=== PATIENT | male | born 1935 | race Caucasian/White ===

== ENCOUNTER → 2016-11-11 | Outpatient (CLI) | payer OTHER ==
[~2016-11-11] MED LIST: ASPEC81 PO; ASPI81TA28 PO; ATOR-24 PO; CLOP1TAB15 PO; DOCU100C PO; DONE10TA12 PO; FLUO20CA35 PO; INSDGI SC; INSUINJ14 SC; LPR25 PO; LPT40 PO; METO50TA7 PO; TAMS0.4C59 PO
[2016-11-11 13:34] LABS: BLOOD UREA NITROGEN 22 mg/dl (7-18); BUN/CREATININE RATIO 10.5 (10-20); CALCIUM 8.6 mg/dl (8.5-10.1); CARBON DIOXIDE 25 mmol/L (21-32); CHLORIDE 107 mmol/L (98-107); GLUCOSE 255 mg/dl (70-99); POTASSIUM 3.8 mmol/L (3.5-5.1); SODIUM 141 mmol/L (136-145)
== END | disposition home or self-care (01) ==
LOC: C.LABPBG 09:07
PROVIDERS: ATTEND Internal Medicine
DX: N17.9 Acute kidney failure, unspecified (principal)

== ENCOUNTER → 2016-11-14 | Outpatient (CLI) | payer OTHER ==
[2016-11-14 17:40] LABS: BLOOD UREA NITROGEN 26 mg/dl (7-18); BUN/CREATININE RATIO 12.6 (10-20); CALCIUM 8.9 mg/dl (8.5-10.1); CARBON DIOXIDE 27 mmol/L (21-32); CHLORIDE 108 mmol/L (98-107); GLUCOSE 147 mg/dl (70-99); POTASSIUM 4.6 mmol/L (3.5-5.1); SODIUM 142 mmol/L (136-145)
== END | disposition home or self-care (01) ==
LOC: C.LABPBG 12:01
PROVIDERS: ATTEND Internal Medicine
DX: I21.3 ST elevation (STEMI) myocardial infarction of unspecified site (principal)

== ENCOUNTER → 2016-11-28 | Outpatient (CLI) | payer OTHER ==
[2016-11-28 13:11] LABS: BLOOD UREA NITROGEN 23 mg/dl (7-18); BUN/CREATININE RATIO 12.9 (10-20); CARBON DIOXIDE 27 mmol/L (21-32); CHLORIDE 110 mmol/L (98-107); GLUCOSE 236 mg/dl (70-99); POTASSIUM 4.5 mmol/L (3.5-5.1); SODIUM 143 mmol/L (136-145)
== END | disposition home or self-care (01) ==
LOC: C.LABPBG 09:25
PROVIDERS: ATTEND Internal Medicine
DX: N18.3 Chronic kidney disease, stage 3 (moderate) (principal)

== ENCOUNTER → 2017-03-01 | Day surgery (SDC) | payer OTHER ==
[2017-02-10 15:37] VITALS: Ht 170.2 cm; Wt 67.3 kg
[~2017-03-01] VITALS: Ht 170.2 cm; Wt 67.3 kg
[~2017-03-01] MED LIST changes: +500ML BSS 0.3ML EPI 1:1000PF IRRIG ONE; +ACETAMINOPHEN 325 MG TAB PO PRN; +AMVISC PLUS 0.8ML SYRINGE INT OCU ONE; -ASPEC81 PO; +ATROPINE SULFATE 0.1 MG/ML 5ML SYR IV PRN; +AcetaZOLAMIDE 250 MG TAB PO SCH; +BETAXOLOL HCL 0.25% OP SUSP PER DROP CHARGE OPL SCH; +BRIMONIDINE TART 0.2% OP SOLN PER DROP CHARGE ONE; +BSS FLUSH ONE; -DONE10TA12 PO; +ENDOCOAT 0.85ML SYRINGE INT OCU ONE; +EpHEDrine SULFATE INJ 50 MG/ML AMP IV PRN; +EpINEphrine INJ 1MG/ML AMP 1 MG/ML AMP ONE; +FENTANYL CITRATE INJ 50 MCG/1 ML 2 ML VIAL IV PRN; +FLUMAZENIL 0.1 MG/1 ML 10 ML VIAL IV PRN; -FLUO20CA35 PO; -INSDGI SC; -INSUINJ14 SC; +LABETALOL HCL IV 5 MG/ML 20ML IV PRN; +LACTATED RINGER'S 1000ML 500 ML IV SCH; +LIDOCAINE 4% OP SOLN DROP CHARGE ONE; +LIDOCAINE 4% OP SOLN DROP CHARGE OPL SCH; +LIDOCAINE HCL 1% MPF 2 ML VIAL ONE; -LPR25 PO; -LPT40 PO; +MEPERIDINE HCL 25 MG/ML CARP IV PRN; +MIDAZOLAM HCL 1 MG/ML 2ML VIAL ONE; +MIX: 4ML BSS 1ML EPI 1:1000 PF INSTIL ONE; +MOXIFLOXACIN OPH SOLN PER DROP CHARGE ONE; +NALOXONE HCL 0.4 MG/1 ML VIAL/CARP IV PRN; +OCUCOAT 1 ML SOLN IO ONE; +ONDANSETRON INJ 2 MG/ML 2 ML VIAL IV PRN; +PHENYLEPHRINE 100MCG/ML 5ML SYR IV PRN; +POVIDONE-IODINE OP SOLN 30 ML BTL ONE; +PROPARACAINE 0.5% OP SOLN PER DROP CHARGE OPL SCH; -TAMS0.4C59 PO; +TOBRAMYCIN/DEXAMETHASONE OPH OINT PER APPLN CHARGE ONE
--- NOTE | 2017-03-01 06:45 | History & Physical Bridge - [place] ---
H&P Re-Evaluation Bridge Note: I have examined the patient, reviewed the History & Physical and in the interval since the performance of the History & Physical I have noted the following changes of clinical significance: No changes noted
[2017-03-01] MEDS: PHENYLEPHRINE HCL 2.5% OP SOLN PER DROP CHARGE OPL SCH ×2 (06:57→07:04)
[2017-03-01] MEDS: TROPICAMIDE 1% OP SOLN PER DROP CHARGE OPL SCH ×2 (06:58→07:05)
[2017-03-01] MEDS: CYCLOPENTOLATE HCL 1% OP SOLN PER DROP CHARGE OPL SCH ×2 (06:59→07:07)
[2017-03-01] MEDS: MOXIFLOXACIN OPH SOLN PER DROP CHARGE OPL SCH ×2 (07:00→07:11)
--- NOTE | 2017-03-01 07:57 | Discharge Instructions-SurgCtr ---
Discharge Instructions Date of Service Mar 01, 2017. Visit Reason for Visit: Cataract Left Eye Discharge Discharge Diagnosis / Problem: lens implant left eye Discharge Goals Goal(s): Improve function Activity Recommendations Activity Limitations: resume your previous activity Lifting Limitations: no more than 10 pounds Exercise/Sports Limitations: gradually increase as tolerated May Resume Sexual Activity: when tolerated Shower/Bathe: tomorrow Driving or Machine Use: resume 1 day after discharge Anesthesia . Post Anesthesia Instructions: If you have had General Anesthesia or IV Sedation: * Do not drive today. * Resume driving when surgeon permits. * Do not make important decisions or sign legal documents today. * Call surgeon for: 1. Temperature elevations greater than 101 degrees F. 2. Uncontrollable pain. 3. Excessive bleeding. 4. Persistent nausea and vomiting. 5. Medication intolerance (nausea, vomiting or rash). * For nausea and vomiting use only clear liquids such as: tea, soda, bouillon until nausea subsides, then gradually increase diet as tolerated. * If you have any concerns or questions, call your surgeon's office. If physician is unavailable and it is an emergency, call 911 or go to the nearest emergency room. . Instructions / Follow-Up Instructions / Follow-Up ACTIVITY RECOMMENDATIONS: * Light activities. * Mild irritation and blurred vision are common for the first few days. * You may walk outside, read, watch television. * Redness around the white part of the eye is common. MEDICATIONS: Resume previous medications unless instructed otherwise by your surgeon. * Take white Diamox (Acetazolamide) tablet at 1 pm today. Start all eye drops at 1 pm today: * Eye drops (today and tomorrow): Prednisone - one drop in operative eye every 3 hours while awake Ofloxacin - one drop in operative eye every 3 hours while awake Ilevro - one drop in operative eye once a day SPECIAL CARE INSTRUCTIONS: * Tape plastic shield over eye to sleep at night. Call your doctor at with any concerns or problems. FOLLOW UP VISIT: Follow-up with Dr Hollins at [place] office as scheduled. Diet Recommendations Home Diet: no limitations Procedures Procedures Performed: cataract extraction with lens implant Pending Studies Studies pending at discharge: no Medical Emergencies . Who to Call and When: Medical Emergencies: If at any time you feel your situation is an emergency, please call 911 immediately. . Non-Emergent Contact Non-Emergency issues call your: Retail Management Trainee Call Non-Emergent contact if: your pain is not controlled [phone] . . "Provider Documentation" section prepared by Edgardo Hollins. .
--- NOTE | 2017-03-01 07:59 | [facility] Operative Report ---
Operative Report Date of Service Mar 01, 2017. Operative Report 1. PREOPERATIVE DIAGNOSIS: Senile nuclear cataract, left eye. 2. POSTOPERATIVE DIAGNOSIS: Senile nuclear cataract, left eye. 3. PROCEDURE: Phacoemulsification of left cataract with posterior chamber lens implant, type [employer], model MX60, power +22.0 diopters. ANESTHESIA: Local standby. SURGEON: Dr. Hollins. COMPLICATIONS: None. OPERATING TIME: 10 minutes. 4. OPERATION AND FINDINGS: DESCRIPTION OF PROCEDURE: The left pupil was dilated. The anesthetic was administered using a topical technique. The left eye was prepped and draped. A speculum was placed. A clear corneal incision was formed. The chamber was filled with Amvisc Plus and Endocoat. Epinephrine solution was used. A paracentesis was placed. A capsulorrhexis was performed. The nucleus was hydrodissected. A dense lens was removed with phacoemulsification. Time was 7.30 seconds. The aspiration unit was used to remove the cortex. The capsule was filled with Amvisc Plus. The lens implant was folded and placed into the capsule. The incision was hydrated. The Amvisc was aspirated. The wound was secure. The chamber was deep. The pupil was round. Brimonidine, TobraDex ointment and Vigamox solution were placed. The speculum was removed. The patient was returned to the Recovery Room in stable condition. I attest to the content of the Intraoperative Record and any orders documented therein. Any exceptions are noted below. The scribe's documentation has been prepared in my presence, under my direction and personally reviewed by me in its entirety. I confirm that the note above accurately reflects all work, treatment, procedures, and medical decision making performed by me. I personally scribed for Edgardo Hollins M.D. ([email or web address]) on 03/01/17 at 07:59. Electronically submitted by Misty Faust ([facility]).
[2017-03-01 08:00] VITALS: TEMP 36.5
--- NOTE | 2017-03-01 08:13 | Anesthesia Progress Nt - [facility] ---
Anesthesia Post Op Note Date & Time Mar 01, 2017 at 08:13 Vital Signs Pain Intensity: 0 Vital Signs Past 12 Hours Date Time Temp Pulse Resp B/P (MAP) Pulse Ox O2 Delivery O2 Flow Rate FiO2 03/01/17 06:28 36.9 61 124/79 (94) 96 Room Air Notes Mental Status: alert / awake / arousable, participated in evaluation Pt Amnestic to Procedure: Yes Nausea / Vomiting: adequately controlled Pain: adequately controlled Airway Patency, RR, SpO2: stable & adequate BP & HR: stable & adequate Hydration State: stable & adequate Anesthetic Complications: no major complications apparent
[2017-03-01 08:29] VITALS: BP 134/84; PULSE 61; O2SAT 96
== END | disposition home or self-care (01) ==
LOC: X.SURG 06:19
PROVIDERS: ATTEND Specialist
DX: H25.12 Age-related nuclear cataract, left eye (principal); I25.2 Old myocardial infarction; E11.9 Type 2 diabetes mellitus without complications; I10 Essential (primary) hypertension; E78.5 Hyperlipidemia, unspecified; Z86.73 Personal history of transient ischemic attack (TIA), and cerebral infarction without residual deficits; Z79.82 Long term (current) use of aspirin

== ENCOUNTER → 2017-04-03 | Outpatient (CLI) | payer OTHER ==
[~2017-04-03] MED LIST changes: -500ML BSS 0.3ML EPI 1:1000PF IRRIG ONE; -ACETAMINOPHEN 325 MG TAB PO PRN; -AMVISC PLUS 0.8ML SYRINGE INT OCU ONE; -ATROPINE SULFATE 0.1 MG/ML 5ML SYR IV PRN; -AcetaZOLAMIDE 250 MG TAB PO SCH; -BETAXOLOL HCL 0.25% OP SUSP PER DROP CHARGE OPL SCH; -BRIMONIDINE TART 0.2% OP SOLN PER DROP CHARGE ONE; -BSS FLUSH ONE; -ENDOCOAT 0.85ML SYRINGE INT OCU ONE; -EpHEDrine SULFATE INJ 50 MG/ML AMP IV PRN; -EpINEphrine INJ 1MG/ML AMP 1 MG/ML AMP ONE; -FENTANYL CITRATE INJ 50 MCG/1 ML 2 ML VIAL IV PRN; -FLUMAZENIL 0.1 MG/1 ML 10 ML VIAL IV PRN; -LABETALOL HCL IV 5 MG/ML 20ML IV PRN; -LACTATED RINGER'S 1000ML 500 ML IV SCH; -LIDOCAINE 4% OP SOLN DROP CHARGE ONE; -LIDOCAINE 4% OP SOLN DROP CHARGE OPL SCH; -LIDOCAINE HCL 1% MPF 2 ML VIAL ONE; -MEPERIDINE HCL 25 MG/ML CARP IV PRN; -MIDAZOLAM HCL 1 MG/ML 2ML VIAL ONE; -MIX: 4ML BSS 1ML EPI 1:1000 PF INSTIL ONE; -MOXIFLOXACIN OPH SOLN PER DROP CHARGE ONE; -NALOXONE HCL 0.4 MG/1 ML VIAL/CARP IV PRN; -OCUCOAT 1 ML SOLN IO ONE; -ONDANSETRON INJ 2 MG/ML 2 ML VIAL IV PRN; -PHENYLEPHRINE 100MCG/ML 5ML SYR IV PRN; -POVIDONE-IODINE OP SOLN 30 ML BTL ONE; -PROPARACAINE 0.5% OP SOLN PER DROP CHARGE OPL SCH; -TOBRAMYCIN/DEXAMETHASONE OPH OINT PER APPLN CHARGE ONE
[2017-04-03 13:46] LABS: ESTIMATED AVERAGE GLUCOSE 197 mg/dl; HA1C FLAG Normal (Normal)
[2017-04-03 14:41] LABS: ALT/SGPT 24 U/L (12-78); BLOOD UREA NITROGEN 24 mg/dl (7-18); BUN/CREATININE RATIO 12.9 (10-20); CALCIUM 9.3 mg/dl (8.5-10.1); CARBON DIOXIDE 27 mmol/L (21-32); CHLORIDE 103 mmol/L (98-107); CREATININE 1.89 mg/dl (0.60-1.40); GLUCOSE 200 mg/dl (70-99); POTASSIUM 4.2 mmol/L (3.5-5.1); SODIUM 139 mmol/L (136-145)
[2017-04-03 14:42] LABS: ALB/GLOB RATIO 0.9 (0.9-2); ALKALINE PHOSPHATASE 188 U/L (45-117); AST/SGOT 22 U/L (15-37)
== END | disposition home or self-care (01) ==
LOC: C.LABPBG 09:52
PROVIDERS: ATTEND Internal Medicine
DX: G30.9 Alzheimer's disease, unspecified (principal); N18.3 Chronic kidney disease, stage 3 (moderate); I25.10 Atherosclerotic heart disease of native coronary artery without angina pectoris; E11.22 Type 2 diabetes mellitus with diabetic chronic kidney disease; I35.0 Nonrheumatic aortic (valve) stenosis

== ENCOUNTER 2019-11-03 15:05 | Inpatient (IN) ==
--- NOTE | 2019-11-03 15:55 | Emergency Department Note ---
History of Present Illness General Chief complaint: Hyperglycemia Stated complaint: HIGH BLOOD SUGAR Time Seen by Provider: 11/03/19 15:26 Source: patient Mode of arrival: ambulatory Limitations: altered mental status History of Present Illness Provider complaint: Polydipsia, polyuria Onset (ago): week(s) Severity: moderate Maximum Pain Intensity: 0 Associated symptoms: + denies other symptoms Treatments prior to arrival: none This is an 83-year-old male from home brought in by his daughter today due to recent increased thirst and urination. Daughter says patient does have a history of dementia and approximately 7 years ago stopped taking his medications. He does live with his elderly who she states has had a decline in her cognition as well. She has been unable to persuade him to take his medications either. She states the children became more involved recently after the fell. She states they have contacted the agency on aging as well as a few local facilities to try and begin to arrange a transition into assisted living. She states the patient had otherwise not shown any obvious signs or symptoms nor complained of anything. She states he is supposed to be taking other medications for his blood pressure and his heart, however has been noncompliant with those also. She states he has been a diabetic for many many years, initially starting on oral therapy and then transitioning to insulin injections. She states really people who have been in and out of their home are her and her 2 siblings. She states no one has otherwise recently been sick. No known exposure to any coronavirus positive individual. They state they do not know of any recent fall by the patient. Pt seen during a time of high acuity and national emergency pandemic while wearing PPE. Home Medications Home Medications Medication Instructions Recorded Confirmed Type aspirin 81 mg tablet,delayed 81 mg PO DAILY 01/15/19 11/03/19 History release atorvastatin 40 mg tablet 40 mg PO DAILY 01/15/19 11/03/19 History clopidogrel 75 mg tablet 75 mg PO DAILY 01/15/19 11/03/19 History docusate sodium 100 mg capsule 100 mg PO DAILY 01/15/19 11/03/19 History metoprolol succinate 50 mg 50 mg PO DAILY 01/15/19 11/03/19 History tablet,extended release 24 hr Allergies Allergy/AdvReac Type Severity Reaction Status Date / Time codeine Allergy Mild UNKNOWN Verified 11/03/19 16:05 REACTION gemfibrozil Allergy Verified 11/03/19 16:05 niacin Allergy Verified 11/03/19 16:05 simvastatin Allergy Verified 11/03/19 16:05 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) Family History Father Acute myocardial infarction Mother Acute myocardial infarction Family history of suicide Unknown Diabetes Heart disease Hypertension Social History Preferred Language: Polish Communication Ability: Effective Visual Impairment: Limited Hearing Ability: Hard of Hearing Applications Programmer Required: No Beliefs That Will Affect Care: None marital status: Current Living Situation: Spouse current occupational status: retired Other Information That Helps Us Care for You: No Feels Safe at Home: Yes Safety Concerns: Feels Safe At This Time Smoking Status: Never smoker Second Hand Exposure: Yes (as a child) ; Hx Alcohol Use: No Hx Substance Use: No Childhood Exposure to Second-Hand Smoke: Yes Diet Comment: well balanced. caffeine: Yes (Coffee x 2 per day.) during the past year weight has: decreased > 10 lbs Dental Care, Regularly: No Physical Activity Frequency: Does not Exercise Seatbelt Use: always Sunscreen Use: No Review of Systems See HPI for pertinent positives & negatives. and A total of 10 systems reviewed and were otherwise negative Physical Exam Vital Signs Vital Signs - 24 hr 11/03/19 15:08 11/03/19 17:00 11/03/19 18:45 Temperature 36.9 C Temperature Source Oral Pulse Rate 74 74 76 Pulse Rate from SpO2 Sensor 76 Pulse Rhythm Regular Pulse Strength Normal Respiratory Rate 20 15 18 Respiratory Effort / Characteristics Non-Labored Respiratory Depth Normal Respiratory Pattern Regular Blood Pressure 145/76 H 113/70 111/78 Blood Pressure Mean 99 84 92 Blood Pressure Position Sitting Pulse Oximetry 98 97 97 Oxygen Delivery Method Room Air Sepsis Recent Fever Within 48 Hours No Sepsis Action Taken by Nursing No Action Required GENERAL: alert, well appearing, well nourished, no distress, non-toxic EYE EXAM: normal conjunctiva, PERRL and EOM's grossly intact OROPHARYNX: no exudate, no erythema, lips, buccal mucosa, and tongue normal and mucous membranes are moist NECK: supple, no nuchal rigidity, no adenopathy, non-tender LUNGS: Clear to auscultation. Normal chest wall mechanics, no w/r/r HEART: no murmurs, S1 normal and S2 normal ABDOMEN: abdomen soft, non-tender, normo-active bowel sounds, no masses, no rebound or guarding. BACK: Back is symmetrical on inspection and there is no deformity, no midline tenderness, no CVA tenderness. SKIN: no rashes and no bruising, no petechia UPPER EXTREMITIES: upper extremities are grossly normal. FROM, nml pulses b/l. LOWER EXTREMITIES: No pitting edema. FROM, nml pulses b/l. NEURO EXAM: pt can answer a few simple questions, otherwise confused, cranial nerves II-XII grossly intact, normal speech, no facial droop, no gross weakness of arms, no gross weakness of legs. Gross sensation intact. Course Course 1744: Pt and daughter updated on results. Discussed disposition. Will ask watch caser to help discuss options with them. 1824: vice president planning met with pt and family. I discussed concerns about him returning home at this time and daughter in agreement with plan. 1934: Discussed with hospitalist. Administered Medications Atorvastatin Calcium (Lipitor) 40 mg PO DAILY [facility] Stop: 12/04/19 08:59 Last Admin: 11/05/19 08:49 Dose: 40 mg Documented by: [id number] Admin: 11/04/19 08:32 Dose: 40 mg Documented by: [id number] Clopidogrel Bisulfate (Plavix) 75 mg PO DAILY [facility] Stop: 12/04/19 08:59 Last Admin: 11/05/19 08:49 Dose: 75 mg Documented by: [id number] Admin: 11/04/19 08:32 Dose: 75 mg Documented by: [id number] Docusate Sodium (Colace) 100 mg PO DAILY [facility] Stop: 12/04/19 08:59 Last Admin: 11/05/19 08:49 Dose: 100 mg Documented by: [id number] Admin: 11/04/19 08:32 Dose: 100 mg Documented by: [id number] Heparin Sodium (Porcine) (Heparin Sodium (Porcine)) 5,000 units SQ Q12 [facility] Stop: 12/03/19 21:15 Last Admin: 11/05/19 20:46 Dose: 5,000 units Documented by: [id number] Cosigned by: [id number] Admin: 11/05/19 08:41 Dose: 5,000 units Documented by: [id number] Cosigned by: [id number] Admin: 11/04/19 20:29 Dose: 5,000 units Documented by: [id number] Cosigned by: [id number] Admin: 11/04/19 08:30 Dose: 5,000 units Documented by: [id number] Cosigned by: [id number] Admin: 11/03/19 22:23 Dose: 5,000 units Documented by: [id number] Cosigned by: [id number] Insulin Aspart (Novolog Flexpen) 0 units SC ACHS [facility]; Protocol Stop: 12/04/19 07:29 Last Admin: 11/05/19 20:46 Dose: 2 units Documented by: [id number] Cosigned by: [id number] Admin: 11/05/19 17:34 Dose: Not Given Documented by: [id number] Admin: 11/05/19 12:33 Dose: 7 units Documented by: [id number] Cosigned by: [id number] Admin: 11/05/19 08:40 Dose: 4 units Documented by: [id number] Cosigned by: [id number] Admin: 11/04/19 20:28 Dose: 1 units Documented by: [id number] Cosigned by: [id number] Admin: 11/04/19 17:31 Dose: 6 units Documented by: [id number] Cosigned by: [id number] Admin: 11/04/19 12:19 Dose: 4 units Documented by: [id number] Cosigned by: [id number] Admin: 11/04/19 08:29 Dose: 2 units Documented by: [id number] Cosigned by: [id number] Insulin Glargine (Lantus Solostar Pen) 7 units SC BID [facility]; Protocol Stop: 12/05/19 08:59 Last Admin: 11/05/19 20:45 Dose: 7 units Documented by: [id number] Cosigned by: [id number] Admin: 11/05/19 08:41 Dose: 7 units Documented by: [id number] Cosigned by: [id number] Melatonin (Melatonin) 3 mg PO HS PRN PRN Reason: Sleep Stop: 12/05/19 17:08 Last Admin: 11/05/19 20:45 Dose: 3 mg Documented by: [id number] Metoprolol Succinate (Toprol Xl) 25 mg PO QAM [facility] Stop: 12/05/19 08:59 Last Admin: 11/05/19 08:50 Dose: 25 mg Documented by: [id number] Quetiapine Fumarate (Seroquel) 25 mg PO HS [facility] Stop: 12/05/19 20:59 Last Admin: 11/05/19 20:49 Dose: 25 mg Documented by: [id number] Discontinued Medications Sodium Chloride (Nss 1000ml) 1,000 mls @ 125 mls/hr IV .Q8H [facility] Stop: 12/03/19 15:59 Last Infusion: 11/04/19 14:41 Dose: 0 mls/hr Documented by: [id number] Admin: 11/04/19 10:03 Dose: 125 mls/hr Documented by: [id number] Infusion: 11/04/19 09:20 Dose: 125 mls/hr Documented by: [id number] Admin: 11/04/19 01:20 Dose: 125 mls/hr Documented by: [id number] Infusion: 11/03/19 19:24 Dose: 0 mls/hr Documented by: [id number] Admin: 11/03/19 16:03 Dose: 125 mls/hr Documented by: [id number] Insulin Aspart (Novolog Flexpen) 2 units SC ACHS [facility] Stop: 11/04/19 07:31 Last Admin: 11/04/19 08:29 Dose: 2 units Documented by: [id number] Cosigned by: [id number] Insulin Glargine (Lantus Solostar Pen) 5 units SQ NOW STA Stop: 11/04/19 05:58 Last Admin: 11/04/19 06:10 Dose: 5 units Documented by: [id number] Cosigned by: [id number] Insulin Glargine (Lantus Solostar Pen) 5 units SC QAM [facility] Stop: 12/05/19 08:59 Last Admin: 11/04/19 08:31 Dose: 5 units Documented by: [id number] Cosigned by: [id number] Insulin Glargine (Lantus Solostar Pen) 5 units SC BID [facility]; Protocol Stop: 12/04/19 20:59 Last Admin: 11/04/19 20:28 Dose: 5 units Documented by: [id number] Cosigned by: [id number] Insulin Human Regular (Novolin R U-100 Per Unit) 10 units SC NOW STA Stop: 11/03/19 16:51 Last Admin: 11/03/19 17:06 Dose: 10 units Documented by: [id number] Cosigned by: [id number] Medical Decision Making Differential Diagnosis Differential Diagnosis includes but is not limited to dehydration, stroke, anemia, hypoglycemia, hyponatremia, hypernatremia, urinary tract infection, pneumonia, bronchitis, sepsis, gastroenteritis, additional abdominal pathology, metabolic abnormalities and infections. Medical Records Attestation: I reviewed the patient's medical records. Home Medications Current Medication List: was personally reviewed by me Laboratory Data Attestation: I reviewed the patient's lab results. Result diagrams: 11/04/19 05:54 11/05/19 07:14 Lab Results 11/03/19 11/03/19 11/03/19 Range/Units 15:19 15:37 15:37 WBC 10.67 (4.8-10.8) K/uL RBC 4.78 (4.7-6.1) M/uL Hgb 15.0 (14.0-18.0) g/dL Hct 42.9 (42-52) % MCV 89.7 (80-100) fL MCH 31.4 (25-34) pg MCHC 35.0 (32-36) g/dL RDW Std Deviation (36.4-46.3) fL RDW Coeff of Gordo (11.5-14.5) % Plt Count 192 (130-400) K/uL MPV (7.4-10.4) fL Immature Gran % (Auto) 0.2 % Neut % (Auto) 75.9 % Lymph % (Auto) 15.8 % [place] % (Auto) 6.9 % Eos % (Auto) 1.1 % Baso % (Auto) 0.1 % Immature Gran # (Auto) 0.02 (0.00-0.02) K/uL Neut # (Auto) 8.09 H (1.4-6.5) K/uL Lymph # (Auto) 1.69 (1.2-3.4) K/uL [place] # (Auto) 0.74 H (0.11-0.59) K/uL Eos # (Auto) 0.12 (0-0.5) K/uL Baso # (Auto) 0.01 (0-0.2) K/uL Sodium 126 L (136-145) mmol/L Potassium 4.7 (3.5-5.1) mmol/L Chloride 91 L (98-107) mmol/L Carbon Dioxide 26 (21-32) mmol/L Anion Gap 8.0 (3-11) BUN 45 H (7-18) mg/dl Creatinine 2.00 H (0.6-1.4) mg/dl Est Cr Clr Drug Dosing Not Reportable Est GFR ( Amer) 34.3 Est GFR (Non-Af Amer) 29.6 BUN/Creatinine Ratio 22.7 H (10-20) Glucose 637 H* (70-99) mg/dl POC Glucose > 600 H* (70-99) mg/dl Estimat Average Glucose mg/dl Hemoglobin A1c (4.5-5.6) % Calcium 9.1 (8.5-10.1) mg/dl Magnesium 1.9 (1.8-2.4) mg/dl Total Bilirubin 0.5 (0.2-1) mg/dl AST 16 (15-37) U/L ALT 18 (12-78) U/L Alkaline Phosphatase 190 H (45-117) U/L Troponin I < 0.015 (0-0.045) ng/ml Total Protein 8.3 H (6.4-8.2) gm/dl Albumin 3.2 L (3.4-5.0) gm/dl Globulin 5.1 H (2.5-4.0) gm/dl Albumin/Globulin Ratio 0.6 L (0.9-2) Lipase 153 (73-393) U/L Beta-Hydroxybutyric Acd 1.57 (0.2-2.81) mg/dl TSH 1.080 (0.300-4.500) uIu/ml Specimen Hemolysis 11/03/19 11/03/19 11/03/19 Range/Units 17:43 18:43 21:17 WBC (4.8-10.8) K/uL RBC (4.7-6.1) M/uL Hgb (14.0-18.0) g/dL Hct (42-52) % MCV (80-100) fL MCH (25-34) pg MCHC (32-36) g/dL RDW Std Deviation (36.4-46.3) fL RDW Coeff of Gordo (11.5-14.5) % Plt Count (130-400) K/uL MPV (7.4-10.4) fL Immature Gran % (Auto) % Neut % (Auto) % Lymph % (Auto) % [place] % (Auto) % Eos % (Auto) % Baso % (Auto) % Immature Gran # (Auto) (0.00-0.02) K/uL Neut # (Auto) (1.4-6.5) K/uL Lymph # (Auto) (1.2-3.4) K/uL [place] # (Auto) (0.11-0.59) K/uL Eos # (Auto) (0-0.5) K/uL Baso # (Auto) (0-0.2) K/uL Sodium (136-145) mmol/L Potassium (3.5-5.1) mmol/L Chloride (98-107) mmol/L Carbon Dioxide (21-32) mmol/L Anion Gap (3-11) BUN (7-18) mg/dl Creatinine (0.6-1.4) mg/dl Est Cr Clr Drug Dosing Est GFR ( Amer) Est GFR (Non-Af Amer) BUN/Creatinine Ratio (10-20) Glucose (70-99) mg/dl POC Glucose 539 H* 437 H* 243 H (70-99) mg/dl Estimat Average Glucose mg/dl Hemoglobin A1c (4.5-5.6) % Calcium (8.5-10.1) mg/dl Magnesium (1.8-2.4) mg/dl Total Bilirubin (0.2-1) mg/dl AST (15-37) U/L ALT (12-78) U/L Alkaline Phosphatase (45-117) U/L Troponin I (0-0.045) ng/ml Total Protein (6.4-8.2) gm/dl Albumin (3.4-5.0) gm/dl Globulin (2.5-4.0) gm/dl Albumin/Globulin Ratio (0.9-2) Lipase (73-393) U/L Beta-Hydroxybutyric Acd (0.2-2.81) mg/dl TSH (0.300-4.500) uIu/ml Specimen Hemolysis 11/04/19 11/04/19 11/04/19 Range/Units 00:32 03:18 05:21 WBC (4.8-10.8) K/uL RBC (4.7-6.1) M/uL Hgb (14.0-18.0) g/dL Hct (42-52) % MCV (80-100) fL MCH (25-34) pg MCHC (32-36) g/dL RDW Std Deviation (36.4-46.3) fL RDW Coeff of Gordo (11.5-14.5) % Plt Count (130-400) K/uL MPV (7.4-10.4) fL Immature Gran % (Auto) % Neut % (Auto) % Lymph % (Auto) % [place] % (Auto) % Eos % (Auto) % Baso % (Auto) % Immature Gran # (Auto) (0.00-0.02) K/uL Neut # (Auto) (1.4-6.5) K/uL Lymph # (Auto) (1.2-3.4) K/uL [place] # (Auto) (0.11-0.59) K/uL Eos # (Auto) (0-0.5) K/uL Baso # (Auto) (0-0.2) K/uL Sodium (136-145) mmol/L Potassium (3.5-5.1) mmol/L Chloride (98-107) mmol/L Carbon Dioxide (21-32) mmol/L Anion Gap (3-11) BUN (7-18) mg/dl Creatinine (0.6-1.4) mg/dl Est Cr Clr Drug Dosing Est GFR ( Amer) Est GFR (Non-Af Amer) BUN/Creatinine Ratio (10-20) Glucose (70-99) mg/dl POC Glucose 226 H 227 H 234 H (70-99) mg/dl Estimat Average Glucose mg/dl Hemoglobin A1c (4.5-5.6) % Calcium (8.5-10.1) mg/dl Magnesium (1.8-2.4) mg/dl Total Bilirubin (0.2-1) mg/dl AST (15-37) U/L ALT (12-78) U/L Alkaline Phosphatase (45-117) U/L Troponin I (0-0.045) ng/ml Total Protein (6.4-8.2) gm/dl Albumin (3.4-5.0) gm/dl Globulin (2.5-4.0) gm/dl Albumin/Globulin Ratio (0.9-2) Lipase (73-393) U/L Beta-Hydroxybutyric Acd (0.2-2.81) mg/dl TSH (0.300-4.500) uIu/ml Specimen Hemolysis 11/04/19 11/04/19 11/04/19 Range/Units 05:54 05:54 05:54 WBC 8.14 (4.8-10.8) K/uL RBC 4.39 L (4.7-6.1) M/uL Hgb 13.7 L (14.0-18.0) g/dL Hct 39.3 L (42-52) % MCV 89.5 (80-100) fL MCH 31.2 (25-34) pg MCHC 34.9 (32-36) g/dL RDW Std Deviation 40.0 (36.4-46.3) fL RDW Coeff of Gordo 12.4 (11.5-14.5) % Plt Count 156 (130-400) K/uL MPV 10.3 (7.4-10.4) fL Immature Gran % (Auto) 0.2 % Neut % (Auto) 71.0 % Lymph % (Auto) 18.7 % [place] % (Auto) 7.4 % Eos % (Auto) 2.3 % Baso % (Auto) 0.4 % Immature Gran # (Auto) 0.02 (0.00-0.02) K/uL Neut # (Auto) 5.78 (1.4-6.5) K/uL Lymph # (Auto) 1.52 (1.2-3.4) K/uL [place] # (Auto) 0.60 H (0.11-0.59) K/uL Eos # (Auto) 0.19 (0-0.5) K/uL Baso # (Auto) 0.03 (0-0.2) K/uL Sodium 136 D (136-145) mmol/L Potassium 3.9 D (3.5-5.1) mmol/L Chloride 103 (98-107) mmol/L Carbon Dioxide 26 (21-32) mmol/L Anion Gap 7.0 (3-11) BUN 38 H (7-18) mg/dl Creatinine 1.50 H D (0.6-1.4) mg/dl Est Cr Clr Drug Dosing 33.6 Est GFR ( Amer) 48.5 Est GFR (Non-Af Amer) 41.9 BUN/Creatinine Ratio 25.0 H (10-20) Glucose 259 H (70-99) mg/dl POC Glucose (70-99) mg/dl Estimat Average Glucose 275 mg/dl Hemoglobin A1c 11.2 H (4.5-5.6) % Calcium 8.4 L (8.5-10.1) mg/dl Magnesium (1.8-2.4) mg/dl Total Bilirubin (0.2-1) mg/dl AST (15-37) U/L ALT (12-78) U/L Alkaline Phosphatase (45-117) U/L Troponin I (0-0.045) ng/ml Total Protein (6.4-8.2) gm/dl Albumin (3.4-5.0) gm/dl Globulin (2.5-4.0) gm/dl Albumin/Globulin Ratio (0.9-2) Lipase (73-393) U/L Beta-Hydroxybutyric Acd (0.2-2.81) mg/dl TSH (0.300-4.500) uIu/ml Specimen Hemolysis 11/04/19 11/04/19 Range/Units 07:48 07:50 WBC (4.8-10.8) K/uL RBC (4.7-6.1) M/uL Hgb (14.0-18.0) g/dL Hct (42-52) % MCV (80-100) fL MCH (25-34) pg MCHC (32-36) g/dL RDW Std Deviation (36.4-46.3) fL RDW Coeff of Gordo (11.5-14.5) % Plt Count (130-400) K/uL MPV (7.4-10.4) fL Immature Gran % (Auto) % Neut % (Auto) % Lymph % (Auto) % [place] % (Auto) % Eos % (Auto) % Baso % (Auto) % Immature Gran # (Auto) (0.00-0.02) K/uL Neut # (Auto) (1.4-6.5) K/uL Lymph # (Auto) (1.2-3.4) K/uL [place] # (Auto) (0.11-0.59) K/uL Eos # (Auto) (0-0.5) K/uL Baso # (Auto) (0-0.2) K/uL Sodium (136-145) mmol/L Potassium (3.5-5.1) mmol/L Chloride (98-107) mmol/L Carbon Dioxide (21-32) mmol/L Anion Gap (3-11) BUN (7-18) mg/dl Creatinine (0.6-1.4) mg/dl Est Cr Clr Drug Dosing Est GFR ( Amer) Est GFR (Non-Af Amer) BUN/Creatinine Ratio (10-20) Glucose (70-99) mg/dl POC Glucose 317 H* 276 H (70-99) mg/dl Estimat Average Glucose mg/dl Hemoglobin A1c (4.5-5.6) % Calcium (8.5-10.1) mg/dl Magnesium (1.8-2.4) mg/dl Total Bilirubin (0.2-1) mg/dl AST (15-37) U/L ALT (12-78) U/L Alkaline Phosphatase (45-117) U/L Troponin I (0-0.045) ng/ml Total Protein (6.4-8.2) gm/dl Albumin (3.4-5.0) gm/dl Globulin (2.5-4.0) gm/dl Albumin/Globulin Ratio (0.9-2) Lipase (73-393) U/L Beta-Hydroxybutyric Acd (0.2-2.81) mg/dl TSH (0.300-4.500) uIu/ml Specimen Hemolysis ECG Data Attestation: I personally reviewed and interpreted this ECG as follows: Indication: + altered mental status Rate (beats per minute): 82 Rhythm: + normal sinus ECG Intervals/blocks: + Normal QRS and + Normal QT ECG [place]: + Normal ECG Findings: + Q waves (III, aVF) Blood Pressure Blood Pressure Findings: Elevated blood pressure Blood Pressure Disposition: Referred to patients primary care provider MDM Narrative THis is an elderly male brought by his daughter to the ER after family noticed increased urination and drinking water. Pt has long hx of DM and per the daughter with his decline in cognition, he began refusing to take his medications several years ago. Pt with mardedly elevated glucose. It is unclear how long it may have been this high. No evidence of DKA. More likely HHNK evolving. Pt with no complaints here. VS stable. Pt with CKD, Cr today similar compared to prior in EMR. No evidence of acute infection. Pseudohyponatremia noted. UA pending given polyuria. Discussed with pt and daughter and asked watch caser to assist with information for additional care. Discussed admission at this time given risks and need for additional glucose control and they were in agreement. An order was placed for continuous cardiac monitoring. The monitor shows a rate of _96_ with normal sinus_ rhythm. Impression & Plan Hyperglycemia, Dementia Discharge Plan Visit Data *Final* Discharge Date/Time: 11/03/19 20:55 Chief Complaint: Hyperglycemia Stated Complaint: HIGH BLOOD SUGAR ED Provider: Leann Sanchez Discharge Problem: Hyperglycemia, Dementia Patient Disposition: Admitted As Inpatient Condition: Good Discharge Instructions Interventions: ED Discharge Assessment Last Done: 11/03/19 20:55
[2019-11-03] MEDS: SODIUM CHLORIDE 0.9% 1000ML 1,000 ML IV SCH (16:03)
[2019-11-03 16:21] LABS: Basophils # (auto) 0.01 K/uL (0-0.2); Basophils % (auto) 0.1 %; Eosinophils # (auto) 0.12 K/uL (0-0.5); Eosinophils % (auto) 1.1 %; Hematocrit (blood only) 42.9 % (42-52); Immature Granulocytes # (auto) 0.02 K/uL (0.00-0.02); Immature Granulocytes % (auto) 0.2 %; Lymphocytes # (auto) 1.69 K/uL (1.2-3.4); Lymphocytes % (auto) 15.8 %; Mean Corpuscular Hemoglobin 31.4 pg (25-34); Mean Corpuscular Volume 89.7 fL (80-100); Monocytes # (auto) 0.74 K/uL (0.11-0.59); Monocytes % (auto) 6.9 %; Neutrophils # (auto) 8.09 K/uL (1.4-6.5); Neutrophils % (auto) 75.9 %; Platelet Count 192 K/uL (130-400); Red Blood Count 4.78 M/uL (4.7-6.1); White Blood Count 10.67 K/uL (4.8-10.8)
[2019-11-03 16:22] LABS: Alanine Aminotransferase 18 U/L (12-78); Albumin Globulin Ratio 0.6 (0.9-2); Albumin Level 3.2 gm/dl (3.4-5.0); Alkaline Phosphatase 190 U/L (45-117); Aspartate Aminotransferase 16 U/L (15-37); BUN Creatinine Ratio 22.7 (10-20); Bilirubin,Total 0.5 mg/dl (0.2-1); Blood Urea Nitrogen 45 mg/dl (7-18); Calcium 9.1 mg/dl (8.5-10.1); Carbon Dioxide 26 mmol/L (21-32); Chloride 91 mmol/L (98-107); Est GFR (African American) 34.3; Est GFR (Non-African American) 29.6; Globulin 5.1 gm/dl (2.5-4.0); Glucose 637 mg/dl (70-99); Lipase 153 U/L (73-393); Magnesium 1.9 mg/dl (1.8-2.4); Potassium 4.7 mmol/L (3.5-5.1); Sodium 126 mmol/L (136-145); Total Protein 8.3 gm/dl (6.4-8.2); Troponin I < 0.015 ng/ml (0-0.045)
[2019-11-03 16:36] LABS: Beta-Hydroxybutyrate 1.57 mg/dl (0.2-2.81)
[2019-11-03] MEDS ORDERED: NovoLIN-R INSULIN PER UNIT CHARGE SC STA (16:50)
--- NOTE | 2019-11-03 20:06 | History & Physical Report ---
Date of Service November 03, 2019 Assessment & Plan (1) Severe hyperglycemia due to diabetes mellitus: Faisal is a 83yo M with a PMHx of OH, diverticulitis, BPH, HLD, T2DM, CKD, CAD, and Alzheimers dementia who as not taken any medications 'since 2012' who presents with hyperglycemia. Hyperglycemia, hyperglycemic hyperosmolar state Serum glucose greater than 600 on admission. No signs of infection, no fever, no leukocytosis, suspect dietary w/ type 2 diabetes mellitus without oral anti-glycemic regimen. Beta hydroxybutyrate negative. No increased anion gap. Serum bicarb normal. Received 10 units of insulin regular subcu on admission, glucose downtrending currently in 400s Glucose checks every 2 hours, trend until glucose bottoms out/increases and then will determine further insulin dosing at that time IVFM NSS continue 125 cc/h N.p.o. at this time Lipase 153 TSH negative Type 2 diabetes mellitus HHS treatment as above A1c pending Patient will likely need to start oral anti-glycemic agent with close follow-up to PCP. No foot ulcers or neuropathy noted on exam. Defer JASSON/ARB in the setting of suspected MELANIA Pseudohyponatremia Sodium 126, corrected for hyperglycemia normalizes to 130s Trend BMP daily CAD with history of PCI Patient has not had follow-up in many years since he was put on dual antiplatelet therapy Continue Plavix Continue atorvastatin 40 mg Metoprolol 50 mg XL held for tachycardia/hypotension with volume depletion, resume in morning if vital stable Patient with strong systolic murmur not previously known to him, TTE ordered for follow-up Troponin negative CKD,? MELANIA Baseline unknown Creatinine 2.0 on admission, last known creatinine 1.9 in 2017 Hold nephrotoxins Fluid repletion and IV fluids as above BMP daily Disposition/social planning Patient lives alone at home with his , both who have limitations due to age and patient's Alzheimer's dementia. Concern for patient's ability to self-care and manage his medications. His daughter is looking into potential assisted living or home services, would like to discuss further with social during admission. Consult placed. DVT prophylaxis: Heparin 5000 every 8 Diet: N.p.o. Disposition: Medical telemetry (2) History of OH (myocardial infarction): (3) Diverticulosis: (4) Debilitated patient: (5) Benign prostatic hyperplasia with urinary obstruction: (6) Diabetes mellitus: (7) CKD (chronic kidney disease), stage III: (8) CAD, multiple vessel: (9) Aortic valve stenosis, moderate: (10) Alzheimer's disease: History of Present Illness Chief Complaint: Polyuria, Fatigue Primary Care Provider: Dimitris Cortez MD Faisal is a 83yo M with a PMHx of OH, diverticulitis, BPH, HLD, T2DM, CKD, CAD, and Alzheimers dementia who as not taken any medications 'since 2012' who presents with hyperglycemia. Faisal is seen at the bedside with his daughter. Faisal is a limited historian, history is collected via collateral with his daughter Leann. She reports that for several weeks he has had progressively increasing thirst, polyuria, and fatigue. His daughter also expresses concerns as she remembers that he was di abetic but has been eating doughnuts and drinking mostly soda and juice when thirsty. Report that he has not taken medications regularly or as directed since 2013. His daughter expresses concern that Faisal lives at home with his , but is limited by Alzheimer's dementia. They are looking into certified social workers in health care, home services, or potential assisted living. They report that Zia has had increasing fatigue and sleepiness, but without syncope or presyncope. He denies fever, chills, sweats, abdominal pain, dysuria, nausea/vomiting/diarrhea. He denies vision change, endorses the need for glasses at baseline. he has not had any chest pain, chest pressure, palpitations, leg swelling, or shortness of breath. His PCP is Dr. Cortez, but he follows infrequently per his daughter. Medhx: updated/reviewed Medications: Reviewed, but pt reports has not taken as prescribed in many years SHx: PCI Allergies: Reviewed Social: Former tobacco use quit 'years ago.' Denies alcohol use. [facility]. Lives at home with his as noted above. DNR/DNI: Full code, discussed with patient and his daughter. They prefer to remain full code at this time, but she thinks he has a living will and will check and will revisit discussion tomorrow. Allergies Allergy/AdvReac Type Severity Reaction Status Date / Time codeine Allergy Mild UNKNOWN Verified 11/03/19 16:05 REACTION gemfibrozil Allergy Verified 11/03/19 16:05 niacin Allergy Verified 11/03/19 16:05 simvastatin Allergy Verified 11/03/19 16:05 Home Medications Home Medications Medication Instructions Recorded Confirmed Type aspirin 81 mg tablet,delayed 81 mg PO DAILY 01/15/19 11/03/19 History release atorvastatin 40 mg tablet 40 mg PO DAILY 01/15/19 11/03/19 History clopidogrel 75 mg tablet 75 mg PO DAILY 01/15/19 11/03/19 History docusate sodium 100 mg capsule 100 mg PO DAILY 01/15/19 11/03/19 History metoprolol succinate 50 mg 50 mg PO DAILY 01/15/19 11/03/19 History tablet,extended release 24 hr 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) Family History Father Acute myocardial infarction Mother Acute myocardial infarction Family history of suicide Unknown Diabetes Heart disease Hypertension Social History Preferred Language: Greenlandic Communication Ability: Effective Visual Impairment: Limited Hearing Ability: Hard of Hearing [employer]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 caffeine: Yes (Coffee x 2 per day.) during the past year weight has: decreased > 10 lbs Dental Care, Regularly: No Physical Activity Frequency: Does not Exercise Seatbelt Use: always Sunscreen Use: No Review of Systems Review of Systems: Constitutional: Denies fever, chills, malaise, weight change Eyes: Denies double vision, vision change, eye pain ENT: Denies ear pain, sore throat, sinus pain Cardiovascular: Denies chest pain, chest pressure, palpitations, extremity swelling Respiratory: Denies shortness of breath, cough, sputum production, difficulty breathing Gastrointestinal: Denies abdominal pain, nausea, vomiting, constipation, diarrhea Genitourinary: Endorses frequency, denies dysuria. Musculoskeletal: Denies acute weakness, muscle aches/pain, joint aches/pain Integumentary:Denies new rash, lesions, bruising Neurological: Denies headache, numbness, tingling, focal weakness Physical Exam Physical Exam: General: A&O to name and state only. NAD. Cooperative. HEENT: Atraumatic, normocephalic. Pupils equal and reactive to light and accommodation. Extraocular movements intact. No facial asymmetry. Hearing grossly intact. Poor oral dentition, dental caries present, upper teeth are eroded. No jaw pain, no gum purulence. Pulm: CTAB A&P. -wheezes, -rales, -rhonchi. Symmetrical chest rise. No increase work of breathing. No respiratory distress. Cardiac: RRR, systolic murmur present. Radial pulses intact and symmetrical. No distal leg edema Abdominal: Nontender, nondistended, soft. BS present. Extremities: Moving all extremities equally. PT pulses intact bilaterally. Layer Up strength, ankle plantarflexion/dorsiflexion intact. Results & Data Results & Data ([facility]) Vital Signs (Past 12 Hours) Vital Signs Temp Pulse Pulse Resp BP BP Pulse Ox 11/03/19 20:00 82 18 100/66 97 11/03/19 19:11 78 20 104/61 92 11/03/19 18:45 76 18 111/78 97 11/03/19 17:00 74 15 113/70 97 11/03/19 15:08 36.9 C 74 20 145/76 H 98 Supervising Physician Co-Signing Physician Notes Attending addendum: I have physically seen this patient, have supervised the medical residents activities, and agree with the H&P unless as otherwise noted. Assessment and Plan: Hyperglycemia/uncontrolled diabetes mellitus/medical noncompliance- Initial glucose 637, improved with 10 units of regular insulin subcu and IV fluids to 437. Patient was given additional IV fluids and NovoLog coverage, with further improvement to 243. Patient is reportedly not taken prescribed diabetes medications, including insulin, 4 months to years. Check hemoglobin A1c and fasting lipid panel CAD/history of PCI- The patient will be admitted to telemetry for serial cardiac enzymes, serial EKG's, cardiac rhythm monitoring and a 2-D echocardiogram with Dopplers. Again noted medical noncompliance. Clopidogrel. Rehydrate with IV fluids,, monitor for tachycardia, and will therefore hold metoprolol succinate this evening. Family has made efforts to step in to help the patient and his . Consult certified social workers in health care, palliative care, for appropriate disposition post discharge. Remainder orders and notations as noted. Resident Activity Tracking Resident Involvement: Resident Care Provided Care Provided: Adult [facility]
[2019-11-03] MEDS ORDERED: ACETAMINOPHEN 325 MG TAB PO PRN (21:16)
[2019-11-03] MEDS ORDERED: GLUCOSE 40% GEL 15 GM TUBE PO PRN (21:16)
[2019-11-03] MEDS ORDERED: GLUCOSE 10 TABS/TUBE PO PRN (21:16)
[2019-11-03] MEDS ORDERED: DEXTROSE 50% 50 ML SYRINGE IV PRN (21:16)
[2019-11-03] MEDS ORDERED: CARBOHYDRATES FOR HYPOGLYCEMIA PO PRN (21:16)
[2019-11-03] MEDS ORDERED: GLUCAGON FOR INJ 1 MG VIAL SQ PRN (21:16)
[2019-11-03] MEDS: HEPARIN SOD 5,000 UNIT/0.5 ML VIAL SQ SCH (22:23)
--- NOTE | 2019-11-04 00:37 | Billing Data ---
Date of Service November 04, 2019 Coding Level of Care Code 24363 Initial Inpt Care Lvl 3
[2019-11-04] MEDS: SODIUM CHLORIDE 0.9% 1000ML 1,000 ML IV SCH ×2 (01:20→10:03)
[2019-11-04] MEDS: INSULIN GLARGINE SOLOSTAR 100 UNITS/ML 3 ML PEN SQ STA ×2 (06:08→06:10)
[2019-11-04 06:22] LABS: Basophils # (auto) 0.03 K/uL (0-0.2); Basophils % (auto) 0.4 %; Eosinophils # (auto) 0.19 K/uL (0-0.5); Eosinophils % (auto) 2.3 %; Hematocrit (blood only) 39.3 % (42-52); Hemoglobin 13.7 g/dL (14.0-18.0); Immature Granulocytes # (auto) 0.02 K/uL (0.00-0.02); Immature Granulocytes % (auto) 0.2 %; Lymphocytes # (auto) 1.52 K/uL (1.2-3.4); Lymphocytes % (auto) 18.7 %; Mean Corpuscular Hemoglobin 31.2 pg (25-34); Mean Corpuscular Hgb Conc 34.9 g/dL (32-36); Mean Corpuscular Volume 89.5 fL (80-100); Mean Platelet Volume 10.3 fL (7.4-10.4); Monocytes % (auto) 7.4 %; Neutrophils # (auto) 5.78 K/uL (1.4-6.5); Platelet Count 156 K/uL (130-400); RDW Coefficient of Variation 12.4 % (11.5-14.5); Red Blood Count 4.39 M/uL (4.7-6.1); White Blood Count 8.14 K/uL (4.8-10.8)
[2019-11-04 06:49] LABS: Calcium 8.4 mg/dl (8.5-10.1); Creatinine Clr Calc Pharmacy 33.6 ml/min; Est GFR (African American) 48.5; Est GFR (Non-African American) 41.9; Potassium 3.9 mmol/L (3.5-5.1)
[2019-11-04 07:20] LABS: Estimated Average Glucose 275 mg/dl; Hemoglobin A1C 11.2 % (4.5-5.6)
[2019-11-04] MEDS ORDERED: INSULIN ASPART 100 UNITS/ML 3 ML PEN SC SCH (07:30)
[2019-11-04] MEDS: INSULIN ASPART 100 UNITS/ML 3 ML PEN SC SCH ×4 (08:29→20:28)
[2019-11-04] MEDS: HEPARIN SOD 5,000 UNIT/0.5 ML VIAL SQ SCH ×2 (08:30→20:29)
[2019-11-04] MEDS: CLOPIDOGREL BISULFATE 75 MG TAB PO SCH (08:32)
[2019-11-04] MEDS: DOCUSATE SODIUM 100 MG CAP PO SCH (08:32)
[2019-11-04] MEDS: ATORVASTATIN 40 MG TAB PO SCH (08:32)
[2019-11-04] MEDS ORDERED: INSULIN GLARGINE SOLOSTAR 100 UNITS/ML 3 ML PEN SC SCH ×3 (09:00→21:00)
--- NOTE | 2019-11-04 09:06 | Hospitalist Progress Note ---
Date of Service November 04, 2019 Assessment & Plan (1) Severe hyperglycemia due to diabetes mellitus: Pt initially with a glucose of >600, remidied with insulin, reportedly from medical non compliance, family has tried to have additional support at home unsuccessfully. Pt reportedly off medicines for years, I called family and eventual goal is to have home or at assisted living with some glucose control but the family does not think that the pt will do well with an intense control regime. will try to craft a regimen to help control and eventually impact his hgba1c of 11 (2) History of NC (myocardial infarction): Pt with a history of PCI, restarted on plavix, atorvastatin. Admitting team has held metoprolol and asprin (3) Aortic valve stenosis, moderate: (4) Benign prostatic hyperplasia with urinary obstruction: no lower urinary tract symptoms, typically not on any medicines (5) CKD (chronic kidney disease), stage III: stable avoid neprhotoxic medications (6) Alzheimer's disease: Admission and Anticipated Discharge Date Admission Date: November 03, 2019 spoke to daughter and will look for short term placement at [facility] or [facility] until home situation can be more defined Review of Systems Review of Systems: Mild distress and fatigue no headache, blurry or double vision no speech or swallowing issues no chest pain, pressure or palpitations no shortness of breath, cough or wheezes no abdominal pain, nausea or vomiting, diarrhea or constipation no dysuria, hematuria or frequency no focal joint pain or swelling no back pain, CVA tenderness or radicular pain no bruising, bleeding or rashes no focal signs of weakness or numbness or altered sensation no complaints or anxiety or depression, but has memory limitations Physical Exam Physical Exam: The patient appeared well nourished and normally developed. Vital signs as documented. Head exam is normocephalic atraumatic no scleral icterus Neck is without JVD, thyromegaly, or carotid bruits. Lungs are clear to auscultation, no focal loss of breath sounds Cardiac exam, Rhythm is regular.. VERNA is heard Abdominal exam reveals normal bowel sounds, soft non tender, Extremities are nonedematous and both pedal pulses are normal. Neurologic exam is alert and oriented x2, no focal loss of strength or sensation likely has some memory impairment Skin is without bruises or rashes Psychologically is without concerns for anxiety or depression Results & Data Results & Data ([facility]) Vital Signs (Past 12 Hours) Vital Signs Temp Pulse Pulse Pulse Resp BP Pulse Ox 11/04/19 08:21 97.9 F 70 20 126/77 93 11/04/19 07:34 90 11/04/19 03:55 98.1 F 75 18 110/64 95 11/03/19 21:16 98.4 F 85 16 130/63 95 PG Care Time/CCT Total # of Minutes Spent Total Time Spent with Patient: Total time spent is greater than 50% in coordination of care (as documented) at patient's floor/unit and/or counseling patient: Coding Level of Care Code 03849 Subseq Hosp Care Lvl 3 Diagnoses Severe hyperglycemia due to diabetes mellitus E11.65 History of NC (myocardial infarction) I25.2 Aortic valve stenosis, moderate I35.0 Benign prostatic hyperplasia with urinary obstruction N40.1; N13.8 CKD (chronic kidney disease), stage III N18.3 Alzheimer's disease G30.9; F02.80
[2019-11-04] MEDS ORDERED: PHARMACY GLYCEMIC MGMT CONSULT PRN (09:20)
--- NOTE | 2019-11-04 09:31 | XCELERA ---
[id number]
--- NOTE | 2019-11-04 15:12 | Pharmacy Report ---
Pharmacy Glycemic Short Note 2 - Date of Service November 04, 2019 - Glycemic Short BSG Results (Last 24 hours): 11/03/19 11/03/19 11/03/19 15:19 15:37 17:43 Glucose 637 H* POC Glucose > 600 H* 539 H* 11/03/19 11/03/19 11/04/19 18:43 21:17 00:32 Glucose POC Glucose 437 H* 243 H 226 H 11/04/19 11/04/19 11/04/19 03:18 05:21 05:54 Glucose 259 H POC Glucose 227 H 234 H 11/04/19 11/04/19 11/04/19 07:48 07:50 11:29 Glucose POC Glucose 317 H* 276 H 290 H OUTPATIENT ANTIDIABETIC REGIMEN: * none -- pt stopped taking some time ago * HbA1c: 11.2% (11/04/19) ASSESSMENT: * Mr Nelson is an 83yo diabetic, admitted with HHS (BSG >600). * Patient has been initiated on SQ basal/bolus insulin. * Will continue to adjust. PLAN FOR INPATIENT GLYCEMIC CONTROL: * Basal insulin * Lantus 5 units SQ BID * Bolus insulin * NovoLog per scale ACHS or Q6hrs while NPO * Goal Range: Low 140 mg/dL - High 180 mg/dL * Correction Factor: 40 mg/dL/unit * Nutritional / Prandial insulin per carb ratio of 1 unit per 15 grams CHO consumed PLAN FOR DISCHARGE: * Pending admission insulin requirements. * Goal is to discharge patient on a very simple insulin regimen (1-2x per day) so that his family may help him manage his insulin when they stop to see him at his home in the morning and/or evening.
--- NOTE | 2019-11-04 16:14 | Electrocardiogram Report ---
Test Reason : Blood Pressure : / mmHG Vent. 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
[2019-11-05 08:30] LABS: BUN Creatinine Ratio 23.5 (10-20); Calcium 8.6 mg/dl (8.5-10.1); Est GFR (African American) 50.5; Est GFR (Non-African American) 43.6
[2019-11-05] MEDS: INSULIN ASPART 100 UNITS/ML 3 ML PEN SC SCH ×4 (08:40→20:46)
[2019-11-05] MEDS: HEPARIN SOD 5,000 UNIT/0.5 ML VIAL SQ SCH ×2 (08:41→20:46)
[2019-11-05] MEDS: INSULIN GLARGINE SOLOSTAR 100 UNITS/ML 3 ML PEN SC SCH ×2 (08:41→20:45)
[2019-11-05] MEDS: ATORVASTATIN 40 MG TAB PO SCH (08:49)
[2019-11-05] MEDS: DOCUSATE SODIUM 100 MG CAP PO SCH (08:49)
[2019-11-05] MEDS: CLOPIDOGREL BISULFATE 75 MG TAB PO SCH (08:49)
[2019-11-05] MEDS: METOPROLOL SUCC 25MG EXT REL TAB PO SCH (08:50)
[2019-11-05] MEDS ORDERED: INSULIN GLARGINE SOLOSTAR 100 UNITS/ML 3 ML PEN SC SCH (09:00)
--- NOTE | 2019-11-05 12:56 | Pharmacy Report ---
Pharmacy Glycemic Short Note 2 - Date of Service November 05, 2019 - Glycemic Short BSG Results (Last 24 hours): 11/04/19 11/04/19 11/05/19 16:57 20:20 07:14 Glucose 154 H POC Glucose 292 H 211 H 11/05/19 11/05/19 07:50 11:43 Glucose POC Glucose 162 H 262 H OUTPATIENT ANTIDIABETIC REGIMEN: * none -- pt stopped taking some time ago * HbA1c: 11.2% (11/04/19) ASSESSMENT: * Fasting BSG was much improved this morning, but still slightly elevated. * Lantus dose increased this morning. * Pre-lunch BSG elevated today (262). * Novolog parameters tightened beginning this evening to provide additional prandial coverage. PLAN FOR INPATIENT GLYCEMIC CONTROL: * Basal insulin * Lantus 7 units SQ BID * Bolus insulin * NovoLog per scale ACHS or Q6hrs while NPO * Goal Range: Low 140 mg/dL - High 180 mg/dL * Correction Factor: 35 mg/dL/unit * Nutritional / Prandial insulin per carb ratio of 1 unit per 12 grams CHO consumed PLAN FOR DISCHARGE: * Pending admission insulin requirements. * Goal is to discharge patient on a very simple insulin regimen (1-2x per day) so that his family may help him manage his insulin when they stop to see him at his home in the morning and/or evening.
[2019-11-05] MEDS ORDERED: MELATONIN 3 MG TAB PO PRN (17:09)
--- NOTE | 2019-11-05 17:21 | Hospitalist Progress Note ---
Date of Service November 05, 2019 Assessment & Plan (1) Severe hyperglycemia due to diabetes mellitus: Pt initially with a glucose of >600, remidied with insulin, reportedly from medical non compliance, family has tried to have additional support at home unsuccessfully. Pt reportedly off medicines for years, I called family and eventual goal is to have home or at assisted living with some glucose control but the family does not think that the pt will do well with an intense control regime. will try to craft a regimen to help control and eventually impact his hgba1c of 11 (2) History of ND (myocardial infarction): Pt with a history of PCI, restarted on plavix, atorvastatin. Admitting team has held metoprolol and asprin (3) Aortic valve stenosis, moderate: pt remains asymtopmatic (4) Benign prostatic hyperplasia with urinary obstruction: no lower urinary tract symptoms, typically not on any medicines (5) CKD (chronic kidney disease), stage III: stable avoid neprhotoxic medications (6) Alzheimer's disease: (7) ing: will try some melatonin and seroquel this pm to help control some agitation Admission and Anticipated Discharge Date Admission Date: November 04, 2019 pts family is requesting sub acute rehab if he qualifies Subjective pt is agitated and confused, he has no focal complaints I spoke to family and they want to try to have some subacute rehab for improve functioning Review of Systems Review of Systems: Mild distress and fatigue no headache, blurry or double vision no speech or swallowing issues no chest pain, pressure or palpitations no shortness of breath, cough or wheezes no abdominal pain, nausea or vomiting, diarrhea or constipation no dysuria, hematuria or frequency no focal joint pain or swelling no back pain, CVA tenderness or radicular pain no bruising, bleeding or rashes no focal signs of weakness or numbness or altered sensation Patient is pleasantly confused appears anxious and agitated at times Physical Exam Physical Exam: The patient appeared well nourished and normally developed. Vital signs as documented. Head exam is normocephalic atraumatic no scleral icterus Neck is without JVD, thyromegaly, or carotid bruits. Lungs are clear to auscultation, no focal loss of breath sounds Cardiac exam, Rhythm is regular.. Systolic ejection murmurs heard Abdominal exam reveals normal bowel sounds, soft non tender, no masses Extremities are nonedematous and both pedal pulses are normal. Neurologic exam is alert and oriented, no focal loss of strength or sensation Skin is without bruises or rashes Psychologically is without concerns for anxiety or depression Results & Data Results & Data ([facility]) Vital Signs (Past 12 Hours) Vital Signs Temp Pulse Pulse Resp BP BP Pulse Ox 11/05/19 15:13 97.9 F 99 H 16 129/73 97 11/05/19 10:58 98.1 F 73 20 113/65 96 11/05/19 07:46 97.7 F 76 18 116/63 95 11/05/19 07:24 79 PG Care Time/CCT Total # of Minutes Spent Total Time Spent with Patient: Total time spent is greater than 50% in coordination of care (as documented) at patient's floor/unit and/or counseling patient: Coding Level of Care Code 59643 Subseq Hosp Care Lvl 2 Diagnoses Severe hyperglycemia due to diabetes mellitus E11.65 History of ND (myocardial infarction) I25.2 Aortic valve stenosis, moderate I35.0 Benign prostatic hyperplasia with urinary obstruction N40.1; N13.8 CKD (chronic kidney disease), stage III N18.3 Alzheimer's disease G30.9; F02.80 F05
[2019-11-05] MEDS ORDERED: QUETIAPINE FUMARATE 25 MG TABLET PO SCH (21:00)
[2019-11-06 07:08] LABS: Hematocrit (blood only) 39.3 % (42-52); Hemoglobin 13.6 g/dL (14.0-18.0); Mean Corpuscular Hemoglobin 30.9 pg (25-34); Mean Corpuscular Hgb Conc 34.6 g/dL (32-36); Mean Corpuscular Volume 89.3 fL (80-100); Mean Platelet Volume 10.2 fL (7.4-10.4); Platelet Count 162 K/uL (130-400); RDW Coefficient of Variation 12.7 % (11.5-14.5); RDW Standard Deviation 41.1 fL (36.4-46.3); White Blood Count 5.85 K/uL (4.8-10.8)
[2019-11-06 07:40] LABS: BUN Creatinine Ratio 20.3 (10-20); Creatinine Clr Calc Pharmacy 29.9 ml/min; Est GFR (African American) 43.2; Est GFR (Non-African American) 37.3; Potassium 4.1 mmol/L (3.5-5.1)
[2019-11-06] MEDS: HEPARIN SOD 5,000 UNIT/0.5 ML VIAL SQ SCH ×2 (09:46→21:04)
[2019-11-06] MEDS: INSULIN ASPART 100 UNITS/ML 3 ML PEN SC SCH ×4 (09:47→21:07)
[2019-11-06] MEDS: INSULIN GLARGINE SOLOSTAR 100 UNITS/ML 3 ML PEN SC SCH ×2 (09:47→17:13)
--- NOTE | 2019-11-06 12:04 | Pharmacy Report ---
Glycemic Control Progress Note - Date of Service November 06, 2019 - Scope Glycemic Pharmacist consulted for glycemic control to write orders per [facility] inpatient glycemic control protocol. - Objective Accuchecks BSG(last 24 hours):: 11/05/19 11/05/19 11/06/19 16:44 20:25 06:54 Glucose 149 H POC Glucose 130 H 221 H 11/06/19 11/06/19 07:57 11:47 Glucose POC Glucose 140 H 154 H HbA1c:: Hemoglobin A1c 11.2 % (4.5-5.6) H 11/04/19 05:54 - Recent Pertinent Medications The patient is currently receiving: * Basal insulin: Lantus 7 units every 12 hours * Correctional Insulin: Novolog Correction per scale ACHS Goal Range: Low 140 mg/dL - High 180 mg/dL Correction Factor: 35 mg/dL/unit * Prandial insulin: Per carb ratio of 1 unit per 12 grams CHO consumed - Outpatient Anti-Diabetic Meds N/A - Assessment & Plan ASSESSMENT: * See progress note from 11/05/2019 for more background info, in short: * Pt receiving SQ basal bolus insulin regimen for hyperglycemia secondary to baseline DM (outpatient regimen on hold). * Patient is currently receiving an average of 27 units of insulin per day * 14 units of basal insulin * 13 units of prandial/correctional insulin * BSGs ranging 130 - 262 mg/dl over the past 24hrs * Changes needed to insulin regimen: * AM Fasting BSG = 140 mg/dl. This is in goal range for patient based on inpatient targets and co-morbidities. Therefore Basal insulin will be continued. Plan to change to once daily dosing for ease of outpatient dosing. Give 7 units at dinner tonight then 10 or 14 units tomorrow morning based upon blood sugar. * Post-prandial BSGs are in range therefore no changes needed to CF/CR. Lowered goal range to prevent missing carbohydrate coverage from regular blood sugar. * Total daily dose = ? units. Uncertain right now as patient's blood sugars are trending down nicely, but has periods where he does not consume much. PLAN FOR INPATIENT GLYCEMIC CONTROL: * Continuing Lantus 7 units SQ BID with a switch to once daily dosing tomorrow. * Continuing correction factor of 35 mg/dl/unit * TIGHTENING carb ratio to 1 unit per 10 grams CHO consumed * TIGHTENING goal range to Low 120 mg/dL - High 160 mg/dL RECOMMENDATIONS FOR DISCHARGE: * Switching to once daily Lantus tomorrow. * Estimating that patient will require around 10-15 units of Lantus/ day. Will schedule both doses based upon blood sugar on 11/07/2019. Thank you.
[2019-11-06] MEDS: METOPROLOL SUCC 25MG EXT REL TAB PO SCH (13:28)
[2019-11-06] MEDS: CLOPIDOGREL BISULFATE 75 MG TAB PO SCH (13:28)
[2019-11-06] MEDS: DOCUSATE SODIUM 100 MG CAP PO SCH (13:28)
[2019-11-06] MEDS: ATORVASTATIN 40 MG TAB PO SCH (13:28)
--- NOTE | 2019-11-06 14:01 | Hospitalist Progress Note ---
Date of Service November 06, 2019 Assessment & Plan (1) Severe hyperglycemia due to diabetes mellitus: Pt initially with a glucose of >600, remidied with insulin, reportedly from medical non compliance, family has tried to have additional support at home unsuccessfully. Pt reportedly off medicines for years, I called family and eventual goal is to have home or at assisted living with some glucose control but the family does not think that the pt will do well with an intense control regime. will try to craft a regimen to help control and eventually impact his hgba1c of 11. Patient's glucoses have been in the 200s with twice daily Lantus once again a transition we will likely try to pick a less complex regimen so that if he does go home he will be able to be streamlined. (2) History of SC (myocardial infarction): Pt with a history of PCI, restarted on plavix, atorvastatin. Admitting team has held metoprolol and asprin given his tachycardia will resume his metoprolol today on 11/05 (3) Aortic valve stenosis, moderate: pt remains asymtopmatic (4) Benign prostatic hyperplasia with urinary obstruction: no lower urinary tract symptoms, typically not on any medicines (5) CKD (chronic kidney disease), stage III: stable avoid neprhotoxic medications (6) Alzheimer's disease: (7) Sundowning: will try some melatonin and reduce the dose of Seroquel this pm to help control some agitation but reduce morning sleepiness Admission and Anticipated Discharge Date Admission Date: November 04, 2019 Subjective Patient is slightly fatigued this morning he did receive some medication for sundowning last evening. He has no other complaints or problems at this time or looking for SNF placement need COVID testing prior to placement of the [facility] Review of Systems Review of Systems: Mild distress and fatigue no headache, blurry or double vision no speech or swallowing issues no chest pain, pressure or palpitations no shortness of breath, cough or wheezes no abdominal pain, nausea or vomiting, diarrhea or constipation no dysuria, hematuria or frequency no focal joint pain or swelling no back pain, CVA tenderness or radicular pain no bruising, bleeding or rashes no focal signs of weakness or numbness or altered sensation no complaints or anxiety or depression. Physical Exam Physical Exam: The patient appeared well nourished and normally developed. Vital signs as documented. Head exam is normocephalic atraumatic no scleral icterus Neck is without JVD, thyromegaly, or carotid bruits. Lungs are clear to auscultation, no focal loss of breath sounds Cardiac exam, Rhythm is regular.. No murmurs, rubs or gallops. Abdominal exam reveals normal bowel sounds, soft non tender, no masses Extremities are nonedematous and both pedal pulses are normal. Neurologic exam is alert and oriented x2, no focal loss of strength or sensation Skin is without bruises or rashes Psychologically is with memory loss and agitation at times PG Care Time/CCT Total # of Minutes Spent Total Time Spent with Patient: Total time spent is greater than 50% in coordination of care (as documented) at patient's floor/unit and/or counseling patient: Coding Level of Care Code 70688 Subseq Hosp Care Lvl 3 Diagnoses Severe hyperglycemia due to diabetes mellitus E11.65 History of SC (myocardial infarction) I25.2 Aortic valve stenosis, moderate I35.0 Benign prostatic hyperplasia with urinary obstruction N40.1; N13.8 CKD (chronic kidney disease), stage III N18.3 Alzheimer's disease G30.9; F02.80 F05
[2019-11-06] MEDS: QUETIAPINE FUMARATE 25 MG TABLET PO SCH (21:05)
[2019-11-07 06:47] LABS: BUN Creatinine Ratio 19.2 (10-20); Calcium 8.4 mg/dl (8.5-10.1); Creatinine Clr Calc Pharmacy 28.5 ml/min; Est GFR (African American) 40.8; Est GFR (Non-African American) 35.2; Potassium 4.4 mmol/L (3.5-5.1)
[2019-11-07] MEDS: DOCUSATE SODIUM 100 MG CAP PO SCH (08:17)
[2019-11-07] MEDS: CLOPIDOGREL BISULFATE 75 MG TAB PO SCH (08:17)
[2019-11-07] MEDS: ATORVASTATIN 40 MG TAB PO SCH (08:17)
[2019-11-07] MEDS: HEPARIN SOD 5,000 UNIT/0.5 ML VIAL SQ SCH ×2 (08:17→21:44)
[2019-11-07] MEDS: METOPROLOL SUCC 25MG EXT REL TAB PO SCH (08:18)
[2019-11-07] MEDS: INSULIN ASPART 100 UNITS/ML 3 ML PEN SC SCH ×4 (08:19→21:46)
[2019-11-07] MEDS: INSULIN GLARGINE SOLOSTAR 100 UNITS/ML 3 ML PEN SC SCH (08:20)
[2019-11-07] MEDS ORDERED: INSULIN GLARGINE SOLOSTAR 100 UNITS/ML 3 ML PEN SC SCH (09:00)
--- NOTE | 2019-11-07 10:37 | Pharmacy Report ---
Glycemic Control Progress Note - Date of Service November 07, 2019 - Scope Glycemic Pharmacist consulted for glycemic control to write orders per [facility] inpatient glycemic control protocol. - Objective Accuchecks BSG(last 24 hours):: 11/06/19 11/06/19 11/06/19 11:47 16:32 20:29 Glucose POC Glucose 154 H 178 H 80 11/07/19 11/07/19 05:40 07:55 Glucose 86 POC Glucose 93 HbA1c:: Hemoglobin A1c 11.2 % (4.5-5.6) H 11/04/19 05:54 - Recent Pertinent Medications The patient is currently receiving: * Basal insulin: Lantus 7 units every 12 hours with transition to once daily dosing today * Correctional Insulin: Novolog Correction per scale ACHS Goal Range: Low 120 mg/dL - High 160 mg/dL Correction Factor: 35 mg/dL/unit * Prandial insulin: Per carb ratio of 1 unit per 10 grams CHO consumed - Outpatient Anti-Diabetic Meds N/A - Assessment & Plan ASSESSMENT: * See progress note from 11/04/2019 for more background info, in short: * Pt receiving SQ basal bolus insulin regimen for hyperglycemia secondary to ba saeedine DM (outpatient regimen on hold). * Patient is currently receiving an average of 21 units of insulin per day * 14 units of basal insulin * 7 units of prandial/correctional insulin * BSGs ranging 80 - 178 mg/dl over the past 24hrs * Changes needed to insulin regimen: * AM Fasting BSG = 93 mg/dl. This is below goal range for patient based on inpatient targets and co-morbidities. Therefore Basal insulin will be reduced. Patient received 14 units yesterday (7 unit in the morning and 7 units with dinner). He received 10 units today based upon scale. Will lower values on the scale for tomorrow. * Post-prandial BSGs are in range therefore no changes needed to CF/CR. * Total daily dose = <20 units. PLAN FOR INPATIENT GLYCEMIC CONTROL: * Decreasing Lantus to 10 units SQ HS (8 units if BSG < 120 mg/dL) * Continuing correction factor of 35 mg/dl/unit * Continuing carb ratio of 1 unit per 10 grams CHO consumed * Continuing goal range of Low 110 mg/dL - High 140 mg/dL RECOMMENDATIONS FOR DISCHARGE: * Patient's Lantus requirements have decreased through his hospital stay. * At this point, tentatively suggest Lantus 10 units SQ daily. Thank you.
[2019-11-07 16:35] LABS: Appearance Urine Clear (Clear); Bilirubin Urine Negative (Negative); Blood Urine Negative (Negative); Color Urine Yellow; Glucose Urine UA Negative (Negative); Ketones Urine Negative (Negative); Leukocyte Esterase Urine Negative (Negative); Nitrite Urine Negative (Negative); Protein Urine Negative (Negative); Specific Gravity Urine 1.007 (1.000-1.030); Urobilinogen Urine Negative (Negative)
--- NOTE | 2019-11-07 16:38 | Hospitalist Progress Note ---
Date of Service November 07, 2019 Assessment & Plan (1) Severe hyperglycemia due to diabetes mellitus: Pt initially with a glucose of >600, remidied with insulin, reportedly from medical non compliance, family has tried to have additional support at home unsuccessfully. Pt reportedly off medicines for years, families eventual goal is to have home or at assisted living with some glucose control but the family does not think that the pt will do well with an intense control regime. will try to craft a regimen to help control and eventually impact his hgba1c of 11. Patient's glucoses have been in the 200s with twice daily Lantus once again a transition we will likely try to pick a less complex regimen so that if he does go home he will be able to be streamlined. Pt will maybe be transitioned to a supportive environment and maybe able to use basal bolus insulin (2) History of [place] (myocardial infarction): Pt with a history of PCI, restarted on plavix, atorvastatin. Admitting team has held metoprolol and asprin given his tachycardia will resume his metoprolol on 11/05 (3) Aortic valve stenosis, moderate: pt remains asymtopmatic (4) Benign prostatic hyperplasia with urinary obstruction: no lower urinary tract symptoms, typically not on any medicines (5) CKD (chronic kidney disease), stage III: stable avoid neprhotoxic medications (6) Alzheimer's disease: (7) owning: will try some melatonin and reduce the dose of Seroquel this pm to help control some agitation but reduce morning sleepiness Admission and Anticipated Discharge Date Admission Date: November 04, 2019 Subjective pt is not lethargic today, he is a bit anxious, still his disposition is unclear Review of Systems Review of Systems: Mild distress and fatigue no headache, blurry or double vision no speech or swallowing issues no chest pain, pressure or palpitations no shortness of breath, cough or wheezes no abdominal pain, nausea or vomiting, diarrhea or constipation no dysuria, hematuria or frequency no focal joint pain or swelling no back pain, CVA tenderness or radicular pain no bruising, bleeding or rashes no focal signs of weakness or numbness or altered sensation no complaints or anxiety or depression. Physical Exam Physical Exam: The patient appeared well nourished and normally developed. Vital signs as documented. Head exam is normocephalic atraumatic no scleral icterus Neck is without JVD, thyromegaly, or carotid bruits. Lungs are clear to auscultation, no focal loss of breath sounds Cardiac exam, Rhythm is regular.. No murmurs, rubs or gallops. Abdominal exam reveals normal bowel sounds, soft non tender, no masses Extremities are nonedematous and both pedal pulses are normal. Neurologic exam is alert and oriented x2, no focal loss of strength or sensation Skin is without bruises or rashes Psychologically is with memory loss and agitation at times Results & Data Results & Data ([facility]) Vital Signs (Past 12 Hours) Vital Signs Temp Pulse Resp BP Pulse Ox 11/07/19 08:38 98.4 F 81 18 126/75 95 PG Care Time/CCT Total # of Minutes Spent Total Time Spent with Patient: Total time spent is greater than 50% in coordination of care (as documented) at patient's floor/unit and/or counseling patient: Coding Level of Care Code 45279 Subseq Hosp Care Lvl 2 Diagnoses Severe hyperglycemia due to diabetes mellitus E11.65 History of DE (myocardial infarction) I25.2 Aortic valve stenosis, moderate I35.0 Benign prostatic hyperplasia with urinary obstruction N40.1; N13.8 CKD (chronic kidney disease), stage III N18.3 Alzheimer's disease G30.9; F02.80 F05
[2019-11-07] MEDS: QUETIAPINE FUMARATE 25 MG TABLET PO SCH (21:48)
[2019-11-08 06:17] LABS: Hemoglobin 14.7 g/dL (14.0-18.0); Mean Corpuscular Hemoglobin 29.1 pg (25-34); Mean Corpuscular Volume 91.1 fL (80-100); Mean Platelet Volume 10.2 fL (7.4-10.4); Platelet Count 215 K/uL (130-400); RDW Coefficient of Variation 12.7 % (11.5-14.5); Red Blood Count 5.05 M/uL (4.7-6.1); White Blood Count 6.76 K/uL (4.8-10.8)
[2019-11-08 06:55] LABS: BUN Creatinine Ratio 17.5 (10-20); Creatinine Clr Calc Pharmacy 24.1 ml/min; Est GFR (African American) 33.4; Est GFR (Non-African American) 28.9; Potassium 4.7 mmol/L (3.5-5.1)
[2019-11-08] MEDS ORDERED: SODIUM CHLORIDE 0.9% 1000ML 1,000 ML IV SCH (08:30)
[2019-11-08] MEDS: INSULIN ASPART 100 UNITS/ML 3 ML PEN SC SCH ×4 (08:32→21:19)
[2019-11-08] MEDS: METOPROLOL SUCC 25MG EXT REL TAB PO SCH (08:33)
[2019-11-08] MEDS: CLOPIDOGREL BISULFATE 75 MG TAB PO SCH (08:34)
[2019-11-08] MEDS: ATORVASTATIN 40 MG TAB PO SCH (08:34)
[2019-11-08] MEDS: HEPARIN SOD 5,000 UNIT/0.5 ML VIAL SQ SCH ×2 (08:35→21:20)
[2019-11-08] MEDS: INSULIN GLARGINE SOLOSTAR 100 UNITS/ML 3 ML PEN SC SCH (08:35)
--- NOTE | 2019-11-08 11:32 | Pharmacy Report ---
Glycemic Control Progress Note - Date of Service November 08, 2019 - Scope Glycemic Pharmacist consulted for glycemic control to write orders per [facility] inpatient glycemic control protocol. - Objective Accuchecks BSG(last 24 hours):: 11/07/19 11/07/19 11/07/19 12:06 16:50 21:11 Glucose POC Glucose 134 H 113 H 186 H 11/08/19 11/08/19 06:02 07:35 Glucose 147 H POC Glucose 137 H HbA1c:: Hemoglobin A1c 11.2 % (4.5-5.6) H 11/04/19 05:54 - Recent Pertinent Medications The patient is currently receiving: * Basal insulin: Lantus 10 units every 24 hours * Correctional Insulin: Novolog Correction per scale ACHS Goal Range: Low 120 mg/dL - High 160 mg/dL Correction Factor: 35 mg/dL/unit * Prandial insulin: Per carb ratio of 1 unit per 10 grams CHO consumed - Outpatient Anti-Diabetic Meds N/A - Assessment & Plan ASSESSMENT: * See progress note from 11/04/2019 for more background info, in short: * Pt receiving SQ basal bolus insulin regimen for hyperglycemia secondary to baseline DM (outpatient regimen on hold). * Patient is currently receiving an average of 19 units of insulin per day * 10 units of basal insulin * 9 units of prandial/correctional insulin * BSGs ranging 93 - 186 mg/dl over the past 24hrs * Changes needed to insulin regimen: * AM Fasting BSG = 137 mg/dl. This is in goal range for patient based on inpatient targets and co-morbidities. Therefore Basal insulin will be continued at 10 units per day. Have available an 8 units dose if fasting BSG less than 120 mg/dL but will remove this as 10 units per day appears appropriate. * Post-prandial BSGs are controlled. Only one BSG greater than 180 mg/dL. * Total daily dose = ~20 units. PLAN FOR INPATIENT GLYCEMIC CONTROL: * Continuing Lantus 10 units SQ daily * Continuing correction factor of 35 mg/dl/unit * Continuing carb ratio of 1 unit per 10 grams CHO consumed * Changing goal range to Low 110 mg/dL - High 140 mg/dL RECOMMENDATIONS FOR DISCHARGE: * As patient's kidney function precludes many oral anti-diabetic medications, recommend Lantus 10 units daily. This may require titration upwards as the patient's home diet may be different than current diet at the hospital. * Recommend having a second dose available (like 8 units) if patient's fasting BSG less than a certain amount. If this is not possible, Lantus 10 units should be sufficient and should be not a cause for hypoglycemia unless the patient's oral intake extensively reduced. Thank you.
[2019-11-08] MEDS: DOCUSATE SODIUM 100 MG CAP PO SCH (12:22)
--- NOTE | 2019-11-08 16:46 | Hospitalist Progress Note ---
Date of Service November 08, 2019 Assessment & Plan (1) Severe hyperglycemia due to diabetes mellitus: Pt initially with a glucose of >600, remidied with insulin, reportedly from medical non compliance, family has tried to have additional support at home unsuccessfully. Pt reportedly off medicines for years, families eventual goal is to have home or at assisted living with some glucose control but the family does not think that the pt will do well with an intense control regime and eventually impact his hgba1c of 11. Patient's glucoses have been in the 200s with twice daily Lantus Pt will maybe be transitioned to a supportive environment and maybe able to use basal bolus insulin (2) History of CT (myocardial infarction): Pt with a history of PCI, restarted on plavix, atorvastatin. Admitting team has held metoprolol and aspirin, resumed his metoprolol on 11/05 (3) Aortic valve stenosis, moderate: pt remains asymtopmatic (4) Benign prostatic hyperplasia with urinary obstruction: no lower urinary tract symptoms, typically not on any medicines (5) CKD (chronic kidney disease), stage III: stable avoid neprhotoxic medications (6) Alzheimer's disease: (7) owning: improved with melatonin and reduce the dose of [place]ero[place], less morning sleepiness Admission and Anticipated Discharge Date Admission Date: November 04, 2019 Subjective pt is awake and alert ,still refusing covid testing that is delaying him to be placed in [facility] Review of Systems Review of Systems: Mild distress and fatigue no headache, blurry or double vision no speech or swallowing issues no chest pain, pressure or palpitations no shortness of breath, cough or wheezes no abdominal pain, nausea or vomiting, diarrhea or constipation no dysuria, hematuria or frequency no focal joint pain or swelling no back pain, CVA tenderness or radicular pain no bruising, bleeding or rashes no focal signs of weakness or numbness or altered sensation no complaints or anxiety or depression. Physical Exam Physical Exam: The patient appeared well nourished and normally developed. Vital signs as documented. Head exam is normocephalic atraumatic no scleral icterus Neck is without JVD, thyromegaly, or carotid bruits. Lungs are clear to auscultation, no focal loss of breath sounds Cardiac exam, Rhythm is regular.. No murmurs, rubs or gallops. Abdominal exam reveals normal bowel sounds, soft non tender, no masses Extremities are nonedematous and both pedal pulses are normal. Neurologic exam is alert and oriented x2, no focal loss of strength or sensation Skin is without bruises or rashes Psychologically is with memory loss and agitation at times Results & Data Results & Data ([facility]) Vital Signs (Past 12 Hours) Vital Signs Temp Pulse Resp BP BP Pulse Ox 11/08/19 14:48 98.1 F 79 18 119/73 95 11/08/19 08:02 98.1 F 72 18 154/78 H 96 PG Care Time/CCT Total # of Minutes Spent Total Time Spent with Patient: Total time spent is greater than 50% in coordination of care (as documented) at patient's floor/unit and/or counseling patient: Coding Level of Care Code 12977 Subseq Hosp Care Lvl 2 Diagnoses Severe hyperglycemia due to diabetes mellitus E11.[address] (myocardial infarction) I25.2 Aortic valve stenosis, moderate I35.0 Benign prostatic hyperplasia with urinary obstruction N40.1; N13.8 CKD (chronic kidney disease), stage III N18.3 Alzheimer's disease G30.9; F02.80 F05
[2019-11-08] MEDS: QUETIAPINE FUMARATE 25 MG TABLET PO SCH (20:29)
[2019-11-09] MEDS: HEPARIN SOD 5,000 UNIT/0.5 ML VIAL SQ SCH (08:48)
[2019-11-09] MEDS: CLOPIDOGREL BISULFATE 75 MG TAB PO SCH (08:48)
[2019-11-09] MEDS: METOPROLOL SUCC 25MG EXT REL TAB PO SCH (08:48)
[2019-11-09] MEDS: ATORVASTATIN 40 MG TAB PO SCH (08:48)
[2019-11-09] MEDS: INSULIN ASPART 100 UNITS/ML 3 ML PEN SC SCH ×2 (08:49→12:58)
[2019-11-09] MEDS: DOCUSATE SODIUM 100 MG CAP PO SCH (08:52)
[2019-11-09] MEDS ORDERED: INSULIN GLARGINE SOLOSTAR 100 UNITS/ML 3 ML PEN SC SCH (09:00)
--- NOTE | 2019-11-09 10:13 | Pharmacy Report ---
Pharmacy Glycemic Short Note 2 - Date of Service November 09, 2019 - Glycemic Short BSG Results (Last 24 hours): 11/08/19 11/08/19 11/08/19 11:39 16:34 20:43 POC Glucose 175 H 92 108 H 11/09/19 07:35 POC Glucose 156 H OUTPATIENT ANTIDIABETIC REGIMEN: * none -- pt stopped taking some time ago * HbA1c: 11.2% (11/04/19) ASSESSMENT: * 11/06/2019: total daily insulin dose = 21 units * 14 units basal {Lantus} * 7 units of bolus {NovoLog} * BSGs 80-154 mg/dl * 11/07/2019: total daily insulin dose = 19 units * 10 units basal {Lantus} * 9 units of bolus {NovoLog} * BSGs 93-186 mg/dl * 11/08/2019: total daily insulin dose = 21 units * 10 units basal {Lantus} * 11 units of bolus {NovoLog} * BSGs 92-175 mg/dl * Pt continues with ~ 20 units of insulin per day with adequate control. No hypoglycemia and no severe hyperglycemia. Regimen is split 50:50% basal:prandial which is the preferred distribution for inpatient glycemic control - prevents hypo when PO intake changes. No changes needed at this time. PLAN FOR INPATIENT GLYCEMIC CONTROL: * Basal insulin * Lantus 10 units SQ AM * Bolus insulin * NovoLog per scale ACHS or Q6hrs while NPO * Goal Range: Low 110 mg/dL - High 140 mg/dL * Correction Factor: 35 mg/dL/unit * Nutritional / Prandial insulin per carb ratio of 1 unit per 10 grams CHO consumed PLAN FOR DISCHARGE: * Goal is to discharge patient on a very simple insulin regimen (1-2x per day) so that his family may help him manage his insulin when they stop to see him at his home in the morning and/or evening. Pt has been well controlled with ~ 20 units of insulin per day (half as basal and half as prandial) May Consider one of the following regimens for DC: * Lantus 10 units SQ daily monotherapy - post prandial BSGs will be elevated with this regimen but likely not enough to cause hyperglycemic crisis * Lantus 10 units SQ daily + NovoLog 5 units with the largest meal of the day * NPH/Regular 70/30 premixed insulin: 15 units SQ in AM with breakfast + 5 units SQ PM with dinner
--- NOTE | 2019-11-09 14:42 | Discharge Summary ---
Date of Service November 09, 2019 Admission HPI Per Admitting Provider Faisal is a 83yo M with a PMHx of VT, diverticulitis, BPH, HLD, T2DM, CKD, CAD, and Alzheimers dementia who as not taken any medications 'since 2013' who presents with hyperglycemia. Faisal is seen at the bedside with his daughter. Faisal is a limited historian, history is collected via collateral with his daughter Leann. She reports that for several weeks he has had progressively increasing thirst, polyuria, and f atigue. His daughter also expresses concerns as she remembers that he was diabetic but has been eating doughnuts and drinking mostly soda and juice when thirsty. Report that he has not taken medications regularly or as directed since 2013. His daughter expresses concern that Faisal lives at home with his , but is limited by Alzheimer's dementia. They are looking into bilingual social worker, home services, or potential assisted living. They report that Zia has had increasing fatigue and sleepiness, but without syncope or presyncope. He denies fever, chills, sweats, abdominal pain, dysuria, nausea/vomiting/diarrhea. He denies vision change, endorses the need for glasses at baseline. he has not had any chest pain, chest pressure, palpitations, leg swelling, or shortness of breath. His PCP is Dr. Cortez, but he follows infrequently per his daughter. Medhx: updated/reviewed Medications: Reviewed, but pt reports has not taken as prescribed in many years SHx: PCI Allergies: Reviewed Social: Former tobacco use quit 'years ago.' Denies alcohol use. Denies recreational drug use. Lives at home with his as noted above. DNR/DNI: Full code, discussed with patient and his daughter. They prefer to remain full code at this time, but she thinks he has a living will and will check and will revisit discussion tomorrow. Principal Diagnosis HHS dementia unsteady gait Discharge Exam The patient appeared well Vital signs as documented. Lungs are clear to auscultation and appear unlabored Cardiac exam, Rhythm is regular.. Systolic ejection murmur Abdominal exam reveals normal bowel sounds, soft non tender, no masses Extremities are nonedematous and both pedal pulses are normal. Neurologic exam is alert and oriented x2, no focal loss of strength or sensation Skin is without bruises or rashes Psychologically is without concerns for anxiety or depression Discharge Data Allergies Allergy/AdvReac Type Severity Reaction Status Date / Time codeine Allergy Mild UNKNOWN Verified 11/03/19 16:05 REACTION gemfibrozil Allergy Verified 11/03/19 16:05 niacin Allergy Verified 11/03/19 16:05 simvastatin Allergy Verified 11/03/19 16:05 Consultations 11/03/19 20:26 ED Decision to Admit Stat 11/03/19 20:32 Consult Case Management - Discharge Planning Routine Hospital Course (1) Severe hyperglycemia due to diabetes mellitus: Pt initially with a glucose of >600, remidied with insulin, reportedly from medical non compliance, family has tried to have additional support at home unsuccessfully. Pt reportedly off medicines for years, families eventual goal is to have home or at assisted living with some glucose control but the family does not think that the pt will do well with an intense control regime and eventually impact his hgba1c of 11. Patient's glucoses have been much better controlled with twice daily Lantus plus sliding scale insulin and carb coverage Pt will maybe be transitioned to a supportive environment and maybe able to use basal bolus insulin consider going home to attempt to use oral medicine augmented by perhaps long-acting insulin (2) History of VT (myocardial infarction): Pt with a history of PCI, restarted on plavix, atorvastatin. Admitting team has held metoprolol and aspirin, resumed his metoprolol on 11/05 (3) Aortic valve stenosis, moderate: pt remains asymtopmatic (4) Benign prostatic hyperplasia with urinary obstruction: no lower urinary tract symptoms, typically not on any medicines (5) CKD (chronic kidney disease), stage III: stable avoid neprhotoxic medications (6) Alzheimer's disease: (7) owning: improved with melatonin and reduce the dose of Seroque, less morning sleepiness less nighttime agitation Total Time Total Time Spent Total Time Spent (In Minutes): It required greater than 30 minutes to prepare this patient for discharge Discharge Plan Discharge Items Patient Disposition: Transfer Inpatient Rehab Fac Reason For Visit: [facility] Discharge Diagnosis: hyperosmolar hyperglycemic state medical non compliance dementia ambulation difficulties Condition on Discharge: Good Activity: Per Instructions section Activity Comment: Per PT/OT Non-emergency contact: Primary Care Provider Call non-emergency contact if: you have any medication questions and your symptoms worsen Follow-up/Referrals: Dimitris Cortez MD [Primary Care Provider] - Diet: Carb Consistent or DM2 Addtl Attending Provider Instructions: please consider further diabetic teaching for family prior to discharge and if discharged to home after rehab to create a low complexity diabetic management strategy to help with complaince at home Pending Studies at Discharge: No Stand-Alone Forms: My [facility] Skilled Items Patient informed of condition?: Yes DNR: No Discharge Level of Care: Acute rehab Communicable Disease: No Discharge Prognosis: Stable Lines: None Urinary Catheter: No Medications and DC Order Prescriptions: New metoprolol succinate 25 mg Tablet Extended Release 24 Hr 25 mg PO QAM Qty: 30 RF: 0 insulin aspart U-100 [Novolog Flexpen U-100 Insulin] 100 unit/mL (3 mL) Insulin Pen 1 units SC ACHS Qty: 0 RF: 0 Lantus Solostar U-100 Insulin 100 unit/mL (3 mL) Insulin Pen 10 unit SC DAILY Qty: 0 RF: 0 melatonin 3 mg Tablet 3 mg PO HS Qty: 0 RF: 0 quetiapine 25 mg Tablet 12.5 mg PO HS Qty: 0 RF: 0 Continued aspirin [Adult Low Dose Aspirin] 81 mg tablet,delayed release (DR/EC) 81 mg PO DAILY RF: 0 docusate sodium 100 mg capsule 100 mg PO DAILY RF: 0 clopidogrel [Plavix] 75 mg tablet 75 mg PO DAILY RF: 0 atorvastatin [Lipitor] 40 mg tablet 40 mg PO DAILY RF: 0 Discontinued metoprolol succinate [Toprol XL] 50 mg tablet extended release 24 hr 50 mg PO DAILY RF: 0 Discharge Orders: Discharge Order (Routine); Ordered 11/09/19 Ordered By: Randal Rogers/Other Patient Handouts: Diabetes and Heart Disease, Hyperglycemia, Hypoglycemia, Blood Sugar Check, Diabetes Healthy Meals, Diabetes Exercise Benefits, Diabetes Manage A1C Test Admission Data Admit Date/Time: 11/04/19 09:01 Attending Provider: Randal Dickens Admit Provider: Dimitris Alvarenga Primary Care Provider: Dimitris Cortez Other Providers: Jose Elias Salinas ; Cory,[facility] Coding Level of Care Code D/C Day Management >30 mins Diagnoses Severe hyperglycemia due to diabetes mellitus E11.65 History of VT (myocardial infarction) I25.2 Aortic valve stenosis, moderate I35.0 Benign prostatic hyperplasia with urinary obstruction N40.1; N13.8 CKD (chronic kidney disease), stage III N18.3 Alzheimer's disease G30.9; F02.80 F05
== END 2019-11-09 17:04 | DRG 638 ==
LOC: 2W 15:05 → ED 15:05 → SUATTDRO 20:32 → 2W 20:55

== ENCOUNTER 2019-11-24 08:04 | Inpatient (IN) ==
[2019-11-24] MEDS ORDERED: SODIUM CHLORIDE 0.9% 1000ML 500 ML IV ONE (08:21)
[2019-11-24] MEDS ORDERED: ACETAMINOPHEN 500 MG TAB PO STA (08:26)
--- NOTE | 2019-11-24 08:26 | Emergency Department Note ---
Impression & Plan Nephrolithiasis, Acute back pain ED Provider Note CHIEF COMPLAINT: Back pain HISTORY OF PRESENTING ILLNESS: This is an 83-year-old male who presents to the emergency department via EMS [facility] with complaints of low back pain that he reports started last night. There is no report of a fall and the patient denies any falls. Patient states the back just started hurting and it has been getting worse today. He denies any history of back problems or back surgeries. He reports the pain is constant and worse with movement, and rates the pain a 9/10. He states he did not have anything for the pain. Patient has dementia and urinary incontinence at baseline. He denies any problems with his bowels and reports a bowel movement yesterday. He denies any leg numbness or weakness, and no change in sensation. He states that he has been walking without difficulty and he walks with a walker. There has not been any nausea or vomiting, and he denies abdominal pain. No chest pain or shortness of breath. Patient denies urinary symptoms. REVIEW OF SYSTEMS: A complete 10 point review of systems was reviewed with the patient with pertinent positives and negatives as per history of present illness. All else were negative. ALLERGIES: Reviewed in chart MEDICATIONS: Reviewed in chart PMH: CAD, history of GA, aortic valve stenosis, CKD stage III, diabetes mellitus, BPH, history of prostate cancer, dementia/Alzheimer's disease SOCIAL HISTORY: Lives at home in a personal care facility, he is not a smoker PHYSICAL EXAM: VITALS: Vitals are noted on the nurse's note and reviewed by myself. Vital signs stable, afebrile. CONSTITUTIONAL: Pleasant and cooperative. Nontoxic-appearing and in no acute distress. Mildly dehydrated, but otherwise well appearing and well nourished. Arrives in a brief, incontinent of urine. HEENT: Normocephalic, atraumatic. PERRL, EOMI. TMs normal. Pharynx normal. Tacky mucous membranes. NECK: Supple, full active range of motion without discomfort. RESPIRATORY: Clear to auscultation bilaterally with no wheezing, crackles, rhonchi or stridor. Equal expansion bilaterally. CARDIOVASCULAR: Regular rate and rhythm with no murmurs, rubs or gallops. Normal peripheral perfusion. No edema. GASTROINTESTINAL: Mild tenderness to palpation in the right abdomen, no rebound tenderness or guarding. Abdomen is soft and nondistended. No palpable masses or HSM. Bowel sounds present in all quadrants. Right side CVA tenderness. MUSCULOSKELETAL: No muscle atrophy, erythema, or edema noted of the back. There is no midline tenderness over the lumbar spinous processes. There is no tenderness over the paraspinous muscles of the lumbar region. There is no midline tenderness over the thoracic spine and or tenderness of the thoracic paraspinous muscles. There are no obvious muscle spasms present. The patient is slow to move around with maximum tenderness with sitting up from lying down. Negative straight leg raise test. NEURO: Patient was alert and oriented to person place and time. Normal sensation to light and sharp touch. Deep tendon reflexes 2+ in the lower extremities. Dorsalis pedis pulse 2+ bilaterally. Strength 5/5 and equal in the bilateral lower extremities, plantarflexion and dorsiflexion intact and strong, equal bilaterally. INTEGUMENTARY: No rash or other significant dermatologic conditions noted. ED COURSE AND MEDICAL DECISION MAKING: CC: Patient presenting with complaint of back pain DIFFERENTIAL DIAGNOSIS: Includes, but not limited to lumbar sprain/strain, vertebral fracture, herniated disc, musculoskeletal sprain, muscle spasm, UTI, pyelonephritis, ureteral stone, among others. INTERPRETATION OF LABS: No leukocytosis, mild anemia (consistent with baseline), normal platelets, mild hyperkalemia hyperglycemia, elevated BUN and creatinine (appears consistent with baseline), normal liver enzymes and lipase. UA shows 2+ glucose and is otherwise negative for blood or infection. IMAGING: CT SCAN OF THE ABDOMEN AND PELVIS WITHOUT IV CONTRAST; CT SCAN OF THE LUMBAR SPINE WITHOUT IV CONTRAST CLINICAL HISTORY: Generalized abdominal pain. Low back pain. COMPARISON STUDY: KUB dated 12/13/2013. Nuclear bone scan dated 02/22/2011. Radiation treatment planning CT of the pelvis dated 05/09/2007. TECHNIQUE: CT scan of the abdomen and pelvis is performed from the lung bases to the proximal femora. Additionally, unenhanced CT of the lumbar spine is performed from the lower thoracic spine to the sacrum. Images for both examinations are reviewed in the axial, sagittal, and coronal planes. IV contrast was not administered for this examination. A dose lowering technique was utilized adhering to the principles of ALARA. CT DOSE: 371.91 mGy.cm FINDINGS: Lung bases: The heart is top normal in size noting trace pericardial fluid. The coronary arteries are densely calcified. There is significant attenuation of the cardiac blood pool as compared to the myocardium suggesting anemia. There is a small hiatal hernia. There calcification containing mediastinal and hilar lymph nodes. There are trace pleural effusions with bibasilar scarring/atelectasis a 2.6 cm focus of round atelectasis is noted at the right lung base. Liver: The unenhanced liver is normal in size, contour, and attenuation. There is no intrahepatic biliary ductal dilatation. Gallbladder: There are calcified gallstones and biliary sludge. There is no CT evidence of acute cholecystitis. Spleen: Normal in size and attenuation. Pancreas: The unenhanced pancreas is atrophic. 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 The pancreas is otherwise grossly unremarkable. Adrenal glands: Unremarkable. Kidneys: The unenhanced kidneys are atrophic and without hydronephrosis. Foci of cortical scarring are noted in the right kidney. There is an 8 mm calculus in the right renal pelvis seen on image #219. An additional 3 mm nonobstructing calculus is noted in the right lower pole. No left or a calculi are identified. No ureteral stone is seen. Parapelvic cysts are seen bilaterally, left greater than right. There is no evidence of contour deforming renal mass lesion. Abdominal vasculature: There is advanced atherosclerotic calcification and ectasia of the abdominal aorta. 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 Bowel: No bowel obstruction is identified. There are scattered colonic diver ticula without CT evidence of acute diverticulitis. Mild fecal retention is noted in the right colon. The appendix is well-visualized and normal. Peritoneum: There is no intraperitoneal free air or abdominal ascites. Lymphadenopathy: None. Pelvic viscera: The prostate gland is top normal in size and heterogeneous in attenuation. Brachytherapy seeds are noted. The bladder wall is thickened and trabeculated indicating chronic outlet obstruction. There are bilateral inguinal hernias. The right hernia contains a small segment of the bladder. A right-sided ureterocele is noted and unchanged from 2007. Skeletal structures: The skeletal structures are osteopenic. See below for dedicated assessment of the lumbar spine. No lytic or blastic lesions are seen. LUMBAR SPINE: Vertebral body height and alignment are maintained throughout the lumbar spine. There is no evidence of fracture or malalignment. There is straightening of the lumbar lordosis. Minimal levocurvature is centered at L3- L4. Small anterior and lateral marginal osteophytes are seen throughout. The transverse and spinous processes are intact. There is no evidence of spondylolysis. Schmorl's nodes are noted in L3 and L4. There is moderate disc space narrowing at L4-L5. Mild disc space narrowing is seen at the remaining lum bar levels. There is no large disc herniation or evidence of high-grade central canal stenosis by CT. Mild facet arthropathy is noted in the lower lumbar region. The paraspinous soft tissues are within normal limits. IMPRESSION: 1. There are no acute infectious or inflammatory findings in the abdomen or pelvis. 2. Right-sided nephrolithiasis with an 8 mm stone in the right renal pelvis. There is no hydronephrosis or ureteral stone seen. 3. Cholelithiasis and biliary sludge. 4. Trace pleural effusions with bibasilar scarring/atelectasis. 5. 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 6. No acute bony abnormality is seen involving the lumbar spine. 7. Osteopenia and mild lumbosacral spondylosis as above. 8. There are bilateral inguinal hernias. The right inguinal hernia contains a small segment of the bladder. 9. Additional findings as above. EKG: Shows normal sinus rhythm with a rate of 64 bpm, normal intervals, no ST or T wave abnormalities, no ectopy, no significant change when compared to previous EKG from 11/03/2019 by my interpretation. MEDICATION RECONCILIATION: I attest that I have personally reviewed the kristian ent's current medication list. INITIAL VITAL SIGNS REVIEW: I reviewed the patient's initial vital signs and interpret them as follows: T: Afebrile; BP: Hypertensive; HR: Within normal limits; RR: Within normal limits; Pulse Ox: Within normal limits on room air. Blood pressure screening: The patient was found to have an elevated blood pressure and was referred to the inpatient team for further management. MDM SUMMARY: Patient was evaluated at bedside, history and physical exam performed. Patient is alert, oriented to self, and in no acute distress, resting in stretcher. He complains of pain in the back that he rates a 9/10. No midline tenderness or paraspinous muscle tenderness of the entire back on my exam. He is neurovascularly intact with good strength and sensation in both legs. He has a history of urinary incontinence, this is not new. He states he has been moving his bowels normally without difficulty. No exam findings concerning for spinal cord involvement at this time. Cardiac monitoring: An order was placed for continuous cardiac monitoring. The monitor shows a rate of 72 bpm with normal sinus rhythm. Orders were placed at bedside for labs, UA, IV fluid bolus for hydration, p.o. Tylenol for pain, CT abdomen/pelvis without contrast and CT lumbar spine without contrast to evaluate for back pain. Patient discussed with Dr. Blakely, who agrees with my assessment, plan, and disposition. Labs and imaging reviewed as above, no acute abnormalities. Anemia and chronic kidney disease appear to be stable. There is no UTI. CT imaging notable for a right-sided 8 mm stone in the renal pelvis, which I suspect is the cause of his back/flank pain. There is no evidence of hydronephrosis at this time. No fracture or malalignment of the lumbar spine. As I suspect patient will not be able to pass this large stone, I did feel that he would benefit from admission and evaluation by urology. I spoke on the phone with Dr. Wellington, urology, who agrees with admission and will most likely take the patient for procedure later this week. He did request a preop COVID-19 screening, which was ordered. I spoke on the phone with Anu Cordero [facility] hospitalist team, who agrees to evaluate the patient for admission. Patient reassessed multiple times throughout ED stay, he has remained hemodynamically stable and afebrile and reports that his pain is improved after the Tylenol. He was updated on all results and plan for admission, he was agreeable to this plan. The patient was stable at time of admission. The chart was completed utilizing [facility] Speech voice recognition software. Grammatical errors, random word insertions, pronoun errors, and incomplete s entences are an occasional consequence of this system due to software limitations, ambient noise, and hardware issues. Any formal questions or concerns about the content, text, or information contained within the body of this dictation should be directly addressed to the nurse practitioner for clar ification. 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) Family History Father Acute myocardial infarction Mother Acute myocardial infarction Family history of suicide Unknown Diabetes Heart disease Hypertension Social History Preferred Language: [place] Communication Ability: Effective Visual Impairment: Limited Hearing Ability: Hard of Hearing House Worker Required: No Beliefs That Will Affect Care: None marital status: Current Living Situation: Personal Care Facility current occupational status: retired Other Information That Helps Us Care for You: No Feels Safe at Home: Yes Safety Concerns: Feels Safe At This Time Smoking Status: Never smoker Do You Dip or Chew Tobacco: No ; Second Hand Exposure: No ; Tobacco Cessation Education Requested by Patient: No Hx Alcohol Use: No Hx Substance Use: No Childhood Exposure to Second-Hand Smoke: Yes Diet Comment: well balanced. caffeine: Yes (Coffee x 2 per day.) during the past year weight has: decreased > 10 lbs Dental Care, Regularly: No Physical Activity Frequency: Does not Exercise Seatbelt Use: always Sunscreen Use: No Allergies Allergies Allergy/AdvReac Type Severity Reaction Status Date / Time codeine Allergy Mild UNKNOWN Verified 11/24/19 08:35 REACTION gemfibrozil Allergy Verified 11/24/19 08:35 niacin Allergy Verified 11/24/19 08:35 simvastatin Allergy Verified 11/24/19 08:35 Home Meds Home Medications Medication Instructions Recorded Confirmed aspirin 81 mg tablet,delayed 81 mg PO DAILY 01/15/19 11/24/19 release atorvastatin 40 mg tablet 40 mg PO DAILY 01/15/19 11/24/19 clopidogrel 75 mg tablet 75 mg PO DAILY 01/15/19 11/24/19 docusate sodium 100 mg capsule 100 mg PO BID 01/15/19 11/24/19 insulin glargine [Lantus Solostar 12 unit SC DAILY 11/24/19 11/24/19 U-100 Insulin] polyethylene glycol 3350 [Miralax] 17 g PO DAILY 11/24/19 11/24/19 quetiapine 25 mg PO HS 11/24/19 11/24/19 sennosides-docusate sodium 1 tab-cap PO QDL 11/24/19 11/24/19 [Stimulant Laxative Plus] Previous Rx's Medication Instructions Recorded melatonin 3 mg PO HS #0 tab 11/09/19 metoprolol succinate 25 mg PO QAM #30 tab 11/09/19 Results & Data (ED) Vital Signs Vital Signs - 24 hr 11/24/19 08:15 11/24/19 08:26 11/24/19 10:25 Temperature 37.4 C Temperature Source Oral Pulse Rate 70 Pulse Rate [Right Finger] 68 Respiratory Rate 20 20 Respiratory Effort / Characteristics Non-Labored Spontaneous Non-Labored Spontaneous Respiratory Depth Normal Normal Respiratory Pattern Regular Regular Blood Pressure 172/87 H Blood Pressure [Left Arm] 133/72 Blood Pressure Mean 115 Blood Pressure Mean [Left Arm] 92 Blood Pressure Position Lying Blood Pressure Position [Left Arm] Lying Pulse Oximetry 94 95 98 Oxygen Delivery Method Room Air Room Air Room Air Sepsis Recent Fever Within 48 Hours No Sepsis New/Unexplained Change in Mental Status No Sepsis Action Taken by Nursing No Action Required Laboratory Data Result diagrams: 11/24/19 08:45 11/24/19 08:45 Lab Results 11/24/19 11/24/19 11/24/19 Range/Units 08:45 08:45 08:45 WBC 7.99 (4.8-10.8) K/uL RBC 4.33 L (4.7-6.1) M/uL Hgb 13.4 L (14.0-18.0) g/dL Hct 39.1 L (42-52) % MCV 90.3 (80-100) fL MCH 30.9 (25-34) pg MCHC 34.3 (32-36) g/dL RDW Std Deviation 43.2 (36.4-46.3) fL RDW Coeff of [place] 13.0 (11.5-14.5) % Plt Count 165 (130-400) K/uL MPV 9.9 (7.4-10.4) fL Immature Gran % (Auto) 0.5 % Neut % (Auto) 82.0 % Lymph % (Auto) 10.6 % Island % (Auto) 6.3 % Eos % (Auto) 0.5 % Baso % (Auto) 0.1 % Immature Gran # (Auto) 0.04 H (0.00-0.02) K/uL Neut # (Auto) 6.55 H (1.4-6.5) K/uL Lymph # (Auto) 0.85 L (1.2-3.4) K/uL Island # (Auto) 0.50 (0.11-0.59) K/uL Eos # (Auto) 0.04 (0-0.5) K/uL Baso # (Auto) 0.01 (0-0.2) K/uL Sodium 136 (136-145) mmol/L Potassium 5.3 H (3.5-5.1) mmol/L Chloride 106 (98-107) mmol/L Carbon Dioxide 25 (21-32) mmol/L Anion Gap 5.0 (3-11) BUN 28 H (7-18) mg/dl Creatinine 1.72 H (0.6-1.4) mg/dl Est Cr Clr Drug Dosing 28.3 ml/min Est GFR ( Amer) 41.1 Est GFR (Non-Af Amer) 35.5 BUN/Creatinine Ratio 16.4 (10-20) Glucose 214 H (70-99) mg/dl Calcium 9.3 (8.5-10.1) mg/dl Total Bilirubin 0.5 (0.2-1) mg/dl AST 14 L (15-37) U/L ALT 19 (12-78) U/L Alkaline Phosphatase 141 H (45-117) U/L Total Protein 7.7 (6.4-8.2) gm/dl Albumin 3.2 L (3.4-5.0) gm/dl Globulin 4.5 H (2.5-4.0) gm/dl Albumin/Globulin Ratio 0.7 L (0.9-2) Lipase 293 (73-393) U/L Urine Color Yellow Urine Appearance Clear (Clear) Urine pH 5.0 (4.5-7.5) Ur Specific [place] 1.020 (1.000-1.030) Urine Protein Trace H (Negative) Urine Glucose (UA) 2+ H (Negative) Urine Ketones Negative (Negative) Urine Blood Negative (Negative) Urine Nitrite Negative (Negative) Urine Bilirubin Negative (Negative) Urine Urobilinogen Negative (Negative) Ur Leukocyte Esterase Negative (Negative) Urine WBC (Auto) 1-5 (0-5) /hpf Urine RBC (Auto) 0-4 (0-4) /hpf U Hyaline Cast (Auto) 0 (0-5) /lpf U Epithel Cells (Auto) 0-5 (0-5) /lpf Urine Bacteria (Auto) Negative (Negative) Administered Medications Insulin Aspart (Novolog Flexpen) 0 units SC ACHS CESAR Stop: 12/24/19 11:59 Last Admin: 11/24/19 13:59 Dose: 4 units Documented by: [id number] Cosigned by: [id number] Senna/Docusate Sodium (Senokot S) 1 tab PO QDL CESAR Stop: 12/24/19 11:49 Last Admin: 11/24/19 14:01 Dose: 1 tab Documented by: [id number] Discontinued Medications Acetaminophen (Tylenol) 1,000 mg PO NOW STA Stop: 11/24/19 08:27 Last Admin: 11/24/19 08:58 Dose: 1,000 mg Documented by: [id number] Sodium Chloride (Nss 1000ml) 500 mls @ 999 mls/hr IV .Q31M ONE Stop: 11/24/19 08:51 Last Infusion: 11/24/19 09:44 Dose: 0 mls/hr Documented by: [id number] Admin: 11/24/19 08:59 Dose: 999 mls/hr Documented by: [id number] Sodium Chloride (Nss 1000ml) 1,000 mls @ 125 mls/hr IV .Q8H CESAR Stop: 11/25/19 11:49 Last Admin: 11/24/19 13:06 Dose: 125 mls/hr Documented by: [id number] Discharge Plan Visit Data *Final* Discharge Date/Time: 11/24/19 11:30 Chief Complaint: Back Injury/Pain Stated Complaint: lower back pain / [facility] ED Provider: Jean Pierre Blakely ED Midlevel Provider: Elena Byrd Discharge Problem: Nephrolithiasis, Acute back pain Patient Disposition: Admitted As Inpatient Discharge Instructions Interventions: ED Discharge Assessment Last Done: 11/24/19 11:30 Discharge Problem: Acute back pain Qualifiers: Back pain location: thoracic back pain Back pain laterality: right Qualified Code(s): M54.6 - Pain in thoracic spine
[2019-11-24 09:05] LABS: Basophils # (auto) 0.01 K/uL (0-0.2); Basophils % (auto) 0.1 %; Eosinophils # (auto) 0.04 K/uL (0-0.5); Eosinophils % (auto) 0.5 %; Hematocrit (blood only) 39.1 % (42-52); Hemoglobin 13.4 g/dL (14.0-18.0); Immature Granulocytes # (auto) 0.04 K/uL (0.00-0.02); Immature Granulocytes % (auto) 0.5 %; Lymphocytes # (auto) 0.85 K/uL (1.2-3.4); Lymphocytes % (auto) 10.6 %; Mean Corpuscular Hemoglobin 30.9 pg (25-34); Mean Corpuscular Hgb Conc 34.3 g/dL (32-36); Mean Corpuscular Volume 90.3 fL (80-100); Mean Platelet Volume 9.9 fL (7.4-10.4); Monocytes % (auto) 6.3 %; Neutrophils # (auto) 6.55 K/uL (1.4-6.5); Platelet Count 165 K/uL (130-400); RDW Standard Deviation 43.2 fL (36.4-46.3); Red Blood Count 4.33 M/uL (4.7-6.1); White Blood Count 7.99 K/uL (4.8-10.8)
[2019-11-24 09:07] LABS: Appearance Urine Clear (Clear); Bacteria Urine Automated Negative (Negative); Bilirubin Urine Negative (Negative); Blood Urine Negative (Negative); Cast Urine Automated 0 /lpf (0-5); Color Urine Yellow; Epithelial Cell Urine Auto 0-5 /lpf (0-5); Glucose Urine UA 2+ (Negative); Ketones Urine Negative (Negative); Leukocyte Esterase Urine Negative (Negative); Nitrite Urine Negative (Negative); Protein Urine Trace (Negative); RBC Urine Automated 0-4 /hpf (0-4); Urobilinogen Urine Negative (Negative)
[2019-11-24 09:20] LABS: Albumin Level 3.2 gm/dl (3.4-5.0); BUN Creatinine Ratio 16.4 (10-20); Calcium 9.3 mg/dl (8.5-10.1); Creatinine Clr Calc Pharmacy 28.3 ml/min; Est GFR (African American) 41.1; Est GFR (Non-African American) 35.5; Potassium 5.3 mmol/L (3.5-5.1)
[2019-11-24 09:23] LABS: Albumin Globulin Ratio 0.7 (0.9-2); Bilirubin,Total 0.5 mg/dl (0.2-1); Globulin 4.5 gm/dl (2.5-4.0); Total Protein 7.7 gm/dl (6.4-8.2)
--- NOTE | 2019-11-24 10:18 | CT Scan Report ---
CT SCAN OF THE ABDOMEN AND PELVIS WITHOUT IV CONTRAST; CT SCAN OF THE LUMBAR SPINE WITHOUT IV CONTRAS T CLINICAL HISTORY: Generalized abdominal pain. Low back pain. COMPARISON STUDY: KUB dated 12/13/2013. Nuclear bone scan dated 02/22/2011. Radiation treatment planni ng CT of the pelvis dated 05/09/2007. TECHNIQUE: CT scan of the abdomen and pelvis is performed from the lung bases to the proximal femora. Additionally, unenhanced CT of the lumbar spine is performed from the lower thoracic spine to the sa drew. Images for both examinations are reviewed in the axial, sagittal, and coronal planes. IV contra st was not administered for this examination. A dose lowering technique was utilized adhering to the principles of ALARA. CT DOSE: 371.91 mGy.cm FINDINGS: Lung bases: The heart is top normal in size noting trace pericardial fluid. The coronary arteries are densely calcified. There is significant attenuation of the cardiac blood pool as compared to the elías cardium suggesting anemia. There is a small hiatal hernia. There calcification containing mediastinal and hilar lymph nodes. There are trace pleural effusions with bibasilar scarring/atelectasis a 2.6 c m focus of round atelectasis is noted at the right lung base. Liver: The unenhanced liver is normal in size, contour, and attenuation. There is no intrahepatic yasmeen iary ductal dilatation. Gallbladder: There are calcified gallstones and biliary sludge. There is no CT evidence of acute chol ecystitis. Spleen: Normal in size and attenuation. Pancreas: The unenhanced pancreas is atrophic. 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 The pancreas is otherwise grossly unremarkable. Adrenal glands: Unremarkable. Kidneys: The unenhanced kidneys are atrophic and without hydronephrosis. Foci of cortical scarring ar e noted in the right kidney. There is an 8 mm calculus in the right renal pelvis seen on image #219. An additional 3 mm nonobstructing calculus is noted in the right lower pole. No left or a calculi are identified. No ureteral stone is seen. Parapelvic cysts are seen bilaterally, left greater than righ t. There is no evidence of contour deforming renal mass lesion. Abdominal vasculature: There is advanced atherosclerotic calcification and ectasia of the abdominal a rafa. 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 Bowel: No bowel obstruction is identified. There are scattered colonic diverticula without CT evidenc e of acute diverticulitis. Mild fecal retention is noted in the right colon. The appendix is well-vi sualized and normal. Peritoneum: There is no intraperitoneal free air or abdominal ascites. Lymphadenopathy: None. Pelvic viscera: The prostate gland is top normal in size and heterogeneous in attenuation. Brachyther apy seeds are noted. The bladder wall is thickened and trabeculated indicating chronic outlet obstruc tion. There are bilateral inguinal hernias. The right hernia contains a small segment of the bladder. A right-sided ureterocele is noted and unchanged from 2007. Skeletal structures: The skeletal structures are osteopenic. See below for dedicated assessment of th e lumbar spine. No lytic or blastic lesions are seen. LUMBAR SPINE: Vertebral body height and alignment are maintained throughout the lumbar spine. There i s no evidence of fracture or malalignment. There is straightening of the lumbar lordosis. Minimal lev ocurvature is centered at L3-L4. Small anterior and lateral marginal osteophytes are seen throughout. The transverse and spinous processes are intact. There is no evidence of spondylolysis. Schmorl's no christelle are noted in L3 and L4. There is moderate disc space narrowing at L4-L5. Mild disc space narrowin g is seen at the remaining lumbar levels. There is no large disc herniation or evidence of high-grade central canal stenosis by CT. Mild facet arthropathy is noted in the lower lumbar region. The parasp inous soft tissues are within normal limits. IMPRESSION: 1. There are no acute infectious or inflammatory findings in the abdomen or pelvis. 2. Right-sided nephrolithiasis with an 8 mm stone in the right renal pelvis. There is no hydronephros is or ureteral stone seen. 3. Cholelithiasis and biliary sludge. 4. Trace pleural effusions with bibasilar scarring/atelectasis. 5. 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 6. No acute bony abnormality is seen involving the lumbar spine. 7. Osteopenia and mild lumbosacral spondylosis as above. 8. There are bilateral inguinal hernias. The right inguinal hernia contains a small segment of the bl adder. 9. Additional findings as above. ACT 112: Negative or not required by law. Electronically signed by: Mickey Jeronimo M.D. 11/24/2019 10:16 AM
--- NOTE | 2019-11-24 10:54 | History & Physical Report ---
Date of Service November 24, 2019 Assessment & Plan (1) Nephrolithiasis: - Admit to med surg - CT abd/pelvis reviewed: 1. There are no acute infectious or inflammatory findings in the abdomen or pelvis. 2. Right-sided nephrolithiasis with an 8 mm stone in the right renal pelvis. There is no hydronephrosis or ureteral stone seen. 3. Cholelithiasis and biliary sludge. 4. Trace pleural effusions with bibasilar scarring/atelectasis. 5. 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 6. No acute bony abnormality is seen involving the lumbar spine. 7. Osteopenia and mild lumbosacral spondylosis as above. 8. There are bilateral inguinal hernias. The right inguinal hernia contains a small segment of the bladder. -Consult urology -NSS at 125 mL/h -Pain control, bowel regimen, strain all urine -Antiemetics PRN -Make n.p.o. after midnight in the setting of possible cystoscopy to be performed by urology tomorrow morning. COVID testing has been done for preoperative clearance, pending. -Noted bilateral inguinal hernias as above, monitor (2) CAD, multiple vessel: - noted, stable (3) Aortic valve stenosis, moderate: - hx of such (4) History of CA (myocardial infarction): - Pt with a history of PCI, cont plavix, atorvastatin. Admitting team has held metoprolol and aspirin, resumed his metoprolol on 11/05 - No signs of ischemia - EKG reviewed (5) Hyperlipidemia: -Continue statin therapy (6) Diabetes mellitus: -Continue Lantus 12 units daily, cut in half once the patient is n.p.o., possible surgery scheduled for tomorrow so we will make n.p.o. this evening. -ISS with Accu-Cheks AC at bedtime -Last A1c 11.2 earlier this month (7) CKD (chronic kidney disease), stage III: -Stable, creatinine 1.72, BUN = 28, appears his baseline fluctuates between 1.5-2 (8) Alzheimer's disease: -History of such, continue Seroquel 25 mg at bedtime -History of , monitor (9) DVT prophylaxis: - teds, scds CODE: DNR-discussed with the patient's daughter over the phone Dispo: From home, likely to remain in the hospital x 1-2 days History of Present Illness Primary Care Provider: [facility] This is an 83 yo M with PMhx of CAD, history of CA aortic valve stenosis, DM type II, HLD, Alzheimer's disease, BPH, prostate cancer, diverticulosis who presents from [facility] with worsening back pain. Per nursing at [facility] last night he was a little cranky, and was complaining of back pain, this morning he was unable to sit up in bed without pain. No fever chills or sweats, patient currently appears comfortable and denies that he has any pain while at bedside. He has difficulty recalling specific events due to his dementia. I discussed the patient care with his daughter, Leann, over the phone, and all her questions and concerns were addressed. She tells me that pt was just in [facility] for the past week. He recently was here at [facility] for hyperglycemia, then went to [facility] for PT/OT, then transitioned [facility]. CT of the abdomen reveals 8 mm Right sided nephrolithiasis. No hydronephrosis Allergies Allergy/AdvReac Type Severity Reaction Status Date / Time codeine Allergy Mild UNKNOWN Verified 11/24/19 08:35 REACTION gemfibrozil Allergy Verified 11/24/19 08:35 niacin Allergy Verified 11/24/19 08:35 simvastatin Allergy Verified 11/24/19 08:35 Home Medications Home Medications Medication Instructions Recorded Confirmed Type aspirin 81 mg tablet,delayed 81 mg PO DAILY 01/15/19 11/24/19 History release atorvastatin 40 mg tablet 40 mg PO DAILY 01/15/19 11/24/19 History clopidogrel 75 mg tablet 75 mg PO DAILY 01/15/19 11/24/19 History docusate sodium 100 mg capsule 100 mg PO BID 01/15/19 11/24/19 History melatonin 3 mg PO HS #0 tab 11/09/19 11/24/19 Rx metoprolol succinate 25 mg PO QAM #30 tab 11/09/19 11/24/19 Rx Lantus Solostar U-100 Insulin 12 unit SC DAILY 11/24/19 11/24/19 History polyethylene glycol 3350 [Miralax] 17 g PO DAILY 11/24/19 11/24/19 History quetiapine 25 mg PO HS 11/24/19 11/24/19 History sennosides-docusate sodium 1 tab-cap PO QDL 11/24/19 11/24/19 History [Stimulant Laxative Plus] 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) Family History Father Acute myocardial infarction Mother Acute myocardial infarction Family history of suicide Unknown Diabetes Heart disease Hypertension Social History Preferred Language: Uzbek Communication Ability: Effective Visual Impairment: Limited Hearing Ability: Hard of Hearing Nuclear Medical Technologist Required: No Beliefs That Will Affect Care: None marital status: Current Living Situation: Personal Care Facility current occupational status: retired Feels Safe at Home: Yes Smoking Status: Never smoker Second Hand Exposure: No ; Hx Alcohol Use: No Hx Substance Use: No Childhood Exposure to Second-Hand Smoke: Yes Diet Comment: well balanced. caffeine: Yes (Coffee x 2 per day.) during the past year weight has: decreased > 10 lbs Dental Care, Regularly: No Physical Activity Frequency: Does not Exercise Seatbelt Use: always Sunscreen Use: No Review of Systems Review of Systems: Constitutional: No fever, sweats or chills Eyes: No diplopia, no worsening or blurred vision ENT: normal hearing, no trouble swallowing Respiratory: No cough, sputum, dyspnea at rest or on exertion Cardiovascular: No chest pain, tightness or palpitations Abdomen: No pain, nausea, vomiting, diarrhea or constipation Musculoskeletal: No joint pain, calf pain, swelling Neurologic: No weakness, numbness/tingling, or balance problems Psychiatric: No anxiety or depression Skin: No rash or itch Physical Exam Physical Exam: General: awake, alert, no apparent distress Head: Normocephalic, atraumatic ENT: PERRL, EOMI, no pharyngeal exudate, mucous membranes moist Chest: Clear to auscultation, on room air, no adventitious breath sounds Cardiac: Regular rate and rhythm, + loud VERNA heard best at RUSB, no JVD, normal peripheral pulses, good capillary refill Abdominal: NABS x 4 quadrants, soft, nondistended, nontender to palpation, no rebound, guarding or tenderness Extremities: Normal inspection, no peripheral edema or erythema, calfs nontender to palpation Psych: Normal mood and affect Neuro: AAO x 3, strength intact bilaterally and rated 5/5, no motor deficits, speech is clear, no peripheral sensory deficits Results & Data Results & Data ([facility]) Vital Signs (Past 12 Hours) Vital Signs Temp Pulse Pulse Resp BP BP Pulse Ox 11/24/19 10:25 68 20 133/72 98 11/24/19 08:26 95 11/24/19 08:15 37.4 C 70 20 172/[address] SCAN OF THE ABDOMEN AND PELVIS WITHOUT IV CONTRAST; CT SCAN OF THE LUMBAR SPINE WITHOUT IV CONTRAST CLINICAL HISTORY: Generalized abdominal pain. Low back pain. COMPARISON STUDY: KUB dated 12/13/2013. Nuclear bone scan dated 02/22/2011. Radiation treatment planning CT of the pelvis dated 05/09/2007. TECHNIQUE: CT scan of the abdomen and pelvis is performed from the lung bases to the proximal femora. Additionally, unenhanced CT of the lumbar spine is performed from the lower thoracic spine to the sacrum. Images for both examinations are reviewed in the axial, sagittal, and coronal planes. IV contrast was not administered for this examination. A dose lowering technique was utilized adhering to the principles of ALARA. CT DOSE: 371.91 mGy.cm FINDINGS: Lung bases: The heart is top normal in size noting trace pericardial fluid. The coronary arteries are densely calcified. There is significant attenuation of the cardiac blood pool as compared to the myocardium suggesting anemia. There is a small hiatal hernia. There calcification containing mediastinal and hilar lymph nodes. There are trace pleural effusions with bibasilar scarring/atelectasis a 2.6 cm focus of round atelectasis is noted at the right lung base. Liver: The unenhanced liver is normal in size, contour, and attenuation. There is no intrahepatic biliary ductal dilatation. Gallbladder: There are calcified gallstones and biliary sludge. There is no CT evidence of acute cholecystitis. Spleen: Normal in size and attenuation. Pancreas: The unenhanced pancreas is atrophic. A 12 mm cystic focus in the panc reatic head is typical in appearance for small sidebranch IPMN. The pancreas is otherwise grossly unremarkable. Adrenal glands: Unremarkable. Kidneys: The unenhanced kidneys are atrophic and without hydronephrosis. Foci of cortical scarring are noted in the right kidney. There is an 8 mm calculus in the right renal pelvis seen on image #219. An additional 3 mm nonobstructing calculus is noted in the right lower pole. No left or a calculi are identified. No ureteral stone is seen. Parapelvic cysts are seen bilaterally, left greater than right. There is no evidence of contour deforming renal mass lesion. Abdominal vasculature: There is advanced atherosclerotic calcification and ectasia of the abdominal aorta. 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 Bowel: No bowel obstruction is identified. There are scattered colonic diverticula without CT evidence of acute diverticulitis. Mild fecal retention is noted in the right colon. The appendix is well-visualized and normal. Peritoneum: There is no intraperitoneal free air or abdominal ascites. Lymphadenopathy: None. Pelvic viscera: The prostate gland is top normal in size and heterogeneous in attenuation. Brachytherapy seeds are noted. The bladder wall is thickened and trabeculated indicating chronic outlet obstruction. There are bilateral inguinal hernias. The right hernia contains a small segment of the bladder. A right-sided ureterocele is noted and unchanged from 2007. Skeletal structures: The skeletal structures are osteopenic. See below for dedicated assessment of the lumbar spine. No lytic or blastic lesions are seen. LUMBAR SPINE: Vertebral body height and alignment are maintained throughout the lumbar spine. There is no evidence of fracture or malalignment. There is straightening of the lumbar lordosis. Minimal levocurvature is centered at L3- L4. Small anterior and lateral marginal osteophytes are seen throughout. The transverse and spinous processes are intact. There is no evidence of spondylolysis. Schmorl's nodes are noted in L3 and L4. There is moderate disc space narrowing at L4-L5. Mild disc space narrowing is seen at the remaining lumbar levels. There is no large disc herniation or evidence of high-grade central canal stenosis by CT. Mild facet arthropathy is noted in the lower lumbar region. The paraspinous soft tissues are within normal limits. IMPRESSION: 1. There are no acute infectious or inflammatory findings in the abdomen or pelvis. 2. Right-sided nephrolithiasis with an 8 mm stone in the right renal pelvis. There is no hydronephrosis or ureteral stone seen. 3. Cholelithiasis and biliary sludge. 4. Trace pleural effusions with bibasilar scarring/atelectasis. 5. 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 6. No acute bony abnormality is seen involving the lumbar spine. 7. Osteopenia and mild lumbosacral spondylosis as above. 8. There are bilateral inguinal hernias. The right inguinal hernia contains a small segment of the bladder. 9. Additional findings as above. ACT 112: Negative or not required by law. Electronically signed by: Mickey Jeronimo M.D. 11/24/2019 10:16 AM Code Status & VTE Plan Code Status Full - discussed with daughter VTE Prophylaxis Plan VTE Prophylaxis will be ordered: Yes Supervising Physician Co-Signing Physician Notes Patient is seen and examined at bedside. During my face to face encounter, I obtained a history and physical examination. My history and physical examination did not differ from the above note created by APC Mrs. Cordero. I discussed plan with patient and APC, and answered all of the patients questions. Patient is admitted with nephrolithiasis, will consult Urology for stent placement. Patient will be NPO after midnight. Will continue IVF and monitor. PG Care Time/CCT Total # of Minutes Spent Total Time Spent with Patient: Total time spent is greater than 50% in coordination of care (as documented) at patient's floor/unit and/or counseling patient: Coding Level of Care Code 91054 Initial Inpt Care Lvl 3 Diagnoses Nephrolithiasis N20.0 CAD, multiple vessel I25.10 Aortic valve stenosis, moderate I35.0 History of CA (myocardial infarction) I25.2 Hyperlipidemia E78.5 Diabetes mellitus E11.9 CKD (chronic kidney disease), stage III N18.3 Alzheimer's disease G30.9; F02.80 DVT prophylaxis Z29.9
[2019-11-24] MEDS ORDERED: DEXTROSE 50% 50 ML SYRINGE IV PRN (11:50)
[2019-11-24] MEDS ORDERED: GLUCOSE 10 TABS/TUBE PO PRN (11:50)
[2019-11-24] MEDS ORDERED: CARBOHYDRATES FOR HYPOGLYCEMIA PO PRN (11:50)
[2019-11-24] MEDS ORDERED: SODIUM CHLORIDE 0.9% 1000ML 1,000 ML IV SCH (11:50)
[2019-11-24] MEDS ORDERED: ONDANSETRON INJ 2 MG/ML 2 ML VIAL IV PRN (11:50)
[2019-11-24] MEDS ORDERED: GLUCOSE 40% GEL 15 GM TUBE PO PRN (11:50)
[2019-11-24] MEDS ORDERED: ACETAMINOPHEN 325 MG TAB PO PRN (11:50)
[2019-11-24] MEDS ORDERED: GLUCAGON FOR INJ 1 MG VIAL SQ PRN (11:50)
[2019-11-24] MEDS: INSULIN ASPART 100 UNITS/ML 3 ML PEN SC SCH ×3 (13:59→20:41)
[2019-11-24] MEDS: DOCUSATE SODIUM/SENNA 50/8.6MG TAB PO SCH (14:01)
--- NOTE | 2019-11-24 14:12 | Urology Consultation ---
Date of Consultation November 24, 2019 Assessment & Plan (1) Nephrolithiasis: Patient admitted undergoing IV hydration and supportive care. Patient has multiple issues on the right with a right sided renal pelvis stone likely at least partially because of patient's pain and issues. Also has inguinal hernia on the right which appears to contain part of the right side of bladder. Patient also has a right-sided ureterocele. Patient's complicated medical and surgical history was all reviewed. All imaging was reviewed interpreted by myself. Discussed different options. Will need to check in with patient's family and develop plan for further management. Will likely be made n.p.o. at midnight with plans for possible stent versus other intervention tomorrow. I called patient's daughter and discussed findings and concerns with larger 8 mm right renal pelvis/UPJ stone. Discussed ureteroscopy for stone treatment. Will plan NPO at midnight with treatment tomorrow. (2) History of prostate cancer: (3) Ureterocele: (4) Bladder hernia in male: History of Present Illness Attending Physician: Burak Burns History of Present Illness New consultation for patient with stone, discomfort, obstruction, and ill feelings. Patient developed sudden onset of pain into flank going down and radiating into groin and back in waves comes and goes. Can be severe at times. Baseline memory and mentation issues with dementia. Somewhat poor historian. Majority of information from records. Discussed and reviewed patient's family history for any history of stone disease. Also, discussed patient's medical surgery history especially related to any history of urinary issues or stone disease. Patient's daughter was called for further information. Patient was admitted and is undergoing observation. Allergies Allergy/AdvReac Type Severity Reaction Status Date / Time codeine Allergy Mild UNKNOWN Verified 11/24/19 08:35 REACTION gemfibrozil Allergy Verified 11/24/19 08:35 niacin Allergy Verified 11/24/19 08:35 simvastatin Allergy Verified 11/24/19 08:35 Home Medications Home Medications Medication Instructions Recorded Confirmed Type aspirin 81 mg tablet,delayed 81 mg PO DAILY 01/15/19 11/24/19 History release atorvastatin 40 mg tablet 40 mg PO DAILY 01/15/19 11/24/19 History clopidogrel 75 mg tablet 75 mg PO DAILY 01/15/19 11/24/19 History docusate sodium 100 mg capsule 100 mg PO BID 01/15/19 11/24/19 History melatonin 3 mg PO HS #0 tab 11/09/19 11/24/19 Rx metoprolol succinate 25 mg PO QAM #30 tab 11/09/19 11/24/19 Rx insulin glargine [Lantus Solostar 12 unit SC DAILY 11/24/19 11/24/19 History U-100 Insulin] polyethylene glycol 3350 [Miralax] 17 g PO DAILY 11/24/19 11/24/19 History quetiapine 25 mg PO HS 11/24/19 11/24/19 History sennosides-docusate sodium 1 tab-cap PO QDL 11/24/19 11/24/19 History [Stimulant Laxative Plus] Patient History Medical History Alzheimer's disease (Chronic) Aortic valve stenosis, moderate (Acute) CAD, multiple vessel (Chronic) CKD (chronic kidney disease), stage III (Chronic) Diabetes mellitus (Chronic) Diabetes mellitus with kidney disease History of adenomatous polyp of colon 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 History of weight loss excessive Hyperlipidemia (Acute) 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) Family History Father Acute myocardial infarction Mother Acute myocardial infarction Family history of suicide Unknown Diabetes Heart disease Hypertension Social History Preferred Language: Belarusian Communication Ability: Effective Visual Impairment: Limited Hearing Ability: Hard of Hearing Inside Sales Administrator Required: No Beliefs That Will Affect Care: None marital status: Current Living Situation: Personal Care Facility current occupational status: retired Other Information That Helps Us Care for You: No Feels Safe at Home: Yes Safety Concerns: Feels Safe At This Time Smoking Status: Never smoker Do You Dip or Chew Tobacco: No ; Second Hand Exposure: No ; Tobacco Cessation Education Requested by Patient: No Hx Alcohol Use: No Hx Substance Use: No Childhood Exposure to Second-Hand Smoke: Yes Diet Comment: well balanced. caffeine: Yes (Coffee x 2 per day.) during the past year weight has: decreased > 10 lbs Dental Care, Regularly: No Physical Activity Frequency: Does not Exercise Seatbelt Use: always Sunscreen Use: No Review of Systems Review of Systems: All systems reviewed & are unremarkable except as noted in HPI & below Physical Exam Physical Exam: General: Alert in no acute distress. Advanced age. Chronic Medical issues. Baseline for memory and mentation issue with dementia. HEENT: Normocephalic. Inspection normal. Cranial Nerves 2-12 Grossly intact with some hearing issues. Normal inspection of face. Normal inspection of neck. Psychologic: Normal affect. Baseline issues with memory. Respiratory: Nonlabored. No use of accessory muscles. No tachypnea or dyspnea. Cardiovascular: No tachycardia Skin: [place] and Dry. No rashes or visible lesions. Extremities/Lymphatics: Minor Mobility issues. Slow Gait. Abdomen: Soft Non-distended. No rebound or guarding. Results & Data Vital Signs (Past 12 Hours) Vital Signs Temp Pulse Pulse Resp BP BP BP 11/24/19 11:50 36.6 C 65 16 145/81 H 11/24/19 11:30 66 18 131/73 11/24/19 10:25 68 20 133/72 11/24/19 08:26 11/24/19 08:15 37.4 C 70 20 172/87 H Pulse Ox 11/24/19 11:50 97 11/24/19 11:30 99 11/24/19 10:25 98 11/24/19 08:26 95 11/24/19 08:15 94 PG Care Time/CCT Total # of Minutes Spent Total Time Spent with Patient: Total time spent is greater than 50% in coordination of care (as documented) at patient's floor/unit and/or counseling patient: Coding Level of Care Code 01345 Initial Inpt Care Lvl 3 Diagnoses Nephrolithiasis N20.0 History of prostate cancer Z85.46 Ureterocele N28.89 Bladder hernia in male N32.89
--- NOTE | 2019-11-24 14:43 | Electrocardiogram Report ---
Test Reason : Blood Pressure : / mmHG Vent. Rate : 064 BPM Atrial Rate : 064 BPM P-R Int : 146 ms QRS Dur : 080 ms QT Int : 414 ms P-R-T Axes : 039 -01 062 degrees QTc Int : 427 ms Normal sinus rhythm Possible Inferior infarct (cited on or before 01-JUN-2012) Abnormal ECG When compared with ECG of 03-NOV-2019 15:25, No significant change was found Confirmed by Edgardo Wallace ([id number]) on 11/24/2019 2:43:04 PM Referred By: [facility] Confirmed By:Edgardo Wallace
[2019-11-24] MEDS: QUETIAPINE FUMARATE 25 MG TABLET PO SCH (20:45)
[2019-11-24] MEDS: DOCUSATE SODIUM 100 MG CAP PO SCH (20:45)
[2019-11-24] MEDS: MELATONIN 3 MG TAB PO SCH (20:45)
[2019-11-25] MEDS ORDERED: Nursing to Pharmacy Communication SCH ×2 (02:45→17:45)
[2019-11-25 06:03] LABS: Mean Corpuscular Hemoglobin 30.7 pg (25-34); Mean Corpuscular Hgb Conc 33.3 g/dL (32-36); Mean Corpuscular Volume 92.1 fL (80-100); Mean Platelet Volume 9.8 fL (7.4-10.4); Platelet Count 164 K/uL (130-400); RDW Coefficient of Variation 13.3 % (11.5-14.5); RDW Standard Deviation 44.5 fL (36.4-46.3); Red Blood Count 3.91 M/uL (4.7-6.1); White Blood Count 5.32 K/uL (4.8-10.8)
[2019-11-25] MEDS: INSULIN ASPART 100 UNITS/ML 3 ML PEN SC SCH ×3 (06:28→21:04)
[2019-11-25 06:43] LABS: Albumin Globulin Ratio 0.7 (0.9-2); Albumin Level 2.7 gm/dl (3.4-5.0); BUN Creatinine Ratio 19.6 (10-20); Bilirubin,Total 0.4 mg/dl (0.2-1); Calcium 8.5 mg/dl (8.5-10.1); Creatinine Clr Calc Pharmacy 29.2 ml/min; Est GFR (African American) 42.6; Est GFR (Non-African American) 36.8; Potassium 4.3 mmol/L (3.5-5.1); Total Protein 6.7 gm/dl (6.4-8.2)
[2019-11-25] MEDS: POLYETHYLENE (MIRALAX) 17 GM PACK PO SCH (09:09)
[2019-11-25] MEDS: ATORVASTATIN 40 MG TAB PO SCH (09:09)
[2019-11-25] MEDS: DOCUSATE SODIUM 100 MG CAP PO SCH ×2 (09:10→21:04)
[2019-11-25] MEDS: METOPROLOL SUCC 25MG EXT REL TAB PO SCH (09:10)
[2019-11-25] MEDS: INSULIN GLARGINE SOLOSTAR 100 UNITS/ML 3 ML PEN SC SCH (09:26)
[2019-11-25] MEDS: ASPIRIN 81 MG ECTAB PO SCH (09:26)
[2019-11-25] MEDS: CLOPIDOGREL BISULFATE 75 MG TAB PO SCH (09:26)
--- NOTE | 2019-11-25 09:57 | Urology Progress Note ---
Date of Service November 25, 2019 Assessment & Plan (1) Nephrolithiasis: Found to have a UPJ stone. Patient admitted undergoing IV hydration and supportive care. Patient has multiple issues on the right with a right sided renal pelvis stone likely at least partially because of patient's pain and issues. Also has inguinal hernia on the right which appears to contain part of the right side of bladder. Patient also has a right-sided ureterocele. Patient has significant dementia. Has had exacerbation with confusion. Concern for possible issues related to stone passage. Discussed other concerns and issues. Had previously done well with interventions. Discussion with daughter yesterday for different options and family was on board to proceed with plan for stone treatment. With family, risks and benefits discussed at length for procedure. These include bleeding, infection, injury to surrounding tissues or organs, and risks associated with anesthesia. Patient's family states understanding and agrees to proceed. Will sign consent and schedule. With increasing confusion/exacerbation of dementia memory issues major concern for possible delirium from stone. Consent signed by phone call with Daughter Leann. No further questions or issues. (2) History of prostate cancer: (3) Ureterocele: (4) Bladder hernia in male: Subjective Patient admitted with flank pain and found to have a right 8 mm pelvis stone with possible obstruction. Patient has significant memory/dementia issues. Was admitted for IV hydration, antibiotics, and supportive care. Patient has been tolerating well. Has noticed some frequency and urgency. Has not had severe pain in the back and flank. Does have occasional burning and irritation. No severe episodes or major changes. No new nausea or vomiting. Spoke with daughter yesterday and due to ongoing issues discussed different options for intervention. Family was interested in proceeding with procedure. Would plan to have stone treated today. Review of Systems Review of Systems: All systems reviewed & are unremarkable except as noted in HPI & below and Unobtainable due to cognitive status Physical Exam Physical Exam: General: Significant issues with exacerbation of cognitive stat e. Significant dementia at baseline. HEENT: Normocephalic Atraumatic. Inspection normal. Cranial Nerves 2-12 Grossly intact. Normal inspection of face. Normal inspection of neck. Psychologic: Pleasantly confused. Respiratory: Nonlabored. No use of accessory muscles. No tachypnea or dyspnea. Cardiovascular: No tachycardia Skin: [place] and Dry. No rashes or visible lesions. Extremities/Lymphatics: No edema Abdomen: Soft Non-distended. No rebound or guarding. Results & Data Vital Signs (Past 12 Hours) Vital Signs Temp Pulse Resp BP Pulse Ox Pulse Ox 11/25/19 09:07 72 136/74 11/25/19 07:15 36.8 C 78 18 125/67 95 11/25/19 00:20 96 11/24/19 22:44 37.1 C 91 H 16 120/68 96 PG Care Time/CCT Total # of Minutes Spent Total Time Spent with Patient: Total time spent is greater than 50% in coordination of care (as documented) at patient's floor/unit and/or counseling patient: Coding Level of Care Code 16404 Subseq Hosp Care Lvl 3 Diagnoses Nephrolithiasis N20.0 History of prostate cancer Z85.46 Ureterocele N28.89 Bladder hernia in male N32.89
[2019-11-25] MEDS: DOCUSATE SODIUM/SENNA 50/8.6MG TAB PO SCH (12:15)
--- NOTE | 2019-11-25 14:16 | Anesthesiology Consultation ---
Date of Service November 25, 2019 Assessment & Plan Chart Review Chart Review: Acceptable Risk for Surgery Consults Requested none History Surgery Operation Date: 11/25/19 13:40 Proposed Procedures p Cystoscopy, Ureteroscopy, Laser Lithotripsy, Right Stent Insertion - Shaheen Wellington DO Height/Weight Height: 5 ft 6 in Weight: 69.1 kg Allergies Allergy/AdvReac Type Severity Reaction Status Date / Time codeine Allergy Mild UNKNOWN Verified 11/24/19 08:35 REACTION gemfibrozil Allergy Verified 11/24/19 08:35 niacin Allergy Verified 11/24/19 08:35 simvastatin Allergy Verified 11/24/19 08:35 Medications Home Medications Medication Instructions Recorded Confirmed Last Taken aspirin 81 mg tablet,delayed 81 mg PO DAILY 01/15/19 11/24/19 Unknown release atorvastatin 40 mg tablet 40 mg PO DAILY 01/15/19 11/24/19 Unknown clopidogrel 75 mg tablet 75 mg PO DAILY 01/15/19 11/24/19 Unknown docusate sodium 100 mg capsule 100 mg PO BID 01/15/19 11/24/19 Unknown melatonin 3 mg PO HS #0 tab 11/09/19 11/24/19 Unknown metoprolol succinate 25 mg PO QAM #30 tab 11/09/19 11/24/19 Unknown insulin glargine [Lantus Solostar 12 unit SC DAILY 11/24/19 11/24/19 Unknown U-100 Insulin] polyethylene glycol 3350 [Miralax] 17 g PO DAILY 11/24/19 11/24/19 Unknown quetiapine 25 mg PO HS 11/24/19 11/24/19 Unknown sennosides-docusate sodium 1 tab-cap PO QDL 11/24/19 11/24/19 Unknown [Stimulant Laxative Plus] Active Medications Generic Name Dose Route Start Last Admin Trade Name Freq PRN Reason Stop Dose Admin Aspirin 81 mg 11/25/19 09:00 11/25/19 09:26 Ecotrin Ectab PO 12/25/19 08:59 81 mg DAILY CESAR Administration Atorvastatin Calcium 40 mg 11/25/19 09:00 11/25/19 09:09 Lipitor PO 12/25/19 08:59 40 mg DAILY CESAR Administration Clopidogrel Bisulfate 75 mg 11/25/19 09:00 11/25/19 09:26 Plavix PO 12/25/19 08:59 Not Given DAILY CESAR Docusate Sodium 100 mg 11/24/19 21:00 11/25/19 09:10 Colace PO 12/24/19 20:59 100 mg BID CESAR Administration Insulin Aspart 0 units 11/25/19 06:00 11/25/19 12:14 Novolog Flexpen SC 12/25/19 05:59 Not Given Q6 CESAR Insulin Glargine 12 units 11/25/19 09:00 11/25/19 09:26 Lantus Solostar Pen SC 12/25/19 08:59 Not Given DAILY CESAR Melatonin 3 mg 11/24/19 21:00 11/24/19 20:45 Melatonin PO 12/24/19 20:59 3 mg HS CESAR Administration Metoprolol Succinate 25 mg 11/25/19 09:00 11/25/19 09:10 Toprol Xl PO 12/25/19 08:59 25 mg QAM CESAR Administration Polyethylene Glycol 17 gm 11/25/19 09:00 11/25/19 09:09 Miralax Powder Packet PO 12/25/19 08:59 Not Given DAILY CESAR Quetiapine Fumarate 25 mg 11/24/19 21:00 11/24/19 20:45 Seroquel PO 12/24/19 20:59 25 mg HS CESAR Administration Senna/Docusate Sodium 1 tab 11/24/19 11:50 11/25/19 12:15 Senokot S PO 12/24/19 11:49 Not Given QDL CESAR NPO Date Last Intake of Fluids: 11/25/19 Time Last Intake of Fluids: 23:59 Last Intake of Fluids Comment: sip with meds Date Last Intake of Solids: 11/24/19 Time Last Intake of Solids: 23:59 Past Medical History Medical History Alzheimer's disease (Chronic) Aortic valve stenosis, moderate (Acute) CAD, multiple vessel (Chronic) CKD (chronic kidney disease), stage III (Chronic) Diabetes mellitus (Chronic) Diabetes mellitus with kidney disease History of adenomatous polyp of colon 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 History of weight loss excessive Hyperlipidemia (Acute) 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) Past Family History Family History Father Acute myocardial infarction Mother Acute myocardial infarction Family history of suicide Unknown Diabetes Heart disease Hypertension Social History Smoking Status: Never smoker Do You Dip or Chew Tobacco: No Hx Alcohol Use: No Hx Substance Use: No substance use type: does not use Physical Exam Vital Signs Last Vital Signs Temp 36.7 C 11/25/19 13:48 Pulse 74 11/25/19 13:48 Resp 18 11/25/19 07:15 BP 125/70 11/25/19 13:48 Pulse Ox 97 11/25/19 13:48 Testing Laboratory Results 11/25/19 05:36 11/25/19 05:36 Urine Color Yellow 11/24/19 08:45 Urine Appearance Clear (Clear) 11/24/19 08:45 Urine pH 5.0 (4.5-7.5) 11/24/19 08:45 Ur Specific [place] 1.020 (1.000-1.030) 11/24/19 08:45 Urine Protein Trace (Negative) H 11/24/19 08:45 Urine Glucose (UA) 2+ (Negative) H 11/24/19 08:45 Urine Ketones Negative (Negative) 11/24/19 08:45 Urine Nitrite Negative (Negative) 11/24/19 08:45 Ur Leukocyte Esterase Negative (Negative) 11/24/19 08:45 Urine WBC (Auto) 1-5 /hpf (0-5) 11/24/19 08:45 Urine RBC (Auto) 0-4 /hpf (0-4) 11/24/19 08:45 U Hyaline Cast (Auto) 0 /lpf (0-5) 11/24/19 08:45 U Epithel Cells (Auto) 0-5 /lpf (0-5) 11/24/19 08:45 Urine Bacteria (Auto) Negative (Negative) 11/24/19 08:45 11/25/19 11/25/19 12:09 06:20 POC Glucose 142 H 142 H
[2019-11-25] MEDS ORDERED: fentaNYL citrate 100 MCG/2 ML VIAL IV PRN (14:18)
[2019-11-25] MEDS ORDERED: ePHEDrine sulfate 50 MG/ML AMP IV PRN (14:18)
[2019-11-25] MEDS ORDERED: HYDROmorphone INJ 1 MG/ML SYRINGE IV PRN (14:18)
[2019-11-25] MEDS ORDERED: ATROPINE SULFATE 0.1 MG/ML 10ML SYR IV PRN (14:18)
[2019-11-25] MEDS ORDERED: PROPOFOL IV EMULSION 10 MG/ML 20 ML VIAL IV ONE (14:56)
[2019-11-25] MEDS ORDERED: LIDOCAINE HCL 2% 2 ML VIAL/AMP(20MG/ML) INFIL ONE (14:56)
[2019-11-25] MEDS ORDERED: ONDANSETRON INJ 2 MG/ML 2 ML VIAL ONE (14:56)
[2019-11-25] MEDS ORDERED: fentaNYL citrate 100 MCG/2 ML VIAL ONE (14:57)
[2019-11-25] MEDS ORDERED: CEFAZOLIN 250 MG/ML 1 GM VIAL ONE (15:17)
--- NOTE | 2019-11-25 15:41 | Operative Report ---
[facility] Post Operative Report Pre & Post Diagnosis Operation Date: 11/25/19 13:40 Pre-Op Diagnosis: Lower back pain Post-Op Diagnosis: Lower back pain I identified the patient and participated in the time-out.: Yes Procedure Operation Date: 11/25/19 13:40 Actual Procedures p Cystoscopy, Ureteroscopy, Laser Lithotripsy, Right Stent Insertion(Right) - Shaheen Wellington DO Surgeon Shaheen Wellington, II, DO Drying Oven Attendant None Estimated Blood Loss 1 Findings Consistent with Post-Op Diagnosis Stone destroyed to dust and small fragments and larger fragments removed. Specimens Stone Fragments Drains 6 Fr Multilength on tether. Anesthesia Type General Complications none Disposition Disposition: Recovery Room Indications Patient with bothersome stones. Risks and benefits discussed at length. Description of Procedure Patient was consented and brought back to the operating room. Patient was placed under anesthesia in the supine position and moved to the dorsal lithotomy position. Patient was prepped and draped in the regular sterile fashion. A time out was completed identifying the correct patient and procedure. A 30degree Cystoscope was placed into the bladder and the entire bladder was examined. The UO's were identified. The UO was cannulized with a catheter and a retrograde pyelogram was completed. A wire was then placed. A ureteral access sheath and second safety wire was placed. The flexible ureteroscope was taken into the ureter. The entire ureter and renal pelvis were examined. The stones were identified. A laser fiber was selected and the stones were pulverized to dust and small fragments. Larger fragments were grasped and removed and sent for analysis. The entire area was once again examined. No residual large fragments or areas of concern were noted. The scope was slowly removed with the wire left in place. Contrast was placed through the scope for a pyelogram to assist in stent placement. The entire ureter was examined as the scope was slowly removed. No obstructions or other areas of concern were noted. With the wire in place, a 6 Fr Double J stent was placed. It was confirmed with fluoroscopy. With the stent in place, the bladder was emptied. The scope was removed. The patient was cleaned, aroused from anesthesia, and transferred to the pacu in stable condition having tolerated the procedure well with no complications. I was present and participated in all aspects of the procedure. The patient will be monitored in the PACU until transferred. I attest to the content of the Intraoperative Record and any orders documented therein. Any exceptions are noted below.
[2019-11-25] MEDS ORDERED: CONRAY 60% 50 ML VIAL INSTIL SCH (15:45)
--- NOTE | 2019-11-25 15:51 | Fluoroscopy Report ---
FL retrograde includes kub CLINICAL HISTORY: CYSTO/LASER/RT LASER COMPARISON STUDY: None FLUOROSCOPY TIME: 45 seconds NUMBER OF FLUOROSCOPIC IMAGES: 2 FINDINGS: Image intensifier support for right laser lithotripsy and stent placement. IMPRESSION: Image intensifier support for right laser lithotripsy and stent placement. ACT 112: Negative or not required by law. The above report was generated using voice recognition software. It may contain grammatical, syntax or spelling errors. Electronically signed by: Rolly Sawyer M.D. 11/25/2019 3:49 PM
--- NOTE | 2019-11-25 16:28 | Anesthesiology Progress Note ---
Date of Service November 25, 2019 Anesthesia Post Procedure Vital Signs Vital Signs: Temp Pulse Pulse Resp BP BP Pulse Ox 11/25/19 16:20 71 12 137/89 100 11/25/19 16:10 75 14 145/73 H 100 11/25/19 16:00 90 12 142/75 H 100 11/25/19 15:54 36.4 C L 89 12 141/64 H 100 11/25/19 13:48 36.7 C 74 125/70 97 11/25/19 09:07 72 136/74 11/25/19 07:15 36.8 C 78 18 125/67 95 11/25/19 00:20 11/24/19 22:44 37.1 C 91 H 16 120/68 96 Pulse Ox 11/25/19 16:20 11/25/19 16:10 11/25/19 16:00 11/25/19 15:54 11/25/19 13:48 11/25/19 09:07 11/25/19 07:15 11/25/19 00:20 96 11/24/19 22:44 Pain Intensity Lower Medial Back: Pain Intensity: 0 Transfer of Care Handoff Completed per policy Notes Mental Status: alert / awake / arousable and participated in evaluation Patient Amnestic to Procedure: Yes Nausea / Vomiting: adequately controlled Pain: adequately controlled Airway Patency, RR, SpO2: stable & adequate BP & HR: stable & adequate Hydration State: stable & adequate Anesthetic Complications: no major complications apparent
[2019-11-25] MEDS ORDERED: IOTHALAMATE MEGLUMINE II 17.2% 250 ML VIAL INSTIL SCH (17:00)
--- NOTE | 2019-11-25 21:01 | Hospitalist Progress Note ---
Date of Service November 25, 2019 Assessment & Plan (1) Nephrolithiasis: 8mm right-sided kidney stone. s/p cysto, laser litho and extraction, right-sided stent placement. appreciate Dr Wellington' consult/assistance. bmp in am. pain control. anti-nausea meds. (2) Dementia: baseline dementia per records had mild confusion post-op - likely due to anesthesia, pain, etc (3) Diabetes mellitus: cont lantus cont novolog (4) CKD (chronic kidney disease), stage III: bmp am baseline CrCL high 20s/low 30s borderline stage 4 disease (5) CAD, multiple vessel: noted cont asa cont statin cont metoprolol no ischemic symptoms (6) Aortic valve stenosis, moderate: noted no signs/symptoms of CHF (7) DVT prophylaxis: if stable overnight and if ok with urology add chemical DVT proph cont IV fluids cont full liquids diet - as tolerated Admission and Anticipated Discharge Date Admission Date: November 24, 2019 Subjective I saw the patient post-op from cysto with laser litho and right stent placement. he had significant nausea during my visit; was burping; had dry heaves. he was mildly confused and couldn't answer my questions. after dry heaving he shut his eyes. had no appetite. Review of Systems Constitutional: + fatigue and + anorexia Respiratory: no dyspnea Cardiovascular: no chest pain Gastrointestinal: + abdominal pain and + nausea Physical Exam Constitutional: + acute distress, + ill appearing and + altered mental status ENMT: external ear and nose normal, oropharynx normal Respiratory: normal respiratory effort, lungs clear to auscultation Cardiovascular: Rate/Rhythm: regular rate and regular rhythm Heart Sounds: normal S1, normal S2 and + murmur (2/6 RUSB - systolic) Vessels: posterior tibial pulses present and dorsalis pedis pulses present; no JVD Extremities: no edema Gastrointestinal (Abdomen): Inspection/Auscultation: + abdomen distended; + abnormal bowel sounds (Decreased) Percussion/Palpation: + abdomen tender Psychiatric: Orientation: alert; + not oriented x 3 Results & Data Results & Data ([facility]) Vital Signs (Past 12 Hours) Vital Signs Temp Pulse Pulse Resp BP BP Pulse Ox 11/25/19 19:59 36.8 C 94 H 16 178/80 H 95 11/25/19 18:47 36.8 C 64 19 150/63 H 97 11/25/19 17:58 36.8 C 65 16 136/77 95 11/25/19 17:26 66 16 149/73 H 94 11/25/19 16:55 36.4 C L 71 16 167/74 H 95 11/25/19 16:50 66 16 144/66 H 95 11/25/19 16:40 65 14 139/62 95 11/25/19 16:30 36.4 C L 70 14 136/68 96 11/25/19 16:20 71 12 137/89 100 11/25/19 16:10 75 14 145/73 H 100 11/25/19 16:00 90 12 142/75 H 100 11/25/19 15:54 36.4 C L 89 12 141/64 H 100 11/25/19 13:48 36.7 C 74 125/70 97 11/25/19 09:07 72 136/74 Laboratory Results Laboratory Results - last 24 hr 11/25/19 11/25/19 11/25/19 05:36 05:36 06:20 WBC 5.32 RBC 3.91 L Hgb 12.0 L Hct 36.0 L MCV 92.1 MCH 30.7 MCHC 33.3 RDW Std Deviation 44.5 RDW Coeff of [place] 13.3 Plt Count 164 MPV 9.8 Sodium 140 Potassium 4.3 D Chloride 109 H Carbon Dioxide 25 Anion Gap 6.0 BUN 33 H Creatinine 1.67 H Est Cr Clr Drug Dosing 29.2 Est GFR ( Amer) 42.6 Est GFR (Non-Af Amer) 36.8 BUN/Creatinine Ratio 19.6 Glucose 137 H POC Glucose 142 H Calcium 8.5 Total Bilirubin 0.4 AST 12 L ALT 17 Alkaline Phosphatase 114 Total Protein 6.7 Albumin 2.7 L Globulin 4.0 Albumin/Globulin Ratio 0.7 L Stone Source Stone Weight Stone Composition Stone Composition 2 11/25/19 11/25/19 11/25/19 12:09 17:29 20:50 WBC RBC Hgb Hct MCV MCH MCHC RDW Std Deviation RDW Coeff of [place] Plt Count MPV Sodium Potassium Chloride Carbon Dioxide Anion Gap BUN Creatinine Est Cr Clr Drug Dosing Est GFR ( Amer) Est GFR (Non-Af Amer) BUN/Creatinine Ratio Glucose POC Glucose 142 H 141 H 215 H Calcium Total Bilirubin AST ALT Alkaline Phosphatase Total Protein Albumin Globulin Albumin/Globulin Ratio Stone Source Stone Weight Stone Composition Stone Composition 2 11/25/19 Unknown WBC RBC Hgb Hct MCV MCH MCHC RDW Std Deviation RDW Coeff of [place] Plt Count MPV Sodium Potassium Chloride Carbon Dioxide Anion Gap BUN Creatinine Est Cr Clr Drug Dosing Est GFR ( Amer) Est GFR (Non-Af Amer) BUN/Creatinine Ratio Glucose POC Glucose Calcium Total Bilirubin AST ALT Alkaline Phosphatase Total Protein Albumin Globulin Albumin/Globulin Ratio Stone Source Pending Stone Weight Pending Stone Composition Pending Stone Composition 2 Pending PG Care Time/CCT Total # of Minutes Spent Total Time Spent with Patient: Total time spent is greater than 50% in coordination of care (as documented) at patient's floor/unit and/or counseling patient: Coding Level of Care Code 99388 Subseq Hosp Care Lvl 2 Diagnoses Nephrolithiasis N20.0 Dementia F03.90 Dementia behavioral disturbance: without behavioral disturbance Dementia type: unspecified type Diabetes mellitus E11.22; N18.3; Z79.4 Chronic kidney disease stage: stage 3 (moderate) Diabetes mellitus complication detail: with chronic kidney disease Diabetes mellitus complication status: with kidney complications Diabetes mellitus longwall headgate operator insulin use: with snf use Diabetes mellitus type: type 2 CKD (chronic kidney disease), stage III N18.3 CAD, multiple vessel I25.10 Aortic valve stenosis, moderate I35.0 DVT prophylaxis Z29.9 (1) Diabetes mellitus Chronic kidney disease stage: stage 3 (moderate) Diabetes mellitus complication detail: with chronic kidney disease Diabetes mellitus complication status: with kidney complications Diabetes mellitus longwall headgate operator insulin use: with snf use Diabetes mellitus type: type 2 Qualified Code(s): E11.22 - Type 2 diabetes mellitus with diabetic chronic kidney disease; N18.3 - Chronic kidney disease, stage 3 (moderate); 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
[2019-11-25] MEDS: MELATONIN 3 MG TAB PO SCH (21:04)
[2019-11-25] MEDS: QUETIAPINE FUMARATE 25 MG TABLET PO SCH (21:04)
[2019-11-26 05:28] LABS: Hematocrit (blood only) 40.7 % (42-52); Hemoglobin 13.4 g/dL (14.0-18.0); Mean Corpuscular Hemoglobin 30.2 pg (25-34); Mean Corpuscular Hgb Conc 32.9 g/dL (32-36); Mean Corpuscular Volume 91.7 fL (80-100); Mean Platelet Volume 10.1 fL (7.4-10.4); Platelet Count 168 K/uL (130-400); RDW Coefficient of Variation 12.9 % (11.5-14.5); RDW Standard Deviation 43.1 fL (36.4-46.3); Red Blood Count 4.44 M/uL (4.7-6.1); White Blood Count 11.37 K/uL (4.8-10.8)
[2019-11-26 06:02] LABS: Albumin Globulin Ratio 0.6 (0.9-2); BUN Creatinine Ratio 18.5 (10-20); Bilirubin,Total 0.5 mg/dl (0.2-1); Creatinine Clr Calc Pharmacy 24.4 ml/min; Est GFR (African American) 34.3; Est GFR (Non-African American) 29.6; Globulin 4.7 gm/dl (2.5-4.0); Total Protein 7.7 gm/dl (6.4-8.2)
--- NOTE | 2019-11-26 08:02 | Anesthesiology Progress Note ---
Date of Service November 26, 2019 Anesthesia Post Procedure Vital Signs Vital Signs: Temp Pulse Pulse Resp BP BP Pulse Ox 11/26/19 07:07 36.5 C 71 15 124/71 96 11/26/19 03:03 36.8 C 64 16 147/73 H 97 11/26/19 00:20 11/25/19 23:28 36.7 C 90 16 173/77 H 96 11/25/19 19:59 36.8 C 94 H 16 178/80 H 95 11/25/19 18:47 36.8 C 64 19 150/63 H 97 11/25/19 17:58 36.8 C 65 16 136/77 95 11/25/19 17:26 66 16 149/73 H 94 11/25/19 16:55 36.4 C L 71 16 167/74 H 95 11/25/19 16:50 66 16 144/66 H 95 11/25/19 16:40 65 14 139/62 95 11/25/19 16:30 36.4 C L 70 14 136/68 96 11/25/19 16:20 71 12 137/89 100 11/25/19 16:10 75 14 145/73 H 100 11/25/19 16:00 90 12 142/75 H 100 11/25/19 15:54 36.4 C L 89 12 141/64 H 100 11/25/19 13:48 36.7 C 74 125/70 97 11/25/19 09:07 72 136/74 Pulse Ox 11/26/19 07:07 11/26/19 03:03 11/26/19 00:20 96 11/25/19 23:28 11/25/19 19:59 11/25/19 18:47 11/25/19 17:58 11/25/19 17:26 11/25/19 16:55 11/25/19 16:50 11/25/19 16:40 11/25/19 16:30 11/25/19 16:20 11/25/19 16:10 11/25/19 16:00 11/25/19 15:54 11/25/19 13:48 11/25/19 09:07 Pain Intensity Lower Medial Back: Pain Intensity: 0 Notes Mental Status: alert / awake / arousable and participated in evaluation Patient Amnestic to Procedure: Yes Nausea / Vomiting: adequately controlled Pain: adequately controlled Airway Patency, RR, SpO2: stable & adequate BP & HR: stable & adequate Hydration State: stable & adequate Anesthetic Complications: no major complications apparent and Pt Satisfied with anesthetic care
[2019-11-26] MEDS: INSULIN ASPART 100 UNITS/ML 3 ML PEN SC SCH ×4 (08:50→21:04)
[2019-11-26] MEDS: ASPIRIN 81 MG ECTAB PO SCH (08:51)
[2019-11-26] MEDS: ATORVASTATIN 40 MG TAB PO SCH (08:51)
[2019-11-26] MEDS: METOPROLOL SUCC 25MG EXT REL TAB PO SCH (08:52)
[2019-11-26] MEDS: CLOPIDOGREL BISULFATE 75 MG TAB PO SCH (08:52)
[2019-11-26] MEDS: INSULIN GLARGINE SOLOSTAR 100 UNITS/ML 3 ML PEN SC SCH (08:52)
[2019-11-26] MEDS: DOCUSATE SODIUM 100 MG CAP PO SCH ×2 (08:54→21:00)
[2019-11-26] MEDS: POLYETHYLENE (MIRALAX) 17 GM PACK PO SCH (08:54)
--- NOTE | 2019-11-26 11:29 | Urology Progress Note ---
Date of Service November 26, 2019 Assessment & Plan (1) Nephrolithiasis: 83 yo F POD #1 s/p Cystoscopy, Ureteroscopy, Laser Lithotripsy, and Right Stent Insertion with Dr. Wellington. - Doing well, progressing as expected - Creatinine slightly increased today, continue to monitor - Expected clinical course reviewed, all questions answered - Will arrange outpatient follow-up with our service for stent removal - Will continue to follow while inpatient Subjective 83 yo F POD #1 s/p Cystoscopy, Ureteroscopy, Laser Lithotripsy, and Right Stent Insertion with Dr. Wellington. Feeling well. No complaints at this time. Afebrile overnight. Tolerating stent without bother. No abdominal pain, suprapubic or flank pain. Voiding without difficulty. No hematuria. No f/c/n/v. Chart review: Creatinine 2.00, WBC 11.37. Review of Systems Constitutional: as per Subjective / HPI Cardiovascular: as per Subjective / HPI Gastrointestinal: as per Subjective / HPI Physical Exam Constitutional: well developed and well nourished; no acute distress and not ill appearing Respiratory: normal respiratory effort and able to speak in complete sentences; no respiratory distress and no labored breathing Cardiovascular: Extremities: no pedal edema Gastrointestinal (Abdomen): Inspection/Auscultation: abdomen normal to inspection; abdomen not distended Percussion/Palpation: abdomen soft; abdomen nontender and no guarding Musculoskeletal: Head/Neck/Chest: normocephalic and head atraumatic Neurologic: moves all extremities and awake Psychiatric: Orientation: alert, oriented x 3 and cooperative Genitourinary: no CVA tenderness Results & Data Vital Signs (Past 12 Hours) Vital Signs Temp Pulse Resp BP Pulse Ox Pulse Ox 11/26/19 08:48 78 138/72 11/26/19 07:07 36.5 C 71 15 124/71 96 11/26/19 03:03 36.8 C 64 16 147/73 H 97 11/26/19 00:20 96 11/25/19 23:28 36.7 C 90 16 173/77 H 96 PG Care Time/CCT Total # of Minutes Spent Total Time Spent with Patient: Total time spent is greater than 50% in coordination of care (as documented) at patient's floor/unit and/or counseling patient: Coding Level of Care Code 81330 Subseq Hosp Care Lvl 2 Diagnoses Nephrolithiasis N20.0
[2019-11-26] MEDS: DOCUSATE SODIUM/SENNA 50/8.6MG TAB PO SCH (12:41)
[2019-11-26] MEDS: HEPARIN SOD 5,000 UNIT/0.5 ML VIAL SQ SCH ×2 (15:18→22:33)
--- NOTE | 2019-11-26 15:49 | Hospitalist Progress Note ---
Date of Service November 26, 2019 Assessment & Plan (1) Nephrolithiasis: 8mm right-sided kidney stone. s/p cysto, laser litho and extraction, right-sided stent placement. no pain but has hematuria and frequency Cr up slightly at 2.0, making urine, repeat BMP in the morning WBC down no fever (2) Dementia: baseline dementia per records had mild confusion still today, won't listen to aides, getting up without assistance (3) Diabetes mellitus: cont lantus cont novolog no hypoglycemia (4) CKD (chronic kidney disease), stage III: bmp am baseline CrCL high 20s/low 30s borderline stage 4 disease Cr up slightly but but still in normal range, 2.0 today (5) CAD, multiple vessel: noted cont asa cont statin cont metoprolol no ischemic symptoms (6) Aortic valve stenosis, moderate: noted no signs/symptoms of CHF (7) DVT prophylaxis: hold on heparin due to hematuria cont IV fluids cont full liquids diet - as tolerated Admission and Anticipated Discharge Date Admission Date: November 24, 2019 Subjective patient pleasantly confused keeps having to urinate, little urine coming out, has hematuria no further abdominal pain or flank pain he is eating he keeps getting up without RN assistance, will not listen to the aides reviewed urology note reviewed lab work, WBC 11.3, Hb 13.4, Cr up slightly to 2.0, electrolytes stable vitals stable, no fever Review of Systems Review of Systems: All systems reviewed & are unremarkable except as noted in HPI & below Genitourinary: + urinary frequency and + hematuria Physical Exam Constitutional: WD/WN, vitals as above Eyes: PERRL, conjunctivae normal, anicteric sclerae ENMT: external ear and nose normal, oropharynx normal Neck: trachea midline, no thyromegaly Respiratory: normal respiratory effort, lungs clear to auscultation Cardiovascular: RRR, no murmur, no edema Gastrointestinal (Abdomen): normal bowel sounds, soft, nontender, no hepatosplenomegaly Musculoskeletal: no cyanosis or clubbing, extremities motor strength 5/5 Skin: no rashes, warm and dry Neurologic: patellar DTR's 2+ bilat, sensation intact and PERRL, EOMI, accommodation nl, no face palsy, no dysarthria Psychiatric: Orientation: alert and oriented to person; + not oriented to place and + not oriented to time Lymphatic: no cervical or axillary lymphadenopathy Results & Data Results & Data ([facility]) Vital Signs (Past 12 Hours) Vital Signs Temp Pulse Resp BP BP Pulse Ox 11/26/19 11:36 36.4 C L 84 16 118/61 96 11/26/19 08:48 78 138/72 11/26/19 07:07 36.5 C 71 15 124/71 96 Laboratory Results Laboratory Results - last 24 hr 11/25/19 11/25/19 11/25/19 17:29 20:50 Unknown WBC RBC Hgb Hct MCV MCH MCHC RDW Std Deviation RDW Coeff of Gordo Plt Count MPV Sodium Potassium Chloride Carbon Dioxide Anion Gap BUN Creatinine Est Cr Clr Drug Dosing Est GFR ( Amer) Est GFR (Non-Af Amer) BUN/Creatinine Ratio Glucose POC Glucose 141 H 215 H Calcium Total Bilirubin AST ALT Alkaline Phosphatase Total Protein Albumin Globulin Albumin/Globulin Ratio Stone Source Pending Stone Weight Pending Stone Composition Pending Stone Composition 2 Pending 11/26/19 11/26/19 11/26/19 04:35 04:35 08:22 WBC 11.37 H RBC 4.44 L Hgb 13.4 L Hct 40.7 L MCV 91.7 MCH 30.2 MCHC 32.9 RDW Std Deviation 43.1 RDW Coeff of Gordo 12.9 Plt Count 168 MPV 10.1 Sodium 135 L Potassium 5.0 D Chloride 103 Carbon Dioxide 26 Anion Gap 6.0 BUN 37 H Creatinine 2.00 H D Est Cr Clr Drug Dosing 24.4 Est GFR ( Amer) 34.3 Est GFR (Non-Af Amer) 29.6 BUN/Creatinine Ratio 18.5 Glucose 281 H POC Glucose 289 H Calcium 9.0 Total Bilirubin 0.5 AST 16 ALT 19 Alkaline Phosphatase 136 H Total Protein 7.7 Albumin 3.0 L Globulin 4.7 H Albumin/Globulin Ratio 0.6 L Stone Source Stone Weight Stone Composition Stone Composition 2 11/26/19 12:36 WBC RBC Hgb Hct MCV MCH MCHC RDW Std Deviation RDW Coeff of Gordo Plt Count MPV Sodium Potassium Chloride Carbon Dioxide Anion Gap BUN Creatinine Est Cr Clr Drug Dosing Est GFR ( Amer) Est GFR (Non-Af Amer) BUN/Creatinine Ratio Glucose POC Glucose 206 H Calcium Total Bilirubin AST ALT Alkaline Phosphatase Total Protein Albumin Globulin Albumin/Globulin Ratio Stone Source Stone Weight Stone Composition Stone Composition 2 Medications Administered Current Inpatient Medications Acetaminophen (Tylenol) 650 mg PO Q4H PRN PRN Reason: Moderate Pain Stop: 12/24/19 11:49 Aspirin (Ecotrin Ectab) 81 mg PO DAILY CESAR Stop: 12/25/19 08:59 Last Admin: 11/26/19 08:51 Dose: 81 mg Documented by: Atorvastatin Calcium (Lipitor) 40 mg PO DAILY CESAR Stop: 12/25/19 08:59 Last Admin: 11/26/19 08:51 Dose: 40 mg Documented by: Clopidogrel Bisulfate (Plavix) 75 mg PO DAILY CESAR Stop: 12/25/19 08:59 Last Admin: 11/26/19 08:52 Dose: 75 mg Documented by: Dextrose (Dextrose 50%) 25 - 50 ml IV UD PRN; Protocol PRN Reason: Hypoglycemia Protocol Stop: 12/24/19 11:49 Docusate Sodium (Colace) 100 mg PO BID CESAR Stop: 12/24/19 20:59 Last Admin: 11/26/19 08:54 Dose: 100 mg Documented by: Glucagon (Glucagen) 1 mg SQ UD PRN; Protocol PRN Reason: Hypoglycemia Protocol Stop: 12/24/19 11:49 Glucose (Dex4 Glucose) 4 - 8 tabs PO UD PRN; Protocol PRN Reason: Hypoglycemia Protocol Stop: 12/24/19 11:49 Glucose (Glucose 40%) 15 - 30 gm PO UD PRN; Protocol PRN Reason: Hypoglycemia Protocol Stop: 12/24/19 11:49 Heparin Sodium (Porcine) (Heparin Sodium (Porcine)) 5,000 units SQ Q8 CESAR Stop: 12/26/19 13:59 Last Admin: 11/26/19 15:18 Dose: 5,000 units Documented by: Insulin Aspart (Novolog Flexpen) 0 units SC ACHS CESAR Stop: 12/25/19 20:59 Last Admin: 11/26/19 13:31 Dose: 4 units Documented by: Insulin Glargine (Lantus Solostar Pen) 12 units SC DAILY CESAR Stop: 12/25/19 08:59 Last Admin: 11/26/19 08:52 Dose: 12 units Documented by: Iothalamate Meglumine (Conray 60%) 20 ml INSTIL ONCE CESAR Stop: 12/25/19 15:44 Iothalamate Meglumine (Cysto-Conray Ii) 20 ml INSTIL ONCE [facility] Stop: 12/25/19 16:59 Last Admin: 11/25/19 16:56 Dose: 20 ml Documented by: Melatonin (Melatonin) 3 mg PO HS [facility] Stop: 12/24/19 20:59 Last Admin: 11/25/19 21:04 Dose: 3 mg Documented by: Metoprolol Succinate (Toprol Xl) 25 mg PO QAM CESAR Stop: 12/25/19 08:59 Last Admin: 11/26/19 08:52 Dose: 25 mg Documented by: Miscellaneous (Carbohydrates For Hypoglycemia) 15 - 30 gm PO UD PRN PRN Reason: Hypoglycemia Protocol Stop: 12/24/19 11:49 Ondansetron HCl (Zofran) 4 mg IV Q4H PRN PRN Reason: Nausea And Vomiting Stop: 12/24/19 11:49 Last Admin: 11/25/19 18:29 Dose: 4 mg Documented by: Polyethylene Glycol (Miralax Powder Packet) 17 gm PO DAILY [facility] Stop: 12/25/19 08:59 Last Admin: 11/26/19 08:54 Dose: 17 gm Documented by: Quetiapine Fumarate (Seroquel) 25 mg PO HS [facility] Stop: 12/24/19 20:59 Last Admin: 11/25/19 21:04 Dose: 25 mg Documented by: Senna/Docusate Sodium (Senokot S) 1 tab PO QDL [facility] Stop: 12/24/19 11:49 Last Admin: 11/26/19 12:41 Dose: 1 tab Documented by: PG Care Time/CCT Total # of Minutes Spent Total Time Spent with Patient: Total time spent is greater than 50% in coordination of care (as documented) at patient's floor/unit and/or counseling patient: Coding Level of Care Code 95748 Subseq Hosp Care Lvl 2 Diagnoses Nephrolithiasis N20.0 Dementia F03.90 Dementia behavioral disturbance: without behavioral disturbance Dementia type: unspecified type Diabetes mellitus E11.22; N18.3; Z79.4 Chronic kidney disease stage: stage 3 (moderate) Diabetes mellitus complication detail: with chronic kidney disease Diabetes mellitus complication status: with kidney complications Diabetes mellitus intermediate frame tender insulin use: with fpc use Diabetes mellitus type: type 2 CKD (chronic kidney disease), stage III N18.3 CAD, multiple vessel I25.10 Aortic valve stenosis, moderate I35.0 DVT prophylaxis Z29.9 (1) Diabetes mellitus Chronic kidney disease stage: stage 3 (moderate) Diabetes mellitus complication detail: with chronic kidney disease Diabetes mellitus complication status: with kidney complications Diabetes mellitus intermediate frame tender insulin use: with fpc use Diabetes mellitus type: type 2 Qualified Code(s): E11.22 - Type 2 diabetes mellitus with diabetic chronic kidney disease; N18.3 - Chronic kidney disease, stage 3 (moderate); Z79.4 - FPC (current) use of insulin (2) Dementia Dementia behavioral disturbance: without behavioral disturbance Dementia type: unspecified type Qualified Code(s): F03.90 - Unspecified dementia without behavioral disturbance
[2019-11-26] MEDS: MELATONIN 3 MG TAB PO SCH (20:58)
[2019-11-26] MEDS: QUETIAPINE FUMARATE 25 MG TABLET PO SCH (20:58)
[2019-11-27] MEDS: HEPARIN SOD 5,000 UNIT/0.5 ML VIAL SQ SCH ×2 (05:17→05:23)
--- NOTE | 2019-11-27 06:25 | Communication Note ---
Date of Service: November 27, 2019 At 5:11 AM nursing informed me that patient had pulled his stent out. Patient was noted to have altered mental status. I had gone up and evaluated the kristian ent, he was hemodynamically stable, he was not in pain had been urinating. Resident Activity Tracking Resident Involvement: Resident Care Provided Care Provided: Adult Hospital Medicine
[2019-11-27 06:47] LABS: Hematocrit (blood only) 37.8 % (42-52); Hemoglobin 13.2 g/dL (14.0-18.0); Mean Corpuscular Hemoglobin 31.2 pg (25-34); Mean Corpuscular Hgb Conc 34.9 g/dL (32-36); Mean Corpuscular Volume 89.4 fL (80-100); Mean Platelet Volume 9.8 fL (7.4-10.4); Platelet Count 156 K/uL (130-400); RDW Coefficient of Variation 13.1 % (11.5-14.5); RDW Standard Deviation 42.2 fL (36.4-46.3); Red Blood Count 4.23 M/uL (4.7-6.1); White Blood Count 11.01 K/uL (4.8-10.8)
[2019-11-27 07:32] LABS: Albumin Globulin Ratio 0.7 (0.9-2); Albumin Level 3.1 gm/dl (3.4-5.0); Bilirubin,Total 0.4 mg/dl (0.2-1); Creatinine Clr Calc Pharmacy 25.6 ml/min; Est GFR (African American) 37.2; Est GFR (Non-African American) 32.1; Globulin 4.5 gm/dl (2.5-4.0); Total Protein 7.6 gm/dl (6.4-8.2)
[2019-11-27] MEDS: ASPIRIN 81 MG ECTAB PO SCH (08:15)
[2019-11-27] MEDS: CLOPIDOGREL BISULFATE 75 MG TAB PO SCH (08:15)
[2019-11-27] MEDS: ATORVASTATIN 40 MG TAB PO SCH (08:15)
[2019-11-27] MEDS: METOPROLOL SUCC 25MG EXT REL TAB PO SCH (08:16)
[2019-11-27] MEDS: DOCUSATE SODIUM 100 MG CAP PO SCH (08:21)
[2019-11-27] MEDS: POLYETHYLENE (MIRALAX) 17 GM PACK PO SCH (08:21)
[2019-11-27] MEDS: INSULIN ASPART 100 UNITS/ML 3 ML PEN SC SCH ×2 (08:58→13:14)
[2019-11-27] MEDS: INSULIN GLARGINE SOLOSTAR 100 UNITS/ML 3 ML PEN SC SCH (09:00)
--- NOTE | 2019-11-27 10:51 | Discharge Summary ---
Date of Service November 27, 2019 Admission HPI Per Admitting Provider This is an 83 yo M with PMhx of CAD, history of [place] aortic valve stenosis, DM type II, HLD, Alzheimer's disease, BPH, prostate cancer, diverticulosis who presents from [facility] with worsening back pain. Per nursing at [facility] last night he was a little cranky, and was complaining of back pain, this morning he was unable to sit up in bed without pain. No fever chills or sweats, patient currently appears comfortable and denies that he has any pain while at bedside. He has difficulty recalling specific events due to his dementia. I discussed the patient care with his daughter, Leann, over the phone, and all her questions and concerns were addressed. She tells me that pt was just in [facility] for the past week. He recently was here at [facility] for hyperglycemia, then went to [facility] for PT/OT, then transitioned [facility]. CT of the abdomen reveals 8 mm Right sided nephrolithiasis. No hydronephrosis Principal Diagnosis Right ureteral stone, 8mm, obstructing Discharge Exam Constitutional WD/WN, vitals as above Eyes PERRL, conjunctivae normal, anicteric sclerae ENMT external ear and nose normal, oropharynx normal Neck trachea midline, no thyromegaly Respiratory normal respiratory effort, lungs clear to auscultation Cardiovascular RRR, no murmur, no edema Gastrointestinal (Abdomen) normal bowel sounds, soft, nontender, no hepatosplenomegaly Musculoskeletal no cyanosis or clubbing, extremities motor strength 5/5 Skin no rashes, warm and dry Neurologic patellar DTR's 2+ bilat, sensation intact and PERRL, EOMI, accommodation nl, no face palsy, no dysarthria Psychiatric Orientation: alert and oriented to person; + not oriented to place and + not oriented to time Lymphatic no cervical or axillary lymphadenopathy Discharge Data Allergies Allergy/AdvReac Type Severity Reaction Status Date / Time codeine Allergy Mild UNKNOWN Verified 11/24/19 08:35 REACTION gemfibrozil Allergy Verified 11/24/19 08:35 niacin Allergy Verified 11/24/19 08:35 simvastatin Allergy Verified 11/24/19 08:35 Consultations 11/24/19 10:49 ED Decision to Admit Stat 11/24/19 11:50 Consult Case Management - Discharge Planning Routine Consult Urology Routine Procedures Performed Operation Date: 11/25/19 13:40 Actual Procedures p Laser Lithotripsy, (Right) - DO tracy Tralyor Cystoscopy, Ureteroscopy, (Right) - DO tracy Traylor Right Stent Insertion(Right) - Shaheen Wellington DO Ordered Studies 11/24/19 08:23 CT lumbar spine wo con Stat 11/24/19 09:24 CT abd pelvis wo con Stat 11/25/19 13:30 FL retrograde includes kub Routine Hospital Course (1) Nephrolithiasis: 8mm right-sided kidney stone. s/p cysto, laser litho and extraction, right-sided stent placement. no pain but has hematuria and frequency Cr stable at 1.7, making urine WBC down no fever never had signs of infection, UA showed no bacteria, only 1-5 WBC (2) Dementia: baseline dementia per records has mild confusion still today, won't listen to aides, getting up without assistance therapy cleared him to return to Personal [facility], he is at baseline functional status (3) Diabetes mellitus: cont lantus cont novolog no hypoglycemia (4) CKD (chronic kidney disease), stage III: bmp am baseline CrCL high 20s/low 30s borderline stage 4 disease Cr stable at 1.7 today (5) CAD, multiple vessel: noted cont asa cont statin cont metoprolol no ischemic symptoms (6) Aortic valve stenosis, moderate: noted no signs/symptoms of CHF (7) DVT prophylaxis: Total Time Total Time Spent Total Time Spent (In Minutes): 31 minutes Total Time Includes: Examination of the Patient, Discharge Planning, Medication Reconciliation, Communication With Other Providers (Dr. Wellington, urology) and Other (discussed with case managment) Discharge Plan Discharge Items Patient Disposition: [facility] Reason For Visit: lower back pain Discharge Diagnosis: Right sided Ureteral stone, 8mm s/p cystoscopy, laser lithotripsy with ureteral stent Chronic kidney disease stage III, stable Condition on Discharge: Good Goals: follow up with urology for stone management and stent removal Activity: Resume your previous activity Weightbearing: Full weightbearing Non-emergency contact: Primary Care Provider and Urologist Call non-emergency contact if: you have any medication questions, your symptoms worsen and you have a fever Follow-up/Referrals: Shaheen Wellington DO [Physician] - (1-2 weeks, stent removal) [facility] [facility] [Primary Care Provider] - Diet: Heart Healthy Addtl Attending Provider Instructions: s/p Cystoscopy, Ureteroscopy, Laser Lithotripsy, and Right Stent Insertion patient having some hematuria but this is to be expected, hemoglobin is stable no evidence of urinary tract infection renal function is intact, Cr is 1.7 today which is baseline evaluated by therapy, he is a baseline functional level, safe to return to personal detention [facility] urology will contact [facility] to arrange for follow up for stent removal Pending Studies at Discharge: No Stand-Alone Forms: My [employer], Smoking Cessation Skilled Items Patient informed of condition?: Yes DNR: No Discharge Level of Care: Other Communicable Disease: No Discharge Prognosis: Stable Lines: None Urinary Catheter: No Medications and DC Order Prescriptions: Continued aspirin [Adult Low Dose Aspirin] 81 mg tablet,delayed release (DR/EC) 81 mg PO DAILY RF: 0 docusate sodium 100 mg capsule 100 mg PO BID RF: 0 clopidogrel [Plavix] 75 mg tablet 75 mg PO DAILY RF: 0 atorvastatin [Lipitor] 40 mg tablet 40 mg PO DAILY RF: 0 melatonin 3 mg Tablet 3 mg PO HS Qty: 0 RF: 0 metoprolol succinate 25 mg Tablet Extended Release 24 Hr 25 mg PO QAM Qty: 30 RF: 0 sennosides-docusate sodium [Stimulant Laxative Plus] 8.6-50 mg Tablet 1 tab-cap PO QDL RF: 0 polyethylene glycol 3350 [Miralax] 17 gram/dose Powder 17 g PO DAILY RF: 0 quetiapine 25 mg tablet 25 mg PO HS RF: 0 Lantus Solostar U-100 Insulin 100 unit/mL (3 mL) insulin pen 12 unit SC DAILY RF: 0 Discharge Orders: Discharge Order (Routine); Ordered 11/27/19 Ordered By: Mike Tee Admission Data Admit Date/Time: 11/24/19 10:53 Attending Provider: Mike Tee Admit Provider: Burak Burns Primary Care Provider: [facility] [employer] Other Providers: Burak Burns ; Shaheen Wellington Coding Level of Care Code D/C Day Management >30 mins Diagnoses Nephrolithiasis N20.0 Dementia F03.90 Dementia behavioral disturbance: without behavioral disturbance Dementia type: unspecified type Diabetes mellitus E11.22; N18.3; Z79.4 Diabetes mellitus type: type 2 Diabetes mellitus intermediate accountant insulin use: with chcf use Diabetes mellitus complication status: with kidney complications Diabetes mellitus complication detail: with chronic kidney disease Chronic kidney disease stage: stage 3 (moderate) CKD (chronic kidney disease), stage III N18.3 CAD, multiple vessel I25.10 Aortic valve stenosis, moderate I35.0 DVT prophylaxis Z29.9
--- NOTE | 2019-11-27 10:57 | Urology Progress Note ---
Date of Service November 27, 2019 Assessment & Plan (1) Kidney stones: Status post treatment of a right ureteral stone Stent in place Creatinine had risen to 2.0 yesterday, it is decreased slightly to 1.87 today I suspect that this is more related to his chronic CKD than any acute problem that will require intervention From a urology standpoint he is safe for discharge home and can follow-up as an outpatient Subjective Subjectively reports that he feels very well and is not having any stent related discomfort Reports that he is anxious to leave the hospital Review of Systems Review of Systems: All systems reviewed & are unremarkable except as noted in HPI & below Physical Exam Constitutional: well developed and well nourished Respiratory: no respiratory distress Cardiovascular: Extremities: no pedal edema Gastrointestinal (Abdomen): Inspection/Auscultation: abdomen normal to inspection Results & Data Vital Signs (Past 12 Hours) Vital Signs Temp Pulse Pulse Resp BP Pulse Ox 11/27/19 07:54 37.4 C 85 18 164/69 H 11/27/19 07:48 82 11/26/19 23:37 36.6 C 78 16 171/78 H 96 PG Care Time/CCT Total # of Minutes Spent Total Time Spent with Patient: Total time spent is greater than 50% in coordination of care (as documented) at patient's floor/unit and/or counseling patient: Coding Level of Care Code 84209 Subseq Hosp Care Lvl 2 Diagnoses Kidney stones N20.0
[2019-11-27] MEDS: DOCUSATE SODIUM/SENNA 50/8.6MG TAB PO SCH (11:50)
[2019-11-29 12:54] LABS: Component 2 DNR; Source URETER STONE
== END 2019-11-27 14:11 | disposition home or self-care (01) | DRG 661 ==
LOC: ED 08:04 → 3W 10:53 → SUATTDRO 10:53 → 3W 11:30 → 3N 16:57

== ENCOUNTER 2020-02-24 11:49 | Inpatient (IN) ==
--- NOTE | 2020-02-24 12:17 | Emergency Department Note ---
Impression & Plan Hematuria, Anemia, CKD (chronic kidney disease), Hypomagnesemia ED Provider Note NAME: PAULINE VENTURA AGE: 84 SEX: M : 1935 ARRIVES VIA: Ambulance INFORMANT: Patient, ED PROVIDER(S): Adán Lynn MD Chief Complaint: Hematuria HPI: Patient does present with concern for persistent hematuria. The patient also did have blood work completed today which showed a hemoglobin of 8.8 and thus was referred here for further evaluation and treatment. I had seen the patient on Monday for hematuria and the patient had had a persistently dropping hemoglobin was told of the blood work today in the event that if it was continued to downtrend he may need to be admitted for more urgent evaluation for his hematuria. The patient has been compliant with his medications. The patient does complain of some mild soreness to the left lower extremity which did have a wound on it from his prior visit. He has been compliant with his medications. The daughter who is the POA at bedside does provide some of the history. She also states that the patient is DNR/DNI. ROS: See HPI for pertinent positives and negatives. A total of 10 systems were reviewed and otherwise negative. Past medical history: See below Surgical history: See below Social history: See below Physical Exam: GENERAL: Wearing glasses and a mask. NAD, non-toxic. EYE EXAM: Normal conjunctiva. PERRL, no anisocoria and EOM's grossly intact w/o pain. NECK: Supple, no nuchal rigidity, no adenopathy, non-tender. No signs of meningismus. LUNGS: Clear to auscultation. Normal chest wall mechanics. HEART: NSR, no MRG. ABDOMEN: Abdomen soft, non-tender, normo-active bowel sounds, no masses, no rebound or guarding. BACK: No CVA TTP. : Testicles descended no scrotal swelling or pain, no active hemorrhaging from the urethra. SKIN: No rashes and no bruising. UPPER EXTREMITIES: Upper extremities are grossly normal. LOWER EXTREMITIES: No discomfort over the left lateral aspect of the ankle with associated skin wound. No purulence, crepitus, or discharge. NEURO EXAM: Awake and alert, follows basic commands, cranial nerves II-XII grossly intact, normal speech, moves all 4 extremities on command w/o issue. Differential diagnoses: Testicular torsion, mass, infection, hernia, hydrocele, epididymitis, STI, trauma, intra-abdominal process, as well as other pathologies. Course: Patient was seen and evaluated the bedside. Full history physical exam was performed. EKG: Normal sinus rhythm, rate of 69, normal intervals, normal axis, no ST changes. No significant change from November 24, 2019. Imaging Studies: None Cardiac monitoring: An order was placed for continuous cardiac monitoring. The monitor shows a rate of 77 with sinus rhythm. MDM: Patient was seen due to concern for worsening hematuria. The patient had already been told to stop taking his anticoagulant medication antiplatelet medicines. The patient has had persistently dropping hemoglobins and thus presented here. The patient has been taking the cefdinir for a likely E. coli and cystitis. The patient did have a CT completed last week. The patient has b een urinating without complication but does have the persistent hematuria. Repeat blood work was obtained along with a type and screen. The patient does have a hemoglobin 9.4 which is still downtrending. The patient has a normal white count and platelet count. The patient's kidney function is at baseline. Mild elevation in his glucose and slightly low magnesium at 1.7. I had initially ordered the possibility of transfusion given his continued low downtrend but after speaking with the on-call hospitalist they would prefer to hold off at this time. The patient is hemodynamically stable. I did speak with Veronica Cortez of urology. They will see the patient as a consult. I did speak with Dr. Amanda [facility] physician group. The patient was admitted to the medicine service. Did update the daughter and patient at bedside with the findings. 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 Family History Father Acute myocardial infarction Mother Acute myocardial infarction Family history of suicide Unknown Diabetes Heart disease Hypertension Social History Smoking Status: Former smoker Tobacco Type: Cigarettes Second Hand Exposure: No; Hx Alcohol Use: No Hx Substance Use: No Preferred Language: Kinyarwanda Communication Ability: Effective Visual Impairment: Limited Hearing Ability: Hard of Hearing Manager Hvac Required: No Beliefs That Will Affect Care: None marital status: Current Living Situation: Personal Care Facility Current Living Situation Comment: [facility] current occupational status: retired How many Children do You have: 3 Other Information That Helps Us Care for You: No Feels Safe at Home: Yes Safety Concerns: Feels Safe At This Time Childhood Exposure to Second-Hand Smoke: Yes Diet Comment: well balanced. caffeine: Yes (Coffee x 2 per day.) during the past year weight has: decreased > 10 lbs Dental Care, Regularly: No Physical Activity Frequency: Does not Exercise Seatbelt Use: always Sunscreen Use: No Assistive Devices: Walker Allergies Allergies Allergy/AdvReac Type Severity Reaction Status Date / Time codeine Allergy Mild UNKNOWN Verified 02/24/20 14:00 REACTION gemfibrozil Allergy Verified 02/24/20 14:00 niacin Allergy Verified 02/24/20 14:00 simvastatin Allergy Verified 02/24/20 14:00 Home Meds Home Medications Medication Instructions Recorded Confirmed aspirin 81 mg tablet,delayed 81 mg PO DAILY 01/15/19 02/24/20 release atorvastatin 40 mg tablet 40 mg PO DAILY 01/15/19 02/24/20 docusate sodium 100 mg capsule 100 mg PO BID 01/15/19 02/24/20 Lantus Solostar U-100 Insulin 12 unit SC DAILY 11/24/19 02/24/20 polyethylene glycol 3350 [Miralax] 17 g PO DAILY 11/24/19 02/24/20 quetiapine 12.5 mg PO HS 11/24/19 02/24/20 sennosides-docusate sodium 1 tab-cap PO QDL 11/24/19 02/24/20 [Stimulant Laxative Plus] acetaminophen 650 mg PO QID PRN 02/17/20 02/24/20 nitrofurantoin macrocrystal 100 mg PO BID 02/22/20 02/24/20 Previous Rx's Medication Instructions Recorded melatonin 3 mg PO HS #0 tab 11/09/19 metoprolol succinate 25 mg PO QAM #30 tab 11/09/19 doxycycline hyclate 100 mg PO BID 5 Days #10 tab 02/22/20 Results & Data (ED) Vital Signs Vital Signs - 24 hr 02/24/20 11:50 02/24/20 12:17 02/24/20 14:14 Temperature 36.6 C Temperature Source Oral Pulse Rate 78 Pulse Rate [Left Finger] 66 Respiratory Rate 12 14 Blood Pressure 133/56 L Blood Pressure [Left Arm] 133/76 Blood Pressure Mean 81 Blood Pressure Mean [Left Arm] 95 Pulse Oximetry 100 100 Oxygen Delivery Method Room Air Room Air Room Air Sepsis Recent Fever Within 48 Hours No Sepsis New/Unexplained Change in Mental Status N/A Sepsis Action Taken by Nursing No Action Required Home Medications Current Medication List: was personally reviewed by me Laboratory Data Attestation: I reviewed the patient's lab results. Result diagrams: 02/24/20 12:30 02/24/20 12:30 Lab Results 02/24/20 02/24/20 02/24/20 Range/Units 12:30 12:30 12:30 WBC 5.29 (4.8-10.8) K/uL RBC 3.08 L (4.7-6.1) M/uL Hgb 9.4 L (14.0-18.0) g/dL Hct 27.4 L (42-52) % MCV 89.0 (80-100) fL MCH 30.5 (25-34) pg MCHC 34.3 (32-36) g/dL RDW Std Deviation 42.3 (36.4-46.3) fL RDW Coeff of [place] 13.2 (11.5-14.5) % Plt Count 227 (130-400) K/uL MPV 9.4 (7.4-10.4) fL Immature Gran % (Auto) 0.6 % Neut % (Auto) 63.5 % Lymph % (Auto) 23.4 % [place] % (Auto) 7.2 % Eos % (Auto) 4.9 % Baso % (Auto) 0.4 % Neut # (Auto) 3.36 (1.4-6.5) K/uL Lymph # (Auto) 1.24 (1.2-3.4) K/uL [place] # (Auto) 0.38 (0.11-0.59) K/uL Eos # (Auto) 0.26 (0-0.5) K/uL Baso # (Auto) 0.02 (0-0.2) K/uL Immature Gran # (Auto) 0.03 H (0.00-0.02) K/uL PT 10.8 (9.0-12.0) Seconds INR 1.0 (0.9-1.1) Sodium 138 (136-145) mmol/L Potassium 4.4 (3.5-5.1) mmol/L Chloride 107 (98-107) mmol/L Carbon Dioxide 25 (21-32) mmol/L Anion Gap 6.0 (3-11) BUN 28 H (7-18) mg/dl Creatinine 1.78 H (0.6-1.4) mg/dl Est Cr Clr Drug Dosing Not Reportable Est GFR ( Amer) 39.2 Est GFR (Non-Af Amer) 33.8 BUN/Creatinine Ratio 15.7 (10-20) Glucose 227 H (70-99) mg/dl Calcium 8.8 (8.5-10.1) mg/dl Magnesium 1.7 L (1.8-2.4) mg/dl Total Bilirubin 0.3 (0.2-1) mg/dl AST 24 (15-37) U/L ALT 21 (12-78) U/L Alkaline Phosphatase 156 H (45-117) U/L Troponin I < 0.015 (0-0.045) ng/ml Total Protein 6.9 (6.4-8.2) gm/dl Albumin 3.0 L (3.4-5.0) gm/dl Globulin 3.9 (2.5-4.0) gm/dl Albumin/Globulin Ratio 0.8 L (0.9-2) TSH 2.890 (0.300-4.500) uIu/ml Blood Type Blood Type Recheck Antibody Screen Crossmatch 02/24/20 02/24/20 Range/Units 12:42 13:47 WBC (4.8-10.8) K/uL RBC (4.7-6.1) M/uL Hgb (14.0-18.0) g/dL Hct (42-52) % MCV (80-100) fL MCH (25-34) pg MCHC (32-36) g/dL RDW Std Deviation (36.4-46.3) fL RDW Coeff of [place] (11.5-14.5) % Plt Count (130-400) K/uL MPV (7.4-10.4) fL Immature Gran % (Auto) % Neut % (Auto) % Lymph % (Auto) % [place] % (Auto) % Eos % (Auto) % Baso % (Auto) % Neut # (Auto) (1.4-6.5) K/uL Lymph # (Auto) (1.2-3.4) K/uL [place] # (Auto) (0.11-0.59) K/uL Eos # (Auto) (0-0.5) K/uL Baso # (Auto) (0-0.2) K/uL Immature Gran # (Auto) (0.00-0.02) K/uL PT (9.0-12.0) Seconds INR (0.9-1.1) Sodium (136-145) mmol/L Potassium (3.5-5.1) mmol/L Chloride (98-107) mmol/L Carbon Dioxide (21-32) mmol/L Anion Gap (3-11) BUN (7-18) mg/dl Creatinine (0.6-1.4) mg/dl Est Cr Clr Drug Dosing Est GFR ( Amer) Est GFR (Non-Af Amer) BUN/Creatinine Ratio (10-20) Glucose (70-99) mg/dl Calcium (8.5-10.1) mg/dl Magnesium (1.8-2.4) mg/dl Total Bilirubin (0.2-1) mg/dl AST (15-37) U/L ALT (12-78) U/L Alkaline Phosphatase (45-117) U/L Troponin I (0-0.045) ng/ml Total Protein (6.4-8.2) gm/dl Albumin (3.4-5.0) gm/dl Globulin (2.5-4.0) gm/dl Albumin/Globulin Ratio (0.9-2) TSH (0.300-4.500) uIu/ml Blood Type O Negative Blood Type Recheck O Negative Antibody Screen NEGATIVE Crossmatch See Detail Administered Medications Discontinued Medications Acetaminophen (Acetaminophen 325 Mg Tab) 650 mg PO NOW STA Stop: 02/24/20 12:34 Last Admin: 02/24/20 13:24 Dose: 650 mg Documented by: [id number] Sodium Chloride (Nss) 500 mls @ 999 mls/hr IV .Q31M CESAR Stop: 02/24/20 13:15 Last Infusion: 02/24/20 14:02 Dose: 0 mls/hr Documented by: [id number] Admin: 02/24/20 13:24 Dose: 999 mls/hr Documented by: [id number] Discharge Plan Visit Data Chief Complaint: Bleeding ED Provider: Adán Lynn Discharge Problem: Hematuria, Anemia, CKD (chronic kidney disease), Hypomagnesemia Patient Disposition: Admitted As Inpatient Discharge Instructions Interventions: ED Discharge Assessment Last Done: 02/24/20 15:30 Discharge Problem: Hematuria Qualifiers: Hematuria type: gross Qualified Code(s): R31.0 - Gross hematuria Anemia Qualifiers: Anemia type: iron deficiency Iron deficiency anemia type: chronic blood loss Qualified Code(s): D50.0 - Iron deficiency anemia secondary to blood loss (chronic) CKD (chronic kidney disease) Qualifiers: Chronic kidney disease stage: stage 3 (moderate) Qualified Code(s): N18.3 - Chronic kidney disease, stage 3 (moderate)
[2020-02-24] MEDS ORDERED: ACETAMINOPHEN 325 MG TAB PO STA (12:33)
[2020-02-24] MEDS ORDERED: SODIUM CHLORIDE 0.9% 250 ML IV PRN (12:33)
[2020-02-24] MEDS ORDERED: SODIUM CHLORIDE 0.9% 500 ML IV SCH (12:45)
[2020-02-24 12:50] LABS: Basophils # (auto) 0.02 K/uL (0-0.2); Basophils % (auto) 0.4 %; Eosinophils # (auto) 0.26 K/uL (0-0.5); Eosinophils % (auto) 4.9 %; Hematocrit (blood only) 27.4 % (42-52); Hemoglobin 9.4 g/dL (14.0-18.0); Immature Granulocytes # (auto) 0.03 K/uL (0.00-0.02); Immature Granulocytes % (auto) 0.6 %; Lymphocytes # (auto) 1.24 K/uL (1.2-3.4); Lymphocytes % (auto) 23.4 %; Mean Corpuscular Hemoglobin 30.5 pg (25-34); Mean Corpuscular Hgb Conc 34.3 g/dL (32-36); Mean Platelet Volume 9.4 fL (7.4-10.4); Monocytes # (auto) 0.38 K/uL (0.11-0.59); Monocytes % (auto) 7.2 %; Neutrophils # (auto) 3.36 K/uL (1.4-6.5); Neutrophils % (auto) 63.5 %; Platelet Count 227 K/uL (130-400); RDW Coefficient of Variation 13.2 % (11.5-14.5); RDW Standard Deviation 42.3 fL (36.4-46.3); Red Blood Count 3.08 M/uL (4.7-6.1); White Blood Count 5.29 K/uL (4.8-10.8)
[2020-02-24 12:57] LABS: Prothrombin Time 10.8 Seconds (9.0-12.0)
[2020-02-24 13:08] LABS: Alanine Aminotransferase 21 U/L (12-78); Aspartate Aminotransferase 24 U/L (15-37); BUN Creatinine Ratio 15.7 (10-20); Blood Urea Nitrogen 28 mg/dl (7-18); Calcium 8.8 mg/dl (8.5-10.1); Carbon Dioxide 25 mmol/L (21-32); Chloride 107 mmol/L (98-107); Est GFR (African American) 39.2; Est GFR (Non-African American) 33.8; Glucose 227 mg/dl (70-99); Magnesium 1.7 mg/dl (1.8-2.4); Potassium 4.4 mmol/L (3.5-5.1); Sodium 138 mmol/L (136-145)
[2020-02-24 13:19] LABS: Albumin Globulin Ratio 0.8 (0.9-2); Alkaline Phosphatase 156 U/L (45-117); Bilirubin,Total 0.3 mg/dl (0.2-1); Globulin 3.9 gm/dl (2.5-4.0); Total Protein 6.9 gm/dl (6.4-8.2); Troponin I < 0.015 ng/ml (0-0.045)
--- NOTE | 2020-02-24 14:14 | History & Physical Report ---
Date of Service February 24, 2020 Assessment & Plan (1) Gross hematuria: -Admit to med surg with tele -Could be secondary to cystitis versus prostatitis, E. coli on urine culture from 02/16 being treated with cefdinir and continues with hematuria -Reviewed last CT abd/pelvis from 02/16 - will defer to urology if requests repeat scan. - Possible evidence of cystitis, hyperdense material within the bladder lumen, possibly represents blood products. Brachii therapy seeds noted in the prostate gland. Bilateral fat-containing inguinal hernias. Right-sided nephrolithiasis, 4 mm, cholelithiasis. -Plavix have been held since 02/16 and aspirin held since 02/21 -Urology consult -Do not place mathew catheter at this time -Trend H&H - will recheck at 1999, type and screen completed, will ask attending to obtain blood consent if needed, currently no need for blood transfusion. Asymptomatic. (2) Anemia: Acute blood loss anemia secondary to gross hematuria - Hgb currently 9.4 down from twelve 1 week ago, type and screen completed in the ER, trend next H&H at 1999 -Follow with a.m. labs -Holding Plavix, aspirin as above -No need for blood transfusion at this point in time, urology consulted. (3) Nephrolithiasis: -History of such, 4 mm stone seen on abdominal imaging from 02/16, will discuss with urology regarding repeat imaging (4) CAD, multiple vessel: -hx of cardiac stents x 2 placed in November 2016 for OK. Has not followed with cardiology for years, cannot recall name of last cardiology group who followed him. Daughter also unaware of this. -Holding aspirin/Plavix for now, resume as soon as possible -EKG reviewed - Cont metoprolol XL 25 mg QAM, atorvastatin (5) Aortic valve stenosis, moderate: - Auscultated on exame, moderate to severe - Echo completed in November 2019 (6) History of OK (myocardial infarction): - in November 2016 (7) Hyperlipidemia: -Continue statin therapy (8) Diabetes mellitus: With significant hyperglycemia here -Continue Lantus 12 units will add another 5 units tonight, and SS with Accu- Cheks ACHS -A1C= 11.2 from November 2019-uncontrolled Check hemoglobin A1c in the morning (9) CKD (chronic kidney disease), stage III: -Baseline appears to be 1.7-1.9, currently creatinine = 1.78, BUN = 28, monitor with am labs with hematuria and acute blood loss as above (10) Alzheimer's disease: -History of such, alert to place and self, has difficulty with recall of events - Cont melatonin and seroquel HS for sleep with hx of . 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 - Wound consultation - Given dose of morphine due to pain in the ER. (13) UTI (urinary tract infection): With pansensitive E. coli found on urine culture on ER visit on 02/16 Continue 10-day course of cefdinir 300 mg p.o. once daily which is renal dosing Final date will be 02/25 (14) DVT prophylaxis: - teds, no chemical anticoagulation in the setting of hematuria CODE: DNR - discussed with pt and daughter, Leann, at bedside Dispo: From home, likely to remain in the hospital x 2 days History of Present Illness Primary Care Provider: [facility], [facility] This is an 84 yo M with PMhx of CAD s/p 2 stents placed secondary to OK on 11/08/16, aortic valve stenosis, HTN, HLD, DM type II, Alzheimer's disease, BPH, prostate cancer, diverticulosis, hx L retrobulbar CVA which was incidentally found on scans (2016), who presents from [facility] for ongoing hematuria which started about 1 week ago. He has been to the ER twice within the past week with complaints of hematuria. Initially on 02/16 he was found to have e.coli, started on Cefdinir x 14d course. At that time his Plavix was held and was referred to urology. During the second visit on 02/21 he continued to have hematuria- so aspirin was held and scheduled for close follow up with urology (however has not yet seen them as an outpatient) but also complained of left foot pain, and was treated for cellulitis with doxycycline x 5d course. He is noted to have a decreased hemoglobin on 8.8 on outpatient labs today and then 9.4 on recheck here in the ER, compared to his baseline of 12 prior to 1 week ago. He denies lightheadedness, dizziness, palpitations, sob or other acute complaints. He walks at baseline with a walker. His daughter is with him at bedside, and supports the history. Allergies Allergy/AdvReac Type Severity Reaction Status Date / Time codeine Allergy Mild UNKNOWN Verified 02/24/20 14:00 REACTION gemfibrozil Allergy Verified 02/24/20 14:00 niacin Allergy Verified 02/24/20 14:00 simvastatin Allergy Verified 02/24/20 14:00 Home Medications Home Medications Medication Instructions Recorded Confirmed Type aspirin 81 mg tablet,delayed 81 mg PO DAILY 01/15/19 02/24/20 History release atorvastatin 40 mg tablet 40 mg PO DAILY 01/15/19 02/24/20 History docusate sodium 100 mg capsule 100 mg PO BID 01/15/19 02/24/20 History melatonin 3 mg PO HS #0 tab 11/09/19 02/24/20 Rx metoprolol succinate 25 mg PO QAM #30 tab 11/09/19 02/24/20 Rx Lantus Solostar U-100 Insulin 12 unit SC DAILY 11/24/19 02/24/20 History polyethylene glycol 3350 [Miralax] 17 g PO DAILY 11/24/19 02/24/20 History quetiapine 12.5 mg PO HS 11/24/19 02/24/20 History sennosides-docusate sodium 1 tab-cap PO QDL 11/24/19 02/24/20 History [Stimulant Laxative Plus] acetaminophen 650 mg PO QID PRN 02/17/20 02/24/20 History doxycycline hyclate 100 mg PO BID 5 Days #10 tab 02/22/20 02/24/20 Rx nitrofurantoin macrocrystal 100 mg PO BID 02/22/20 02/24/20 History 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 Family History Father Acute myocardial infarction Mother Acute myocardial infarction Family history of suicide Unknown Diabetes Heart disease Hypertension Social History Smoking Status: Former smoker Tobacco Type: Cigarettes Second Hand Exposure: No; Hx Alcohol Use: No Hx Substance Use: No Preferred Language: Brazilian Communication Ability: Effective Visual Impairment: Limited Hearing Ability: Hard of Hearing Straightedge Worker Required: No Beliefs That Will Affect Care: None marital status: Current Living Situation: Personal Care Facility Current Living Situation Comment: [facility] current occupational status: retired How many Children do You have: 3 Other Information That Helps Us Care for You: No Feels Safe at Home: Yes Safety Concerns: Feels Safe At This Time Childhood Exposure to Second-Hand Smoke: Yes Diet Comment: well balanced. caffeine: Yes (Coffee x 2 per day.) during the past year weight has: decreased > 10 lbs Dental Care, Regularly: No Physical Activity Frequency: Does not Exercise Seatbelt Use: always Sunscreen Use: No Assistive Devices: Walker Review of Systems Review of Systems: Constitutional: No fever, sweats or chills Eyes: No diplopia, no worsening or blurred vision ENT: normal hearing, no trouble swallowing Respiratory: No cough, sputum, dyspnea at rest or on exertion Cardiovascular: No chest pain, tightness or palpitations Abdomen: No pain, nausea, vomiting, diarrhea or constipation : hematuria, no difficulty voiding, no pressure, no dysuria or increased frequency Musculoskeletal: + left foot redness and pain, lateral foot blister opened, otherwise no joint pain, calf pain, swelling Neurologic: + dementia, No weakness, numbness/tingling, or balance problems Psychiatric: No anxiety or depression Skin: R foot as described above, otherwise No rash or itch Physical Exam Physical Exam: General: awake, alert, no apparent distress Head: Normocephalic, atraumatic ENT: PERRL, EOMI, no pharyngeal exudate, mucous membranes moist Chest: Clear to auscultation, on room air, no adventitious breath sounds Cardiac: Regular rate and rhythm, + loud VERNA radiating to carotids, no JVD, normal peripheral pulses, good capillary refill Abdominal: NABS x 4 quadrants, soft, nondistended, nontender to palpation, no rebound or guarding Extremities: + LLE erythema and multiple small abrasions, +warmth, + lateral foot blister opened, appears to have drained some serosanguineous fluid, no ulceration. +RLE with multiple small abrasions, no erythema. no peripheral edema, calfs nontender to palpation Psych: Normal mood and affect Neuro: Awake, alert, oriented to self and place, not to time, current events, president, but can name his daughter who is present at bedside. no gross motor deficits, speech is clear, no peripheral sensory deficits Results & Data Results & Data ([facility]) Vital Signs (Past 12 Hours) Vital Signs Temp Pulse Resp BP Pulse Ox 02/24/20 11:50 36.6 C 78 12 133/56 L 100 Laboratory Results 02/24/20 02/24/20 02/24/20 Range/Units 20:09 20:02 16:51 WBC (4.8-10.8) K/uL RBC (4.7-6.1) M/uL Hgb 9.6 L (14.0-18.0) g/dL Hct 27.4 L (42-52) % MCV (80-100) fL MCH (25-34) pg MCHC (32-36) g/dL RDW Std Deviation (36.4-46.3) fL RDW Coeff of [place]ordo (11.5-14.5) % Plt Count (130-400) K/uL MPV (7.4-10.4) fL Immature Gran % (Auto) % Neut % (Auto) % Lymph % (Auto) % [place] % (Auto) % Eos % (Auto) % Baso % (Auto) % Neut # (Auto) (1.4-6.5) K/uL Lymph # (Auto) (1.2-3.4) K/uL [place] # (Auto) (0.11-0.59) K/uL Eos # (Auto) (0-0.5) K/uL Baso # (Auto) (0-0.2) K/uL Immature Gran # (Auto) (0.00-0.02) K/uL PT (9.0-12.0) Seconds INR (0.9-1.1) Sodium (136-145) mmol/L Potassium (3.5-5.1) mmol/L Chloride (98-107) mmol/L Carbon Dioxide (21-32) mmol/L Anion Gap (3-11) BUN (7-18) mg/dl Creatinine (0.6-1.4) mg/dl Est Cr Clr Drug Dosing Est GFR ( Amer) Est GFR (Non-Af Amer) BUN/Creatinine Ratio (10-20) Glucose (70-99) mg/dl POC Glucose 203 H 201 H (70-99) mg/dl Calcium (8.5-10.1) mg/dl Magnesium (1.8-2.4) mg/dl Total Bilirubin (0.2-1) mg/dl AST (15-37) U/L ALT (12-78) U/L Alkaline Phosphatase (45-117) U/L Troponin I (0-0.045) ng/ml Total Protein (6.4-8.2) gm/dl Albumin (3.4-5.0) gm/dl Globulin (2.5-4.0) gm/dl Albumin/Globulin Ratio (0.9-2) TSH (0.300-4.500) uIu/ml Blood Type Blood Type Recheck Antibody Screen Crossmatch 02/24/20 02/24/20 02/24/20 Range/Units 13:47 12:42 12:30 WBC (4.8-10.8) K/uL RBC (4.7-6.1) M/uL Hgb (14.0-18.0) g/dL Hct (42-52) % MCV (80-100) fL MCH (25-34) pg MCHC (32-36) g/dL RDW Std Deviation (36.4-46.3) fL RDW Coeff of Gordo (11.5-14.5) % Plt Count (130-400) K/uL MPV (7.4-10.4) fL Immature Gran % (Auto) % Neut % (Auto) % Lymph % (Auto) % [place] % (Auto) % Eos % (Auto) % Baso % (Auto) % Neut # (Auto) (1.4-6.5) K/uL Lymph # (Auto) (1.2-3.4) K/uL [place] # (Auto) (0.11-0.59) K/uL Eos # (Auto) (0-0.5) K/uL Baso # (Auto) (0-0.2) K/uL Immature Gran # (Auto) (0.00-0.02) K/uL PT (9.0-12.0) Seconds INR (0.9-1.1) Sodium 138 (136-145) mmol/L Potassium 4.4 (3.5-5.1) mmol/L Chloride 107 (98-107) mmol/L Carbon Dioxide 25 (21-32) mmol/L Anion Gap 6.0 (3-11) BUN 28 H (7-18) mg/dl Creatinine 1.78 H (0.6-1.4) mg/dl Est Cr Clr Drug Dosing Not Reportable Est GFR ( Amer) 39.2 Est GFR (Non-Af Amer) 33.8 BUN/Creatinine Ratio 15.7 (10-20) Glucose 227 H (70-99) mg/dl POC Glucose (70-99) mg/dl Calcium 8.8 (8.5-10.1) mg/dl Magnesium 1.7 L (1.8-2.4) mg/dl Total Bilirubin 0.3 (0.2-1) mg/dl AST 24 (15-37) U/L ALT 21 (12-78) U/L Alkaline Phosphatase 156 H (45-117) U/L Troponin I < 0.015 (0-0.045) ng/ml Total Protein 6.9 (6.4-8.2) gm/dl Albumin 3.0 L (3.4-5.0) gm/dl Globulin 3.9 (2.5-4.0) gm/dl Albumin/Globulin Ratio 0.8 L (0.9-2) TSH 2.890 (0.300-4.500) uIu/ml Blood Type O Negative Blood Type Recheck O Negative Antibody Screen NEGATIVE Crossmatch See Detail 02/24/20 02/24/20 Range/Units 12:30 12:30 WBC 5.29 (4.8-10.8) K/uL RBC 3.08 L (4.7-6.1) M/uL Hgb 9.4 L (14.0-18.0) g/dL Hct 27.4 L (42-52) % MCV 89.0 (80-100) fL MCH 30.5 (25-34) pg MCHC 34.3 (32-36) g/dL RDW Std Deviation 42.3 (36.4-46.3) fL RDW Coeff of Gordo 13.2 (11.5-14.5) % Plt Count 227 (130-400) K/uL MPV 9.4 (7.4-10.4) fL Immature Gran % (Auto) 0.6 % Neut % (Auto) 63.5 % Lymph % (Auto) 23.4 % [place] % (Auto) 7.2 % Eos % (Auto) 4.9 % Baso % (Auto) 0.4 % Neut # (Auto) 3.36 (1.4-6.5) K/uL Lymph # (Auto) 1.24 (1.2-3.4) K/uL [place] # (Auto) 0.38 (0.11-0.59) K/uL Eos # (Auto) 0.26 (0-0.5) K/uL Baso # (Auto) 0.02 (0-0.2) K/uL Immature Gran # (Auto) 0.03 H (0.00-0.02) K/uL PT 10.8 (9.0-12.0) Seconds INR 1.0 (0.9-1.1) Sodium (136-145) mmol/L Potassium (3.5-5.1) mmol/L Chloride (98-107) mmol/L Carbon Dioxide (21-32) mmol/L Anion Gap (3-11) BUN (7-18) mg/dl Creatinine (0.6-1.4) mg/dl Est Cr Clr Drug Dosing Est GFR ( Amer) Est GFR (Non-Af Amer) BUN/Creatinine Ratio (10-20) Glucose (70-99) mg/dl POC Glucose (70-99) mg/dl Calcium (8.5-10.1) mg/dl Magnesium (1.8-2.4) mg/dl Total Bilirubin (0.2-1) mg/dl AST (15-37) U/L ALT (12-78) U/L Alkaline Phosphatase (45-117) U/L Troponin I (0-0.045) ng/ml Total Protein (6.4-8.2) gm/dl Albumin (3.4-5.0) gm/dl Globulin (2.5-4.0) gm/dl Albumin/Globulin Ratio (0.9-2) TSH (0.300-4.500) uIu/ml Blood Type Blood Type Recheck Antibody Screen Crossmatch ECG Additional Comments: ECG on 02/24/2020 at 1255 with normal sinus rhythm, no ischemic changes Code Status & VTE Plan Code Status DNR/DNI VTE Prophylaxis Plan VTE Prophylaxis will be ordered: Yes Supervising Physician Co-Signing Physician Notes PA Supervision Note: I personally saw and examined the patient. I verified all adair points and agree with SARAH Cordero with the following exceptions and/or additions: This patient is an 84-year-old male with a history of kidney stones, dementia, prostate cancer status post brachii therapy seeds, aortic valve stenosis, DM 2, hyperlipidemia, CAD status post OK with stents, CKD stage III, CVA, here with persistent gross hematuria and acute blood loss anemia. History and ROS reviewed Vitals reviewed Gen: AAOx2, NAD, thin HEENT: Anicteric sclerae, EOMI CV: RRR 3/6 VERNA at the RUSB nl S1S2 Pulm: CTAB no wcr Abd: +BS soft NT ND no masses or hernias Ext: No edema, 1+ DP pulses Skin: Left leg from mid tibia down to ankle with mild erythema and warmth, blanching, superficial open wound on left lateral distal leg Neuro: Full strength throughout 84-year-old male with history as above, here with persistent gross hematuria, cystitis, and acute blood loss anemia Is hemodynamically stable with his acute blood loss, no transfusion needed at this time-consent was obtained via phone with his daughter/HC POA and patient is also agreeable to transfusion if needed Needs further more urgent urology evaluation given ongoing blood loss Holding dual antiplatelet therapy -Continue treating with cefdinir for UTI Appreciate urology consultation Serial hemoglobin and transfuse if hemoglobin less than 7 or becomes hemodynamically unstable or develops angina Continue treating left leg cellulitis with doxycycline and cefdinir as above Wound care consultation for open wound on leg PG Care Time/CCT Total # of Minutes Spent Total Time Spent with Patient: Total time spent is greater than 50% in coordination of care (as documented) at patient's floor/unit and/or counseling patient: Coding Level of Care Code 31732 Initial Inpt Care Lvl 3 Diagnoses Gross hematuria R31.0 Anemia D50.0 Anemia type: iron deficiency Iron deficiency anemia type: chronic blood loss Nephrolithiasis N20.0 CAD, multiple vessel I25.10 Aortic valve stenosis, moderate I35.0 History of OK (myocardial infarction) I25.2 Hyperlipidemia E78.5 Diabetes mellitus E11.22; N18.3; Z79.4 Chronic kidney disease stage: stage 3 (moderate) Diabetes mellitus complication detail: with chronic kidney disease Diabetes mellitus complication status: with kidney complications Diabetes mellitus buttermaker continuous churn insulin use: with chcf use Diabetes mellitus type: type 2 CKD (chronic kidney disease), stage III N18.3 Alzheimer's disease G30.9; F02.80 CVA (cerebral vascular accident) I63.9 Cellulitis L03.116 Laterality: left Site of cellulitis: extremity Site of cellulitis of extremity: lower extremity UTI (urinary tract infection) N39.0 DVT prophylaxis Z29.9 (1) Diabetes mellitus Chronic kidney disease stage: stage 3 (moderate) Diabetes mellitus complication detail: with chronic kidney disease Diabetes mellitus complication status: with kidney complications Diabetes mellitus chcf insulin use: with buttermaker continuous churn use Diabetes mellitus type: type 2 Qualified Code(s): E11.22 - Type 2 diabetes mellitus with diabetic chronic kidney disease; N18.3 - Chronic kidney disease, stage 3 (moderate); 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
[2020-02-24] MEDS ORDERED: GLUCOSE 40% GEL 15 GM TUBE PO PRN (16:05)
[2020-02-24] MEDS ORDERED: ACETAMINOPHEN 325 MG TAB PO PRN (16:05)
[2020-02-24] MEDS ORDERED: CARBOHYDRATES FOR HYPOGLYCEMIA PO PRN (16:05)
[2020-02-24] MEDS ORDERED: GLUCOSE 10 TABS/TUBE PO PRN (16:05)
[2020-02-24] MEDS ORDERED: DEXTROSE 50% 50 ML SYRINGE IV PRN (16:05)
[2020-02-24] MEDS ORDERED: ONDANSETRON INJ 2 MG/ML 2 ML VIAL IV PRN (16:05)
[2020-02-24] MEDS ORDERED: GLUCAGON FOR INJ 1 MG VIAL SQ PRN (16:05)
[2020-02-24] MEDS: INSULIN ASPART 100 UNITS/ML 3 ML PEN SC SCH ×2 (17:36→21:43)
--- NOTE | 2020-02-24 19:49 | Urology Consultation ---
Date of Consultation February 24, 2020 Assessment & Plan (1) Gross hematuria: Patient admitted with gross hematuria possible cystitis. Patient has a history of stone that was treated approximately 3 months ago however developed gross hematuria over the last few weeks which required CT scan which found clot within bladder and possible inflammation. Patient has a history of brachii therapy pelvic radiation. Most recent imaging was done on the which showed clot in the bladder. Patient has had his blood thinners held since then. No other major changes. Patient is a poor historian and unable to give the majority of background or history. Appears to be exacerbation of underlying issues. Patient is currently comfortable and has been voiding per records and per patient. No considerable problems or issues. Has not had trouble since being admitted. Is being monitored for acute blood loss. No other major changes. Is tolerating supported care. Plan will be to continue to monitor. Monitor hemoglobin as well as vitals. We will plan to intervene if patient develops considerable issues. May need clot evacuation versus assessment versus fulguration. Will monitor for now. If patient develops severe bothersome issues may need intervention. Patient does have bilateral hernias. Has had issues with stone disease in the past and does appear to have some small stones in the right kidney. Patient is complicated medical and surgical history is reviewed and summarized above [place] all imaging has been reviewed and assessed. This point would not recommend repeat imaging unless patient develops more acute issues. Plan to continue with supportive care. History of Present Illness Attending Physician: Nikki Burch MD History of Present Illness Consult for urinary issues with hematuria. Patient well-known to urology with history of obstructing stone treated with stent removed. Patient developed hematuria. Is on aspirin and Plavix which have been held since the when patient had last episode of bleeding. Patient has red urine without catheter currently. He has been voiding. Overall poor historian and unable to give a majority of history or recent events. Patient currently states he is feeling fine with no major problems. Patient has mild to moderate discomfort in pelvis and groin going to back and side in waves. Hemoglobin is being monitored. Has been deconditioned from this. Has decreased mobility significantly with acute issues. Significant family history is denied. Is still able to void and is currently doing so without catheter. Most recent imaging was completed approximately a week ago which showed likely clot within bladder. Has had some minor urinary issues in the past. No severe nausea or vomiting. Currently no fevers. No significant family history of malignancy. Allergies Allergy/AdvReac Type Severity Reaction Status Date / Time codeine Allergy Mild UNKNOWN Verified 02/24/20 14:00 REACTION gemfibrozil Allergy Verified 02/24/20 14:00 niacin Allergy Verified 02/24/20 14:00 simvastatin Allergy Verified 02/24/20 14:00 Home Medications Home Medications Medication Instructions Recorded Confirmed Type aspirin 81 mg tablet,delayed 81 mg PO DAILY 01/15/19 02/24/20 History release atorvastatin 40 mg tablet 40 mg PO DAILY 01/15/19 02/24/20 History docusate sodium 100 mg capsule 100 mg PO BID 01/15/19 02/24/20 History melatonin 3 mg PO HS #0 tab 11/09/19 02/24/20 Rx metoprolol succinate 25 mg PO QAM #30 tab 11/09/19 02/24/20 Rx Lantus Solostar U-100 Insulin 12 unit SC DAILY 11/24/19 02/24/20 History polyethylene glycol 3350 [Miralax] 17 g PO DAILY 11/24/19 02/24/20 History quetiapine 12.5 mg PO HS 11/24/19 02/24/20 History sennosides-docusate sodium 1 tab-cap PO QDL 11/24/19 02/24/20 History [Stimulant Laxative Plus] acetaminophen 650 mg PO QID PRN 02/17/20 02/24/20 History doxycycline hyclate 100 mg PO BID 5 Days #10 tab 02/22/20 02/24/20 Rx nitrofurantoin macrocrystal 100 mg PO BID 02/22/20 02/24/20 History Patient History Medical History Alzheimer's disease Aortic valve stenosis, moderate CAD, multiple vessel CKD (chronic kidney disease), stage III Diabetes mellitus Diabetes mellitus with kidney disease History of adenomatous polyp of colon 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 History of weight loss excessive Hyperlipidemia 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 Family History Father Acute myocardial infarction Mother Acute myocardial infarction Family history of suicide Unknown Diabetes Heart disease Hypertension Social History Smoking Status: Former smoker Tobacco Type: Cigarettes Second Hand Exposure: No; Hx Alcohol Use: No Hx Substance Use: No Preferred Language: Egyptian Communication Ability: Effective Visual Impairment: Limited Hearing Ability: Hard of Hearing Artist Mannequin Coloring Required: No Beliefs That Will Affect Care: None marital status: Current Living Situation: Personal Care Facility Current Living Situation Comment: [facility] current occupational status: retired How many Children do You have: 3 Other Information That Helps Us Care for You: No Feels Safe at Home: Yes Safety Concerns: Feels Safe At This Time Childhood Exposure to Second-Hand Smoke: Yes Diet Comment: well balanced. caffeine: Yes (Coffee x 2 per day.) during the past year weight has: decreased > 10 lbs Dental Care, Regularly: No Physical Activity Frequency: Does not Exercise Seatbelt Use: always Sunscreen Use: No Assistive Devices: Walker Review of Systems Review of Systems: All systems reviewed & are unremarkable except as noted in HPI & below Physical Exam Physical Exam: General: Alert in no acute distress. Advanced age. Chronic Medical issues. Poor historian with baseline memory issues. HEENT: Normocephalic. Inspection normal. Cranial Nerves 2-12 Grossly intact with some hearing issues. Normal inspection of face. Normal inspection of neck. Psychologic: Normal affect. Baseline issues with memory. Respiratory: Nonlabored. No use of accessory muscles. No tachypnea or dyspnea. Cardiovascular: No tachycardia Skin: [place] and Dry. No rashes or visible lesions. Extremities/Lymphatics: Minor Mobility issues. Slow Gait. Abdomen: Soft Non-distended. No rebound or guarding. : No Melendez. Patient is urinating in bedside urinal per records and patient Results & Data ([facility]) Vital Signs (Past 12 Hours) Vital Signs Temp Pulse Pulse Resp BP BP Pulse Ox 02/24/20 19:16 36.6 C 82 18 136/78 97 02/24/20 16:19 36.4 C L 77 16 151/74 H 100 02/24/20 15:30 71 19 138/67 100 02/24/20 14:14 66 14 133/76 100 02/24/20 11:50 36.6 C 78 12 133/56 L 100 PG Care Time/CCT Total # of Minutes Spent Total Time Spent with Patient: Total time spent is greater than 50% in coordination of care (as documented) at patient's floor/unit and/or counseling patient: Coding Level of Care Code 29140 Inpt Consult Level 5 Diagnoses Gross hematuria R31.0
[2020-02-24 20:20] LABS: Hematocrit (blood only) 27.4 % (42-52); Hemoglobin 9.6 g/dL (14.0-18.0)
[2020-02-24] MEDS ORDERED: nitrofurantoin macrocrystaL 50 MG CAP PO SCH (21:00)
[2020-02-24] MEDS: QUETIAPINE FUMARATE 25 MG TABLET PO SCH (21:43)
[2020-02-24] MEDS: DOXYCYCLINE HYCLATE 100 MG CAP PO SCH (21:43)
[2020-02-24] MEDS: DOCUSATE SODIUM 100 MG CAP PO SCH (21:43)
[2020-02-24] MEDS: MELATONIN 3 MG TAB PO SCH (21:43)
[2020-02-24] MEDS ORDERED: INSULIN GLARGINE SOLOSTAR 100 UNITS/ML 3 ML PEN SC ONE (21:56)
[2020-02-24] MEDS ORDERED: MAGNESIUM SULFATE / D5W 1 GM/100 ML BAG IV ONE (22:30)
[2020-02-24] MEDS: PATIENT'S HEIGHT AND/OR WEIGHT NEEDED SCH (22:34)
[2020-02-24] MEDS: CEFDINIR 300 MG CAP PO SCH (22:35)
[2020-02-25] MEDS: PATIENT'S HEIGHT AND/OR WEIGHT NEEDED SCH ×2 (06:35→06:38)
[2020-02-25 06:55] LABS: Hematocrit (blood only) 28.3 % (42-52); Hemoglobin 9.5 g/dL (14.0-18.0); Mean Corpuscular Hemoglobin 30.2 pg (25-34); Mean Corpuscular Hgb Conc 33.6 g/dL (32-36); Mean Corpuscular Volume 89.8 fL (80-100); Mean Platelet Volume 9.3 fL (7.4-10.4); Platelet Count 229 K/uL (130-400); RDW Coefficient of Variation 13.4 % (11.5-14.5); RDW Standard Deviation 43.3 fL (36.4-46.3); Red Blood Count 3.15 M/uL (4.7-6.1); White Blood Count 5.97 K/uL (4.8-10.8)
[2020-02-25 07:28] LABS: Calcium 8.9 mg/dl (8.5-10.1); Creatinine Clr Calc Pharmacy 26.7 ml/min; Est GFR (African American) 38.9; Est GFR (Non-African American) 33.6; Potassium 4.3 mmol/L (3.5-5.1)
[2020-02-25 07:30] LABS: Albumin Globulin Ratio 0.8 (0.9-2); Bilirubin,Total 0.5 mg/dl (0.2-1); Globulin 3.9 gm/dl (2.5-4.0); Total Protein 6.9 gm/dl (6.4-8.2)
[2020-02-25] MEDS: DOCUSATE SODIUM 100 MG CAP PO SCH ×2 (07:51→20:06)
[2020-02-25] MEDS: POLYETHYLENE (MIRALAX) 17 GM PACK PO SCH (07:51)
[2020-02-25] MEDS: DOXYCYCLINE HYCLATE 100 MG CAP PO SCH ×2 (07:51→20:07)
[2020-02-25] MEDS: ATORVASTATIN 40 MG TAB PO SCH (07:51)
[2020-02-25] MEDS: METOPROLOL SUCC 25MG EXT REL TAB PO SCH (07:52)
[2020-02-25] MEDS: INSULIN ASPART 100 UNITS/ML 3 ML PEN SC SCH ×4 (08:17→21:09)
[2020-02-25] MEDS: INSULIN GLARGINE SOLOSTAR 100 UNITS/ML 3 ML PEN SC SCH (08:17)
[2020-02-25 08:32] LABS: Estimated Average Glucose 240 mg/dl
--- NOTE | 2020-02-25 11:01 | Hospitalist Progress Note ---
Date of Service February 25, 2020 Assessment & Plan (1) Gross hematuria: * ?Could be secondary to cystitis versus prostatitis, E. coli on urine culture from 02/16 being treated with cefdinir and continues with hematuria * Reviewed last CT abd/pelvis from 02/16 - will defer to urology if requests repeat scan. * - Possible evidence of cystitis, hyperdense material within the bladder lumen, possibly represents blood products. Brachii therapy seeds noted in the prostate gland. Bilateral fat-containing inguinal hernias. Right-sided nephrolithiasis, 4 mm, cholelithiasis. * Plavix have been held since 02/16 and aspirin held since 02/21 * Urology consulted -- appreciate assistance. No surgical intervention at this time * H/h stable at 9.5/28.3. Although baseline appears closer to 12 * Utilizing condom catheter * Repeat Urine still uncollected * Continued on cefdinir for additional 3 doses to be completed on 02/25 * CBC in AM (2) Cellulitis: * Of LLE with area of opened blister to lateral ankle * Continue doxycycline as started on 02/21 for now * X-RAY with mild soft tissue swelling, no fracture or dislocation, chronic Achilles tendinosis, postop changes within left ankle c/w tibiotalar fusion with 2 cannulated screws, intact. * Weak pulses, decreased cap refill on exam --> will obtain arterial study this evening. ?Vascular consult pending results * Given dose of morphine in ER for pain. Tylenol prn for now to prevent worsening cognition. Avoid NSAIDs in setting of bleeding * Bacitracin ordered for now * Wound RN consulted (3) Anemia: * Acute blood loss anemia secondary to gross hematuria * H/h as above * Continue to hold ASA/Plavix * Given MCV wnl, will obtain iron studies/b12/folate with AM labs * CBC in AM (4) Nephrolithiasis: * History of such, 4 mm stone seen on abdominal imaging from 02/16 * No further imaging requested per urology (5) CAD, multiple vessel: * hx of cardiac stents x 2 placed in November 2016 for [place]. Has not followed with cardiology for years, cannot recall name of last cardiology group who followed him. Daughter also unaware of this. * Holding aspirin/Plavix for now, resume as soon as possible * Continue metoprolol XL 25 mg QAM, atorvastatin (6) Aortic valve stenosis, moderate: * Noted. Most recent ECHO November 2019 (7) History of [place] (myocardial infarction): * in November 2016. See above (8) Hyperlipidemia: * Continue statin therapy as above (9) Diabetes mellitus: * BSG 201 on admission * Continue Lantus 12 units. Given additional 5 units overnight 02/23 * SSI with BSG AC/HS * Repeat A1c 10.0 from 11.05 November 2019 -- uncontrolled * Diabetic educations with recommendations to check BSG more often to assess overall trend and most likely will benefit from Novolog with meals if he eats >50% to help maintain better range and improve wound healing/prevent infectious complications * Most recent BSGs 154, 142 * Continue to monitor (10) CKD (chronic kidney disease), stage III: * Baseline Cr appears to be 1.7-1.9 * Cr 1.79 on AM labs * Repeat labs in AM (11) Alzheimer's disease: * History of such, alert to place and self, has difficulty with recall of events * Cont melatonin and Seroquel HS for sleep with hx of owning. 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 coli found on urine culture on ER visit on 02/16 Continue 10-day course of cefdinir 300 mg p.o. once daily which is renal dosing Final date will be 02/25 (14) DVT prophylaxis: - teds, no chemical anticoagulation in the setting of hematuria CODE: DNR - discussed with pt and daughter, Leann, at bedside Dispo: From home, likely to remain in the hospital x 2 days Admission and Anticipated Discharge Date Admission Date: February 24, 2020 Subjective Patient evaluated this afternoon. States he is "doing horrible". When asked why, he states he has had issues with his left foot and is extremely tender to the outside of his ankle. Denies any recent trauma to this area although suspect poor historian. Discussed having wound care investigate. With regards to his hematuria, he states bleeding has been occurring for weeks but is unsure if he has any currently. Aide in room prior to arrival unable to locate condom catheter as had been placed earlier. Patient denies having done anything with this. Denies fever, chills, chest pain, shortness of breath, abdominal pain, nausea or vomiting at this time. Blood counts remain stable. Continuing to hold ASA/Plavix. Has not been seen by Urology as of yet. Review of Systems Review of Systems: All systems reviewed & are unremarkable except as noted in HPI & below Physical Exam Constitutional: well developed and well nourished; + uncomfortable Eyes: + anicteric sclerae and PERRL Neck: normal visual inspection Respiratory: normal respiratory effort, lungs clear to auscultation Cardiovascular: Rate/Rhythm: regular rate and regular rhythm Heart Sounds: + murmur (systolic ejection murmur with radiation to carotids, III/) Vessels: no JVD Extremities: normal capillary refill (decreased cap refill to LLE); no calf tenderness Gastrointestinal (Abdomen): normal bowel sounds, soft, nontender, no hepatosplenomegaly Musculoskeletal: strength equal b/l Skin: opened blister to lateral left ankle with surrounding erythema, serosangious drainage noted. tender to palpation around area of open blister, multiple other lesions noted to LLE Cap refill >2 seconds LLE NVI weak pulses to LLE, 2+ RLE Neurologic: patellar DTR's 2+ bilat, sensation intact and PERRL, EOMI, accommodation nl, no face palsy, no dysarthria Psychiatric: Orientation: alert, oriented to place and oriented to time intermittent confusion Genitourinary: condom cath without drainage noted in mathew bag Lymphatic: no cervical or axillary lymphadenopathy Results & Data Results & Data ([facility]) Vital Signs (Past 12 Hours) Vital Signs Temp Pulse Pulse Resp BP Pulse Ox 02/25/20 07:28 36.6 C 79 16 122/62 95 02/25/20 07:12 68 02/25/20 04:23 36.9 C 86 20 120/76 98 02/25/20 01:17 89 02/25/20 00:00 84 119/66 Laboratory Results 02/25/20 02/25/20 02/25/20 Range/Units 07:39 06:27 06:27 WBC (4.8-10.8) K/uL RBC (4.7-6.1) M/uL Hgb (14.0-18.0) g/dL Hct (42-52) % MCV (80-100) fL MCH (25-34) pg MCHC (32-36) g/dL RDW Std Deviation (36.4-46.3) fL RDW Coeff of Gordo (11.5-14.5) % Plt Count (130-400) K/uL MPV (7.4-10.4) fL Immature Gran % (Auto) % Neut % (Auto) % Lymph % (Auto) % [place] % (Auto) % Eos % (Auto) % Baso % (Auto) % Neut # (Auto) (1.4-6.5) K/uL Lymph # (Auto) (1.2-3.4) K/uL [place] # (Auto) (0.11-0.59) K/uL Eos # (Auto) (0-0.5) K/uL Baso # (Auto) (0-0.2) K/uL Immature Gran # (Auto) (0.00-0.02) K/uL PT (9.0-12.0) Seconds INR (0.9-1.1) Sodium 140 (136-145) mmol/L Potassium 4.3 (3.5-5.1) mmol/L Chloride 109 H (98-107) mmol/L Carbon Dioxide 26 (21-32) mmol/L Anion Gap 5.0 (3-11) BUN 29 H (7-18) mg/dl Creatinine 1.79 H (0.6-1.4) mg/dl Est Cr Clr Drug Dosing 26.7 Est GFR ( Amer) 38.9 Est GFR (Non-Af Amer) 33.6 BUN/Creatinine Ratio 16.0 (10-20) Glucose 134 H (70-99) mg/dl POC Glucose 154 H (70-99) mg/dl Estimat Average Glucose mg/dl Hemoglobin A1c (4.5-5.6) % Calcium 8.9 (8.5-10.1) mg/dl Magnesium 2.1 (1.8-2.4) mg/dl Total Bilirubin 0.5 (0.2-1) mg/dl AST 22 (15-37) U/L ALT 21 (12-78) U/L Alkaline Phosphatase 158 H (45-117) U/L Troponin I (0-0.045) ng/ml Total Protein 6.9 (6.4-8.2) gm/dl Albumin 3.0 L (3.4-5.0) gm/dl Globulin 3.9 (2.5-4.0) gm/dl Albumin/Globulin Ratio 0.8 L (0.9-2) TSH (0.300-4.500) uIu/ml Blood Type Blood Type Recheck Antibody Screen Crossmatch 02/25/20 02/25/20 02/24/20 Range/Units 06:27 06:27 20:09 WBC 5.97 (4.8-10.8) K/uL RBC 3.15 L (4.7-6.1) M/uL Hgb 9.5 L 9.6 L (14.0-18.0) g/dL Hct 28.3 L 27.4 L (42-52) % MCV 89.8 (80-100) fL MCH 30.2 (25-34) pg MCHC 33.6 (32-36) g/dL RDW Std Deviation 43.3 (36.4-46.3) fL RDW Coeff of Gordo 13.4 (11.5-14.5) % Plt Count 229 (130-400) K/uL MPV 9.3 (7.4-10.4) fL Immature Gran % (Auto) % Neut % (Auto) % Lymph % (Auto) % [place] % (Auto) % Eos % (Auto) % Baso % (Auto) % Neut # (Auto) (1.4-6.5) K/uL Lymph # (Auto) (1.2-3.4) K/uL [place] # (Auto) (0.11-0.59) K/uL Eos # (Auto) (0-0.5) K/uL Baso # (Auto) (0-0.2) K/uL Immature Gran # (Auto) (0.00-0.02) K/uL PT (9.0-12.0) Seconds INR (0.9-1.1) Sodium (136-145) mmol/L Potassium (3.5-5.1) mmol/L Chloride (98-107) mmol/L Carbon Dioxide (21-32) mmol/L Anion Gap (3-11) BUN (7-18) mg/dl Creatinine (0.6-1.4) mg/dl Est Cr Clr Drug Dosing Est GFR ( Amer) Est GFR (Non-Af Amer) BUN/Creatinine Ratio (10-20) Glucose (70-99) mg/dl POC Glucose (70-99) mg/dl Estimat Average Glucose 240 mg/dl Hemoglobin A1c 10.0 H (4.5-5.6) % Calcium (8.5-10.1) mg/dl Magnesium (1.8-2.4) mg/dl Total Bilirubin (0.2-1) mg/dl AST (15-37) U/L ALT (12-78) U/L Alkaline Phosphatase (45-117) U/L Troponin I (0-0.045) ng/ml Total Protein (6.4-8.2) gm/dl Albumin (3.4-5.0) gm/dl Globulin (2.5-4.0) gm/dl Albumin/Globulin Ratio (0.9-2) TSH (0.300-4.500) uIu/ml Blood Type Blood Type Recheck Antibody Screen Crossmatch 02/24/20 02/24/20 02/24/20 Range/Units 20:02 16:51 13:47 WBC (4.8-10.8) K/uL RBC (4.7-6.1) M/uL Hgb (14.0-18.0) g/dL Hct (42-52) % MCV (80-100) fL MCH (25-34) pg MCHC (32-36) g/dL RDW Std Deviation (36.4-46.3) fL RDW Coeff of Gordo (11.5-14.5) % Plt Count (130-400) K/uL MPV (7.4-10.4) fL Immature Gran % (Auto) % Neut % (Auto) % Lymph % (Auto) % [place] % (Auto) % Eos % (Auto) % Baso % (Auto) % Neut # (Auto) (1.4-6.5) K/uL Lymph # (Auto) (1.2-3.4) K/uL [place] # (Auto) (0.11-0.59) K/uL Eos # (Auto) (0-0.5) K/uL Baso # (Auto) (0-0.2) K/uL Immature Gran # (Auto) (0.00-0.02) K/uL PT (9.0-12.0) Seconds INR (0.9-1.1) Sodium (136-145) mmol/L Potassium (3.5-5.1) mmol/L Chloride (98-107) mmol/L Carbon Dioxide (21-32) mmol/L Anion Gap (3-11) BUN (7-18) mg/dl Creatinine (0.6-1.4) mg/dl Est Cr Clr Drug Dosing Est GFR ( Amer) Est GFR (Non-Af Amer) BUN/Creatinine Ratio (10-20) Glucose (70-99) mg/dl POC Glucose 203 H 201 H (70-99) mg/dl Estimat Average Glucose mg/dl Hemoglobin A1c (4.5-5.6) % Calcium (8.5-10.1) mg/dl Magnesium (1.8-2.4) mg/dl Total Bilirubin (0.2-1) mg/dl AST (15-37) U/L ALT (12-78) U/L Alkaline Phosphatase (45-117) U/L Troponin I (0-0.045) ng/ml Total Protein (6.4-8.2) gm/dl Albumin (3.4-5.0) gm/dl Globulin (2.5-4.0) gm/dl Albumin/Globulin Ratio (0.9-2) TSH (0.300-4.500) uIu/ml Blood Type Blood Type Recheck O Negative Antibody Screen Crossmatch 02/24/20 02/24/20 02/24/20 Range/Units 12:42 12:30 12:30 WBC (4.8-10.8) K/uL RBC (4.7-6.1) M/uL Hgb (14.0-18.0) g/dL Hct (42-52) % MCV (80-100) fL MCH (25-34) pg MCHC (32-36) g/dL RDW Std Deviation (36.4-46.3) fL RDW Coeff of Gordo (11.5-14.5) % Plt Count (130-400) K/uL MPV (7.4-10.4) fL Immature Gran % (Auto) % Neut % (Auto) % Lymph % (Auto) % [place] % (Auto) % Eos % (Auto) % Baso % (Auto) % Neut # (Auto) (1.4-6.5) K/uL Lymph # (Auto) (1.2-3.4) K/uL [place] # (Auto) (0.11-0.59) K/uL Eos # (Auto) (0-0.5) K/uL Baso # (Auto) (0-0.2) K/uL Immature Gran # (Auto) (0.00-0.02) K/uL PT 10.8 (9.0-12.0) Seconds INR 1.0 (0.9-1.1) Sodium 138 (136-145) mmol/L Potassium 4.4 (3.5-5.1) mmol/L Chloride 107 (98-107) mmol/L Carbon Dioxide 25 (21-32) mmol/L Anion Gap 6.0 (3-11) BUN 28 H (7-18) mg/dl Creatinine 1.78 H (0.6-1.4) mg/dl Est Cr Clr Drug Dosing Not Reportable Est GFR ( Amer) 39.2 Est GFR (Non-Af Amer) 33.8 BUN/Creatinine Ratio 15.7 (10-20) Glucose 227 H (70-99) mg/dl POC Glucose (70-99) mg/dl Estimat Average Glucose mg/dl Hemoglobin A1c (4.5-5.6) % Calcium 8.8 (8.5-10.1) mg/dl Magnesium 1.7 L (1.8-2.4) mg/dl Total Bilirubin 0.3 (0.2-1) mg/dl AST 24 (15-37) U/L ALT 21 (12-78) U/L Alkaline Phosphatase 156 H (45-117) U/L Troponin I < 0.015 (0-0.045) ng/ml Total Protein 6.9 (6.4-8.2) gm/dl Albumin 3.0 L (3.4-5.0) gm/dl Globulin 3.9 (2.5-4.0) gm/dl Albumin/Globulin Ratio 0.8 L (0.9-2) TSH 2.890 (0.300-4.500) uIu/ml Blood Type O Negative Blood Type Recheck Antibody Screen NEGATIVE Crossmatch See Detail 02/24/20 Range/Units 12:30 WBC 5.29 (4.8-10.8) K/uL RBC 3.08 L (4.7-6.1) M/uL Hgb 9.4 L (14.0-18.0) g/dL Hct 27.4 L (42-52) % MCV 89.0 (80-100) fL MCH 30.5 (25-34) pg MCHC 34.3 (32-36) g/dL RDW Std Deviation 42.3 (36.4-46.3) fL RDW Coeff of [place]ordo 13.2 (11.5-14.5) % Plt Count 227 (130-400) K/uL MPV 9.4 (7.4-10.4) fL Immature Gran % (Auto) 0.6 % Neut % (Auto) 63.5 % Lymph % (Auto) 23.4 % [place] % (Auto) 7.2 % Eos % (Auto) 4.9 % Baso % (Auto) 0.4 % Neut # (Auto) 3.36 (1.4-6.5) K/uL Lymph # (Auto) 1.24 (1.2-3.4) K/uL [place] # (Auto) 0.38 (0.11-0.59) K/uL Eos # (Auto) 0.26 (0-0.5) K/uL Baso # (Auto) 0.02 (0-0.2) K/uL Immature Gran # (Auto) 0.03 H (0.00-0.02) K/uL PT (9.0-12.0) Seconds INR (0.9-1.1) Sodium (136-145) mmol/L Potassium (3.5-5.1) mmol/L Chloride (98-107) mmol/L Carbon Dioxide (21-32) mmol/L Anion Gap (3-11) BUN (7-18) mg/dl Creatinine (0.6-1.4) mg/dl Est Cr Clr Drug Dosing Est GFR ( Amer) Est GFR (Non-Af Amer) BUN/Creatinine Ratio (10-20) Glucose (70-99) mg/dl POC Glucose (70-99) mg/dl Estimat Average Glucose mg/dl Hemoglobin A1c (4.5-5.6) % Calcium (8.5-10.1) mg/dl Magnesium (1.8-2.4) mg/dl Total Bilirubin (0.2-1) mg/dl AST (15-37) U/L ALT (12-78) U/L Alkaline Phosphatase (45-117) U/L Troponin I (0-0.045) ng/ml Total Protein (6.4-8.2) gm/dl Albumin (3.4-5.0) gm/dl Globulin (2.5-4.0) gm/dl Albumin/Globulin Ratio (0.9-2) TSH (0.300-4.500) uIu/ml Blood Type Blood Type Recheck Antibody Screen Crossmatch Diagnostic Findings XRAY LEFT FOOT IMPRESSION: 1. Postoperative changes within the left ankle. The hardware appears intact. 2. No fracture or dislocation. 3. Mild diffuse soft tissue swelling. 4. Chronic Achilles tendinosis. PG Care Time/CCT Total # of Minutes Spent Total Time Spent with Patient: Total time spent is greater than 50% in coordination of care (as documented) at patient's floor/unit and/or counseling patient: Coding Level of Care Code 53773 Subseq Hosp Care Lvl 3 Diagnoses Gross hematuria R31.0 Cellulitis L03.116 Laterality: left Site of cellulitis: extremity Site of cellulitis of extremity: lower extremity Anemia D50.0 Anemia type: iron deficiency Iron deficiency anemia type: chronic blood loss Nephrolithiasis N20.0 CAD, multiple vessel I25.10 Aortic valve stenosis, moderate I35.0 History of [place] (myocardial infarction) I25.2 Hyperlipidemia E78.5 Diabetes mellitus E11.22; N18.3; Z79.4 Diabetes mellitus type: type 2 Diabetes mellitus prison insulin use: with prison use Diabetes mellitus complication status: with kidney complications Diabetes mellitus complication detail: with chronic kidney disease Chronic kidney disease stage: stage 3 (moderate) CKD (chronic kidney disease), stage III N18.3 Alzheimer's disease G30.9; F02.80 CVA (cerebral vascular accident) I63.9 UTI (urinary tract infection) N39.0 DVT prophylaxis Z29.9 (1) Anemia Anemia type: iron deficiency Iron deficiency anemia type: chronic blood loss Qualified Code(s): D50.0 - Iron deficiency anemia secondary to blood loss (chronic) (2) Diabetes mellitus Diabetes mellitus type: type 2 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
[2020-02-25] MEDS ORDERED: BACITRACIN OINT 15 GM TUBE EXT PRN (12:00)
--- NOTE | 2020-02-25 12:11 | Urology Progress Note ---
Date of Service February 25, 2020 Assessment & Plan (1) Hematuria: Hematuria in the setting of prior radiation for prostate cancer (seed implant); question of cystitis No urine to evaluate today, however the patient reports that he is not actively bleeding Labs have been stable and he denies any complaints He is most fixated on his left foot I do not anticipate any interventions from a standpoint during this hospitalization recommend continued supportive care. We will follow from the periphery and please let us know if there are further issues during this hospitalization Admission and Anticipated Discharge Date Admission Date: February 24, 2020 Subjective Patient denied any complaints today on evaluation. His only subjective complaint pertains to his left foot and pain with any movement. He has a condom catheter in place without any urine visible in the tubing or the bag. He reports that he has not been seen blood nor having any bladder related discomfort. Review of Systems Review of Systems: All systems reviewed & are unremarkable except as noted in HPI & below Physical Exam Physical Exam: Abdomen soft Left preparing box tender to palpation, no clear skin breaks or lesions of concern Constitutional: well developed and well nourished Neck: neck nontender Respiratory: normal respiratory effort; no respiratory distress and does not use accessory muscles Cardiovascular: Rate/Rhythm: regular rate Vessels: radial pulses present Extremities: no edema Gastrointestinal (Abdomen): Inspection/Auscultation: abdomen normal to inspection Percussion/Palpation: abdomen soft; abdomen nontender and no guarding Musculoskeletal: Head/Neck/Chest: normocephalic and head atraumatic Extremities: extremities normal to inspection Skin: no rashes and no lesions Trauma: no evidence of skin trauma Neurologic: awake; not obtunded Speech / Cognition: normal speech Motor/Sensory: no tremor Psychiatric: Orientation: alert and oriented x 3 Genitourinary: no CVA tenderness Lymphatic: no lymphadenopathy Results & Data ([facility]) Vital Signs (Past 12 Hours) Vital Signs Temp Pulse Pulse Resp BP BP Pulse Ox 02/25/20 11:48 36.3 C L 18 127/66 100 02/25/20 07:28 36.6 C 79 16 122/62 95 02/25/20 07:12 68 02/25/20 04:23 36.9 C 86 20 120/76 98 02/25/20 01:17 89 PG Care Time/CCT Total # of Minutes Spent Total Time Spent with Patient: Total time spent is greater than 50% in coordination of care (as documented) at patient's floor/unit and/or counseling patient: Coding Level of Care Code 30348 Subseq Hosp Care Lvl 2 Diagnoses Hematuria R31.0 Hematuria type: gross (1) Hematuria Hematuria type: gross Qualified Code(s): R31.0 - Gross hematuria
[2020-02-25] MEDS: DOCUSATE SODIUM/SENNA 50/8.6MG TAB PO SCH (12:16)
--- NOTE | 2020-02-25 14:04 | XRay Report ---
XR ankle LT min 3V routine CLINICAL HISTORY: left foot/ankle pain, erythema COMPARISON STUDY: Left ankle 05/04/2006. FINDINGS: Postoperative changes consistent with tibiotalar fusion with 2 cannulated screws. The hardw are appears intact. There is complete bony fusion of the tibiotalar joint. Prior resection of the dis michi fibula. Mild soft tissue swelling. No areas of cortical destruction to suggest osteomyelitis. No acute fracture or dislocation within the left ankle. Mild thickening and calcification within the mid to distal Achilles tendon. This is consistent with a chronic tendinosis. IMPRESSION: 1. Postoperative changes within the left ankle. The hardware appears intact. 2. No fracture or dislocation. 3. Mild diffuse soft tissue swelling. 4. Chronic Achilles tendinosis. ACT 112: Negative or not required by law. Electronically signed by: Ranjit Dupree M.D. 02/25/2020 2:02 PM
--- NOTE | 2020-02-25 15:39 | Electrocardiogram Report ---
Test Reason : Blood Pressure : / mmHG Vent. Rate : 069 BPM Atrial Rate : 069 BPM P-R Int : 150 ms QRS Dur : 076 ms QT Int : 410 ms P-R-T Axes : 050 006 073 degrees QTc Int : 439 ms Poor data quality, interpretation may be adversely affected Normal sinus rhythm Normal ECG When compared with ECG of 24-NOV-2019 11:00, No significant change was found Confirmed by Eusebio Angeles ([id number]) on 02/25/2020 3:38:23 PM Referred By: Mckenzie Cooper Confirmed By:Eusebio Angeles
--- NOTE | 2020-02-25 18:29 | Ultrasound Report ---
US arterial duplex LE LT CLINICAL HISTORY: weak pulses, poor cap refill, increased pain COMPARISON STUDY: No previous studies for comparison. FINDINGS: There is biphasic flow within the left common femoral and superficial femoral artery proximally. Ther e is a high velocity jet within the proximal superficial femoral artery consistent with a hemodynamic ally significant stenosis. There is monophasic flow within the mid superficial femoral artery. There is an occlusion of the distal femoral artery with distal reconstitution. There is monophasic flow wit hin the left popliteal artery. There is a high velocity jet within the popliteal suggesting a poplite al artery stenosis. No flow is visualized in the peroneal artery. There is monophasic flow within the posterior tibial artery. There is monophasic flow in the proximal anterior tibial artery. No flow wa s visualized within the mid to distal anterior tibial artery. There is reversed very low velocity lynnette w in the dorsalis pedis. IMPRESSION: 1. 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 Occlusion of the mid to distal left superficial femoral artery with distal reconstitution 3. Popliteal artery occlusion 4. Absent flow within the peroneal artery. 5. Occlusion of the mid to distal anterior tibial artery. ACT 112: Negative or not required by law. Electronically signed by: Scott Garcia M.D. 02/25/2020 6:28 PM
[2020-02-25] MEDS ORDERED: HEPARIN SODIUM/DEXTROSE 25,000 UNITS/500 ML BAG IV SCH (19:45)
--- NOTE | 2020-02-25 19:59 | Progress Note ---
Date of Service February 25, 2020 Assessment & Plan Admission and Anticipated Discharge Date Admission Date: February 24, 2020 Subjective Patient seen at bedside. Complaint of LLE discomfort with palpation. No pain at rest. Patient had a LLE duplex scan performed earlier today which was just revealed stenosis of the proximal left superficial femoral artery, occlusion of the mid to distal left superficial femoral artery with distal reconstitution, Popliteal artery occlusion as well as absent flow within the peroneal artery and occlusion of the mid to distal anterior tibial artery. On exam he is afebrile, HD stable, NAD, resting comfortably in bed Oriented to self only. Able to answer questions re: symptoms LLE - foot is warm, ruborous, weakly palpable DP pulses marked with skin pen, sensation and mobility intact Labs and images reviewed Case discussed briefly with Dr. Reynolds Assessment/Plan - 84yo male with history of CAD s/p stents, CVA in the past on ASA and Plavix initially admitted with hematuria (ASA and Plavix have been held) now with newly discovered arterial occlusion. On exam, LE seems to be viable. Tender only to touch. No resting pain. -Attempt treatment with low dose heparin gtt without bolus -Place Melendez catheter to monitor hematuria -Serial LE exams/pulse check -Vascular Surgery assistance appreciated. At this time it does not seem that this patient needs to have emergent surgical intervention. Should his condition worsen overnight he will be transferred to a tertiary care facility for vascular intervention Results & Data ([facility]) Vital Signs (Past 12 Hours) Vital Signs Temp Pulse Pulse Resp BP Pulse Ox 02/25/20 15:47 36.5 C 76 18 134/65 98 02/25/20 14:20 69 02/25/20 11:48 36.3 C L 18 127/66 100 PG Care Time/CCT Total # of Minutes Spent Total Time Spent with Patient: Total time spent is greater than 50% in coordination of care (as documented) at patient's floor/unit and/or counseling patient: Coding Level of Care Code None
[2020-02-25] MEDS: CEFDINIR 300 MG CAP PO SCH (20:06)
[2020-02-25] MEDS: MELATONIN 3 MG TAB PO SCH (20:06)
[2020-02-25] MEDS: QUETIAPINE FUMARATE 25 MG TABLET PO SCH (20:07)
[2020-02-25] MEDS ORDERED: Heparin IV Low Dose *NO* Bolus IV SCH (20:15)
[2020-02-25 20:41] LABS: Basophils # (auto) 0.02 K/uL (0-0.2); Basophils % (auto) 0.3 %; Eosinophils # (auto) 0.21 K/uL (0-0.5); Eosinophils % (auto) 3.3 %; Hematocrit (blood only) 25.2 % (42-52); Hemoglobin 8.7 g/dL (14.0-18.0); Immature Granulocytes # (auto) 0.02 K/uL (0.00-0.02); Immature Granulocytes % (auto) 0.3 %; Lymphocytes # (auto) 1.19 K/uL (1.2-3.4); Lymphocytes % (auto) 18.6 %; Mean Corpuscular Hemoglobin 30.7 pg (25-34); Monocytes # (auto) 0.56 K/uL (0.11-0.59); Monocytes % (auto) 8.7 %; Neutrophils # (auto) 4.41 K/uL (1.4-6.5); Neutrophils % (auto) 68.8 %; Platelet Count 233 K/uL (130-400); RDW Coefficient of Variation 13.4 % (11.5-14.5); Red Blood Count 2.83 M/uL (4.7-6.1); White Blood Count 6.41 K/uL (4.8-10.8)
[2020-02-25 21:06] LABS: INR 1.1 (0.9-1.1); Partial Thromboplastin Time 28.5 Seconds (21.0-31.0); Prothrombin Time 11.4 Seconds (9.0-12.0)
[2020-02-25 21:10] LABS: Appearance Urine Cloudy (Clear); Bacteria Urine Automated Negative (Negative); Bilirubin Urine Negative (Negative); Blood Urine 3+ (Negative); Epithelial Cell Urine Auto 0-5 /lpf (0-5); Glucose Urine UA 1+ (Negative); Ketones Urine Negative (Negative); Leukocyte Esterase Urine 1+ (Negative); Nitrite Urine Negative (Negative); Protein Urine 3+ (Negative); RBC Urine Automated >30 /hpf (0-4); Urobilinogen Urine Negative (Negative)
[2020-02-25 21:17] LABS: Color Urine Red
[2020-02-25 21:27] LABS: Mean Corpuscular Hgb Conc 34.5 g/dL (32-36)
[2020-02-26] MEDS ORDERED: Nursing to Pharmacy Communication SCH (00:45)
[2020-02-26 04:00] LABS: Basophils # (auto) 0.02 K/uL (0-0.2); Basophils % (auto) 0.3 %; Eosinophils # (auto) 0.22 K/uL (0-0.5); Eosinophils % (auto) 2.8 %; Hematocrit (blood only) 26.2 % (42-52); Hemoglobin 8.9 g/dL (14.0-18.0); Immature Granulocytes # (auto) 0.03 K/uL (0.00-0.02); Immature Granulocytes % (auto) 0.4 %; Lymphocytes # (auto) 1.55 K/uL (1.2-3.4); Lymphocytes % (auto) 19.9 %; Mean Corpuscular Hemoglobin 30.6 pg (25-34); Mean Platelet Volume 9.2 fL (7.4-10.4); Monocytes # (auto) 0.62 K/uL (0.11-0.59); Neutrophils # (auto) 5.33 K/uL (1.4-6.5); Neutrophils % (auto) 68.6 %; Platelet Count 255 K/uL (130-400); RDW Coefficient of Variation 13.5 % (11.5-14.5); RDW Standard Deviation 43.5 fL (36.4-46.3); Red Blood Count 2.91 M/uL (4.7-6.1); White Blood Count 7.77 K/uL (4.8-10.8)
[2020-02-26 04:20] LABS: INR 1.1 (0.9-1.1); Partial Thromboplastin Ratio 1.8; Partial Thromboplastin Time 50.1 Seconds (21.0-31.0); Prothrombin Time 11.4 Seconds (9.0-12.0)
[2020-02-26 04:30] LABS: Albumin Level 2.9 gm/dl (3.4-5.0); BUN Creatinine Ratio 15.7 (10-20); Calcium 8.6 mg/dl (8.5-10.1); Creatinine Clr Calc Pharmacy 26.4 ml/min; Est GFR (African American) 38.4; Est GFR (Non-African American) 33.1; Magnesium 1.7 mg/dl (1.8-2.4); Phosphorus 3.5 mg/dl (2.5-4.9); Potassium 4.5 mmol/L (3.5-5.1)
[2020-02-26 04:34] LABS: Albumin Globulin Ratio 0.8 (0.9-2); Bilirubin,Total 0.3 mg/dl (0.2-1); Ferritin 75.9 ng/ml (8-388); Globulin 3.7 gm/dl (2.5-4.0); Total Protein 6.6 gm/dl (6.4-8.2)
[2020-02-26] MEDS: ACETAMINOPHEN 325 MG TAB PO PRN (04:44)
[2020-02-26] MEDS: INSULIN ASPART 100 UNITS/ML 3 ML PEN SC SCH ×4 (06:23→20:45)
[2020-02-26] MEDS: MAGNESIUM SULFATE / D5W 1 GM/100 ML BAG IV SCH ×2 (08:52→10:59)
[2020-02-26] MEDS: INSULIN GLARGINE SOLOSTAR 100 UNITS/ML 3 ML PEN SC SCH (08:54)
[2020-02-26] MEDS: DOXYCYCLINE HYCLATE 100 MG CAP PO SCH ×2 (08:55→20:44)
[2020-02-26] MEDS: DOCUSATE SODIUM 100 MG CAP PO SCH ×2 (08:55→20:44)
[2020-02-26] MEDS: METOPROLOL SUCC 25MG EXT REL TAB PO SCH (08:55)
[2020-02-26] MEDS: ATORVASTATIN 40 MG TAB PO SCH (08:56)
[2020-02-26] MEDS: POLYETHYLENE (MIRALAX) 17 GM PACK PO SCH (08:56)
[2020-02-26 10:29] LABS: Folate (Folic Acid) 17.31 ng/ml (>5.38)
--- NOTE | 2020-02-26 11:32 | Hospitalist Progress Note ---
Date of Service February 26, 2020 Assessment & Plan (1) Gross hematuria: * ?Could be secondary to cystitis versus prostatitis, E. coli on urine culture from 02/16 being treated with cefdinir and continues with hematuria * Reviewed last CT abd/pelvis from 02/16 - no repeat ordered per urology * - Possible evidence of cystitis, hyperdense material within the bladder lumen, possibly represents blood products. Brachii therapy seeds noted in the prostate gland. Bilateral fat-containing inguinal hernias. Right-sided nephrolithiasis, 4 mm, cholelithiasis. * Plavix have been held since 02/16 and aspirin held since 02/21 * Urology consulted -- appreciate assistance. No surgical intervention at this time --> appreciate re-evaluation now that increase hematuria likely 2ndary to heparin use * Cefdinir to be completed today for total 3 doses * 3 way catheter inserted and will begin CBI * h/h low 8.9/26.2 with repeat improved to 9.2/26.6 this afternoon * Repeat UA last evening with 3+ blood, >30RBC, 1+ leuk esterase, * Ordered Venofer IV x 1 today for iron 40L, TIBC 243, transferrin 199L, trans % sat 14L, ferritin 75.9 * May need to consider daily oral supplementation for time being * Continue to monitor CBC (2) Cellulitis: * Of LLE with area of opened blister to lateral ankle * Continue doxycycline as started on 02/21 for now * Wound RN consulted * X-RAY with mild soft tissue swelling, no fracture or dislocation, chronic Achilles tendinosis, postop changes within left ankle c/w tibiotalar fusion with 2 cannulated screws, intact. * Weak pulses, decreased cap refill on exam * --> obtained arterial study LLE which showed: * 1. 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 Occlusion of the mid to distal left superficial femoral artery with distal reconstitution * 3. Popliteal artery occlusion * 4. Absent flow within the peroneal artery. * 5. Occlusion of the mid to distal anterior tibial artery. * Vascular surgery consulted * Started on heparin gtt * No intervention at this time and poor renal function --> heparin discontinued * Tylenol, oxy prn * Avoid NSAIDs in setting of bleeding * Continue to monitor (3) Anemia: * Acute blood loss anemia secondary to gross hematuria * Continuing to hold ASA/Plavix in setting of gross hematuria * H/h as above * Venofer x 1 on 02/25 for iron def. B12/folate wnl * Follow CBC in AM (4) Nephrolithiasis: * History of such, 4 mm stone seen on abdominal imaging from 02/16 * No further imaging requested per urology (5) CAD, multiple vessel: * hx of cardiac stents x 2 placed in November 2016 for CO. Has not followed with cardiology for years, cannot recall name of last cardiology group who followed him. Daughter also unaware of this. * Holding aspirin/Plavix for now --> resume as soon as possible * Continue metoprolol XL 25 mg QAM, atorvastatin (6) Aortic valve stenosis, moderate: * Noted. Most recent ECHO November 2019 (7) History of CO (myocardial infarction): * in November 2016. See above (8) Hyperlipidemia: * Continue statin therapy as above (9) Diabetes mellitus: * BSG 201 on admission * Continue Lantus 12 units. Given additional 5 units overnight 02/23 * SSI with BSG AC/HS * Repeat A1c 10.0 from 11.05 November 2019 -- uncontrolled * Diabetic educations with recommendations to check BSG more often to assess overall trend and most likely will benefit from Novolog with meals if he eats >50% to help maintain better range and improve wound healing/prevent infectious complications * Pharmacy for glycemic control -- will need additional coverage as above * BSGs trending up * Continue to monitor (10) CKD (chronic kidney disease), stage III: * Baseline Cr appears to be 1.7-1.9 * Cr 1.81 on AM labs * BMP in AM (11) Alzheimer's disease: * History of such, alert to place and self, has difficulty with recall of events * Cont melatonin and Seroquel HS for sleep with hx of ing. 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 coli found on urine culture on ER visit on 02/16 * Continue 10-day course of cefdinir 300 mg p.o. once daily which is renal dosing * Final date will be 02/25 (14) DVT prophylaxis: * teds, no chemical anticoagulation in the setting of hematuria CODE: DNR - discussed with pt and daughter, Leann, at bedside on 02/25 Dispo: From home, likely to remain in the hospital additional 1-2 day Admission and Anticipated Discharge Date Admission Date: February 24, 2020 Subjective Patient evaluated this morning at bedside. Patient with decreased pain to his LLE, improved from day prior. Now with increasing hematuria. Blood counts stable from last evening but remain low. Discussed vascular surgery no intervention at this time and will discontinue heparin. Denies fever, chills, chest pain, shortness of breath, abdominal pain, nausea, vomiting at this time. Will repeat labs this afternoon to monitor blood counts. Daughter at bedside updated this afternoon regarding plan of care. She is requesting bladder ultrasound as previously going to be ordered outpatient. Discussed that I reached out to Dr. Wellington this morning to re-evaluate patient given increased hematuria today. Questions/concerns addressed at this time. Review of Systems Review of Systems: All systems reviewed & are unremarkable except as noted in HPI & below Physical Exam Constitutional: well developed and well nourished Eyes: + anicteric sclerae and PERRL Neck: normal visual inspection Respiratory: normal respiratory effort, lungs clear to auscultation Cardiovascular: Rate/Rhythm: regular rate and regular rhythm Heart Sounds: + murmur (systolic ejection murmur with radiation to carotids, III/) Vessels: no JVD Extremities: normal capillary refill (decreased cap refill to LLE); no calf tenderness Gastrointestinal (Abdomen): normal bowel sounds, soft, nontender, no hepatosplenomegaly Musculoskeletal: strength equal b/l Skin: opened blister to lateral left ankle with surrounding erythema and edema, serosangious drainage noted. tender to palpation around area of open blister, multiple other lesions noted to LLE Cap refill >2 seconds LLE NVI posterior tibial pulse present with doppler LLE Neurologic: PERRL, EOMI, accommodation nl, no face palsy, no dysarthria Psychiatric: Orientation: alert, oriented to person and oriented to place; + not oriented to time Lymphatic: no cervical or axillary lymphadenopathy Results & Data Results & Data ([facility]) Vital Signs (Past 12 Hours) Vital Signs Temp Pulse Pulse Resp BP BP Pulse Ox 02/26/20 07:52 36.4 C L 22 L 20 111/73 98 02/26/20 07:18 78 02/26/20 03:25 36.5 C 91 H 18 128/70 95 02/26/20 00:01 36.6 C 91 H 19 145/69 H 96 02/25/20 23:47 84 Laboratory Results 02/26/20 02/26/20 02/26/20 Range/Units 16:54 14:58 12:03 WBC 8.72 (4.8-10.8) K/uL RBC 2.94 L (4.7-6.1) M/uL Hgb 9.2 L (14.0-18.0) g/dL Hct 26.6 L (42-52) % MCV 90.5 (80-100) fL MCH 31.3 (25-34) pg MCHC 34.6 (32-36) g/dL RDW Std Deviation 44.3 (36.4-46.3) fL RDW Coeff of [place] 13.5 (11.5-14.5) % Plt Count 262 (130-400) K/uL MPV 9.1 (7.4-10.4) fL Immature Gran % (Auto) % Neut % (Auto) % Lymph % (Auto) % [place] % (Auto) % Eos % (Auto) % Baso % (Auto) % Neut # (Auto) (1.4-6.5) K/uL Lymph # (Auto) (1.2-3.4) K/uL [place] # (Auto) (0.11-0.59) K/uL Eos # (Auto) (0-0.5) K/uL Baso # (Auto) (0-0.2) K/uL Immature Gran # (Auto) (0.00-0.02) K/uL PT (9.0-12.0) Seconds INR (0.9-1.1) APTT (21.0-31.0) Seconds PTT Ratio Sodium (136-145) mmol/L Potassium (3.5-5.1) mmol/L Chloride (98-107) mmol/L Carbon Dioxide (21-32) mmol/L Anion Gap (3-11) BUN (7-18) mg/dl Creatinine (0.6-1.4) mg/dl Est Cr Clr Drug Dosing ml/min Est GFR ( Amer) Est GFR (Non-Af Amer) BUN/Creatinine Ratio (10-20) Glucose (70-99) mg/dl POC Glucose 184 H 191 H (70-99) mg/dl Calcium (8.5-10.1) mg/dl Phosphorus (2.5-4.9) mg/dl Magnesium (1.8-2.4) mg/dl Iron (35-175) mcg/dl TIBC (250-450) mcg/dl Transferrin (200-360) mg/dl Transferrin % Sat (20-50) % Ferritin (8-388) ng/ml Total Bilirubin (0.2-1) mg/dl AST (15-37) U/L ALT (12-78) U/L Alkaline Phosphatase (45-117) U/L Total Protein (6.4-8.2) gm/dl Albumin (3.4-5.0) gm/dl Globulin (2.5-4.0) gm/dl Albumin/Globulin Ratio (0.9-2) Vitamin B12 (211-911) pg/ml Folate (>5.38) ng/ml Urine Color Urine Appearance (Clear) Urine pH (4.5-7.5) Ur Specific [place] (1.000-1.030) Urine Protein (Negative) Urine Glucose (UA) (Negative) Urine Ketones (Negative) Urine Blood (Negative) Urine Nitrite (Negative) Urine Bilirubin (Negative) Urine Urobilinogen (Negative) Ur Leukocyte Esterase (Negative) Urine WBC (Auto) (0-5) /hpf Urine RBC (Auto) (0-4) /hpf U Hyaline Cast (Auto) (0-5) /lpf U Epithel Cells (Auto) (0-5) /lpf Urine Bacteria (Auto) (Negative) 02/26/20 02/26/20 02/26/20 Range/Units 06:21 03:43 03:43 WBC (4.8-10.8) K/uL RBC (4.7-6.1) M/uL Hgb (14.0-18.0) g/dL Hct (42-52) % MCV (80-100) fL MCH (25-34) pg MCHC (32-36) g/dL RDW Std Deviation (36.4-46.3) fL RDW Coeff of [place] (11.5-14.5) % Plt Count (130-400) K/uL MPV (7.4-10.4) fL Immature Gran % (Auto) % Neut % (Auto) % Lymph % (Auto) % [place] % (Auto) % Eos % (Auto) % Baso % (Auto) % Neut # (Auto) (1.4-6.5) K/uL Lymph # (Auto) (1.2-3.4) K/uL [place] # (Auto) (0.11-0.59) K/uL Eos # (Auto) (0-0.5) K/uL Baso # (Auto) (0-0.2) K/uL Immature Gran # (Auto) (0.00-0.02) K/uL PT 11.4 (9.0-12.0) Seconds INR 1.1 (0.9-1.1) APTT 50.1 H* (21.0-31.0) Seconds PTT Ratio 1.8 Sodium (136-145) mmol/L Potassium (3.5-5.1) mmol/L Chloride (98-107) mmol/L Carbon Dioxide (21-32) mmol/L Anion Gap (3-11) BUN (7-18) mg/dl Creatinine (0.6-1.4) mg/dl Est Cr Clr Drug Dosing ml/min Est GFR ( Amer) Est GFR (Non-Af Amer) BUN/Creatinine Ratio (10-20) Glucose (70-99) mg/dl POC Glucose 151 H (70-99) mg/dl Calcium (8.5-10.1) mg/dl Phosphorus (2.5-4.9) mg/dl Magnesium (1.8-2.4) mg/dl Iron (35-175) mcg/dl TIBC (250-450) mcg/dl Transferrin (200-360) mg/dl Transferrin % Sat (20-50) % Ferritin (8-388) ng/ml Total Bilirubin (0.2-1) mg/dl AST (15-37) U/L ALT (12-78) U/L Alkaline Phosphatase (45-117) U/L Total Protein (6.4-8.2) gm/dl Albumin (3.4-5.0) gm/dl Globulin (2.5-4.0) gm/dl Albumin/Globulin Ratio (0.9-2) Vitamin B12 546 (211-911) pg/ml Folate 17.31 (>5.38) ng/ml Urine Color Urine Appearance (Clear) Urine pH (4.5-7.5) Ur Specific [place] (1.000-1.030) Urine Protein (Negative) Urine Glucose (UA) (Negative) Urine Ketones (Negative) Urine Blood (Negative) Urine Nitrite (Negative) Urine Bilirubin (Negative) Urine Urobilinogen (Negative) Ur Leukocyte Esterase (Negative) Urine WBC (Auto) (0-5) /hpf Urine RBC (Auto) (0-4) /hpf U Hyaline Cast (Auto) (0-5) /lpf U Epithel Cells (Auto) (0-5) /lpf Urine Bacteria (Auto) (Negative) 02/26/20 02/26/20 02/26/20 Range/Units 03:43 03:43 00:39 WBC 7.77 (4.8-10.8) K/uL RBC 2.91 L (4.7-6.1) M/uL Hgb 8.9 L (14.0-18.0) g/dL Hct 26.2 L (42-52) % MCV 90.0 (80-100) fL MCH 30.6 (25-34) pg MCHC 34.0 (32-36) g/dL RDW Std Deviation 43.5 (36.4-46.3) fL RDW Coeff of [place] 13.5 (11.5-14.5) % Plt Count 255 (130-400) K/uL MPV 9.2 (7.4-10.4) fL Immature Gran % (Auto) 0.4 % Neut % (Auto) 68.6 % Lymph % (Auto) 19.9 % [place] % (Auto) 8.0 % Eos % (Auto) 2.8 % Baso % (Auto) 0.3 % Neut # (Auto) 5.33 (1.4-6.5) K/uL Lymph # (Auto) 1.55 (1.2-3.4) K/uL [place] # (Auto) 0.62 H (0.11-0.59) K/uL Eos # (Auto) 0.22 (0-0.5) K/uL Baso # (Auto) 0.02 (0-0.2) K/uL Immature Gran # (Auto) 0.03 H (0.00-0.02) K/uL PT (9.0-12.0) Seconds INR (0.9-1.1) APTT (21.0-31.0) Seconds PTT Ratio Sodium 139 (136-145) mmol/L Potassium 4.5 (3.5-5.1) mmol/L Chloride 109 H (98-107) mmol/L Carbon Dioxide 26 (21-32) mmol/L Anion Gap 4.0 (3-11) BUN 28 H (7-18) mg/dl Creatinine 1.81 H (0.6-1.4) mg/dl Est Cr Clr Drug Dosing 26.4 ml/min Est GFR ( Amer) 38.4 Est GFR (Non-Af Amer) 33.1 BUN/Creatinine Ratio 15.7 (10-20) Glucose 116 H (70-99) mg/dl POC Glucose 134 H (70-99) mg/dl Calcium 8.6 (8.5-10.1) mg/dl Phosphorus 3.5 (2.5-4.9) mg/dl Magnesium 1.7 L (1.8-2.4) mg/dl Iron 40 (35-175) mcg/dl TIBC 243 L (250-450) mcg/dl Transferrin 199 L (200-360) mg/dl Transferrin % Sat 14 L (20-50) % Ferritin 75.9 (8-388) ng/ml Total Bilirubin 0.3 (0.2-1) mg/dl AST 25 (15-37) U/L ALT 24 (12-78) U/L Alkaline Phosphatase 151 H (45-117) U/L Total Protein 6.6 (6.4-8.2) gm/dl Albumin 2.9 L (3.4-5.0) gm/dl Globulin 3.7 (2.5-4.0) gm/dl Albumin/Globulin Ratio 0.8 L (0.9-2) Vitamin B12 (211-911) pg/ml Folate (>5.38) ng/ml Urine Color Urine Appearance (Clear) Urine pH (4.5-7.5) Ur Specific [place] (1.000-1.030) Urine Protein (Negative) Urine Glucose (UA) (Negative) Urine Ketones (Negative) Urine Blood (Negative) Urine Nitrite (Negative) Urine Bilirubin (Negative) Urine Urobilinogen (Negative) Ur Leukocyte Esterase (Negative) Urine WBC (Auto) (0-5) /hpf Urine RBC (Auto) (0-4) /hpf U Hyaline Cast (Auto) (0-5) /lpf U Epithel Cells (Auto) (0-5) /lpf Urine Bacteria (Auto) (Negative) 02/25/20 02/25/20 02/25/20 Range/Units 20:38 20:32 20:32 WBC 6.41 (4.8-10.8) K/uL RBC 2.83 L (4.7-6.1) M/uL Hgb 8.7 L (14.0-18.0) g/dL Hct 25.2 L (42-52) % MCV 89.0 (80-100) fL MCH 30.7 (25-34) pg MCHC 34.5 (32-36) g/dL RDW Std Deviation 43.0 (36.4-46.3) fL RDW Coeff of [place] 13.4 (11.5-14.5) % Plt Count 233 (130-400) K/uL MPV 9.0 (7.4-10.4) fL Immature Gran % (Auto) 0.3 % Neut % (Auto) 68.8 % Lymph % (Auto) 18.6 % [place] % (Auto) 8.7 % Eos % (Auto) 3.3 % Baso % (Auto) 0.3 % Neut # (Auto) 4.41 (1.4-6.5) K/uL Lymph # (Auto) 1.19 L (1.2-3.4) K/uL [place] # (Auto) 0.56 (0.11-0.59) K/uL Eos # (Auto) 0.21 (0-0.5) K/uL Baso # (Auto) 0.02 (0-0.2) K/uL Immature Gran # (Auto) 0.02 (0.00-0.02) K/uL PT 11.4 (9.0-12.0) Seconds INR 1.1 (0.9-1.1) APTT 28.5 (21.0-31.0) Seconds PTT Ratio 1.0 Sodium (136-145) mmol/L Potassium (3.5-5.1) mmol/L Chloride (98-107) mmol/L Carbon Dioxide (21-32) mmol/L Anion Gap (3-11) BUN (7-18) mg/dl Creatinine (0.6-1.4) mg/dl Est Cr Clr Drug Dosing ml/min Est GFR ( Amer) Est GFR (Non-Af Amer) BUN/Creatinine Ratio (10-20) Glucose (70-99) mg/dl POC Glucose 96 (70-99) mg/dl Calcium (8.5-10.1) mg/dl Phosphorus (2.5-4.9) mg/dl Magnesium (1.8-2.4) mg/dl Iron (35-175) mcg/dl TIBC (250-450) mcg/dl Transferrin (200-360) mg/dl Transferrin % Sat (20-50) % Ferritin (8-388) ng/ml Total Bilirubin (0.2-1) mg/dl AST (15-37) U/L ALT (12-78) U/L Alkaline Phosphatase (45-117) U/L Total Protein (6.4-8.2) gm/dl Albumin (3.4-5.0) gm/dl Globulin (2.5-4.0) gm/dl Albumin/Globulin Ratio (0.9-2) Vitamin B12 (211-911) pg/ml Folate (>5.38) ng/ml Urine Color Urine Appearance (Clear) Urine pH (4.5-7.5) Ur Specific [place] (1.000-1.030) Urine Protein (Negative) Urine Glucose (UA) (Negative) Urine Ketones (Negative) Urine Blood (Negative) Urine Nitrite (Negative) Urine Bilirubin (Negative) Urine Urobilinogen (Negative) Ur Leukocyte Esterase (Negative) Urine WBC (Auto) (0-5) /hpf Urine RBC (Auto) (0-4) /hpf U Hyaline Cast (Auto) (0-5) /lpf U Epithel Cells (Auto) (0-5) /lpf Urine Bacteria (Auto) (Negative) 02/25/20 Range/Units 20:25 WBC (4.8-10.8) K/uL RBC (4.7-6.1) M/uL Hgb (14.0-18.0) g/dL Hct (42-52) % MCV (80-100) fL MCH (25-34) pg MCHC (32-36) g/dL RDW Std Deviation (36.4-46.3) fL RDW Coeff of [place] (11.5-14.5) % Plt Count (130-400) K/uL MPV (7.4-10.4) fL Immature Gran % (Auto) % Neut % (Auto) % Lymph % (Auto) % [place] % (Auto) % Eos % (Auto) % Baso % (Auto) % Neut # (Auto) (1.4-6.5) K/uL Lymph # (Auto) (1.2-3.4) K/uL [place] # (Auto) (0.11-0.59) K/uL Eos # (Auto) (0-0.5) K/uL Baso # (Auto) (0-0.2) K/uL Immature Gran # (Auto) (0.00-0.02) K/uL PT (9.0-12.0) Seconds INR (0.9-1.1) APTT (21.0-31.0) Seconds PTT Ratio Sodium (136-145) mmol/L Potassium (3.5-5.1) mmol/L Chloride (98-107) mmol/L Carbon Dioxide (21-32) mmol/L Anion Gap (3-11) BUN (7-18) mg/dl Creatinine (0.6-1.4) mg/dl Est Cr Clr Drug Dosing ml/min Est GFR ( Amer) Est GFR (Non-Af Amer) BUN/Creatinine Ratio (10-20) Glucose (70-99) mg/dl POC Glucose (70-99) mg/dl Calcium (8.5-10.1) mg/dl Phosphorus (2.5-4.9) mg/dl Magnesium (1.8-2.4) mg/dl Iron (35-175) mcg/dl TIBC (250-450) mcg/dl Transferrin (200-360) mg/dl Transferrin % Sat (20-50) % Ferritin (8-388) ng/ml Total Bilirubin (0.2-1) mg/dl AST (15-37) U/L ALT (12-78) U/L Alkaline Phosphatase (45-117) U/L Total Protein (6.4-8.2) gm/dl Albumin (3.4-5.0) gm/dl Globulin (2.5-4.0) gm/dl Albumin/Globulin Ratio (0.9-2) Vitamin B12 (211-911) pg/ml Folate (>5.38) ng/ml Urine Color Red Urine Appearance Cloudy A (Clear) Urine pH 6.0 (4.5-7.5) Ur Specific [place] 1.020 (1.000-1.030) Urine Protein 3+ H (Negative) Urine Glucose (UA) 1+ H (Negative) Urine Ketones Negative (Negative) Urine Blood 3+ H (Negative) Urine Nitrite Negative (Negative) Urine Bilirubin Negative (Negative) Urine Urobilinogen Negative (Negative) Ur Leukocyte Esterase 1+ H (Negative) Urine WBC (Auto) 1-5 (0-5) /hpf Urine RBC (Auto) >30 H (0-4) /hpf U Hyaline Cast (Auto) 1-5 (0-5) /lpf U Epithel Cells (Auto) 0-5 (0-5) /lpf Urine Bacteria (Auto) Negative (Negative) PG Care Time/CCT Total # of Minutes Spent Total Time Spent with Patient: Total time spent is greater than 50% in coordination of care (as documented) at patient's floor/unit and/or counseling patient: Coding Level of Care Code 05203 Subseq Hosp Care Lvl 3 Diagnoses Gross hematuria R31.0 Cellulitis L03.116 Laterality: left Site of cellulitis: extremity Site of cellulitis of extremity: lower extremity Anemia D50.0 Anemia type: iron deficiency Iron deficiency anemia type: chronic blood loss Nephrolithiasis N20.0 CAD, multiple vessel I25.10 Aortic valve stenosis, moderate I35.0 History of CO (myocardial infarction) I25.2 Hyperlipidemia E78.5 Diabetes mellitus E11.22; N18.3; Z79.4 Diabetes mellitus type: type 2 Diabetes mellitus termite renewal inspector insulin use: with halfway use Diabetes mellitus complication status: with kidney complications Diabetes mellitus complication detail: with chronic kidney disease Chronic kidney disease stage: stage 3 (moderate) CKD (chronic kidney disease), stage III N18.3 Alzheimer's disease G30.9; F02.80 CVA (cerebral vascular accident) I63.9 UTI (urinary tract infection) N39.0 DVT prophylaxis Z29.9 (1) Cellulitis Laterality: left Site of cellulitis: extremity Site of cellulitis of extremity: lower extremity Qualified Code(s): L03.116 - Cellulitis of left lower limb (2) Anemia Anemia type: iron deficiency Iron deficiency anemia type: chronic blood loss Qualified Code(s): D50.0 - Iron deficiency anemia secondary to blood loss (chronic) (3) Diabetes mellitus Diabetes mellitus type: type 2 Diabetes mellitus termite renewal inspector insulin use: with halfway use Diabetes mellitus complication status: with kidney complications Diabetes mellitus complication detail: with chronic kidney disease Chronic kidney disease stage: stage 3 (moderate) Qualified Code(s): E11.22 - Type 2 diabetes mellitus with diabetic chronic kidney disease; N18.3 - Chronic kidney disease, stage 3 (moderate); Z79.4 - intermediate teacher (current) use of insulin
[2020-02-26] MEDS: DOCUSATE SODIUM/SENNA 50/8.6MG TAB PO SCH (12:18)
[2020-02-26] MEDS ORDERED: IRON SUCROSE 300 MG in SODIUM CHLORIDE 0.9% 250 ML IV ONE (14:00)
--- NOTE | 2020-02-26 14:10 | Consultation ---
Date of Consultation February 26, 2020 Assessment & Plan (1) Peripheral arterial disease: Pt with significant PAD noted on US, but no sign of acute ischemia. Pt is asymptomatic from PAD. LLE pain from ankle wound/cellulitis. Pt also with very poor renal fxn. No indications for vascular surgical intervention at this time, but would happy to reeval in future if pt's LLE wounds do not heal and limb is threatened. Please call if needed. Patient was seen, examined, and chart reviewed. Agree with exam and treatment plan of the Vascular PA. History of Present Illness Reason for Consultation: LLE cellulitis Attending Physician: Randal Dickens MD History of Present Illness 84 yo m with multiple medical problems including CKD, CVA, dementia, DMII, prostate ca, DC, hyperlipidemia, CAD, aortic stenosis, admitted with cellulitis of LLE, seen in consultation today for PAD noted on US. Pt has dementia and is a poor historian. States he had has the LLE wound for a few days and that his L foot has been painful in the wound area. Denies toe pain or discoloration, claudication, ROMERO, fever, chest pain, SOB, abd pain, N/V, other complaints. Arterial US demonstrates significant PAD LLE. No CITLALLI obtained. Allergies Allergy/AdvReac Type Severity Reaction Status Date / Time codeine Allergy Mild UNKNOWN Verified 02/24/20 14:00 REACTION gemfibrozil Allergy Verified 02/24/20 14:00 niacin Allergy Verified 02/24/20 14:00 simvastatin Allergy Verified 02/24/20 14:00 Home Medications Home Medications Medication Instructions Recorded Confirmed Type aspirin 81 mg tablet,delayed 81 mg PO DAILY 01/15/19 02/24/20 History release atorvastatin 40 mg tablet 40 mg PO DAILY 01/15/19 02/24/20 History docusate sodium 100 mg capsule 100 mg PO BID 01/15/19 02/24/20 History melatonin 3 mg PO HS #0 tab 11/09/19 02/24/20 Rx metoprolol succinate 25 mg PO QAM #30 tab 11/09/19 02/24/20 Rx Lantus Solostar U-100 Insulin 12 unit SC DAILY 11/24/19 02/24/20 History polyethylene glycol 3350 [Miralax] 17 g PO DAILY 11/24/19 02/24/20 History quetiapine 12.5 mg PO HS 11/24/19 02/24/20 History sennosides-docusate sodium 1 tab-cap PO QDL 11/24/19 02/24/20 History [Stimulant Laxative Plus] acetaminophen 650 mg PO QID PRN 02/17/20 02/24/20 History doxycycline hyclate 100 mg PO BID 5 Days #10 tab 02/22/20 02/24/20 Rx nitrofurantoin macrocrystal 100 mg PO BID 02/22/20 02/24/20 History Patient History Medical History (Updated 02/26/20 @ 14:14 by Regina Molina PA-C) Alzheimer's disease Aortic valve stenosis, moderate CAD, multiple vessel CKD (chronic kidney disease), stage III Diabetes mellitus Diabetes mellitus with kidney disease History of adenomatous polyp of colon 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 History of weight loss excessive Hyperlipidemia Male erectile disorder of organic origin Peripheral arterial disease Senile depressive state Family History Father Acute myocardial infarction Mother Acute myocardial infarction Family history of suicide Unknown Diabetes Heart disease Hypertension Social History Smoking Status: Former smoker Tobacco Type: Cigarettes Second Hand Exposure: No; Hx Alcohol Use: No Hx Substance Use: No Preferred Language: Niuean Communication Ability: Impaired Visual Impairment: Limited Hearing Ability: Hard of Hearing Ladle Repairer Required: No Beliefs That Will Affect Care: None marital status: Current Living Situation: Personal Care Facility Current Living Situation Comment: [place] current occupational status: retired How many Children do You have: 3 Other Information That Helps Us Care for You: No Feels Safe at Home: Yes Safety Concerns: Feels Safe At This Time Childhood Exposure to Second-Hand Smoke: Yes Diet Comment: well balanced. caffeine: Yes (Coffee x 2 per day.) during the past year weight has: decreased > 10 lbs Dental Care, Regularly: No Physical Activity Frequency: Does not Exercise Seatbelt Use: always Sunscreen Use: No Assistive Devices: None Review of Systems Review of Systems: All systems reviewed & are unremarkable except as noted in HPI & below (but pt is poor historian d/t dementia) Physical Exam Constitutional: + thin, + frail appearing, + disheveled, cooperative and comfortable; not in distress Eyes: PERRL, conjunctivae normal, anicteric sclerae ENMT: Ears: no hearing impairment and no external ear abnormality Neck: normal visual inspection and trachea midline Respiratory: normal respiratory effort, lungs clear to auscultation Auscultation: + diminished lung sounds Cardiovascular: Rate/Rhythm: regular rate and regular rhythm Vessels: femoral pulses present, posterior tibial pulses present (with doppler), dorsalis pedis pulses present (with doppler) and radial pulses present; no carotid bruit and + abnormal peripheral pulses Extremities: + edema (mild edema LLE ankle); + abnormal capillary refill (4 seconds) Gastrointestinal (Abdomen): normal bowel sounds, soft, nontender, no hepatosplenomegaly Musculoskeletal: no cyanosis or clubbing, extremities motor strength 5/5 Skin: + erythema (mild, L ankle/dorsal foot, shallow dried up blister noted.dry) Neurologic: moves all extremities, awake and + confused; no focal motor deficits Psychiatric: Orientation: alert, oriented to person and cooperative; + not oriented to place and + not oriented to time Results & Data ([facility]) Vital Signs (Past 12 Hours) Vital Signs Temp Pulse Pulse Resp BP BP Pulse Ox 02/26/20 11:40 36.7 C 82 18 123/71 96 02/26/20 07:52 36.4 C L 22 L 20 111/73 98 02/26/20 07:18 78 02/26/20 03:25 36.5 C 91 H 18 128/70 95
[2020-02-26 15:13] LABS: Hematocrit (blood only) 26.6 % (42-52); Hemoglobin 9.2 g/dL (14.0-18.0); Mean Corpuscular Hemoglobin 31.3 pg (25-34); Mean Corpuscular Hgb Conc 34.6 g/dL (32-36); Mean Corpuscular Volume 90.5 fL (80-100); Mean Platelet Volume 9.1 fL (7.4-10.4); Platelet Count 262 K/uL (130-400); RDW Coefficient of Variation 13.5 % (11.5-14.5); RDW Standard Deviation 44.3 fL (36.4-46.3); Red Blood Count 2.94 M/uL (4.7-6.1); White Blood Count 8.72 K/uL (4.8-10.8)
[2020-02-26] MEDS ORDERED: HYDROCODONE/ACETAMOPHEN 5/325MG TAB PO PRN (15:39)
[2020-02-26] MEDS ORDERED: INSULIN ASPART 100 UNITS/ML 3 ML PEN SC SCH (16:30)
[2020-02-26] MEDS ORDERED: PHARMACY GLYCEMIC MGMT CONSULT PRN (18:07)
[2020-02-26] MEDS: CEFDINIR 300 MG CAP PO SCH (20:44)
[2020-02-26] MEDS: MELATONIN 3 MG TAB PO SCH (20:44)
[2020-02-26] MEDS: QUETIAPINE FUMARATE 25 MG TABLET PO SCH (20:45)
[2020-02-27 07:40] LABS: Hematocrit (blood only) 25.7 % (42-52); Hemoglobin 8.6 g/dL (14.0-18.0); Mean Corpuscular Hemoglobin 30.2 pg (25-34); Mean Corpuscular Hgb Conc 33.5 g/dL (32-36); Mean Corpuscular Volume 90.2 fL (80-100); Platelet Count 251 K/uL (130-400); RDW Coefficient of Variation 13.6 % (11.5-14.5); RDW Standard Deviation 44.1 fL (36.4-46.3); Red Blood Count 2.85 M/uL (4.7-6.1); White Blood Count 9.04 K/uL (4.8-10.8)
[2020-02-27] MEDS: ATORVASTATIN 40 MG TAB PO SCH (07:49)
[2020-02-27] MEDS: METOPROLOL SUCC 25MG EXT REL TAB PO SCH (07:49)
[2020-02-27] MEDS: DOCUSATE SODIUM 100 MG CAP PO SCH ×2 (07:49→20:45)
[2020-02-27] MEDS: POLYETHYLENE (MIRALAX) 17 GM PACK PO SCH (07:49)
[2020-02-27] MEDS: ACETAMINOPHEN 325 MG TAB PO PRN (08:00)
[2020-02-27] MEDS: INSULIN ASPART 100 UNITS/ML 3 ML PEN SC SCH ×4 (08:01→20:50)
[2020-02-27] MEDS: INSULIN GLARGINE SOLOSTAR 100 UNITS/ML 3 ML PEN SC SCH ×2 (08:02→20:49)
[2020-02-27 08:58] LABS: Albumin Level 2.8 gm/dl (3.4-5.0); Calcium 9.1 mg/dl (8.5-10.1); Creatinine Clr Calc Pharmacy 26.1 ml/min; Est GFR (African American) 37.9; Est GFR (Non-African American) 32.7; Magnesium 2.1 mg/dl (1.8-2.4); Potassium 4.4 mmol/L (3.5-5.1)
[2020-02-27 09:01] LABS: Albumin Globulin Ratio 0.7 (0.9-2); Bilirubin,Total 0.4 mg/dl (0.2-1); Globulin 3.8 gm/dl (2.5-4.0); Total Protein 6.6 gm/dl (6.4-8.2)
--- NOTE | 2020-02-27 09:05 | Hospitalist Progress Note ---
Date of Service February 27, 2020 Assessment & Plan (1) Gross hematuria: * ?Could be secondary to cystitis versus prostatitis, E. coli on urine culture from 02/16 being treated with cefdinir and continues with hematuria * Reviewed last CT abd/pelvis from 02/16 - no repeat ordered per urology * Possible evidence of cystitis, hyperdense material within the bladder lumen, possibly represents blood products. Brachii therapy seeds noted in the prostate gland. Bilateral fat-containing inguinal hernias. Right-sided nephrolithiasis, 4 mm, cholelithiasis. * Of note, Plavix have been held since 02/16 and aspirin held since 02/21 * Urology consulted No surgical intervention at this time --> appreciate re-evaluation now that increase hematuria likely 2ndary to heparin use * Cefdinir completed * h/h low at 8.6/25.7 likely secondary to heparin use as above * Ordered Venofer IV on 02/25 and additional dose for today --> iron panel with iron 40L, TIBC 243, transferrin 199L, trans % sat 14L, ferritin 75.9 --> May need to consider daily oral supplementation for time being * 3 way catheter inserted 02/25 and continuing CBI * Continue to monitor CBC (2) Cellulitis: * Of LLE with area of opened blister to lateral ankle * Continue doxycycline as started on 02/21 for now * Wound RN consulted * X-RAY with mild soft tissue swelling, no fracture or dislocation, chronic Achilles tendinosis, postop changes within left ankle c/w tibiotalar fusion with 2 cannulated screws, intact. * Pain control * Weak pulses, decreased cap refill on exam * --> obtained arterial study LLE which showed: * 1) Stenosis of the proximal left superficial femoral artery. 2) Occlusion of the mid to distal left superficial femoral artery with distal reconstitution. 3) Popliteal artery occlusion. 4) Absent flow within the peroneal artery. 5) Occlusion of the mid to distal anterior tibial artery. * Vascular surgery consulted and patient was started on a heparin gtt. * -->No acute limb at this time and heparin discontinued 02/25 --> will reach out if any worsening/need for intervention although patient with improvement on exam * ?Benefit from outpatient follow up with vascular for monitoring vs initiation of agent like pletal? (3) Anemia: * Acute blood loss anemia secondary to gross hematuria as above. Continuing to hold ASA/Plavix * Hgb low at 8.6 as above * Iron panel with iron deficiency anemia. B12/folate wnl * Ordered additional Venofer for today * CBC in AM (4) Nephrolithiasis: * History of such, 4 mm stone seen on abdominal imaging from 02/16 * No further imaging at this time per per urology (5) CAD, multiple vessel: * hx of cardiac stents x 2 placed in November 2016 for SD. Has not followed with cardiology for years, cannot recall name of last cardiology group who followed him. Daughter also unaware of this. * Holding aspirin/Plavix for now --> resume as soon as possible * Continue metoprolol XL 25 mg QAM, atorvastatin (6) Aortic valve stenosis, moderate: * Noted. Most recent ECHO November 2019 (7) History of SD (myocardial infarction): * in November 2016. See above (8) Hyperlipidemia: * Continue statin therapy as above (9) Diabetes mellitus: * BSG 201 on admission * Continue Lantus 12 units. Given additional 5 units overnight 02/23 * SSI with BSG AC/HS * Repeat A1c 10.0 from 11.05 November 2019 -- uncontrolled * Diabetic educations with recommendations to check BSG more often to assess overall trend and most likely will benefit from Novolog with meals if he eats >50% to help maintain better range and improve wound healing/prevent infectious complications * Pharmacy for glycemic control -- added Lantus 14 units this morning and will continue to follow * Goal 110-140/CF 20/CR 1:9 * Continue to monitor (10) CKD (chronic kidney disease), stage III: * Stable - Baseline Cr appears to be 1.7-1.9 * Cr 1.83 on AM labs * BMP in AM (11) Alzheimer's disease: * History of such, alert to place and self, has difficulty with recall of events * Cont melatonin and Seroquel HS for sleep with hx of sundowning. 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 coli found on urine culture on ER visit on 02/16 * Continue 10-day course of cefdinir 300 mg p.o. once daily which is renal dosing, completed 02/25 (14) DVT prophylaxis: * Teds * No chemical anticoagulation in the setting of hematuria as above CODE: DNR Updated daughter, Leann, at bedside on 02/26 Admission and Anticipated Discharge Date Admission Date: February 24, 2020 Subjective Patient evaluated with daughter at bedside. Patient states pain to his leg is improved today but does have some pain on lateral aspect where blister is, and upon examination optifoam peeled back. Patient with improvement of his erythema to that leg. Pain controlled with ordered medications. Discussed with patient and daughter to please let us know if pain not controlled and we can add additional agents. Bloody drainage from Mathew still present and we will continue with bladder irrigation and hopeful voiding trial tomorrow. Continued monitoring of blood counts as lower than day prior and discussed additional dose of IV iron today and possibly tomorrow to avoid oral supplementation as patient without bowel movement as of early this morning. Patient ate almost 100% of breakfast but not interested in lunch as much. Would like some ice cream. Denies fever, chills, chest pain, shortness of breath. Does have some suprapubic discomfort since mathew. Had been up earlier with walker which is improved from yesterday. Review of Systems Review of Systems: All systems reviewed & are unremarkable except as noted in HPI & below Physical Exam Constitutional: well developed and well nourished; + uncomfortable Eyes: + anicteric sclerae and PERRL Neck: normal visual inspection Respiratory: normal respiratory effort, lungs clear to auscultation Cardiovascular: Rate/Rhythm: regular rate and regular rhythm Heart Sounds: + murmur (systolic ejection murmur with radiation to carotids, III/) Vessels: no JVD Extremities: normal capillary refill (decreased cap refill to LLE); no calf tenderness Gastrointestinal (Abdomen): normal bowel sounds, soft, nontender, no hepatosplenomegaly Skin: opened blister to lateral left ankle with surrounding erythema and edema. Optifoam peeled back and rolled up against skin. tender to palpation erythema to distal LLE improved Cap refill >2 seconds LLE NVI posterior tibial pulse present Neurologic: PERRL, EOMI, accommodation nl, no face palsy, no dysarthria Psychiatric: Orientation: alert, oriented to person and oriented to place; + not oriented to time Genitourinary: mathew with darkened red urine draining, slightly binder fixer than last evening Lymphatic: no cervical or axillary lymphadenopathy Results & Data Results & Data ([facility]) Vital Signs (Past 12 Hours) Vital Signs Temp Pulse Pulse Resp BP BP Pulse Ox 02/27/20 07:18 37 C 90 16 124/65 96 02/26/20 23:36 37.0 C 95 H 18 119/75 97 02/26/20 23:23 95 H Laboratory Results 02/27/20 02/27/20 02/27/20 Range/Units 07:26 07:16 07:16 WBC 9.04 (4.8-10.8) K/uL RBC 2.85 L (4.7-6.1) M/uL Hgb 8.6 L (14.0-18.0) g/dL Hct 25.7 L (42-52) % MCV 90.2 (80-100) fL MCH 30.2 (25-34) pg MCHC 33.5 (32-36) g/dL RDW Std Deviation 44.1 (36.4-46.3) fL RDW Coeff of [place]ordo 13.6 (11.5-14.5) % Plt Count 251 (130-400) K/uL MPV 9.0 (7.4-10.4) fL Sodium 138 (136-145) mmol/L Potassium 4.4 (3.5-5.1) mmol/L Chloride 106 (98-107) mmol/L Carbon Dioxide 24 (21-32) mmol/L Anion Gap 8.0 (3-11) BUN 27 H (7-18) mg/dl Creatinine 1.83 H (0.6-1.4) mg/dl Est Cr Clr Drug Dosing 26.1 ml/min Est GFR ( Amer) 37.9 Est GFR (Non-Af Amer) 32.7 BUN/Creatinine Ratio 15.0 (10-20) Glucose 152 H (70-99) mg/dl POC Glucose 179 H (70-99) mg/dl Calcium 9.1 (8.5-10.1) mg/dl Magnesium 2.1 (1.8-2.4) mg/dl Total Bilirubin 0.4 (0.2-1) mg/dl AST 25 (15-37) U/L ALT 26 (12-78) U/L Alkaline Phosphatase 160 H (45-117) U/L Total Protein 6.6 (6.4-8.2) gm/dl Albumin 2.8 L (3.4-5.0) gm/dl Globulin 3.8 (2.5-4.0) gm/dl Albumin/Globulin Ratio 0.7 L (0.9-2) Vitamin B12 (211-911) pg/ml Folate (>5.38) ng/ml 02/26/20 02/26/20 02/26/20 Range/Units 20:33 16:54 14:58 WBC 8.72 (4.8-10.8) K/uL RBC 2.94 L (4.7-6.1) M/uL Hgb 9.2 L (14.0-18.0) g/dL Hct 26.6 L (42-52) % MCV 90.5 (80-100) fL MCH 31.3 (25-34) pg MCHC 34.6 (32-36) g/dL RDW Std Deviation 44.3 (36.4-46.3) fL RDW Coeff of [place] 13.5 (11.5-14.5) % Plt Count 262 (130-400) K/uL MPV 9.1 (7.4-10.4) fL Sodium (136-145) mmol/L Potassium (3.5-5.1) mmol/L Chloride (98-107) mmol/L Carbon Dioxide (21-32) mmol/L Anion Gap (3-11) BUN (7-18) mg/dl Creatinine (0.6-1.4) mg/dl Est Cr Clr Drug Dosing ml/min Est GFR ( Amer) Est GFR (Non-Af Amer) BUN/Creatinine Ratio (10-20) Glucose (70-99) mg/dl POC Glucose 139 H 184 H (70-99) mg/dl Calcium (8.5-10.1) mg/dl Magnesium (1.8-2.4) mg/dl Total Bilirubin (0.2-1) mg/dl AST (15-37) U/L ALT (12-78) U/L Alkaline Phosphatase (45-117) U/L Total Protein (6.4-8.2) gm/dl Albumin (3.4-5.0) gm/dl Globulin (2.5-4.0) gm/dl Albumin/Globulin Ratio (0.9-2) Vitamin B12 (211-911) pg/ml Folate (>5.38) ng/ml 02/26/20 02/26/20 Range/Units 12:03 03:43 WBC (4.8-10.8) K/uL RBC (4.7-6.1) M/uL Hgb (14.0-18.0) g/dL Hct (42-52) % MCV (80-100) fL MCH (25-34) pg MCHC (32-36) g/dL RDW Std Deviation (36.4-46.3) fL RDW Coeff of Gordo (11.5-14.5) % Plt Count (130-400) K/uL MPV (7.4-10.4) fL Sodium (136-145) mmol/L Potassium (3.5-5.1) mmol/L Chloride (98-107) mmol/L Carbon Dioxide (21-32) mmol/L Anion Gap (3-11) BUN (7-18) mg/dl Creatinine (0.6-1.4) mg/dl Est Cr Clr Drug Dosing ml/min Est GFR ( Amer) Est GFR (Non-Af Amer) BUN/Creatinine Ratio (10-20) Glucose (70-99) mg/dl POC Glucose 191 H (70-99) mg/dl Calcium (8.5-10.1) mg/dl Magnesium (1.8-2.4) mg/dl Total Bilirubin (0.2-1) mg/dl AST (15-37) U/L ALT (12-78) U/L Alkaline Phosphatase (45-117) U/L Total Protein (6.4-8.2) gm/dl Albumin (3.4-5.0) gm/dl Globulin (2.5-4.0) gm/dl Albumin/Globulin Ratio (0.9-2) Vitamin B12 546 (211-911) pg/ml Folate 17.31 (>5.38) ng/ml PG Care Time/CCT Total # of Minutes Spent Total Time Spent with Patient: Total time spent is greater than 50% in coordination of care (as documented) at patient's floor/unit and/or counseling patient: Coding Level of Care Code 40015 Subseq Hosp Care Lvl 2 Diagnoses Gross hematuria R31.0 Cellulitis L03.116 Laterality: left Site of cellulitis: extremity Site of cellulitis of extremity: lower extremity Anemia D50.0 Anemia type: iron deficiency Iron deficiency anemia type: chronic blood loss Nephrolithiasis N20.0 CAD, multiple vessel I25.10 Aortic valve stenosis, moderate I35.0 History of SD (myocardial infarction) I25.2 Hyperlipidemia E78.5 Diabetes mellitus E11.22; N18.3; Z79.4 Chronic kidney disease stage: stage 3 (moderate) Diabetes mellitus complication detail: with chronic kidney disease Diabetes mellitus complication status: with kidney complications Diabetes mellitus terminal press operator insulin use: with [facility] use Diabetes mellitus type: type 2 CKD (chronic kidney disease), stage III N18.3 Alzheimer's disease G30.9; F02.80 CVA (cerebral vascular accident) I63.9 UTI (urinary tract infection) N39.0 DVT prophylaxis Z29.9 (1) Diabetes mellitus Chronic kidney disease stage: stage 3 (moderate) Diabetes mellitus complication detail: with chronic kidney disease Diabetes mellitus complication status: with kidney complications Diabetes mellitus terminal press operator insulin use: with terminal press operator use Diabetes mellitus type: type 2 Qualified Code(s): E11.22 - Type 2 diabetes mellitus with diabetic chronic kidney disease; N18.3 - Chronic kidney disease, stage 3 (moderate); Z79.4 - watermaster (current) use of 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
[2020-02-27] MEDS: DOCUSATE SODIUM/SENNA 50/8.6MG TAB PO SCH (12:43)
--- NOTE | 2020-02-27 13:19 | Urology Progress Note ---
Date of Service February 27, 2020 Assessment & Plan (1) Hematuria: Hematuria Unfortunately, we are faced with the issue of the pros and cons of anticoagulation I suspect he will bleed intermittently while anticoagulated given his history of radiation plus or minus infection For now, his bleeding does not seem to be particularly significant and I would suggest continuing anticoagulation while dealing with the hematuria Continue CBI overnight at a slow rate, if no major changes potentially a voiding trial tomorrow as I fear the catheter will gradually irritate the prostate/bladder driving more hematuria Admission and Anticipated Discharge Date Admission Date: February 24, 2020 Subjective Recalled to evaluate the patient after hematuria recurred He now ultimately needs to be anticoagulated He is on heparin now He had hematuria that started overnight and a three-way Melendez catheter was placed and continuous bladder irrigation instituted He denies any major urinary issues now, still complaining about foot pain Physical Exam Physical Exam: Urine in tubing relatively clearCBI essentially clamped when I arrived, I opened the CBI and his urine cleared immediately with minimal inflow. Draining adequately and functioning appropriately. Results & Data ([facility]) Vital Signs (Past 12 Hours) Vital Signs Temp Pulse Resp BP Pulse Ox 02/27/20 07:18 37 C 90 16 124/65 96 PG Care Time/CCT Total # of Minutes Spent Total Time Spent with Patient: Total time spent is greater than 50% in coordination of care (as documented) at patient's floor/unit and/or counseling patient: Coding Level of Care Code 37736 Subseq Hosp Care Lvl 2 Diagnoses Hematuria R31.0 Hematuria type: gross (1) Hematuria Hematuria type: gross Qualified Code(s): R31.0 - Gross hematuria
[2020-02-27] MEDS ORDERED: bisacodyL 5 MG TABEC PO ONE (14:30)
--- NOTE | 2020-02-27 14:49 | Pharmacy Report ---
Pharmacy Glycemic Short Note 2 - Date of Service February 27, 2020 - Glycemic Short BSG Results (Last 24 hours): 02/26/20 02/26/20 02/27/20 16:54 20:33 07:16 Glucose 152 H POC Glucose 184 H 139 H 02/27/20 02/27/20 07:26 11:36 Glucose POC Glucose 179 H 244 H OUTPATIENT ANTIDIABETIC REGIMEN: * Lantus 12 units daily * A1c 10% 02/25/20 ASSESSMENT: * Patient admitted with gross heamturia, BSGs ranging from 151-191 yesterday * Fasting this morning 179, slightly above goal, will increase lantus dose this morning and set scale for PM to give up to 1.5 weight based stress * Lunch BSG elevated will slightly tighten carb ratio. PLAN FOR INPATIENT GLYCEMIC CONTROL: * Hold outpatient oral diabetes medications * Basal insulin * Lantus 14 units this morning and scale for 0-4 PM * Bolus insulin * NovoLog per scale ACHS or Q6hrs while NPO * Goal Range: Low 110 mg/dL - High 140 mg/dL * Correction Factor: 20 mg/dL/unit * Nutritional / Prandial insulin per carb ratio of 1 unit per 9 grams CHO consumed
[2020-02-27] MEDS ORDERED: IRON SUCROSE 400 MG in SODIUM CHLORIDE 0.9% 250 ML IV ONE (15:30)
[2020-02-27] MEDS: QUETIAPINE FUMARATE 25 MG TABLET PO SCH (20:45)
[2020-02-27] MEDS: MELATONIN 3 MG TAB PO SCH (20:45)
[2020-02-28 06:37] LABS: Hematocrit (blood only) 25.8 % (42-52); Hemoglobin 8.5 g/dL (14.0-18.0); Mean Corpuscular Hgb Conc 32.9 g/dL (32-36); Mean Corpuscular Volume 91.2 fL (80-100); Mean Platelet Volume 9.1 fL (7.4-10.4); Platelet Count 246 K/uL (130-400); RDW Coefficient of Variation 13.8 % (11.5-14.5); RDW Standard Deviation 45.2 fL (36.4-46.3); Red Blood Count 2.83 M/uL (4.7-6.1); White Blood Count 9.26 K/uL (4.8-10.8)
[2020-02-28 07:04] LABS: Albumin Level 2.7 gm/dl (3.4-5.0); BUN Creatinine Ratio 15.1 (10-20); Calcium 9.6 mg/dl (8.5-10.1); Creatinine Clr Calc Pharmacy 23.5 ml/min; Est GFR (African American) 33.2; Est GFR (Non-African American) 28.7; Potassium 4.5 mmol/L (3.5-5.1)
[2020-02-28 07:06] LABS: Albumin Globulin Ratio 0.7 (0.9-2); Bilirubin,Total 0.5 mg/dl (0.2-1); Globulin 3.9 gm/dl (2.5-4.0); Total Protein 6.6 gm/dl (6.4-8.2)
[2020-02-28] MEDS: INSULIN ASPART 100 UNITS/ML 3 ML PEN SC SCH ×4 (09:20→20:25)
[2020-02-28] MEDS: METOPROLOL SUCC 25MG EXT REL TAB PO SCH (09:20)
[2020-02-28] MEDS: ATORVASTATIN 40 MG TAB PO SCH (09:21)
[2020-02-28] MEDS: POLYETHYLENE (MIRALAX) 17 GM PACK PO SCH (09:21)
[2020-02-28] MEDS: DOCUSATE SODIUM 100 MG CAP PO SCH ×2 (09:21→20:36)
[2020-02-28] MEDS: INSULIN GLARGINE SOLOSTAR 100 UNITS/ML 3 ML PEN SC SCH ×2 (09:22→20:24)
[2020-02-28 09:25] LABS: Basophils # (auto) 0.02 K/uL (0-0.2); Basophils % (auto) 0.2 %; Eosinophils # (auto) 0.19 K/uL (0-0.5); Immature Granulocytes # (auto) 0.02 K/uL (0.00-0.02); Immature Granulocytes % (auto) 0.2 %; Lymphocytes # (auto) 1.71 K/uL (1.2-3.4); Lymphocytes % (auto) 18.1 %; Monocytes % (auto) 10.6 %; Neutrophils % (auto) 68.9 %
--- NOTE | 2020-02-28 10:04 | XRay Report ---
XR chest 1V not portable HISTORY: hypoxia COMPARISON: Chest 02/17/2020. FINDINGS: There are low lung volumes. A few bibasilar linear densities consistent with subsegmental a telectasis. Otherwise, the lungs are clear. No pleural effusions. No pneumothorax. Tortuous thoracic aorta, unchanged. The heart is normal in size. No evidence for pulmonary edema. IMPRESSION: No significant change compared to the prior study. No acute process. ACT 112: Negative or not required by law. Electronically signed by: Ranjit Dupree M.D. 02/28/2020 10:03 AM
--- NOTE | 2020-02-28 10:29 | Urology Progress Note ---
Date of Service February 28, 2020 Assessment & Plan (1) Hematuria: - Pt evaluated in conjunction with Dr. South today - CBI running on slow - continue overnight - Consider removing Melendez catheter tomorrow - Hgb 8.5, continue to trend H/H - Will continue to follow while inpatient Admission and Anticipated Discharge Date Admission Date: February 24, 2020 Subjective Pt evaluated at bedside this AM Sleeping on arrival, arouses to his name No complaints at this time Melendez catheter intact, patent, CBI running on slow, light red urine with few small clots noted in tubing. Chart review: creatinine 2.04, WBC 9.26, Hemoglobin 8.5 Review of Systems Review of Systems: Unobtainable due to cognitive status Physical Exam Constitutional: + thin and comfortable; no acute distress Respiratory: normal respiratory effort; no respiratory distress and no labored breathing Cardiovascular: Extremities: no pedal edema Gastrointestinal (Abdomen): Inspection/Auscultation: abdomen normal to inspection; abdomen not distended Percussion/Palpation: abdomen soft; abdomen nontender Musculoskeletal: Head/Neck/Chest: normocephalic and head atraumatic Neurologic: moves all extremities and awake Psychiatric: Orientation: oriented to person Genitourinary: Melendez catheter intact, patent, CBI running on slow, light red urine with few small clots in tubing on arrival Results & Data ([facility]) Vital Signs (Past 12 Hours) Vital Signs Temp Pulse Pulse Resp BP BP Pulse Ox 02/28/20 07:25 37.1 C 90 18 102/59 L 90 02/28/20 07:16 101 H 02/28/20 03:36 37.1 C 85 18 116/61 94 02/27/20 23:51 86 02/27/20 22:52 36.7 C 90 20 104/61 95 PG Care Time/CCT Total # of Minutes Spent Total Time Spent with Patient: Total time spent is greater than 50% in coordination of care (as documented) at patient's floor/unit and/or counseling patient: Coding Level of Care Code 40070 Subseq Hosp Care Lvl 2 Diagnoses Hematuria R31.0 Hematuria type: gross (1) Hematuria Hematuria type: gross Qualified Code(s): R31.0 - Gross hematuria
[2020-02-28] MEDS: DOCUSATE SODIUM/SENNA 50/8.6MG TAB PO SCH (12:18)
[2020-02-28] MEDS ORDERED: IRON SUCROSE 400 MG in SODIUM CHLORIDE 0.9% 250 ML IV ONE (13:00)
--- NOTE | 2020-02-28 13:45 | Pharmacy Report ---
Pharmacy Glycemic Short Note 2 - Date of Service February 28, 2020 - Glycemic Short BSG Results (Last 24 hours): 02/27/20 02/27/20 02/28/20 16:42 20:07 06:17 Glucose 94 POC Glucose 110 H 123 H 02/28/20 02/28/20 08:05 11:39 Glucose POC Glucose 104 H 126 H OUTPATIENT ANTIDIABETIC REGIMEN: * Lantus 12 units daily * A1c 10% 02/25/20 ASSESSMENT: 02/27 * Patient received 26 units of insulin yesterday; 14 basal, 12 prandial/correctional * BSGs have been within goal range since lunch yesterday, however patient refused breakfast and lunch today * Basal may need adjusted if patient continues to forego meals, no changes for now 02/26 * Patient admitted with gross heamturia, BSGs ranging from 151-191 yesterday * Fasting this morning 179, slightly above goal, will increase lantus dose this morning and set scale for PM to give up to 1.5 weight based stress * Lunch BSG elevated will slightly tighten carb ratio. PLAN FOR INPATIENT GLYCEMIC CONTROL: * Hold outpatient oral diabetes medications * Basal insulin * Lantus 14 units qAM * Bolus insulin * NovoLog per scale ACHS or Q6hrs while NPO * Goal Range: Low 110 mg/dL - High 140 mg/dL * Correction Factor: 20 mg/dL/unit * Nutritional / Prandial insulin per carb ratio of 1 unit per 9 grams CHO consumed
--- NOTE | 2020-02-28 13:53 | Hospitalist Progress Note ---
Date of Service February 28, 2020 Assessment & Plan (1) Gross hematuria: * Could be secondary to cystitis versus prostatitis, E. coli on urine culture from 02/16 being treated with cefdinir and continues with hematuria * Reviewed last CT abd/pelvis from 02/16 - no repeat ordered per urology * Possible evidence of cystitis, hyperdense material within the bladder lumen, possibly represents blood products. Brachii therapy seeds noted in the prostate gland. Bilateral fat-containing inguinal hernias. Right-sided nephrolithiasis, 4 mm, cholelithiasis. * Plavix have been held since 02/16 and aspirin held since 02/21 -- resume when able * Urology consulted Continue CBI at slow rate D/c mathew tomorrow Monitor CBC H/h 8.5/25.8 -- ordering 3 dose IV iron for iron def anemia. Will also add MV with minerals. May need oral iron as well Cedfinir completed CBC in AM COVID swab performed today as patient resident of [facility] and [facility] prior to d/c given recent cases. CXR with subsegmental atelectasis. 90% on RA and ordered incentive spirometer. (2) Cellulitis: * IMPROVING * LLE with area of opened blister to lateral ankle * Continue doxycycline (on day 6) * Wound RN consulted * X-RAY with mild soft tissue swelling, no fracture or dislocation, chronic Achilles tendinosis, postop changes within left ankle c/w tibiotalar fusion with 2 cannulated screws, intact. 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 2) Occlusion of the mid to distal left superficial femoral artery with distal reconstitution. 3) Popliteal artery occlusion. 4) Absent flow within the peroneal artery. 5) Occlusion of the mid to distal anterior tibial artery. * Vascular surgery consulted and patient was started on a heparin gtt and subsequently discontinued as no acute limb as this time. Will reach out if status worsens but will need monitored outpatient, ?pletal, resume antiplatelet therapy when able (held due to above) (3) Anemia: * Acute blood loss anemia secondary to gross hematuria as above. * Continuing to hold ASA/Plavix * Hgb low at 8.5 as above * Iron panel with iron deficiency anemia. B12/folate wnl * Ordered additional Venofer for today. Will also add hemolysis labs given mod- severe on most recent ECHO 11/04/19. * Could consider repeat echo * CBC in AM (4) Nephrolithiasis: * History of such, 4 mm stone seen on abdominal imaging from 02/16 * No further imaging at this time per per urology (5) CAD, multiple vessel: * hx of cardiac stents x 2 placed in November 2016 for NC. Has not followed with cardiology for years, cannot recall name of last cardiology group who followed him. Daughter also unaware of this. * Holding aspirin/Plavix for now --> resume when able * Continue metoprolol XL 25 mg QAM, atorvastatin (6) Aortic valve stenosis, moderate: * Noted worsening , moderate to severe November 2019 compared to 2016. * Could consider repeating ECHO as above (7) History of NC (myocardial infarction): * in November 2016. See above (8) Hyperlipidemia: * Continue statin therapy as above (9) Diabetes mellitus: * BSG 201 on admission * Continue Lantus 12 units. Given additional 5 units overnight 02/23 * SSI with BSG AC/HS * Repeat A1c 10.0 from 11.05 November 2019 -- uncontrolled. Diabetic education with recommendations to check BSG more often to assess overall trend and most likely will benefit from Novolog with meals if he eats >50% to help maintain better range and improve wound healing/prevent infectious complications * Pharmacy for glycemic control * Goal 110-140/CF 20/CR 1:9 * Continue to monitor (10) CKD (chronic kidney disease), stage III: * Stable - Baseline Cr appears to be 1.7-1.9 * Cr elevated to 2.04 on AM labs, slightly above baseline. * Will order NSS for 500cc given decreased PO today * BMP in AM (11) Alzheimer's disease: * History of such, alert to place and self, has difficulty with recall of events * Cont melatonin and Seroquel HS for sleep with hx of ing. 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 coli found on urine culture on ER visit on 02/16 * 10-day course of cefdinir 300 mg p.o. once daily which is renal dosing, completed 02/25 (14) Elevated alkaline phosphatase level: * with hx gallstones on CTAP. (as well as 4mm kidney stone as above) * Ordered RUQ US given anorexia, fever today -- pending * Otherwise, ??congestion from worsening ?, although S1/S2 able to be appreciated on auscultation * If RUQ unrevealing, would consider repeat ECHO to assess for diastolic dysfunction (15) DVT prophylaxis: * Teds * No chemical anticoagulation in the setting of hematuria as above CODE: DNR Updated daughter, Leann, at bedside on 02/26 Dispo: likely will remain inpatient through the weekend unless stable tomorrow/monday and [facility] able to accept back, as they have new COVID cases and short staffed at this current time. Will need re-eval PT/OT to ensure safely able to return to [facility]. Admission and Anticipated Discharge Date Admission Date: February 24, 2020 Supervising Physician Co-Signing Physician Notes Patient was seen and examined independently I discussed the case with Misty Posada PAC I reviewed pertinent past medical social family history and also the plan of care and agree with the plan of care. Biggest issue is persistent hematuria which likely may be resulting acute blood loss anemia. The patient has low normal iron but also low iron binding capacity suggesting he could be having some anemia of chronic disease underlying his acute blood loss. This could be related to his renal disease from his diabetes. Certainly the rapid reduction in the hemoglobin does claus to the fact that this is acute blood loss anemia, hemolysis could be but less likely. Overall will need discussion with the family on how aggressive we wish to be to try to further evaluate his anemia. Any exceptions will be noted below Subjective Patient evaluated this afternoon. Not much of an appetite today and refused to eat breakfast/lunch per nursing. WHen asked, patient states he is not hungry at this time, even for ice cream whi ch has brought a smile to his face when mentioned in days previously. Minimal abdominal pain, but unable to localize and raises his legs up into a curled position. States he is not feeling great today. Does not like the mathew. Discussed per Urology, will attempt to remove tomorrow. Denies fever or chills, chest pain. Does admit to some shortness of breath. Discussed we will add incentive spirometer and reviewed cxr which showed subsegmental atelectasis. Urine still with bloody drainage but box stacker in color today. He continues to undergo CBI at slowed rate. Discussed obtaining COVID swab as nursing stated patient swung at her while obtaining, for possible discharge monday or monday pending blood counts and stability from urinary standpoint but will need to make sure able to return safely prior to. Continuing supportive care with IV iron today. Review of Systems Review of Systems: All systems reviewed & are unremarkable except as noted in HPI & below Physical Exam Constitutional: + frail appearing; no acute distress Eyes: + anicteric sclerae and PERRL ENMT: dry mm Neck: normal visual inspection Respiratory: normal respiratory effort, lungs clear to auscultation Cardiovascular: Rate/Rhythm: regular rate and regular rhythm Heart Sounds: + murmur (loud systolic ejection murmur with radiation to carotids, III/) Vessels: no JVD Extremities: + abnormal capillary refill (decreased cap refill to LLE, improved) and no calf tenderness Gastrointestinal (Abdomen): normal bowel sounds, soft, nontender, no hepatosplenomegaly Skin: decreased erythema LLE blister to lateral foot no drainage noted tender to palpation, although decreased today NVI Neurologic: PERRL, EOMI, accommodation nl, no face palsy, no dysarthria Psychiatric: Orientation: alert and oriented to person; + not oriented to place and + not oriented to time Lymphatic: no cervical or axillary lymphadenopathy Results & Data Results & Data ([facility]) Vital Signs (Past 12 Hours) Vital Signs Temp Pulse Pulse Resp BP BP Pulse Ox 02/28/20 07:25 37.1 C 90 18 102/59 L 90 02/28/20 07:16 101 H 02/28/20 03:36 37.1 C 85 18 116/61 94 Laboratory Results 02/28/20 02/28/20 02/28/20 Range/Units 14:10 14:10 11:39 WBC (4.8-10.8) K/uL RBC (4.7-6.1) M/uL Hgb (14.0-18.0) g/dL Hct (42-52) % MCV (80-100) fL MCH (25-34) pg MCHC (32-36) g/dL RDW Std Deviation (36.4-46.3) fL RDW Coeff of Gordo (11.5-14.5) % Plt Count (130-400) K/uL MPV (7.4-10.4) fL Immature Gran % (Auto) % Neut % (Auto) % Lymph % (Auto) % Lincoln % (Auto) % Eos % (Auto) % Baso % (Auto) % Neut # (Auto) (1.4-6.5) K/uL Lymph # (Auto) (1.2-3.4) K/uL Lincoln # (Auto) (0.11-0.59) K/uL Eos # (Auto) (0-0.5) K/uL Baso # (Auto) (0-0.2) K/uL Immature Gran # (Auto) (0.00-0.02) K/uL Sodium (136-145) mmol/L Potassium (3.5-5.1) mmol/L Chloride (98-107) mmol/L Carbon Dioxide (21-32) mmol/L Anion Gap (3-11) BUN (7-18) mg/dl Creatinine (0.6-1.4) mg/dl Est Cr Clr Drug Dosing ml/min Est GFR ( Amer) Est GFR (Non-Af Amer) BUN/Creatinine Ratio (10-20) Glucose (70-99) mg/dl POC Glucose 126 H (70-99) mg/dl Calcium (8.5-10.1) mg/dl Total Bilirubin (0.2-1) mg/dl AST (15-37) U/L ALT (12-78) U/L Alkaline Phosphatase (45-117) U/L Total Protein (6.4-8.2) gm/dl Albumin (3.4-5.0) gm/dl Globulin (2.5-4.0) gm/dl Albumin/Globulin Ratio (0.9-2) COVID-19 Eval Order Covid19 IDNow atMKYC SARS-CoV-2, RNA, NAAT NEGATIVE (NEGATIVE) 02/28/20 02/28/20 02/28/20 Range/Units 08:05 06:17 06:17 WBC 9.26 (4.8-10.8) K/uL RBC 2.83 L (4.7-6.1) M/uL Hgb 8.5 L (14.0-18.0) g/dL Hct 25.8 L (42-52) % MCV 91.2 (80-100) fL MCH 30.0 (25-34) pg MCHC 32.9 (32-36) g/dL RDW Std Deviation 45.2 (36.4-46.3) fL RDW Coeff of Gordo 13.8 (11.5-14.5) % Plt Count 246 (130-400) K/uL MPV 9.1 (7.4-10.4) fL Immature Gran % (Auto) 0.2 % Neut % (Auto) 68.9 % Lymph % (Auto) 18.1 % Lincoln % (Auto) 10.6 % Eos % (Auto) 2.0 % Baso % (Auto) 0.2 % Neut # (Auto) 6.50 (1.4-6.5) K/uL Lymph # (Auto) 1.71 (1.2-3.4) K/uL Lincoln # (Auto) 1.00 H (0.11-0.59) K/uL Eos # (Auto) 0.19 (0-0.5) K/uL Baso # (Auto) 0.02 (0-0.2) K/uL Immature Gran # (Auto) 0.02 (0.00-0.02) K/uL Sodium 142 (136-145) mmol/L Potassium 4.5 (3.5-5.1) mmol/L Chloride 109 H (98-107) mmol/L Carbon Dioxide 23 (21-32) mmol/L Anion Gap 10.0 (3-11) BUN 31 H (7-18) mg/dl Creatinine 2.04 H (0.6-1.4) mg/dl Est Cr Clr Drug Dosing 23.5 ml/min Est GFR ( Amer) 33.2 Est GFR (Non-Af Amer) 28.7 BUN/Creatinine Ratio 15.1 (10-20) Glucose 94 (70-99) mg/dl POC Glucose 104 H (70-99) mg/dl Calcium 9.6 (8.5-10.1) mg/dl Total Bilirubin 0.5 (0.2-1) mg/dl AST 21 (15-37) U/L ALT 21 (12-78) U/L Alkaline Phosphatase 152 H (45-117) U/L Total Protein 6.6 (6.4-8.2) gm/dl Albumin 2.7 L (3.4-5.0) gm/dl Globulin 3.9 (2.5-4.0) gm/dl Albumin/Globulin Ratio 0.7 L (0.9-2) COVID-19 Eval Order SARS-CoV-2, RNA, NAAT (NEGATIVE) 02/27/20 Range/Units 20:07 WBC (4.8-10.8) K/uL RBC (4.7-6.1) M/uL Hgb (14.0-18.0) g/dL Hct (42-52) % MCV (80-100) fL MCH (25-34) pg MCHC (32-36) g/dL RDW Std Deviation (36.4-46.3) fL RDW Coeff of Gordo (11.5-14.5) % Plt Count (130-400) K/uL MPV (7.4-10.4) fL Immature Gran % (Auto) % Neut % (Auto) % Lymph % (Auto) % Lincoln % (Auto) % Eos % (Auto) % Baso % (Auto) % Neut # (Auto) (1.4-6.5) K/uL Lymph # (Auto) (1.2-3.4) K/uL Lincoln # (Auto) (0.11-0.59) K/uL Eos # (Auto) (0-0.5) K/uL Baso # (Auto) (0-0.2) K/uL Immature Gran # (Auto) (0.00-0.02) K/uL Sodium (136-145) mmol/L Potassium (3.5-5.1) mmol/L Chloride (98-107) mmol/L Carbon Dioxide (21-32) mmol/L Anion Gap (3-11) BUN (7-18) mg/dl Creatinine (0.6-1.4) mg/dl Est Cr Clr Drug Dosing ml/min Est GFR ( Amer) Est GFR (Non-Af Amer) BUN/Creatinine Ratio (10-20) Glucose (70-99) mg/dl POC Glucose 123 H (70-99) mg/dl Calcium (8.5-10.1) mg/dl Total Bilirubin (0.2-1) mg/dl AST (15-37) U/L ALT (12-78) U/L Alkaline Phosphatase (45-117) U/L Total Protein (6.4-8.2) gm/dl Albumin (3.4-5.0) gm/dl Globulin (2.5-4.0) gm/dl Albumin/Globulin Ratio (0.9-2) COVID-19 Eval Order SARS-CoV-2, RNA, NAAT (NEGATIVE) Diagnostic Findings CXR IMPRESSION: No significant change compared to the prior study. No acute process. Liver US PG Care Time/CCT Total # of Minutes Spent Total Time Spent with Patient: Total time spent is greater than 50% in coordination of care (as documented) at patient's floor/unit and/or counseling patient: Coding Level of Care Code 50220 Subseq Hosp Care Lvl 3 Diagnoses Gross hematuria R31.0 Cellulitis L03.116 Laterality: left Site of cellulitis: extremity Site of cellulitis of extremity: lower extremity Anemia D50.0 Anemia type: iron deficiency Iron deficiency anemia type: chronic blood loss Nephrolithiasis N20.0 CAD, multiple vessel I25.10 Aortic valve stenosis, moderate I35.0 History of NC (myocardial infarction) I25.2 Hyperlipidemia E78.5 Diabetes mellitus E11.22; N18.3; Z79.4 Chronic kidney disease stage: stage 3 (moderate) Diabetes mellitus complication detail: with chronic kidney disease Diabetes mellitus complication status: with kidney complications Diabetes mellitus snf insulin use: with joint terminal attack controller use Diabetes mellitus type: type 2 CKD (chronic kidney disease), stage III N18.3 Alzheimer's disease G30.9; F02.80 CVA (cerebral vascular accident) I63.9 UTI (urinary tract infection) N39.0 Elevated alkaline phosphatase level R74.8 DVT prophylaxis Z29.9 (1) Diabetes mellitus Chronic kidney disease stage: stage 3 (moderate) Diabetes mellitus complication detail: with chronic kidney disease Diabetes mellitus complication status: with kidney complications Diabetes mellitus snf insulin use: with snf use Diabetes mellitus type: type 2 Qualified Code(s): E11.22 - Type 2 diabetes mellitus with diabetic chronic kidney disease; N18.3 - Chronic kidney disease, stage 3 (moderate); Z79.4 - FPC (current) use of 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
[2020-02-28] MEDS: ACETAMINOPHEN 325 MG TAB PO PRN (14:56)
[2020-02-28] MEDS ORDERED: SODIUM CHLORIDE 0.9% 500 ML IV SCH (17:30)
--- NOTE | 2020-02-28 17:47 | Ultrasound Report ---
US liver CLINICAL HISTORY: anorexia, elevated alk phos, abd discomfort COMPARISON STUDY: CT of the abdomen and pelvis February 17, 2020. Right upper quadrant ultrasound [facility] 2011. FINDINGS: This exam is compromised by suboptimal penetration. There is mild coarsening of hepatic ech otexture. No hepatic lesions are identified. There is no biliary ductal dilatation. There are gallsto anabell within the gallbladder. Gallbladder is contracted. Pancreas is largely obscured. There is no righ t hydronephrosis. IMPRESSION: 1. Cholelithiasis. No evidence for acute cholecystitis. 2. Obscured pancreas. 3. No biliary ductal dilatation. ACT 112: Negative or not required by law. Electronically signed by: Samy Grimm M.D. 02/28/2020 5:45 PM
[2020-02-28] MEDS ORDERED: LEVALBUTEROL HCL 0.63 MG/3 ML NEB NEB PRN (17:51)
[2020-02-28] MEDS: CEROVITE ADV FORMULA TAB PO SCH (18:36)
[2020-02-28] MEDS: MELATONIN 3 MG TAB PO SCH (20:35)
[2020-02-28] MEDS: QUETIAPINE FUMARATE 25 MG TABLET PO SCH (20:35)
[2020-02-29] MEDS: CEROVITE ADV FORMULA TAB PO SCH (07:53)
[2020-02-29] MEDS: POLYETHYLENE (MIRALAX) 17 GM PACK PO SCH (07:53)
[2020-02-29] MEDS: DOCUSATE SODIUM 100 MG CAP PO SCH ×2 (07:53→20:29)
[2020-02-29] MEDS: ACETAMINOPHEN 325 MG TAB PO PRN ×2 (07:53→20:29)
[2020-02-29] MEDS: INSULIN ASPART 100 UNITS/ML 3 ML PEN SC SCH ×4 (08:03→20:33)
[2020-02-29 08:06] LABS: Basophils # (auto) 0.01 K/uL (0-0.2); Basophils % (auto) 0.1 %; Hematocrit (blood only) 24.7 % (42-52); Hemoglobin 8.1 g/dL (14.0-18.0); Immature Granulocytes # (auto) 0.04 K/uL (0.00-0.02); Immature Granulocytes % (auto) 0.4 %; Lymphocytes # (auto) 0.26 K/uL (1.2-3.4); Lymphocytes % (auto) 2.4 %; Mean Corpuscular Hgb Conc 32.8 g/dL (32-36); Mean Corpuscular Volume 91.5 fL (80-100); Mean Platelet Volume 8.8 fL (7.4-10.4); Monocytes # (auto) 0.52 K/uL (0.11-0.59); Monocytes % (auto) 4.9 %; Neutrophils # (auto) 9.84 K/uL (1.4-6.5); Neutrophils % (auto) 92.2 %; Platelet Count 232 K/uL (130-400); RDW Standard Deviation 45.1 fL (36.4-46.3); White Blood Count 10.67 K/uL (4.8-10.8)
[2020-02-29] MEDS: INSULIN GLARGINE SOLOSTAR 100 UNITS/ML 3 ML PEN SC SCH (08:08)
[2020-02-29] MEDS: METOPROLOL SUCC 25MG EXT REL TAB PO SCH (08:12)
[2020-02-29] MEDS: ATORVASTATIN 40 MG TAB PO SCH (08:12)
[2020-02-29 08:45] LABS: Albumin Level 2.7 gm/dl (3.4-5.0); BUN Creatinine Ratio 15.3 (10-20); Calcium 8.9 mg/dl (8.5-10.1); Creatinine Clr Calc Pharmacy 27.2 ml/min; Est GFR (African American) 39.7; Est GFR (Non-African American) 34.3; Potassium 4.2 mmol/L (3.5-5.1)
[2020-02-29 08:48] LABS: Albumin Globulin Ratio 0.7 (0.9-2); Bilirubin,Total 0.5 mg/dl (0.2-1); Globulin 3.9 gm/dl (2.5-4.0); Total Protein 6.6 gm/dl (6.4-8.2)
--- NOTE | 2020-02-29 09:04 | Hospitalist Progress Note ---
Date of Service February 29, 2020 Assessment & Plan (1) Gross hematuria: ?secondary to cystitis versus prostatitis, E. coli on urine culture from 02/16 being treated with cefdinir and continues with hematuria Reviewed last CT abd/pelvis from 02/16 - no repeat ordered per urology Possible evidence of cystitis, hyperdense material within the bladder lumen, possibly represents blood products. Brachii therapy seeds noted in the prostate gland. Bilateral fat-containing inguinal hernias. Right-sided nephrolithiasis, 4 mm, cholelithiasis. Cefdinir completed Plavix have been held since 02/16 and aspirin held since 02/21 -- resume when able Urology consulted Continue CBI at slow rate for now H/h low 8.1/24.7 -- chronic disease and had already received multiple doses IV venofer COVID swab negative -- pt from [facility] and need prior to d/c with new cases reported. Had been 90% on RA with reported SOB. CXR with few bibasilar/subsegmental atelectasis (did have low grade temp last evening, likely secondary to this) --> ordered IS and currently 94% on RA Possibly d/c mathew later this afternoon vs irrigation by Dr. Wellington -- appreciate assistance NPO after midnight for possible intervention CBC in AM -- of note, WBC trending up and now with L shift. Will likely need repeat UA and continued IV abx for such based on findings (of note, had already completed course of cefdinir but had a mathew placed during hospitalization vs a developing pneumonia although CXR without acute process) (2) Cellulitis: IMPROVING LLE with area of opened blister to lateral ankle Continue doxycycline (on day 7) Wound RN consulted X-RAY with mild soft tissue swelling, no fracture or dislocation, chronic Achilles tendinosis, postop changes within left ankle c/w tibiotalar fusion with 2 cannulated screws, intact. 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 2) Occlusion of the mid to distal left superficial femoral artery with distal reconstitution. 3) Popliteal artery occlusion. 4) Absent flow within the peroneal artery. 5) Occlusion of the mid to distal anterior tibial artery. Vascular surgery consulted and patient was started on a heparin gtt and subsequently discontinued as no acute limb as this time. Will reach out if status worsens but will need monitored outpatient, ?pletal, resume antiplatelet therapy when able (held due to above) (3) Anemia: Acute blood loss anemia secondary to gross hematuria (as well as heparin as above) given acute drop from Continuing to hold ASA/Plavix Hgb low at 8.1 as above (did get 500cc NSS on 02/27 for some dehydration/poor PO intake) Iron panel with borderline low iron, 40 but also chronic disease. Did receive Venofer x 3. B12/folate wnl CBC in AM (4) Nephrolithiasis: History of such, 4 mm stone seen on abdominal imaging from 02/16 Ref further imaging to urology -- no rec at this time (5) CAD, multiple vessel: hx of cardiac stents x 2 placed in November 2016 for [facility]. Has not followed with cardiology for years, cannot recall name of last cardiology group who followed him. Daughter also unaware of this. Holding aspirin/Plavix for now --> resume when able Continue metoprolol XL 25 mg QAM, atorvastatin (6) Aortic valve stenosis, moderate: Noted worsening , moderate to severe November 2019 compared to 2016. Could consider repeating ECHO if develops s/sx heart failure Cautious use of fluids (7) History of [facility] (myocardial infarction): in November 2016. See above (8) Hyperlipidemia: Continue statin therapy as above (9) Diabetes mellitus: BSG 201 on admission -- repeat A1c 10.0 from 11.2 in November 2019 -- uncontrolled Pharmacy on consult for glycemic management while inpatient - most recent BSG this afternoon >300 -- appreciate assistance Diabetic education with recommendations to check BSG more often to assess overall trend and most likely will benefit from Novolog with meals if he eats >50% to help maintain better range and improve wound healing/prevent infectious complications Continue to monitor (10) CKD (chronic kidney disease), stage III: Stable - Baseline Cr appears to be 1.7-1.9 Cr improved to 1.76 from 2.04 following 500cc NSS as above secondary to poor PO intake BMP in AM (11) Alzheimer's disease: History of such, alert to place and self, has difficulty with recall of events Cont melatonin and Seroquel HS for sleep with hx of sundowning. 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 coli found on urine culture on ER visit on 02/16 10-day course of cefdinir 300 mg p.o. once daily which is renal dosing, completed 02/25 Consider repeat UA given continued increase in WBC --> continue to trend (14) Elevated alkaline phosphatase level: with hx gallstones on CTAP. (as well as 4mm kidney stone as above) RUQ with stones, no acute Trending down Continue to monitor (15) DVT prophylaxis: Teds No chemical anticoagulation in the setting of hematuria as above CODE: DNR Updated daughter, Leann, at bedside on 02/26 Dispo: likely will remain inpatient through the weekend as [facility] not accepting patient's back with current outbreak Per therapy, at baseline currently with rec to return to [facility] with 24h care Urology to re-evaluate this afternoon NPO after midnight for possible intervention Admission and Anticipated Discharge Date Admission Date: February 24, 2020 Subjective Patient evaluated this morning. Resting comfortably in bed. Denies pain or need for any medications at this time. Still with blood tinged urine from mathew. He confirms he would like to get that out as soon as possible as it is irritating. Denies chest pain, shortness of breath, abdominal pain, nausea, vomiting, constipation at this time. Per nursing, patient much more calm and cooperative today. Less impulsive and taken off 1:1. Discussed with Dr. Wellington later this afternoon and will make NPO after midnight for possible intervention. Review of Systems Review of Systems: All systems reviewed & are unremarkable except as noted in HPI & below and Unobtainable due to mental health condition Physical Exam Constitutional: + frail appearing; no acute distress general pallor Eyes: + anicteric sclerae and PERRL ENMT: mmm Neck: normal visual inspection Respiratory: normal respiratory effort; no respiratory distress and no labored breathing Auscultation: + diminished lung sounds Cardiovascular: Rate/Rhythm: regular rate and regular rhythm Heart Sounds: + murmur (loud systolic ejection murmur with radiation to carotids, III/) Vessels: no JVD Extremities: + abnormal capillary refill (decreased cap refill to LLE, improved) and no calf tenderness Gastrointestinal (Abdomen): normal bowel sounds, soft, nontender, no hepatosplenomegaly Skin: decreased erythema LLE blister to lateral foot no drainage noted tender to palpation, although decreased today NVI Neurologic: PERRL, EOMI, accommodation nl, no face palsy, no dysarthria Psychiatric: Orientation: alert and oriented to person; + not oriented to place and + not oriented to time Genitourinary: 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/red urine draining Lymphatic: no cervical or axillary lymphadenopathy Results & Data Results & Data ([facility]) Vital Signs (Past 12 Hours) Vital Signs Temp Pulse Pulse Resp BP BP Pulse Ox 02/29/20 07:50 36.4 C L 91 H 16 126/71 02/29/20 03:05 36.6 C 66 18 142/57 H 98 02/29/20 00:20 72 02/28/20 22:57 36.7 C 80 18 104/62 91 Laboratory Results 02/29/20 02/29/20 02/29/20 Range/Units 07:51 07:40 07:40 WBC 10.67 (4.8-10.8) K/uL RBC 2.70 L (4.7-6.1) M/uL Hgb 8.1 L (14.0-18.0) g/dL Hct 24.7 L (42-52) % MCV 91.5 (80-100) fL MCH 30.0 (25-34) pg MCHC 32.8 (32-36) g/dL RDW Std Deviation 45.1 (36.4-46.3) fL RDW Coeff of Gordo 14.0 (11.5-14.5) % Plt Count 232 (130-400) K/uL MPV 8.8 (7.4-10.4) fL Immature Gran % (Auto) 0.4 % Neut % (Auto) 92.2 % Lymph % (Auto) 2.4 % Rooks % (Auto) 4.9 % Eos % (Auto) 0.0 % Baso % (Auto) 0.1 % Neut # (Auto) 9.84 H (1.4-6.5) K/uL Lymph # (Auto) 0.26 L (1.2-3.4) K/uL Rooks # (Auto) 0.52 (0.11-0.59) K/uL Eos # (Auto) 0.00 (0-0.5) K/uL Baso # (Auto) 0.01 (0-0.2) K/uL Immature Gran # (Auto) 0.04 H (0.00-0.02) K/uL Sodium 138 (136-145) mmol/L Potassium 4.2 (3.5-5.1) mmol/L Chloride 106 (98-107) mmol/L Carbon Dioxide 21 (21-32) mmol/L Anion Gap 11.0 (3-11) BUN 27 H (7-18) mg/dl Creatinine 1.76 H (0.6-1.4) mg/dl Est Cr Clr Drug Dosing 27.2 ml/min Est GFR ( Amer) 39.7 Est GFR (Non-Af Amer) 34.3 BUN/Creatinine Ratio 15.3 (10-20) Glucose 133 H (70-99) mg/dl POC Glucose 135 H (70-99) mg/dl Calcium 8.9 (8.5-10.1) mg/dl Total Bilirubin 0.5 (0.2-1) mg/dl AST 24 (15-37) U/L ALT 21 (12-78) U/L Alkaline Phosphatase 143 H (45-117) U/L Total Protein 6.6 (6.4-8.2) gm/dl Albumin 2.7 L (3.4-5.0) gm/dl Globulin 3.9 (2.5-4.0) gm/dl Albumin/Globulin Ratio 0.7 L (0.9-2) COVID-19 Eval Order SARS-CoV-2, RNA, NAAT (NEGATIVE) 02/28/20 02/28/20 02/28/20 Range/Units 20:16 17:52 14:10 WBC (4.8-10.8) K/uL RBC (4.7-6.1) M/uL Hgb (14.0-18.0) g/dL Hct (42-52) % MCV (80-100) fL MCH (25-34) pg MCHC (32-36) g/dL RDW Std Deviation (36.4-46.3) fL RDW Coeff of Gordo (11.5-14.5) % Plt Count (130-400) K/uL MPV (7.4-10.4) fL Immature Gran % (Auto) % Neut % (Auto) % Lymph % (Auto) % Rooks % (Auto) % Eos % (Auto) % Baso % (Auto) % Neut # (Auto) (1.4-6.5) K/uL Lymph # (Auto) (1.2-3.4) K/uL Rooks # (Auto) (0.11-0.59) K/uL Eos # (Auto) (0-0.5) K/uL Baso # (Auto) (0-0.2) K/uL Immature Gran # (Auto) (0.00-0.02) K/uL Sodium (136-145) mmol/L Potassium (3.5-5.1) mmol/L Chloride (98-107) mmol/L Carbon Dioxide (21-32) mmol/L Anion Gap (3-11) BUN (7-18) mg/dl Creatinine (0.6-1.4) mg/dl Est Cr Clr Drug Dosing ml/min Est GFR ( Amer) Est GFR (Non-Af Amer) BUN/Creatinine Ratio (10-20) Glucose (70-99) mg/dl POC Glucose 87 96 (70-99) mg/dl Calcium (8.5-10.1) mg/dl Total Bilirubin (0.2-1) mg/dl AST (15-37) U/L ALT (12-78) U/L Alkaline Phosphatase (45-117) U/L Total Protein (6.4-8.2) gm/dl Albumin (3.4-5.0) gm/dl Globulin (2.5-4.0) gm/dl Albumin/Globulin Ratio (0.9-2) COVID-19 Eval Order SARS-CoV-2, RNA, NAAT NEGATIVE (NEGATIVE) 02/28/20 02/28/20 02/28/20 Range/Units 14:10 11:39 06:17 WBC 9.26 (4.8-10.8) K/uL RBC 2.83 L (4.7-6.1) M/uL Hgb 8.5 L (14.0-18.0) g/dL Hct 25.8 L (42-52) % MCV 91.2 (80-100) fL MCH 30.0 (25-34) pg MCHC 32.9 (32-36) g/dL RDW Std Deviation 45.2 (36.4-46.3) fL RDW Coeff of [place] 13.8 (11.5-14.5) % Plt Count 246 (130-400) K/uL MPV 9.1 (7.4-10.4) fL Immature Gran % (Auto) 0.2 % Neut % (Auto) 68.9 % Lymph % (Auto) 18.1 % Rooks % (Auto) 10.6 % Eos % (Auto) 2.0 % Baso % (Auto) 0.2 % Neut # (Auto) 6.50 (1.4-6.5) K/uL Lymph # (Auto) 1.71 (1.2-3.4) K/uL Rooks # (Auto) 1.00 H (0.11-0.59) K/uL Eos # (Auto) 0.19 (0-0.5) K/uL Baso # (Auto) 0.02 (0-0.2) K/uL Immature Gran # (Auto) 0.02 (0.00-0.02) K/uL Sodium (136-145) mmol/L Potassium (3.5-5.1) mmol/L Chloride (98-107) mmol/L Carbon Dioxide (21-32) mmol/L Anion Gap (3-11) BUN (7-18) mg/dl Creatinine (0.6-1.4) mg/dl Est Cr Clr Drug Dosing ml/min Est GFR ( Amer) Est GFR (Non-Af Amer) BUN/Creatinine Ratio (10-20) Glucose (70-99) mg/dl POC Glucose 126 H (70-99) mg/dl Calcium (8.5-10.1) mg/dl Total Bilirubin (0.2-1) mg/dl AST (15-37) U/L ALT (12-78) U/L Alkaline Phosphatase (45-117) U/L Total Protein (6.4-8.2) gm/dl Albumin (3.4-5.0) gm/dl Globulin (2.5-4.0) gm/dl Albumin/Globulin Ratio (0.9-2) COVID-19 Eval Order Covid19 IDNow atMMIC SARS-CoV-2, RNA, NAAT (NEGATIVE) PG Care Time/CCT Total # of Minutes Spent Total Time Spent with Patient: Total time spent is greater than 50% in coordination of care (as documented) at patient's floor/unit and/or counseling patient: Coding Level of Care Code 80692 Subseq Hosp Care Lvl 2 Diagnoses Gross hematuria R31.0 Cellulitis L03.116 Laterality: left Site of cellulitis: extremity Site of cellulitis of extremity: lower extremity Anemia D50.0 Anemia type: iron deficiency Iron deficiency anemia type: chronic blood loss Nephrolithiasis N20.0 CAD, multiple vessel I25.10 Aortic valve stenosis, moderate I35.0 History of [facility] (myocardial infarction) I25.2 Hyperlipidemia E78.5 Diabetes mellitus E11.22; N18.3; Z79.4 Diabetes mellitus type: type 2 Diabetes mellitus mcfp insulin use: with mcfp use Diabetes mellitus complication status: with kidney complications Diabetes mellitus complication detail: with chronic kidney disease Chronic kidney disease stage: stage 3 (moderate) CKD (chronic kidney disease), stage III N18.3 Alzheimer's disease G30.9; F02.80 CVA (cerebral vascular accident) I63.9 UTI (urinary tract infection) N39.0 Elevated alkaline phosphatase level R74.8 DVT prophylaxis Z29.9 (1) Cellulitis Laterality: left Site of cellulitis: extremity Site of cellulitis of extremity: lower extremity Qualified Code(s): L03.116 - Cellulitis of left lower limb (2) Anemia Anemia type: iron deficiency Iron deficiency anemia type: chronic blood loss Qualified Code(s): D50.0 - Iron deficiency anemia secondary to blood loss (chronic) (3) Diabetes mellitus Diabetes mellitus type: type 2 Diabetes mellitus terminal carman insulin use: with terminal carman use Diabetes mellitus complication status: with kidney complications Diabetes mellitus complication detail: with chronic kidney disease Chronic kidney disease stage: stage 3 (moderate) Qualified Code(s): E11.22 - Type 2 diabetes mellitus with diabetic chronic kidney disease; N18.3 - Chronic kidney disease, stage 3 (moderate); 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
[2020-02-29] MEDS: DOCUSATE SODIUM/SENNA 50/8.6MG TAB PO SCH (12:10)
[2020-02-29] MEDS: MELATONIN 3 MG TAB PO SCH (20:29)
[2020-02-29] MEDS: QUETIAPINE FUMARATE 25 MG TABLET PO SCH (20:29)
[2020-03-01] MEDS: INSULIN ASPART 100 UNITS/ML 3 ML PEN SC SCH ×4 (07:40→21:02)
[2020-03-01 08:20] LABS: Basophils # (auto) 0.02 K/uL (0-0.2); Basophils % (auto) 0.3 %; Eosinophils # (auto) 0.26 K/uL (0-0.5); Eosinophils % (auto) 3.4 %; Hemoglobin 7.9 g/dL (14.0-18.0); Immature Granulocytes # (auto) 0.05 K/uL (0.00-0.02); Immature Granulocytes % (auto) 0.7 %; Lymphocytes # (auto) 1.56 K/uL (1.2-3.4); Lymphocytes % (auto) 20.7 %; Mean Corpuscular Hemoglobin 30.2 pg (25-34); Mean Corpuscular Hgb Conc 32.9 g/dL (32-36); Mean Corpuscular Volume 91.6 fL (80-100); Mean Platelet Volume 9.1 fL (7.4-10.4); Monocytes # (auto) 0.49 K/uL (0.11-0.59); Monocytes % (auto) 6.5 %; Neutrophils # (auto) 5.16 K/uL (1.4-6.5); Neutrophils % (auto) 68.4 %; Platelet Count 233 K/uL (130-400); RDW Coefficient of Variation 14.3 % (11.5-14.5); RDW Standard Deviation 45.7 fL (36.4-46.3); Red Blood Count 2.62 M/uL (4.7-6.1); White Blood Count 7.54 K/uL (4.8-10.8)
[2020-03-01] MEDS ORDERED: SODIUM CHLORIDE 0.9% 250 ML IV PRN ×2 (08:28→08:35)
[2020-03-01 08:35] LABS: Polychromasia 1+
[2020-03-01 08:46] LABS: Albumin Level 2.7 gm/dl (3.4-5.0); BUN Creatinine Ratio 16.8 (10-20); Creatinine Clr Calc Pharmacy 27.7 ml/min; Est GFR (African American) 40.5; Potassium 4.3 mmol/L (3.5-5.1)
[2020-03-01 08:48] LABS: Albumin Globulin Ratio 0.7 (0.9-2); Bilirubin,Total 0.4 mg/dl (0.2-1); Total Protein 6.7 gm/dl (6.4-8.2)
--- NOTE | 2020-03-01 08:49 | Hospitalist Progress Note ---
Date of Service March 01, 2020 Assessment & Plan (1) Gross hematuria: ?secondary to cystitis versus prostatitis, E. coli on urine culture from 02/16 being treated with cefdinir and continues with hematuria Reviewed last CT abd/pelvis from 02/16 - no repeat ordered per urology Possible evidence of cystitis, hyperdense material within the bladder lumen, possibly represents blood products. Brachii therapy seeds noted in the prostate gland. Bilateral fat-containing inguinal hernias. Right-sided nephrolithiasis, 4 mm, cholelithiasis. * Cefdinir completed * Plavix have been held since 02/16 and aspirin held since 02/21 -- resume when able * Had been undergoing CBI at slow rate * COVID swab negative -- pt from [facility] and need prior to d/c with new cases reported. Had been 90% on RA with reported SOB. * CXR with few bibasilar/subsegmental atelectasis (did have low grade temp eveni ng 02/27, likely secondary to this) --> ordered IS and currently 98% on RA * Urology reconsulted -- appreciate assistance * hbg 7.9 this morning * --> ordered 1 unit PRBC --> patient taken to OR prior to blood being available and will be transfused once back on the floor * NPO for OR today, resumed following * Operative report with large amount of clot, irrigated and evacuated. Multiple lesions and areas of concern assessed --> resection and base of each lesions/edges fulgurated. Bleeding reported as controlled. 22Fr [address] way catheter placed * --> Now draining clear colorless urine * Ok to repeat CBC with AM labs as bleeding now controlled (2) Cellulitis: IMPROVING LLE with area of opened blister to lateral ankle Continue doxycycline (on day 7) Wound RN consulted X-RAY with mild soft tissue swelling, no fracture or dislocation, chronic Achilles tendinosis, postop changes within left ankle c/w tibiotalar fusion with 2 cannulated screws, intact. 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 2) Occlusion of the mid to distal left superficial femoral artery with distal reconstitution. 3) Popliteal artery occlusion. 4) Absent flow within the peroneal artery. 5) Occlusion of the mid to distal anterior tibial artery. Vascular surgery consulted and patient was started on a heparin gtt and subsequently discontinued as no acute limb as this time. Will reach out if status worsens but will need monitored outpatient, ?pletal, resume antiplatelet therapy when able (held due to above), likely tomorrow if blood counts stable (3) Anemia: * Acute blood loss anemia secondary to gross hematuria (as well as heparin as above) given acute drop from baseline * Continuing to hold ASA/Plavix * Hgb low at 7.9 as above (did get 500cc NSS on 02/27 for some dehydration/poor PO intake). * LDH 197 * Iron panel with borderline low iron, 40 but also chronic disease. Did receive Venofer x 3. B12/folate wnl * PRBC as above * Repeat labs in AM (4) Nephrolithiasis: * History of such, 4 mm stone seen on abdominal imaging from 02/16 (5) CAD, multiple vessel: * hx of cardiac stents x 2 placed in November 2016 for ND. Has not followed with cardiology for years, cannot recall name of last cardiology group who followed him. Daughter also unaware of this. * Holding aspirin/Plavix for now --> resume when able * Continue metoprolol XL 25 mg QAM, atorvastatin (6) Aortic valve stenosis, moderate: * Noted worsening , moderate to severe November 2019 compared to 2016. * Could consider repeating ECHO if develops s/sx heart failure * Cautious use of fluids -- euvolemic on exam but getting 1 unit PRBC today for hgb <8 * Continue to monitor (7) History of ND (myocardial infarction): * in November 2016. See above (8) Hyperlipidemia: * Continue statin therapy as above (9) Diabetes mellitus: * BSG 201 on admission -- repeat A1c 10.0 from 11.2 in November 2019 -- uncontrolled * Pharmacy on consult for glycemic management while inpatient * Diabetic education with recommendations to check BSG more often to assess overall trend and most likely will benefit from Novolog with meals if he eats >50% to help maintain better range and improve wound healing/prevent infectious complications * Most recent BSG 99 * Continue to monitor (10) CKD (chronic kidney disease), stage III: * Stable - Baseline Cr appears to be 1.7-1.9 * Cr stable at 1.73 * BMP in AM (11) Alzheimer's disease: * History of such, alert to place and self, has difficulty with recall of events * Cont melatonin and Seroquel HS for sleep with hx of . 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 coli found on urine culture on ER visit on 02/16 * 10-day course of cefdinir 300 mg p.o. once daily which is renal dosing, completed 02/25 * Consider repeat UA given continued increase in WBC and placement of mathew --> trending down on AM labs (14) Elevated alkaline phosphatase level: * with hx gallstones on CTAP. (as well as 4mm kidney stone as above) * RUQ with stones, no acute * Continues to trend down * Continue to monitor (15) DVT prophylaxis: * Teds * No chemical anticoagulation in the setting of hematuria as above CODE: DNR Dispo: OR today as above. From [facility]. Already had negative COVID test prior to OR 03/01 Per therapy, at baseline currently with rec to return to [facility] with 24h care If blood counts stable now that lesions addressed, could be discharged Monday w/wo priyanka with outpatient follow up Admission and Anticipated Discharge Date Admission Date: February 24, 2020 Subjective Patient evaluated later this morning following OR. States he is feeling ok. Denies pain, except when bandage to LLE from blister removed to examine. Tylenol reported effective at controlling his pain. Discussed unit of blood for bleeding but hopeful that now lesions have been addressed in OR and mathew draining clear urine, blood counts should recover. No BM today but did have one yesterday. Denies any difficulty eating/drinking, although had been NPO this morning for OR. Denies fever, chills, chest pain, shortness of breath, abdominal pain, nausea, vomiting or constipation. Agreeable for re-assessment for either mathew removal tomorrow vs exchange for small size prior to discharge back to [facility] with outpatient follow up if stable tomorrwo. Review of Systems Review of Systems: All systems reviewed & are unremarkable except as noted in HPI & below Physical Exam Constitutional: + frail appearing; no acute distress general pallor Eyes: + anicteric sclerae and PERRL ENMT: dry mm Neck: normal visual inspection Respiratory: normal respiratory effort; no respiratory distress and no labored breathing Auscultation: + diminished lung sounds Cardiovascular: Rate/Rhythm: regular rate and regular rhythm Heart Sounds: + murmur (loud systolic ejection murmur with radiation to carotids, III/) Vessels: no JVD Extremities: + abnormal capillary refill (decreased cap refill to LLE, improved) and no calf tenderness Gastrointestinal (Abdomen): normal bowel sounds, soft, nontender, no hepatosplenomegaly Musculoskeletal: Head/Neck/Chest: normocephalic and head atraumatic moves all extremitites Skin: decreased erythema to LLE, still with some warmth. calves non-tender to palpation blister to lateral aspect of LEFT dorsal foot, with dressing and covered with optifoam. improved appearance compared to previous examinations. Neurologic: PERRL, EOMI, accommodation nl, no face palsy, no dysarthria Psychiatric: Orientation: alert and oriented to person; + not oriented to place and + not oriented to time Genitourinary: mathew draining clear colorless urine Lymphatic: no cervical or axillary lymphadenopathy Results & Data Results & Data ([facility]) Vital Signs (Past 12 Hours) Vital Signs Temp Pulse Pulse Resp BP Pulse Ox 03/01/20 07:55 36.5 C 93 H 20 100/52 L 95 03/01/20 07:21 61 03/01/20 03:07 36.7 C 66 19 120/65 98 02/29/20 23:47 78 02/29/20 22:57 37 C 76 19 109/64 98 Laboratory Results 03/01/20 03/01/20 03/01/20 Range/Units 08:00 08:00 07:36 WBC 7.54 (4.8-10.8) K/uL RBC 2.62 L (4.7-6.1) M/uL Hgb 7.9 L (14.0-18.0) g/dL Hct 24.0 L (42-52) % MCV 91.6 (80-100) fL MCH 30.2 (25-34) pg MCHC 32.9 (32-36) g/dL RDW Std Deviation 45.7 (36.4-46.3) fL RDW Coeff of Gordo 14.3 (11.5-14.5) % Plt Count 233 (130-400) K/uL MPV 9.1 (7.4-10.4) fL Immature Gran % (Auto) 0.7 % Neut % (Auto) 68.4 % Lymph % (Auto) 20.7 % Towner % (Auto) 6.5 % Eos % (Auto) 3.4 % Baso % (Auto) 0.3 % Neut # (Auto) 5.16 (1.4-6.5) K/uL Lymph # (Auto) 1.56 (1.2-3.4) K/uL Towner # (Auto) 0.49 (0.11-0.59) K/uL Eos # (Auto) 0.26 (0-0.5) K/uL Baso # (Auto) 0.02 (0-0.2) K/uL Immature Gran # (Auto) 0.05 H (0.00-0.02) K/uL Polychromasia 1+ Sodium 138 (136-145) mmol/L Potassium 4.3 (3.5-5.1) mmol/L Chloride 107 (98-107) mmol/L Carbon Dioxide 22 (21-32) mmol/L Anion Gap 9.0 (3-11) BUN 29 H (7-18) mg/dl Creatinine 1.73 H (0.6-1.4) mg/dl Est Cr Clr Drug Dosing 27.7 ml/min Est GFR ( Amer) 40.5 Est GFR (Non-Af Amer) 35.0 BUN/Creatinine Ratio 16.8 (10-20) Glucose 94 (70-99) mg/dl POC Glucose 96 (70-99) mg/dl Calcium 9.0 (8.5-10.1) mg/dl Magnesium (1.8-2.4) mg/dl Total Bilirubin 0.4 (0.2-1) mg/dl AST 26 (15-37) U/L ALT 19 (12-78) U/L Alkaline Phosphatase 135 H (45-117) U/L Total Protein 6.7 (6.4-8.2) gm/dl Albumin 2.7 L (3.4-5.0) gm/dl Globulin 4.0 (2.5-4.0) gm/dl Albumin/Globulin Ratio 0.7 L (0.9-2) 02/29/20 02/29/20 02/29/20 Range/Units 20:21 16:49 11:38 WBC (4.8-10.8) K/uL RBC (4.7-6.1) M/uL Hgb (14.0-18.0) g/dL Hct (42-52) % MCV (80-100) fL MCH (25-34) pg MCHC (32-36) g/dL RDW Std Deviation (36.4-46.3) fL RDW Coeff of Gordo (11.5-14.5) % Plt Count (130-400) K/uL MPV (7.4-10.4) fL Immature Gran % (Auto) % Neut % (Auto) % Lymph % (Auto) % Towner % (Auto) % Eos % (Auto) % Baso % (Auto) % Neut # (Auto) (1.4-6.5) K/uL Lymph # (Auto) (1.2-3.4) K/uL Towner # (Auto) (0.11-0.59) K/uL Eos # (Auto) (0-0.5) K/uL Baso # (Auto) (0-0.2) K/uL Immature Gran # (Auto) (0.00-0.02) K/uL Polychromasia Sodium (136-145) mmol/L Potassium (3.5-5.1) mmol/L Chloride (98-107) mmol/L Carbon Dioxide (21-32) mmol/L Anion Gap (3-11) BUN (7-18) mg/dl Creatinine (0.6-1.4) mg/dl Est Cr Clr Drug Dosing ml/min Est GFR ( Amer) Est GFR (Non-Af Amer) BUN/Creatinine Ratio (10-20) Glucose (70-99) mg/dl POC Glucose 133 H 143 H 331 H* (70-99) mg/dl Calcium (8.5-10.1) mg/dl Magnesium (1.8-2.4) mg/dl Total Bilirubin (0.2-1) mg/dl AST (15-37) U/L ALT (12-78) U/L Alkaline Phosphatase (45-117) U/L Total Protein (6.4-8.2) gm/dl Albumin (3.4-5.0) gm/dl Globulin (2.5-4.0) gm/dl Albumin/Globulin Ratio (0.9-2) 02/29/20 02/29/20 02/29/20 Range/Units 11:36 07:40 07:40 WBC (4.8-10.8) K/uL RBC (4.7-6.1) M/uL Hgb (14.0-18.0) g/dL Hct (42-52) % MCV (80-100) fL MCH (25-34) pg MCHC (32-36) g/dL RDW Std Deviation (36.4-46.3) fL RDW Coeff of Gordo (11.5-14.5) % Plt Count (130-400) K/uL MPV (7.4-10.4) fL Immature Gran % (Auto) % Neut % (Auto) % Lymph % (Auto) % Towner % (Auto) % Eos % (Auto) % Baso % (Auto) % Neut # (Auto) (1.4-6.5) K/uL Lymph # (Auto) (1.2-3.4) K/uL Towner # (Auto) (0.11-0.59) K/uL Eos # (Auto) (0-0.5) K/uL Baso # (Auto) (0-0.2) K/uL Immature Gran # (Auto) (0.00-0.02) K/uL Polychromasia Sodium (136-145) mmol/L Potassium (3.5-5.1) mmol/L Chloride (98-107) mmol/L Carbon Dioxide (21-32) mmol/L Anion Gap (3-11) BUN (7-18) mg/dl Creatinine (0.6-1.4) mg/dl Est Cr Clr Drug Dosing ml/min Est GFR ( Amer) Est GFR (Non-Af Amer) BUN/Creatinine Ratio (10-20) Glucose (70-99) mg/dl POC Glucose 325 H* (70-99) mg/dl Calcium (8.5-10.1) mg/dl Magnesium 1.9 (1.8-2.4) mg/dl Total Bilirubin 0.5 (0.2-1) mg/dl AST (15-37) U/L ALT (12-78) U/L Alkaline Phosphatase 143 H (45-117) U/L Total Protein 6.6 (6.4-8.2) gm/dl Albumin (3.4-5.0) gm/dl Globulin 3.9 (2.5-4.0) gm/dl Albumin/Globulin Ratio 0.7 L (0.9-2) PG Care Time/CCT Total # of Minutes Spent Total Time Spent with Patient: Total time spent is greater than 50% in coordination of care (as documented) at patient's floor/unit and/or counseling patient: Coding Level of Care Code 34364 Subseq Hosp Care Lvl 2 Diagnoses Gross hematuria R31.0 Cellulitis L03.116 Laterality: left Site of cellulitis: extremity Site of cellulitis of extremity: lower extremity Anemia D50.0 Anemia type: iron deficiency Iron deficiency anemia type: chronic blood loss Nephrolithiasis N20.0 CAD, multiple vessel I25.10 Aortic valve stenosis, moderate I35.0 History of ND (myocardial infarction) I25.2 Hyperlipidemia E78.5 Diabetes mellitus E11.22; N18.3; Z79.4 Chronic kidney disease stage: stage 3 (moderate) Diabetes mellitus complication detail: with chronic kidney disease Diabetes mellitus complication status: with kidney complications Diabetes mellitus manager terminal insulin use: with fci use Diabetes mellitus type: type 2 CKD (chronic kidney disease), stage III N18.3 Alzheimer's disease G30.9; F02.80 CVA (cerebral vascular accident) I63.9 UTI (urinary tract infection) N39.0 Elevated alkaline phosphatase level R74.8 DVT prophylaxis Z29.9 (1) Diabetes mellitus Chronic kidney disease stage: stage 3 (moderate) Diabetes mellitus complication detail: with chronic kidney disease Diabetes mellitus complication status: with kidney complications Diabetes mellitus fci insulin use: with fci use Diabetes mellitus type: type 2 Qualified Code(s): E11.22 - Type 2 diabetes mellitus with diabetic chronic kidney disease; N18.3 - Chronic kidney disease, stage 3 (moderate); Z79.4 - correction (current) use of 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
[2020-03-01] MEDS ORDERED: INSULIN GLARGINE SOLOSTAR 100 UNITS/ML 3 ML PEN SC SCH (09:00)
[2020-03-01] MEDS: PANTOprazole 40 MG in SYRINGE 0 ML IV ONE ×2 (09:20→09:43)
--- NOTE | 2020-03-01 09:40 | Anesthesiology Consultation ---
Date of Service March 01, 2020 Assessment & Plan (1) Encounter for pre-operative examination: Chart Review Chart Review: Acceptable Risk for Surgery Consults Requested none ASA ASA4 Proposed Anesthesia Anesthesia Type: MAC Risk / Benefits Reviewed With: PT / POA / Parent / Guardian, Accepts Plan and Informed Consent Obtained History Surgery Operation Date: 03/01/20 08:00 Proposed Procedures p Laparoscopic Cholecystectomy - Heath Rios MD Height/Weight Height: 5 ft 6 in Weight: 65.7 kg Allergies Allergy/AdvReac Type Severity Reaction Status Date / Time codeine Allergy Mild UNKNOWN Verified 02/24/20 14:00 REACTION gemfibrozil Allergy Verified 02/24/20 14:00 niacin Allergy Verified 02/24/20 14:00 simvastatin Allergy Verified 02/24/20 14:00 Medications Home Medications Medication Instructions Recorded Confirmed Last Taken aspirin 81 mg tablet,delayed 81 mg PO DAILY 01/15/19 02/24/20 02/22/20 release atorvastatin 40 mg tablet 40 mg PO DAILY 01/15/19 02/24/20 Unknown docusate sodium 100 mg capsule 100 mg PO BID 01/15/19 02/24/20 02/22/20 melatonin 3 mg PO HS #0 tab 11/09/19 02/24/20 Unknown metoprolol succinate 25 mg PO QAM #30 tab 11/09/19 02/24/20 02/22/20 Lantus Solostar U-100 Insulin 12 unit SC DAILY 11/24/19 02/24/20 02/22/20 polyethylene glycol 3350 [Miralax] 17 g PO DAILY 11/24/19 02/24/20 Unknown quetiapine 12.5 mg PO HS 11/24/19 02/24/20 Unknown sennosides-docusate sodium 1 tab-cap PO QDL 11/24/19 02/24/20 Unknown [Stimulant Laxative Plus] acetaminophen 650 mg PO QID PRN 02/17/20 02/24/20 02/22/20 06:30 650 mg doxycycline hyclate 100 mg PO BID 5 Days #10 tab 02/22/20 02/24/20 Unknown nitrofurantoin macrocrystal 100 mg PO BID 02/22/20 02/24/20 Unknown Active Medications Generic Name Dose Route Start Last Admin Trade Name Freq PRN Reason Stop Dose Admin Acetaminophen 650 mg 02/24/20 16:05 02/29/20 20:29 Acetaminophen 325 Mg Tab PO 03/25/20 16:04 650 mg Q4H PRN Administration Moderate Pain Atorvastatin Calcium 40 mg 02/25/20 09:00 02/29/20 08:12 Atorvastatin 40 Mg Tab PO 03/26/20 08:59 40 mg DAILY CESAR Administration Docusate Sodium 100 mg 02/24/20 21:00 02/29/20 20:29 Docusate Sodium 100 Mg Cap PO 03/25/20 20:59 100 mg BID CESAR Administration Insulin Aspart 0 units 02/26/20 16:30 03/01/20 07:40 Insulin Aspart 100 Units/Ml 3 Ml Pen SC 03/27/20 16:29 Not Given ACHS CESAR Insulin Glargine 14 units 02/27/20 09:00 02/29/20 08:08 Insulin Glargine Solostar 100 Units/Ml 3 Ml Pen SC 03/26/20 08:59 14 units DAILY CESAR Administration Melatonin 3 mg 02/24/20 21:00 02/29/20 20:29 Melatonin 3 Mg Tab PO 03/25/20 20:59 3 mg HS CESAR Administration Metoprolol Succinate 25 mg 02/25/20 09:00 02/29/20 08:12 Metoprolol Succ 25mg Ext Rel Tab PO 03/26/20 08:59 25 mg QAM CESAR Administration Multivitamins/Minerals 1 tab 02/28/20 17:45 02/29/20 07:53 Cerovite Adv Formula Tab PO 03/29/20 17:44 1 tab QAM CESAR Administration Polyethylene Glycol 17 gm 02/25/20 09:00 02/29/20 07:53 Polyethylene (Miralax) 17 Gm Pack PO 03/26/20 08:59 Not Given DAILY CESAR Quetiapine Fumarate 12.5 mg 02/24/20 21:00 02/29/20 20:29 Quetiapine Fumarate 25 Mg Tablet PO 03/25/20 20:59 12.5 mg HS CESAR Administration Senna/Docusate Sodium 1 tab 02/25/20 11:30 02/29/20 12:10 Docusate Sodium/Senna 50/8.6mg Tab PO 03/26/20 11:29 1 tab QDL CESAR Administration NPO Date Last Intake of Fluids: 03/01/20 Time Last Intake of Fluids: 20:30 Date Last Intake of Solids: 02/29/20 Time Last Intake of Solids: 18:00 Past Medical History Medical History Alzheimer's disease Aortic valve stenosis, moderate CAD, multiple vessel CKD (chronic kidney disease), stage III Diabetes mellitus Diabetes mellitus with kidney disease History of adenomatous polyp of colon 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 History of weight loss excessive Hyperlipidemia Male erectile disorder of organic origin Peripheral arterial disease Senile depressive state Exercise / Class Metabolic Activity III < 4 Walking/Shop/Light housework Past Family History Family History Father Acute myocardial infarction Mother Acute myocardial infarction Family history of suicide Unknown Diabetes Heart disease Hypertension Past Anesthesia History No Hx of Anesthesia Complications and No Family Hx of Anesthesia Complications History of PONV No Hx of PONV and No Hx of Motion Sickness Social History Smoking Status: Former smoker Hx Alcohol Use: No Hx Substance Use: No substance use type: does not use Physical Exam Vital Signs Last Vital Signs Temp 97.7 F 03/01/20 07:55 Pulse 93 H 03/01/20 07:55 Resp 20 03/01/20 07:55 BP 100/52 L 03/01/20 07:55 Pulse Ox 95 03/01/20 07:55 ENMT Mouth: + poor dentition Thyromental Distance: > or= 3.5 Finger Breadths Mallampati Class: II Neck normal visual inspection Respiratory normal respiratory effort Auscultation: lungs clear to auscultation bilaterally Cardiovascular Rate/Rhythm: regular rate and regular rhythm Heart Sounds: + murmur (4/6 VERNA) Testing Laboratory Results 03/01/20 08:00 03/01/20 08:00 PT 11.4 Seconds (9.0-12.0) 02/26/20 03:43 INR 1.1 (0.9-1.1) 02/26/20 03:43 APTT 50.1 Seconds (21.0-31.0) H* 02/26/20 03:43 Hemoglobin A1c 10.0 % (4.5-5.6) H 02/25/20 06:27 Urine Color Red 02/25/20 20:25 Urine Appearance Cloudy (Clear) A 02/25/20 20:25 Urine pH 6.0 (4.5-7.5) 02/25/20 20:25 Ur Specific Scenic 1.020 (1.000-1.030) 02/25/20 20:25 Urine Protein 3+ (Negative) H 02/25/20 20:25 Urine Glucose (UA) 1+ (Negative) H 02/25/20 20:25 Urine Ketones Negative (Negative) 02/25/20 20:25 Urine Nitrite Negative (Negative) 02/25/20 20:25 Ur Leukocyte Esterase 1+ (Negative) H 02/25/20 20:25 Urine WBC (Auto) 1-5 /hpf (0-5) 02/25/20 20:25 Urine RBC (Auto) >30 /hpf (0-4) H 02/25/20 20:25 U Hyaline Cast (Auto) 1-5 /lpf (0-5) 02/25/20 20:25 U Epithel Cells (Auto) 0-5 /lpf (0-5) 02/25/20 20:25 Urine Bacteria (Auto) Negative (Negative) 02/25/20 20:25 Blood Type O Negative 03/01/20 08:39 Antibody Screen NEGATIVE 03/01/20 08:39 02/28/20 16:40 Aerobic Blood Culture - Preliminary Blood No growth in Aerobic bottle after 24 hours. Anaerobic Blood Culture - Preliminary No growth in Anaerobic bottle after 24 hours. 02/28/20 16:35 Aerobic Blood Culture - Preliminary Blood No growth in Aerobic bottle after 24 hours. Anaerobic Blood Culture - Preliminary No growth in Anaerobic bottle after 24 hours. 03/01/20 07:36 POC Glucose 96 Electrocardiogram Date: 02/24/20 Normal sinus rhythm, rate 69 bpm Normal ECG When compared with ECG of 24-NOV-2019 11:00, No significant change was found Confirmed by Eusebio Angeles ([id number]) on 02/25/2020 3:38:23 PM Chest X-Ray Date: 02/28/20 FINDINGS: There are low lung volumes. A few bibasilar linear densities consistent with subsegmental atelectasis. Otherwise, the lungs are clear. No pleural effusions. No pneumothorax. Tortuous thoracic aorta, unchanged. The heart is normal in size. No evidence for pulmonary edema. IMPRESSION: No significant change compared to the prior study. No acute process. Echocardiogram Date: 11/04/19 Borderline concentric LVH. EF 65-70%. No regional wall motion abnormalities. Mod to severe Mild to mod AR Normal estimated PA and RA pressures Compared with prior study on 11/08/2016: has progressed, now moderate to severe.
[2020-03-01] MEDS ORDERED: PROPOFOL IV EMULSION 10 MG/ML 20 ML VIAL IV ONE (09:51)
[2020-03-01] MEDS ORDERED: LIDOCAINE HCL 2% 2 ML VIAL/AMP(20MG/ML) INFIL ONE (09:51)
[2020-03-01] MEDS ORDERED: fentaNYL citrate 100 MCG/2 ML VIAL ONE (09:51)
[2020-03-01] MEDS ORDERED: ONDANSETRON INJ 2 MG/ML 2 ML VIAL IV PRN (10:03)
[2020-03-01] MEDS ORDERED: fentaNYL citrate 100 MCG/2 ML VIAL IV PRN (10:03)
[2020-03-01] MEDS ORDERED: ATROPINE SULFATE 0.1 MG/ML 10ML SYR IV PRN (10:03)
[2020-03-01] MEDS ORDERED: ePHEDrine sulfate 50 MG/ML AMP IV PRN (10:03)
--- NOTE | 2020-03-01 10:18 | Urology Progress Note ---
Date of Service March 01, 2020 Assessment & Plan (1) Gross hematuria: Risks and benefits discussed at length for procedure. These include bleeding, infection, injury to surrounding tissues or organs, and risks associated with anesthesia. Patient states understanding and agrees to proceed. Will sign consent and schedule. Patient is MPOA his daughter has been contacted and is agreeable. Plan for cystoscopy with clot evacuation and possible fulguration under sedation Admission and Anticipated Discharge Date Admission Date: February 24, 2020 Subjective Patient with gross hematuria and clots. Had been exacerbated significantly with episodes frequently prior to this but much worse now that started on anti- coagulant due to DVT. Patient has been tolerating but is having increasing issues. Required transfusion this morning. Has considerable pressure discomfort and pain in the groin and pelvis going in waves. Has considerable amount of clot needs irrigated and has been on continuous CBI with some clearing but continued issues. Required transfusion this morning. Patient has some dementia and memory issues and Andrey GANDHI was contacted. All are agreeable to continue with plan for cystoscopy in the OR to clear clots and possibly fulgurate Review of Systems Review of Systems: All systems reviewed & are unremarkable except as noted in HPI & below Physical Exam Physical Exam: General: Alert in no acute distress. Advanced age. Chronic Medical issues. HEENT: Normocephalic. Inspection normal. Cranial Nerves 2-12 Grossly intact with some hearing issues. Normal inspection of face. Normal inspection of neck. Psychologic: Normal affect. Baseline issues with memory. Respiratory: Nonlabored. No use of accessory muscles. No tachypnea or dyspnea. Cardiovascular: No tachycardia Skin: [place] and Dry. No rashes or visible lesions. Extremities/Lymphatics: Minor Mobility issues. Slow Gait. Abdomen: Soft Non-distended. No rebound or guarding. : Melendez in place draining light pink urine with CBI Results & Data ([facility]) Vital Signs (Past 12 Hours) Vital Signs Temp Pulse Pulse Resp BP Pulse Ox 03/01/20 07:55 36.5 C 93 H 20 100/52 L 95 03/01/20 07:21 61 03/01/20 03:07 36.7 C 66 19 120/65 98 02/29/20 23:47 78 02/29/20 22:57 37 C 76 19 109/64 98 PG Care Time/CCT Total # of Minutes Spent Total Time Spent with Patient: Total time spent is greater than 50% in coordination of care (as documented) at patient's floor/unit and/or counseling patient: Coding Level of Care Code 96681 Subseq Hosp Care Lvl 3 Diagnoses Gross hematuria R31.0
--- NOTE | 2020-03-01 10:20 | Pharmacy Report ---
Glycemic Control Progress Note - Date of Service March 01, 2020 - Scope Glycemic Pharmacist consulted for glycemic control to write orders per [facility] inpatient glycemic control protocol. - Objective Accuchecks BSG(last 24 hours):: 02/29/20 02/29/20 02/29/20 11:36 11:38 16:49 Glucose POC Glucose 325 H* 331 H* 143 H 02/29/20 03/01/20 03/01/20 20:21 07:36 08:00 Glucose 94 POC Glucose 133 H 96 03/01/20 10:09 Glucose POC Glucose 90 HbA1c:: Hemoglobin A1c 10.0 % (4.5-5.6) H 02/25/20 06:27 - Recent Pertinent Medications The patient is currently receiving: * Basal insulin: Lantus 14 units every 24 hours * Correctional Insulin: Novolog Correction per scale ACHS Goal Range: Low 110 mg/dL - High 140 mg/dL Correction Factor: 20 mg/dL/unit * Prandial insulin: Per carb ratio of 1 unit per 7 grams CHO consumed - Outpatient Anti-Diabetic Meds Lantus 12 units daily - Assessment & Plan ASSESSMENT: * See progress note from 02/26/20 for more background info, in short: * Pt receiving SQ basal bolus insulin regimen for hyperglycemia secondary to baseline DM (outpatient regimen on hold). Patient currently NPO for OR. * Patient is currently receiving an average of 37 units of insulin per day * 14 units of basal insulin * 23 units of prandial/correctional insulin * BSGs ranging 133 - 331 mg/dl over the past 24hrs * Changes needed to insulin regimen: * AM Fasting BSG = 96 mg/dl. This is in goal range for patient based on inpatient targets and co-morbidities. Give 7 units today since patient NPO. Otherwise give Lantus 14 units starting again tomorrow. * Post-prandial BSGs are in range therefore no changes needed to CF/CR. Patient's BSG spiked yesterday at lunch > 300 mg/dL which is out of the normal for the patient. Tightened CR yesterday and that appeared to work. * Total daily dose = ~30-40 units. Patient will require less today since he is NPO. PLAN FOR INPATIENT GLYCEMIC CONTROL: * Decreasing Lantus to 7 units SQ for today then resume 14 units qAM * Continuing correction factor of 20 mg/dl/unit * Continuing carb ratio of 1 unit per 7 grams CHO consumed * Continuing goal range of Low 110 mg/dL - High 140 mg/dL * Please note that the plan above was derived based on current level of insulin resistance and hospital stress. These recommendations are appropriate for inpatient admission only. Plan of care upon discharge will need to be reassessed to avoid potential outpatient hypo/hyperglycemia. Thank you.
[2020-03-01] MEDS ORDERED: CEFAZOLIN 1000MG 1,000 MG/7.5 ML SYR IV ONE (10:28)
[2020-03-01] MEDS ORDERED: CEFAZOLIN 250 MG/ML 1 GM VIAL ONE (10:30)
--- NOTE | 2020-03-01 10:46 | Operative Report ---
PG Post Operative Report Pre & Post Diagnosis Operation Date: 03/01/20 08:00 Pre-Op Diagnosis: hematuria Post-Op Diagnosis: hematuria I identified the patient and participated in the time-out.: Yes Procedure Operation Date: 03/01/20 08:00 Actual Procedures p Cystoscopy, Clot Evacuation, Bladder Fulguration, fulguration of prostatic varicosity(Not Applicable) - Shaheen Wellington DO Surgeon Shaheen Wellington, II, DO Coin Machine Collector None Estimated Blood Loss 1 Findings Consistent with Post-Op Diagnosis Multiple irritated bleeding areas on the posterior wall and bladder neck /prostate Specimens None Drains [address] Anesthesia Type MAC Complications none Disposition Disposition: Recovery Room Indications Patient with bladder lesions and clot retention/gross hematuria. Risks and benefits discussed at length. Description of Procedure Patient was consented and brought back to the operating room. Patient was placed under anesthesia in the supine position and moved to the dorsal lithotomy position. Patient was prepped and draped in the regular sterile fashion. A time out was completed. A 30degree Cystoscope was placed into the bladder and the entire bladder was examined. The UO's were identified as well as the bladder neck, trigone, dome, and the other important landmarks. A large amount of clot was irrigated and evacuated. The lesions and areas of concern were identified and area/size was assessed. The resection scope with the fine bipolar loop was selected. The entire lesion was assessed. The lesions and the base of each lesion and the edges were fulgurated and the entire area inspected. All bleeding was controlled. 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 The bladder was inspected a final time. The bladder was emptied. The scope was removed. A [address] catheter was placed. The patient was cleaned, aroused from anesthesia, and transferred to the pacu in stable condition having tolerated the procedure well with no complications. I was present and participated in all aspects of the procedure. The patient will be monitored in the PACU until transferred. I attest to the content of the Intraoperative Record and any orders documented therein. Any exceptions are noted below.
--- NOTE | 2020-03-01 11:10 | Anesthesiology Progress Note ---
Date of Service March 01, 2020 Anesthesia Post Procedure Vital Signs Vital Signs: Temp Pulse Pulse Pulse Resp BP BP 03/01/20 11:05 97.5 F L 68 12 120/62 03/01/20 10:55 76 11 L 108/60 03/01/20 10:48 97.5 F L 78 15 112/57 L 03/01/20 07:55 97.7 F 93 H 20 100/52 L 03/01/20 07:21 61 03/01/20 03:07 98.1 F 66 19 120/65 02/29/20 23:47 78 02/29/20 22:57 98.6 F 76 19 109/64 02/29/20 19:13 98.1 F 76 18 114/69 02/29/20 18:45 74 02/29/20 15:24 66 20 107/54 L 02/29/20 12:00 97.7 F 83 16 114/61 Pulse Ox 03/01/20 11:05 96 03/01/20 10:55 94 03/01/20 10:48 97 03/01/20 07:55 95 03/01/20 07:21 03/01/20 03:07 98 02/29/20 23:47 02/29/20 22:57 98 02/29/20 19:13 95 02/29/20 18:45 02/29/20 15:24 94 02/29/20 12:00 99 Pain Intensity Left Foot: Pain Intensity: 0 Transfer of Care Handoff Completed per policy Notes Mental Status: alert / awake / arousable and participated in evaluation Patient Amnestic to Procedure: Yes Nausea / Vomiting: adequately controlled Pain: adequately controlled Airway Patency, RR, SpO2: stable & adequate BP & HR: stable & adequate Hydration State: stable & adequate Anesthetic Complications: no major complications apparent and Pt Satisfied with anesthetic care
[2020-03-01] MEDS: CEROVITE ADV FORMULA TAB PO SCH (12:01)
[2020-03-01] MEDS: METOPROLOL SUCC 25MG EXT REL TAB PO SCH (12:01)
[2020-03-01] MEDS: ATORVASTATIN 40 MG TAB PO SCH (12:01)
[2020-03-01] MEDS: POLYETHYLENE (MIRALAX) 17 GM PACK PO SCH (12:05)
[2020-03-01] MEDS: DOCUSATE SODIUM 100 MG CAP PO SCH ×2 (12:05→20:46)
[2020-03-01] MEDS: ACETAMINOPHEN 325 MG TAB PO PRN (12:05)
[2020-03-01] MEDS: DOCUSATE SODIUM/SENNA 50/8.6MG TAB PO SCH (12:46)
[2020-03-01] MEDS: MELATONIN 3 MG TAB PO SCH (20:46)
[2020-03-01] MEDS: QUETIAPINE FUMARATE 25 MG TABLET PO SCH (20:46)
[2020-03-02] MEDS: PANTOprazole 40 MG TAB PO SCH (08:28)
[2020-03-02] MEDS: INSULIN ASPART 100 UNITS/ML 3 ML PEN SC SCH ×4 (08:29→21:18)
[2020-03-02] MEDS: ATORVASTATIN 40 MG TAB PO SCH (08:29)
[2020-03-02] MEDS: METOPROLOL SUCC 25MG EXT REL TAB PO SCH (08:30)
[2020-03-02] MEDS: CEROVITE ADV FORMULA TAB PO SCH (08:30)
[2020-03-02] MEDS: INSULIN GLARGINE SOLOSTAR 100 UNITS/ML 3 ML PEN SC SCH (08:33)
[2020-03-02] MEDS: DOCUSATE SODIUM 100 MG CAP PO SCH ×2 (08:36→21:17)
[2020-03-02] MEDS: POLYETHYLENE (MIRALAX) 17 GM PACK PO SCH (08:36)
[2020-03-02 09:29] LABS: Basophils # (auto) 0.01 K/uL (0-0.2); Basophils % (auto) 0.1 %; Eosinophils # (auto) 0.27 K/uL (0-0.5); Eosinophils % (auto) 3.2 %; Hematocrit (blood only) 29.1 % (42-52); Hemoglobin 9.7 g/dL (14.0-18.0); Immature Granulocytes # (auto) 0.03 K/uL (0.00-0.02); Immature Granulocytes % (auto) 0.4 %; Lymphocytes # (auto) 0.91 K/uL (1.2-3.4); Lymphocytes % (auto) 10.9 %; Mean Corpuscular Hemoglobin 30.2 pg (25-34); Mean Corpuscular Hgb Conc 33.3 g/dL (32-36); Mean Corpuscular Volume 90.7 fL (80-100); Mean Platelet Volume 9.2 fL (7.4-10.4); Monocytes # (auto) 0.45 K/uL (0.11-0.59); Monocytes % (auto) 5.4 %; Neutrophils # (auto) 6.68 K/uL (1.4-6.5); Platelet Count 248 K/uL (130-400); RDW Coefficient of Variation 16.3 % (11.5-14.5); RDW Standard Deviation 50.9 fL (36.4-46.3); Red Blood Count 3.21 M/uL (4.7-6.1); White Blood Count 8.35 K/uL (4.8-10.8)
[2020-03-02 09:46] LABS: BUN Creatinine Ratio 13.3 (10-20); Calcium 8.3 mg/dl (8.5-10.1); Est GFR (African American) 42.9; Potassium 4.2 mmol/L (3.5-5.1)
[2020-03-02] MEDS: DOCUSATE SODIUM/SENNA 50/8.6MG TAB PO SCH (12:15)
[2020-03-02] MEDS: ACETAMINOPHEN 325 MG TAB PO PRN (12:15)
--- NOTE | 2020-03-02 12:49 | Pharmacy Report ---
Pharmacy Glycemic Short Note 2 - Date of Service March 02, 2020 - Glycemic Short BSG Results (Last 24 hours): 03/01/20 03/01/20 03/02/20 16:50 20:55 07:25 Glucose POC Glucose 194 H 232 H 109 H 03/02/20 03/02/20 09:09 11:20 Glucose 204 H POC Glucose 176 H OUTPATIENT ANTIDIABETIC REGIMEN: * Lantus 12 units daily * A1c 10% 02/25/20 ASSESSMENT: 03/02 * Am fasting in goal range after Lantus dose reduction yesterday (for NPO status). Patient now ordered a diet, but will continue with lower dose * Two BSG's yesterday >180 mg/dL after diet was resumed and patient consumed ~40 g CHO with lunch and dinner. Will tighten CHO ratio today. 02/27 * Patient received 26 units of insulin yesterday; 14 basal, 12 prandial/correctional * BSGs have been within goal range since lunch yesterday, however patient refused breakfast and lunch today * Basal may need adjusted if patient continues to forego meals, no changes for now 02/26 * Patient admitted with gross heamturia, BSGs ranging from 151-191 yesterday * Fasting this morning 179, slightly above goal, will increase lantus dose this morning and set scale for PM to give up to 1.5 weight based stress * Lunch BSG elevated will slightly tighten carb ratio. PLAN FOR INPATIENT GLYCEMIC CONTROL: * Hold outpatient oral diabetes medications * Basal insulin * Lantus 7-10 units qAM. See MAR for details. * Bolus insulin * NovoLog per scale ACHS or Q6hrs while NPO * Goal Range: Low 110 mg/dL - High 140 mg/dL * Correction Factor: 20 mg/dL/unit * Nutritional / Prandial insulin per carb ratio of 1 unit per 6 grams CHO consumed
--- NOTE | 2020-03-02 15:37 | Hospitalist Progress Note ---
Date of Service March 02, 2020 Assessment & Plan (1) Gross hematuria: ?secondary to cystitis versus prostatitis, E. coli on urine culture from 02/16 being treated with cefdinir and continues with hematuria Reviewed last CT abd/pelvis from 02/16 Possible evidence of cystitis, hyperdense material within the bladder lumen, possibly represents blood products. Brachii therapy seeds noted in the prostate gland. Bilateral fat-containing inguinal hernias. Right-sided nephrolithiasis, 4 mm, cholelithiasis. * Cefdinir completed * Pletal have been held since 02/16 and aspirin held since 02/21 -- resume today after having cystoscopy on 03/01, no hematuria * Had been undergoing CBI at slow rate * COVID swab negative -- pt from [facility] and need prior to d/c with new cases reported. Had been 90% on RA with reported SOB. * CXR with few bibasilar/subsegmental atelectasis (did have low grade temp evening 02/27, likely secondary to this) --> ordered IS and currently 98% on RA * Urology reconsulted -- appreciate assistance * Cystoscopy Operative report from 03/01 with large amount of clot, irrigated and evacuated. Multiple lesions and areas of concern assessed --> resection and base of each lesions/edges fulgurated. Bleeding reported as controlled. 22Fr [address] catheter placed * mathew continues to drain clear urine, no signs of bleeding at all * Hb up to 9.7 today (2) Cellulitis: RESOLVED LLE with area of opened blister to lateral ankle Continue doxycycline (on day 8) Wound RN consulted X-RAY with mild soft tissue swelling, no fracture or dislocation, chronic Achilles tendinosis, postop changes within left ankle c/w tibiotalar fusion with 2 cannulated screws, intact. 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 2) Occlusion of the mid to distal left superficial femoral artery with distal reconstitution. 3) Popliteal artery occlusion. 4) Absent flow within the peroneal artery. 5) Occlusion of the mid to distal anterior tibial artery. Vascular surgery consulted and patient was started on a heparin gtt and subsequently discontinued as no acute limb as this time. Will reach out if status worsens but will need monitored outpatient, resume aspirin and Pletal today (3) Anemia: * Acute blood loss anemia secondary to gross hematuria (as well as heparin as above) given acute drop from baseline * Continuing to hold ASA/Pletal * Hgb low at 7.9, up to 9.7 today after transfused one unit on 03/01 * LDH 197 * Iron panel with borderline low iron, 40 but also chronic disease. Did receive Venofer x 3. B12/folate wnl (4) Nephrolithiasis: * History of such, 4 mm stone seen on abdominal imaging from 02/16 (5) CAD, multiple vessel: * hx of cardiac stents x 2 placed in November 2016 for [place]. Has not followed with cardiology for years, cannot recall name of last cardiology group who followed him. Daughter also unaware of this. * resume aspirin and Pletal today * Continue metoprolol XL 25 mg QAM, atorvastatin (6) Aortic valve stenosis, moderate: * Noted worsening , moderate to severe November 2019 compared to 2017. * Could consider repeating ECHO if develops s/sx heart failure * Cautious use of fluids -- euvolemic on exam but getting 1 unit PRBC today for hgb <8 * Continue to monitor (7) History of [place] (myocardial infarction): * in November 2016. See above (8) Hyperlipidemia: * Continue statin therapy as above (9) Diabetes mellitus: * BSG 201 on admission -- repeat A1c 10.0 from 11.2 in November 2019 -- uncontrolled * Pharmacy on consult for glycemic management while inpatient * Diabetic education with recommendations to check BSG more often to assess overall trend and most likely will benefit from Novolog with meals if he eats >50% to help maintain better range and improve wound healing/prevent infectious complications * Most recent BSG 99 * Continue to monitor for hypoglycemia, no episodes (10) CKD (chronic kidney disease), stage III: * Stable - Baseline Cr appears to be 1.7-1.9 * Cr stable * BMP in AM (11) Alzheimer's disease: * History of such, alert to place and self, has difficulty with recall of events * Cont melatonin and Seroquel HS for sleep with hx of owning. 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 coli found on urine culture on ER visit on 02/16 * 10-day course of cefdinir 300 mg p.o. once daily which is renal dosing, completed 02/25 * Consider repeat UA given continued increase in WBC and placement of mathew --> trending down on AM labs (14) Elevated alkaline phosphatase level: * with hx gallstones on CTAP. (as well as 4mm kidney stone as above) * RUQ with stones, no acute * Continues to trend down * Continue to monitor (15) DVT prophylaxis: * Teds CODE: DNR Dispo: try to improve strength, currently too weak to return to personal fci Admission and Anticipated Discharge Date Admission Date: February 24, 2020 Subjective patient doing well from bladder perspective, no bleeding, no pain after cystosco py yesterday Hb is up to 9.7 from 7.9 yesterday prior to transfusion he is eating well main complaint is pain in left foot/leg when he walks, otherwise he has no pain discussed with him and updated his daughter Leann over the phone that he has severe PAD and has claudication his feet are warm, well perfused discussed with urology, okay to resume antiplatelet therapy with aspirin and Pletal reviewed chart, vascular surgery evaluated patient earlier in stay, no need for intervention at this time discussed with CM, they spoke with Luis Cooper, they would like him to go to rehab prior to going back to personal care his daughter is concerned that he won't participate due to claudication Review of Systems Review of Systems: All systems reviewed & are unremarkable except as noted in Subjective Physical Exam Constitutional: WD/WN, vitals as above Eyes: PERRL, conjunctivae normal, anicteric sclerae ENMT: external ear and nose normal, oropharynx normal Neck: trachea midline, no thyromegaly Respiratory: normal respiratory effort, lungs clear to auscultation Cardiovascular: RRR, no murmur, no edema Gastrointestinal (Abdomen): normal bowel sounds, soft, nontender, no hepatosplenomegaly Musculoskeletal: Head/Neck/Chest: normocephalic, head atraumatic and neck supple Extremities: + abnormal strength (generalized weakness) and + muscle atrophy (lower legs); + extremities abnormal to inspection (legs markedly skinny), no cyanosis, no clubbing and no petechiae Skin: + wound (left foot) Neurologic: patellar DTR's 2+ bilat, sensation intact and PERRL, EOMI, accommodation nl, no face palsy, no dysarthria Psychiatric: A+Ox3, euthymic affect Lymphatic: no cervical or axillary lymphadenopathy Results & Data Results & Data ([facility]) Vital Signs (Past 12 Hours) Vital Signs Temp Pulse Pulse Resp BP Pulse Ox 03/02/20 15:26 99 H 03/02/20 15:13 36.7 C 86 20 147/72 H 97 03/02/20 10:55 36.4 C L 82 18 151/65 H 97 03/02/20 07:52 36.7 C 86 18 137/56 L 95 03/02/20 07:15 60 03/02/20 05:57 69 Laboratory Results Laboratory Results - last 24 hr 03/01/20 03/01/20 03/02/20 16:50 20:55 07:25 WBC RBC Hgb Hct MCV MCH MCHC RDW Std Deviation RDW Coeff of Gordo Plt Count MPV Immature Gran % (Auto) Neut % (Auto) Lymph % (Auto) Collier % (Auto) Eos % (Auto) Baso % (Auto) Neut # (Auto) Lymph # (Auto) Collier # (Auto) Eos # (Auto) Baso # (Auto) Immature Gran # (Auto) Sodium Potassium Chloride Carbon Dioxide Anion Gap BUN Creatinine Est Cr Clr Drug Dosing Est GFR ( Amer) Est GFR (Non-Af Amer) BUN/Creatinine Ratio Glucose POC Glucose 194 H 232 H 109 H Calcium 03/02/20 03/02/20 03/02/20 09:09 09:09 11:20 WBC 8.35 RBC 3.21 L Hgb 9.7 L Hct 29.1 L MCV 90.7 MCH 30.2 MCHC 33.3 RDW Std Deviation 50.9 H RDW Coeff of Gordo 16.3 H Plt Count 248 MPV 9.2 Immature Gran % (Auto) 0.4 Neut % (Auto) 80.0 Lymph % (Auto) 10.9 Collier % (Auto) 5.4 Eos % (Auto) 3.2 Baso % (Auto) 0.1 Neut # (Auto) 6.68 H Lymph # (Auto) 0.91 L Collier # (Auto) 0.45 Eos # (Auto) 0.27 Baso # (Auto) 0.01 Immature Gran # (Auto) 0.03 H Sodium 139 Potassium 4.2 Chloride 107 Carbon Dioxide 27 Anion Gap 5.0 BUN 22 H Creatinine 1.65 H Est Cr Clr Drug Dosing 29.0 Est GFR ( Amer) 42.9 Est GFR (Non-Af Amer) 37.0 BUN/Creatinine Ratio 13.3 Glucose 204 H POC Glucose 176 H Calcium 8.3 L Medications Administered Current Inpatient Medications Acetaminophen (Acetaminophen 325 Mg Tab) 650 mg PO Q4H PRN PRN Reason: Moderate Pain Stop: 03/25/20 16:04 Last Admin: 03/02/20 12:15 Dose: 650 mg Documented by: Hydrocodone Bitart/Acetaminophen (Hydrocodone/Acetamophen 5/325mg Tab) 1 tab PO Q6H PRN PRN Reason: Pain Stop: 03/11/20 15:38 Atorvastatin Calcium (Atorvastatin 40 Mg Tab) 40 mg PO DAILY [facility] Stop: 03/26/20 08:59 Last Admin: 03/02/20 08:29 Dose: 40 mg Documented by: Bacitracin (Bacitracin Oint 15 Gm Tube) 1 appln EXT Q6H PRN PRN Reason: wound Stop: 03/26/20 11:59 Dextrose (Dextrose 50% 50 Ml Syringe) 25 - 50 ml IV UD PRN; Protocol PRN Reason: Hypoglycemia Protocol Stop: 03/25/20 16:04 Docusate Sodium (Docusate Sodium 100 Mg Cap) 100 mg PO BID [facility] Stop: 03/25/20 20:59 Last Admin: 03/02/20 08:36 Dose: 100 mg Documented by: Glucagon (Glucagon For Inj 1 Mg Vial) 1 mg SQ UD PRN; Protocol PRN Reason: Hypoglycemia Protocol Stop: 03/25/20 16:04 Glucose (Glucose 10 Tabs/Tube) 4 - 8 tabs PO UD PRN; Protocol PRN Reason: Hypoglycemia Protocol Stop: 03/25/20 16:04 Glucose (Glucose 40% Gel 15 Gm Tube) 15 - 30 gm PO UD PRN; Protocol PRN Reason: Hypoglycemia Protocol Stop: 03/25/20 16:04 Insulin Aspart (Insulin Aspart 100 Units/Ml 3 Ml Pen) 0 units SC ACHS [facility]; Protocol Stop: 03/27/20 16:29 Last Admin: 03/02/20 12:10 Dose: 7 units Documented by: Insulin Glargine (Insulin Glargine Solostar 100 Units/Ml 3 Ml Pen) 0 units SC DAILY [facility]; Protocol Stop: 04/01/20 08:59 Last Admin: 03/02/20 08:33 Dose: 7 units Documented by: Levalbuterol HCl (Levalbuterol Hcl 0.63 Mg/3 Ml Neb) 0.63 mg NEB Q6R PRN PRN Reason: shortness of breath or wheezing Stop: 03/29/20 18:59 Melatonin (Melatonin 3 Mg Tab) 3 mg PO [facility] Stop: 03/25/20 20:59 Last Admin: 03/01/20 20:46 Dose: 3 mg Documented by: Metoprolol Succinate (Metoprolol Succ 25mg Ext Rel Tab) 25 mg PO [facility] Stop: 03/26/20 08:59 Last Admin: 03/02/20 08:30 Dose: 25 mg Documented by: Miscellaneous (Carbohydrates For Hypoglycemia ) 15 - 30 gm PO UD PRN PRN Reason: Hypoglycemia Protocol Stop: 03/25/20 16:04 Miscellaneous Information (Pharmacy Glycemic Mgmt Consult) 1 ea N/A UD PRN PRN Reason: Consult Stop: 03/27/20 18:06 Multivitamins/Minerals (Cerovite Adv Formula Tab) 1 tab PO [facility] Stop: 03/29/20 17:44 Last Admin: 03/02/20 08:30 Dose: 1 tab Documented by: Ondansetron HCl (Ondansetron Inj 2 Mg/Ml 2 Ml Vial) 4 mg IV Q4H PRN PRN Reason: Nausea And Vomiting Stop: 03/25/20 16:04 Pantoprazole Sodium (Pantoprazole 40 Mg Tab) 40 mg PO [facility] Stop: 04/01/20 08:59 Last Admin: 03/02/20 08:28 Dose: 40 mg Documented by: Polyethylene Glycol (Polyethylene (Miralax) 17 Gm Pack) 17 gm PO DAILY [facility] Stop: 03/26/20 08:59 Last Admin: 03/02/20 08:36 Dose: 17 gm Documented by: Quetiapine Fumarate (Quetiapine Fumarate 25 Mg Tablet) 12.5 mg PO [facility] Stop: 03/25/20 20:59 Last Admin: 03/01/20 20:46 Dose: 12.5 mg Documented by: Senna/Docusate Sodium (Docusate Sodium/Senna 50/8.6mg Tab) 1 tab PO QDL [facility] Stop: 03/26/20 11:29 Last Admin: 03/02/20 12:15 Dose: 1 tab Documented by: PG Care Time/CCT Total # of Minutes Spent Total Time Spent: 37 Total Time Spent with Patient: Total time spent is greater than 50% in coordination of care (as documented) at patient's floor/unit and/or counseling patient: reviewing chart discussing with urology conversation with patient's daughter over the phone discussions with case management two separate visits with patient Coding Level of Care Code 82363 Subseq Hosp Care Lvl 3 Diagnoses Gross hematuria R31.0 Cellulitis L03.116 Laterality: left Site of cellulitis: extremity Site of cellulitis of extremity: lower extremity Anemia D50.0 Anemia type: iron deficiency Iron deficiency anemia type: chronic blood loss Nephrolithiasis N20.0 CAD, multiple vessel I25.10 Aortic valve stenosis, moderate I35.0 History of [place] (myocardial infarction) I25.2 Hyperlipidemia E78.5 Diabetes mellitus E11.22; N18.3; Z79.4 Chronic kidney disease stage: stage 3 (moderate) Diabetes mellitus complication detail: with chronic kidney disease Diabetes mellitus complication status: with kidney complications Diabetes mellitus costing analyst insulin use: with costing analyst use Diabetes mellitus type: type 2 CKD (chronic kidney disease), stage III N18.3 Alzheimer's disease G30.9; F02.80 CVA (cerebral vascular accident) I63.9 UTI (urinary tract infection) N39.0 Elevated alkaline phosphatase level R74.8 DVT prophylaxis Z29.9 (1) Diabetes mellitus Chronic kidney disease stage: stage 3 (moderate) Diabetes mellitus complication detail: with chronic kidney disease Diabetes mellitus complication status: with kidney complications Diabetes mellitus costing analyst insulin use: with mcfp use Diabetes mellitus type: type 2 Qualified Code(s): E11.22 - Type 2 diabetes mellitus with diabetic chronic kidney disease; N18.3 - Chronic kidney disease, stage 3 (moderate); Z79.4 - 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
--- NOTE | 2020-03-02 15:56 | Urology Progress Note ---
Date of Service March 02, 2020 Assessment & Plan (1) Gross hematuria: (2) S/P radiation therapy: 84 year-old male patient POD #1 cystoscopy, clot evacuation, bladder fulguration, and fulguration of prostatic varicosity performed by Dr. Wellington. -Patient clinically improving post procedure. -Remains afebrile. -Hemoglobin and creatinine improving. -CBI previously discontinued, mathew now draining clear yellow urine. -Will plan to keep mathew catheter for now, consider discontinuing in the next 2- 3 days for voiding trial. -Will continue to follow while inpatient. Admission and Anticipated Discharge Date Admission Date: February 24, 2020 Subjective Patient POD #1 cystoscopy, clot evacuation, bladder fulguration, and fulguration of prostatic varicosity performed by Dr. Wellington. Patient reports he is feeling well. He has been tolerating mathew catheter, CBI no longer running. Mathew catheter now draining clear yellow urine. Denies flank or abdominal pain. Denies nausea or vomiting. Denies fevers or chills. Chart review: Afebrile Wbc 8.35 Hgb 9.7 (previously 7.9) Creatinine 1.65 previously 1.73) Preliminary blood cultures 02/27 no growth after 48 hours. Review of Systems Constitutional: as per Subjective / HPI; no fever and no chills Gastrointestinal: as per Subjective / HPI; no nausea and no vomiting Genitourinary: + as per Subjective / HPI Physical Exam Constitutional: well developed and well nourished; no acute distress and not ill appearing Respiratory: normal respiratory effort and able to speak in complete sentences; no respiratory distress and no audible wheezes Gastrointestinal (Abdomen): Inspection/Auscultation: abdomen normal to inspection; abdomen not distended Percussion/Palpation: abdomen soft; abdomen nontender and no guarding Psychiatric: Orientation: alert, oriented to person, oriented to place and cooperative Affect: euthymic affect Genitourinary: no CVA tenderness Three way mathew catheter intact draining clear yellow urine. Results & Data ([facility]) Vital Signs (Past 12 Hours) Vital Signs Temp Pulse Pulse Resp BP Pulse Ox 03/02/20 15:26 99 H 03/02/20 15:13 36.7 C 86 20 147/72 H 97 03/02/20 10:55 36.4 C L 82 18 151/65 H 97 03/02/20 07:52 36.7 C 86 18 137/56 L 95 03/02/20 07:15 60 03/02/20 05:57 69 PG Care Time/CCT Total # of Minutes Spent Total Time Spent with Patient: Total time spent is greater than 50% in coordination of care (as documented) at patient's floor/unit and/or counseling patient: Coding Level of Care Code 09959 Subseq Hosp Care Lvl 2 Diagnoses Gross hematuria R31.0 S/P radiation therapy Z92.3
[2020-03-02] MEDS: ASPIRIN 81 MG ECTAB PO SCH (16:47)
[2020-03-02] MEDS: cilostazoL 100 MG TAB PO SCH (21:16)
[2020-03-02] MEDS: MELATONIN 3 MG TAB PO SCH (21:16)
[2020-03-02] MEDS: QUETIAPINE FUMARATE 25 MG TABLET PO SCH (21:16)
--- NOTE | 2020-03-03 08:01 | Urology Progress Note ---
Date of Service March 03, 2020 Assessment & Plan (1) Gross hematuria: 84 year-old male patient POD #2 cystoscopy, clot evacuation, bladder fulguration, and fulguration of prostatic varicosity performed by Dr. Wellington. -Patient continues to progress as expected from urologic standpoint. -Remains afebrile. -Mathew catheter intact draining yellow urine with small amount of red sediment. -Will plan to keep mathew catheter for now, okay to discontinue mathew prior to discharge and attempt trial of void. -Plan to continue to follow while inpatient. Admission and Anticipated Discharge Date Admission Date: February 24, 2020 Subjective Patient POD #2 cystoscopy, clot evacuation, bladder fulguration, and fulguration of prostatic varicosity performed by Dr. Wellington. Reports he is "good" this morning, comfortable in bed. Mathew catheter intact, draining yellow urine with small red sediment. He is tolerating catheter well without pain. Denies flank or abdominal pain. Denies nausea or vomiting. Denies fevers or chills. His aspirin was resumed yesterday. Chart review: Afebrile Labs reviewed from 03/02. Preliminary blood cultures 02/27 no growth after 48 hours. Denies additional urologic concerns today. Review of Systems Constitutional: as per Subjective / HPI; no fever and no chills Gastrointestinal: as per Subjective / HPI; no nausea and no vomiting Genitourinary: + as per Subjective / HPI Physical Exam Constitutional: well developed and well nourished; no acute distress and not ill appearing Respiratory: normal respiratory effort and able to speak in complete sentences; no respiratory distress and no audible wheezes Gastrointestinal (Abdomen): Inspection/Auscultation: abdomen normal to inspec tion; abdomen not distended Percussion/Palpation: abdomen soft; abdomen nontender and no guarding Psychiatric: Orientation: alert, oriented to person, oriented to place and cooperative; + not oriented to time Affect: euthymic affect Genitourinary: no CVA tenderness Three way mathew catheter intact draining yellow urine with small amount of red sediment. Results & Data ([facility]) Vital Signs (Past 12 Hours) Vital Signs Temp Pulse Pulse Resp BP Pulse Ox 03/03/20 07:22 86 03/03/20 07:13 36.6 C 87 18 116/69 96 03/03/20 03:25 37.2 C 99 H 18 108/66 95 03/03/20 02:04 95 H 03/02/20 23:26 36.8 C 98 H 18 89/56 L 96 PG Care Time/CCT Total # of Minutes Spent Total Time Spent with Patient: Total time spent is greater than 50% in coordination of care (as documented) at patient's floor/unit and/or counseling patient: Coding Level of Care Code 86924 Subseq Hosp Care Lvl 2 Diagnoses Gross hematuria R31.0
[2020-03-03] MEDS: PANTOprazole 40 MG TAB PO SCH (10:00)
[2020-03-03] MEDS: cilostazoL 100 MG TAB PO SCH (10:00)
[2020-03-03] MEDS: METOPROLOL SUCC 25MG EXT REL TAB PO SCH (10:00)
[2020-03-03] MEDS: DOCUSATE SODIUM 100 MG CAP PO SCH (10:00)
[2020-03-03] MEDS: ASPIRIN 81 MG ECTAB PO SCH (10:00)
[2020-03-03] MEDS: CEROVITE ADV FORMULA TAB PO SCH (10:00)
[2020-03-03] MEDS: ATORVASTATIN 40 MG TAB PO SCH (10:01)
[2020-03-03] MEDS: INSULIN GLARGINE SOLOSTAR 100 UNITS/ML 3 ML PEN SC SCH (10:03)
[2020-03-03] MEDS: INSULIN ASPART 100 UNITS/ML 3 ML PEN SC SCH ×2 (10:04→13:29)
[2020-03-03] MEDS: POLYETHYLENE (MIRALAX) 17 GM PACK PO SCH (10:04)
[2020-03-03] MEDS: DOCUSATE SODIUM/SENNA 50/8.6MG TAB PO SCH (13:30)
--- NOTE | 2020-03-03 15:26 | Discharge Summary ---
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 He has been to the ER twice within the past week with complaints of hematuria. Initially on 02/16 he was found to have e.coli, started on Cefdinir x 14d course. At that time his Plavix was held and was referred to urology. During the second visit on 02/21 he continued to have hematuria- so aspirin was held and scheduled for close follow up with urology (however has not yet seen them as an outpatient) but also complained of left foot pain, and was treated for cellulitis with doxycycline x 5d course. He is noted to have a decreased hemoglobin on 8.8 on outpatient labs today and then 9.4 on recheck here in the ER, compared to his baseline of 12 prior to 1 week ago. He denies lightheadedness, dizziness, palpitations, sob or other acute complaints. He walks at baseline with a walker. His daughter is with him at bedside, and supports the history. Principal Diagnosis Hematuria causing anemia, acute blood loss Discharge Exam Constitutional WD/WN, vitals as above Eyes PERRL, conjunctivae normal, anicteric sclerae ENMT external ear and nose normal, oropharynx normal Neck trachea midline, no thyromegaly Respiratory normal respiratory effort, lungs clear to auscultation Cardiovascular RRR, no murmur, no edema Gastrointestinal (Abdomen) normal bowel sounds, soft, nontender, no hepatosplenomegaly Musculoskeletal Head/Neck/Chest: normocephalic, head atraumatic and neck supple Extremities: + abnormal strength (generalized weakness) and + muscle atrophy (lower legs); + extremities abnormal to inspection (legs markedly skinny), no cyanosis, no clubbing and no petechiae Skin + wound (left foot) Neurologic patellar DTR's 2+ bilat, sensation intact and PERRL, EOMI, accommodation nl, no face palsy, no dysarthria Psychiatric A+Ox3, euthymic affect Lymphatic no cervical or axillary lymphadenopathy Discharge Data Allergies Allergy/AdvReac Type Severity Reaction Status Date / Time codeine Allergy Mild UNKNOWN Verified 02/24/20 14:00 REACTION gemfibrozil Allergy Verified 02/24/20 14:00 niacin Allergy Verified 02/24/20 14:00 simvastatin Allergy Verified 02/24/20 14:00 Consultations 02/24/20 14:02 ED Decision to Admit Stat 02/24/20 16:05 Consult Case Management - Discharge Planning Routine Consult Urology Routine 02/25/20 19:07 Consult Vascular Surgery Stat 02/25/20 19:37 Burn CD for patient Stat 02/27/20 08:25 Consult Urology Routine Procedures Performed Operation Date: 03/01/20 08:00 Actual Procedures p Cystoscopy, Clot Evacuation, Bladder Fulguration(Not Applicable) - Shaheen Wellington, Ordered Studies 02/25/20 14:44 US arterial duplex LE LT Urgent 02/28/20 15:12 US liver Routine Diabetes Follow up Diabetes Follow-up Needed for HgbA1c >9% Hospital Course (1) Gross hematuria: ?secondary to cystitis versus prostatitis, E. coli on urine culture from 02/16 being treated with cefdinir and continues with hematuria Reviewed last CT abd/pelvis from 02/16 Possible evidence of cystitis, hyperdense material within the bladder lumen, possibly represents blood products. Brachii therapy seeds noted in the prostate gland. Bilateral fat-containing inguinal hernias. Right-sided nephrolithiasis, 4 mm, cholelithiasis. * Cefdinir completed * Pletal have been held since 02/16 and aspirin held since 02/21 -- resumed after having cystoscopy on 03/01, no hematuria * Had been undergoing CBI at slow rate * COVID swab negative * CXR with few bibasilar/subsegmental atelectasis (did have low grade temp evening 02/27, likely secondary to this) --> ordered IS and currently 98% on RA * Urology reconsulted -- appreciate assistance * Cystoscopy Operative report from 03/01 with large amount of clot, irrigated and evacuated. Multiple lesions and areas of concern assessed --> resection and base of each lesions/edges fulgurated. Bleeding reported as controlled. 22Fr [address] way catheter placed * mathew continues to drain clear urine, no signs of bleeding at all keep mathew one more day * Hb still up, > 9.5 (2) Cellulitis: RESOLVED LLE with area of opened blister to lateral ankle Continue doxycycline (on day 9) Wound RN consulted X-RAY with mild soft tissue swelling, no fracture or dislocation, chronic Achilles tendinosis, postop changes within left ankle c/w tibiotalar fusion with 2 cannulated screws, intact. 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 2) Occlusion of the mid to distal left superficial femoral artery with distal reconstitution. 3) Popliteal artery occlusion. 4) Absent flow within the peroneal artery. 5) Occlusion of the mid to distal anterior tibial artery. Vascular surgery consulted and patient was started on a heparin gtt and subsequently discontinued as no acute limb as this time. Will reach out if status worsens but will need monitored outpatient, resume aspirin and Pletal patient has claudication of the left leg due to severe PAD explained to his daughter that he will continue to have pain in that leg no role for intervention unless he develops acute ischemic limb, he was seen by vascular surgery (3) Anemia: * Acute blood loss anemia secondary to gross hematuria (as well as heparin as above) given acute drop from baseline * Continuing to hold ASA/Pletal * Hgb low at 7.9, up to 9.7 after transfused one unit on 03/01 * LDH 197 * Iron panel with borderline low iron, 40 but also chronic disease. Did receive Venofer x 3. B12/folate wnl (4) Nephrolithiasis: * History of such, 4 mm stone seen on abdominal imaging from 02/16 (5) CAD, multiple vessel: * hx of cardiac stents x 2 placed in November 2016 for TN. Has not followed with cardiology for years, cannot recall name of last cardiology group who followed him. Daughter also unaware of this. * resume aspirin, start the Pletal for severe PAD * Continue metoprolol XL 25 mg QAM, atorvastatin (6) Aortic valve stenosis, moderate: * Noted worsening , moderate to severe November 2019 compared to 2017. * Could consider repeating ECHO if develops s/sx heart failure * Cautious use of fluids -- euvolemic on exam but getting 1 unit PRBC today for hgb <8 * Continue to monitor (7) History of TN (myocardial infarction): * in November 2016. See above (8) Hyperlipidemia: * Continue statin therapy as above (9) Diabetes mellitus: * BSG 201 on admission -- repeat A1c 10.0 from 11.2 in November 2019 -- uncontrolled * Pharmacy on consult for glycemic management while inpatient * Diabetic education with recommendations to check BSG more often to assess overall trend and most likely will benefit from Novolog with meals if he eats >50% to help maintain better range and improve wound healing/prevent infectious complications * Most recent BSG 99 * Continue to monitor for hypoglycemia, no episodes (10) CKD (chronic kidney disease), stage III: * Stable - Baseline Cr appears to be 1.7-1.9 * Cr stable * BMP in AM (11) Alzheimer's disease: * History of such, alert to place and self, has difficulty with recall of events * Cont melatonin and Seroquel HS for sleep with hx of owning. 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 coli found on urine culture on ER visit on 02/16 * 10-day course of cefdinir 300 mg p.o. once daily which is renal dosing, completed 02/25 (14) Elevated alkaline phosphatase level: * with hx gallstones on CTAP. (as well as 4mm kidney stone as above) * RUQ with stones, no acute * Continues to trend down * Continue to monitor (15) DVT prophylaxis: * Teds CODE: DNR Dispo: go to SNF rehab to improve strength, then go back to personal residential Total Time Total Time Spent Total Time Spent (In Minutes): 32 minutes Total Time Includes: Examination of the Patient, Discharge Planning, Medication Reconciliation and Communication With Other Providers (urology) Discharge Plan Discharge Items Patient Disposition: Transfer Inpatient Rehab Fac Reason For Visit: HEMATURIA Discharge Diagnosis: Hematuria s/p cystoscopy, bladder irrigation, fulguration Severe peripheral artery disease with claudication Condition on Discharge: Good Goals: improve strength and mobility Activity: Resume your previous activity Non-emergency contact: Primary Care Provider Call non-emergency contact if: you have any medication questions and your symptoms worsen [facility] - (one week after discharge from [facility]) Diet: Carb Consistent or DM2 and Heart Healthy Addtl Attending Provider Instructions: Medications: - PLETAL: take twice a day with aspirin for severe peripheral artery disease - DOXYCYCLINE: need to take for 5 more days which will be 14 days total for left lower extremity cellulitis Hematuria: s/p cystoscopy with irrigation, fulguration all bleeding stopped, okay to resume aspirin and Pletal hemoglobin stable at 9.7 keep mathew until 03/05 then can pull at [facility] follow up with Dr. Wellington as needed for any further hematuria or difficulty urinating Claudication, left leg cellulitis, ulcers patient will continue to have pain with ambulating due to severe PAD he was evaluated by vascular surgery, no need for intervention at this time foot is warm, well perfused, only indication for intervention would be limb ischemia continue on aspirin, added Pletal for PAD he used to take Plavix but his coronary stents were placed in 2016 so there is no indication for Plavix anymore finish 5 more days of Doxycycline, no further signs of cellulitis in left leg goal is to improve strength and mobility to return to [facility] Pending Studies at Discharge: No Stand-Alone Forms: My [facility] [address] [employer] Skilled Items Patient informed of condition?: Yes DNR: Yes Discharge Level of Care: Acute rehab Communicable Disease: No Discharge Prognosis: Stable Lines: None Urinary Catheter: Yes (pull on 03/05/20) Medications and DC Order Prescriptions: New cilostazol 100 mg Tablet 100 mg PO BID 30 Days Qty: 60 RF: 3 Continued aspirin [Adult Low Dose Aspirin] 81 mg tablet,delayed release (DR/EC) 81 mg PO DAILY RF: 0 docusate sodium 100 mg capsule 100 mg PO BID RF: 0 atorvastatin [Lipitor] 40 mg tablet 40 mg PO DAILY RF: 0 melatonin 3 mg Tablet 3 mg PO HS Qty: 0 RF: 0 metoprolol succinate 25 mg Tablet Extended Release 24 Hr 25 mg PO QAM Qty: 30 RF: 0 sennosides-docusate sodium [Stimulant Laxative Plus] 8.6-50 mg Tablet 1 tab-cap PO QDL RF: 0 polyethylene glycol 3350 [Miralax] 17 gram/dose Powder 17 g PO DAILY RF: 0 quetiapine 25 mg tablet 12.5 mg PO HS RF: 0 Lantus Solostar U-100 Insulin 100 unit/mL (3 mL) insulin pen 12 unit SC DAILY RF: 0 acetaminophen 325 mg Tablet 650 mg PO QID PRN (Reason: Pain) RF: 0 Discontinued nitrofurantoin macrocrystal 100 mg Capsule 100 mg PO BID RF: 0 doxycycline hyclate 100 mg tablet 100 mg PO BID 5 Days Qty: 10 RF: 0 Discharge Orders: Discharge Order (Routine); Ordered 03/03/20 Ordered By: Mike Tee Admission Data Admit Date/Time: 02/24/20 14:23 Attending Provider: Mike Tee Admit Provider: Nikki Burch Primary Care Provider: [place], [employer] Other Providers: [facility] ; [facility] ; [facility] ; Nikki Burch ; Shaheen Wellington ; Valeriano Reynolds ; Darryn Dejesus Supervising Physician Co-Signing Physician Notes Patient was seen and examined independently I discussed the case with Misty Posada PAC I reviewed pertinent past medical social family history and also the plan of care and agree with the plan of care. Biggest issue is persistent hematuria which likely may be resulting acute blood loss anemia. The patient has low normal iron but also low iron binding capacity suggesting he could be having some anemia of chronic disease underlying his acute blood loss. This could be related to his renal disease from his diabetes. Certainly the rapid reduction in the hemoglobin does claus to the fact that this is acute blood loss anemia, hemolysis could be but less likely. Overall will need discussion with the family on how aggressive we wish to be to try to further evaluate his anemia. Any exceptions will be noted below Coding Level of Care Code D/C Day Management >30 mins Diagnoses Gross hematuria R31.0 Cellulitis L03.116 Laterality: left Site of cellulitis: extremity Site of cellulitis of extremity: lower extremity Anemia D50.0 Anemia type: iron deficiency Iron deficiency anemia type: chronic blood loss Nephrolithiasis N20.0 CAD, multiple vessel I25.10 Aortic valve stenosis, moderate I35.0 History of TN (myocardial infarction) I25.2 Hyperlipidemia E78.5 Diabetes mellitus E11.22; N18.3; Z79.4 Chronic kidney disease stage: stage 3 (moderate) Diabetes mellitus complication detail: with chronic kidney disease Diabetes mellitus complication status: with kidney complications Diabetes mellitus senior care insulin use: with superintendent terminal use Diabetes mellitus type: type 2 CKD (chronic kidney disease), stage III N18.3 Alzheimer's disease G30.9; F02.80 CVA (cerebral vascular accident) I63.9 UTI (urinary tract infection) N39.0 Elevated alkaline phosphatase level R74.8 DVT prophylaxis Z29.9
== END 2020-03-03 15:54 | DRG 666 ==
LOC: ED 11:49 → 2N 14:23 → SUATTDRO 14:23 → 2N 15:30

== ENCOUNTER 2020-07-28 18:39 | Observation (INO) ==
[2020-07-28] MEDS ORDERED: SODIUM CHLORIDE 0.9% 1000ML 1,000 ML IV SCH (19:00)
--- NOTE | 2020-07-28 19:11 | Emergency Department Note ---
Impression & Plan Fever ED Provider Note INFORMANT: Patient ED PROVIDER(S): Raul Villalobos MD CHIEF COMPLAINT: Fever PLAN: Disposition: Admitted Condition: Good Outpatient prescription management: none Referral: None MEDICAL DECISION MAKING: Patient presented to emergency room because of fever. He did not have any specific complaints other than feeling weak. He had a benign abdominal examination. He had no focal neurologic findings. He underwent a work-up. His CBC and chemistry panel were unremarkable. Baseline renal insufficiency. The patient had a urinalysis done and this was significant for infection. Patient was given IV Rocephin. Prior record review indicated that he has had a E. coli UTI in the past that was pansensitive. Covid testing negative. Chest x-ray unremarkable. Patient had consultation made with internal medicine. Patient was evaluated by Dr. Sales of the hospitalist service and admitted for further management. Triage Nursing notes reviewed and agree them. Prior medical records reviewed regarding prior UTIs. E. coli that was pans ensitive noted on cultures. Vital Signs: reviewed and remarkable for no significant abnormalities Differential diagnosis: Viral syndrome, otitis, pharyngitis, pneumonia, influenza, meningitis, urinary tract infection, sepsis, bacteremia, as well as other pathologies. Diagnostics interpreted by me: Cardiac Monitoring: Cardiac monitoring ordered by me: The patient was placed on continuous cardiac monitoring and observed. It revealed a normal sinus rhythm at 81 beats per minute without ectopy or evidence of dysrhythmia. Imaging studies: Chest x-ray. Findings: A chest x-ray was performed and revealed no pneumothorax, effusion, infiltrate, pulmonary edema, free air under the diaphragm, or wide mediastinum. Impression: No acute disease. Consultation(s): Dr. Sales of the hospitalist service HPI: The patient is a 84 year old male who presents to the Emergency Room with complaints of fever. The patient resides at [facility]. He reportedly was doing well yesterday. He received his second Covid immunization. Today he was reported to have a fever of 102. The patient was generally weak and had some mild confusion at times. The patient also notes the following associated symptoms, fatigue and runny nose. The patient has found no relieving factors. Current pain is rated as 0/10. Pt denies LOC, headache, chills, diaphoresis, visual changes, neck pain, chest pain, breathing difficulties, nausea, vomiting, abdominal pain, back pain, melena, hematochezia, urinary symptoms, numbness, lymphadenopathy, rash, or other complaints. ROS: See above HPI for pertinent positives & negatives. A total of 10 systems reviewed and were otherwise negative. PAST MEDICAL HISTORY:See Below , kidney stones, CVA, dementia, UTI PAST SURGICAL HISTORY:See Below, FAMILY HISTORY:See Below SOCIAL HISTORY:See Below, [facility] HOME MEDICATIONS:See Below ALLERGIES:See Below VITALS:See Below PHYSICAL EXAMINATION: GENERAL: Awake, tired-appearing, in no distress HENT: Normocephalic, atraumatic. Oropharynx unremarkable. Clear rhinorrhea noted. EYES: Normal conjunctiva. Sclera non-icteric. NECK: Inspection normal. Non-tender. Supple. No nuchal rigidity. FROM. No masses. RESPIRATORY: Few scattered crackles otherwise clear to auscultation. No wheezes. Normal respiratory effort. CARDIAC: Normal rate. Normal rhythm. No murmurs. No rubs. Extremities warm and well perfused. Pulses equal. No JVD. GI: Soft, non-distended. No tenderness to palpation. No rebound or guarding. No masses. RECTAL: Deferred. MUSCULOSKELETAL: Atraumatic. Chest examination reveals no tenderness. The back is symmetrical on inspection without obvious abnormality. There is no CVA tenderness to palpation. No joint edema. LOWER EXTREMITIES: Calves are equal size bilaterally and non-tender. No edema. No discoloration. NEURO: Mildly confused but otherwise mildly demented sensorium. No focal sensory or motor deficits noted. SKIN: No rash or jaundice noted. 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 History of weight loss excessive Hyperlipidemia Male erectile disorder of organic origin Peripheral arterial disease Senile depressive state Family History Father Acute myocardial infarction Mother Acute myocardial infarction Family history of suicide Unknown Diabetes Heart disease Hypertension Social History Smoking Status: Never smoker Tobacco Type: Cigarettes Second Hand Exposure: No; Hx Alcohol Use: No Hx Substance Use: No Preferred Language: Bengali Communication Ability: Impaired Visual Impairment: Limited Hearing Ability: Hard of Hearing Administrative Tech Required: No Beliefs That Will Affect Care: None marital status: Current Living Situation: Personal Care Facility Current Living Situation Comment: [facility] current occupational status: retired How many Children do You have: 3 Feels Safe at Home: Yes Childhood Exposure to Second-Hand Smoke: Yes Diet Comment: well balanced. caffeine: Yes (Coffee x 2 per day.) during the past year weight has: decreased > 10 lbs Dental Care, Regularly: No Physical Activity Frequency: Does not Exercise Seatbelt Use: always Sunscreen Use: No Assistive Devices: Glasses and Walker Allergies Allergies Allergy/AdvReac Type Severity Reaction Status Date / Time codeine Allergy Mild Unknown Verified 07/28/20 19:08 gemfibrozil Allergy Unknown Unknown Verified 07/28/20 19:08 niacin Allergy Unknown Unknown Verified 07/28/20 19:08 simvastatin Allergy Unknown Unknown Verified 07/28/20 19:08 Home Meds Home Medications Medication Instructions Recorded Confirmed aspirin 81 mg tablet,delayed 81 mg PO DAILY 01/15/19 07/28/20 release atorvastatin 40 mg tablet 40 mg PO DAILY 01/15/19 07/28/20 Lantus Solostar U-100 Insulin 23 unit SC DAILY 11/24/19 07/28/20 polyethylene glycol 3350 [Miralax] 17 g PO DAILY PRN 11/24/19 07/28/20 quetiapine 12.5 mg PO HS 11/24/19 07/28/20 acetaminophen 650 mg PO Q4H PRN 02/17/20 07/28/20 ferrous sulfate 325 mg PO BID 04/05/20 07/28/20 metoprolol succinate 25 mg PO DAILY 04/05/20 07/28/20 docusate sodium [Stool Softener] 100 mg PO BID 07/28/20 07/28/20 Previous Rx's Medication Instructions Recorded melatonin 3 mg PO HS #0 tab 11/09/19 cilostazol 100 mg PO BID 30 Days #60 tab 03/03/20 Results & Data (ED) Vital Signs Vital Signs - 24 hr 07/28/20 18:47 07/28/20 19:05 07/28/20 19:30 Temperature 37.5 C Temperature Source Oral Pulse Rate 105 H 92 H Pulse Rate from SpO2 Sensor 98 H Respiratory Rate 18 18 Respiratory Effort / Characteristics Non-Labored Blood Pressure 142/92 H 143/78 H Blood Pressure Mean 108 99 Pulse Oximetry 97 97 96 Oxygen Delivery Method Room Air Room Air Sepsis Recent Fever Within 48 Hours Yes Sepsis New/Unexplained Change in Mental Status No Sepsis Action Taken by Nursing No Action Required 07/28/20 19:44 07/28/20 19:50 07/28/20 20:00 Temperature Temperature Source Pulse Rate 92 H 91 H 89 Pulse Rate from SpO2 Sensor 92 H 90 88 Respiratory Rate 18 17 17 Respiratory Effort / Characteristics Blood Pressure 137/88 Blood Pressure Mean 104 Pulse Oximetry 90 95 100 Oxygen Delivery Method Sepsis Recent Fever Within 48 Hours Sepsis New/Unexplained Change in Mental Status Sepsis Action Taken by Nursing 07/28/20 20:10 07/28/20 20:20 07/28/20 20:30 Temperature Temperature Source Pulse Rate 90 90 88 Pulse Rate from SpO2 Sensor 90 90 89 Respiratory Rate 18 21 21 Respiratory Effort / Characteristics Blood Pressure 142/79 H Blood Pressure Mean 100 Pulse Oximetry 98 98 97 Oxygen Delivery Method Sepsis Recent Fever Within 48 Hours Sepsis New/Unexplained Change in Mental Status Sepsis Action Taken by Nursing 07/28/20 20:40 07/28/20 20:50 07/28/20 21:00 Temperature Temperature Source Pulse Rate 93 H 91 H 97 H Pulse Rate from SpO2 Sensor 94 H 92 H 97 H Respiratory Rate 17 19 17 Respiratory Effort / Characteristics Blood Pressure Blood Pressure Mean Pulse Oximetry 96 97 100 Oxygen Delivery Method Sepsis Recent Fever Within 48 Hours Sepsis New/Unexplained Change in Mental Status Sepsis Action Taken by Nursing 07/28/20 21:01 07/28/20 21:10 07/28/20 21:31 Temperature Temperature Source Pulse Rate 102 H 98 H 92 H Pulse Rate from SpO2 Sensor 103 H 98 H 92 H Respiratory Rate 21 19 18 Respiratory Effort / Characteristics Blood Pressure 158/76 H 129/67 Blood Pressure Mean 103 87 Pulse Oximetry 100 97 97 Oxygen Delivery Method Room Air Sepsis Recent Fever Within 48 Hours Sepsis New/Unexplained Change in Mental Status Sepsis Action Taken by Nursing 07/28/20 22:00 07/28/20 22:31 07/28/20 23:01 Temperature Temperature Source Pulse Rate 91 H 88 89 Pulse Rate from SpO2 Sensor 91 H Respiratory Rate 17 12 22 Respiratory Effort / Characteristics Blood Pressure 141/77 H 127/83 117/63 Blood Pressure Mean 98 97 81 Pulse Oximetry 96 96 96 Oxygen Delivery Method Room Air Room Air Room Air Sepsis Recent Fever Within 48 Hours Sepsis New/Unexplained Change in Mental Status Sepsis Action Taken by Nursing 07/28/20 23:30 07/29/20 00:01 Temperature Temperature Source Pulse Rate 86 82 Pulse Rate from SpO2 Sensor Respiratory Rate 17 19 Respiratory Effort / Characteristics Blood Pressure 132/71 136/71 Blood Pressure Mean 91 92 Pulse Oximetry 96 96 Oxygen Delivery Method Room Air Room Air Sepsis Recent Fever Within 48 Hours Sepsis New/Unexplained Change in Mental Status Sepsis Action Taken by Nursing Laboratory Data Result diagrams: 07/28/20 18:52 07/28/20 18:52 Lab Results 07/28/20 07/28/20 07/28/20 Range/Units 18:52 18:52 18:52 WBC 5.89 (4.8-10.8) K/uL RBC 4.23 L (4.7-6.1) M/uL Hgb 13.1 L (14.0-18.0) g/dL Hct 38.1 L (42-52) % MCV 90.1 (80-100) fL MCH 31.0 (25-34) pg MCHC 34.4 (32-36) g/dL RDW Std Deviation 44.0 (36.4-46.3) fL RDW Coeff of [place] 13.5 (11.5-14.5) % Plt Count 214 (130-400) K/uL MPV 9.6 (7.4-10.4) fL Immature Gran % (Auto) 0.3 % Neut % (Auto) 73.7 % Lymph % (Auto) 12.9 % [place] % (Auto) 9.7 % Eos % (Auto) 3.1 % Baso % (Auto) 0.3 % Neut # (Auto) 4.34 (1.4-6.5) K/uL Lymph # (Auto) 0.76 L (1.2-3.4) K/uL [place] # (Auto) 0.57 (0.11-0.59) K/uL Eos # (Auto) 0.18 (0-0.5) K/uL Baso # (Auto) 0.02 (0-0.2) K/uL Immature Gran # (Auto) 0.02 (0.00-0.02) K/uL PT 10.5 (9.0-12.0) Seconds INR 1.0 (0.9-1.1) APTT 28.2 (21.0-31.0) Seconds PTT Ratio 1.1 Sodium 134 L (136-145) mmol/L Potassium 4.5 (3.5-5.1) mmol/L Chloride 102 (98-107) mmol/L Carbon Dioxide 25 (21-32) mmol/L Anion Gap 7.0 (3-11) BUN 24 H (7-18) mg/dl Creatinine 2.21 H (0.6-1.4) mg/dl Est Cr Clr Drug Dosing 22.4 ml/min Est GFR ( Amer) 30.1 Est GFR (Non-Af Amer) 26.0 BUN/Creatinine Ratio 11.0 (10-20) Glucose 329 H* (70-99) mg/dl Lactate (0.4-2.0) mmol/L Calcium 8.9 (8.5-10.1) mg/dl Magnesium 1.7 L (1.8-2.4) mg/dl Total Bilirubin 0.4 (0.2-1) mg/dl AST 12 L (15-37) U/L ALT 18 (12-78) U/L Alkaline Phosphatase 203 H (45-117) U/L Troponin I < 0.015 (0-0.045) ng/ml Total Protein 7.7 (6.4-8.2) gm/dl Albumin 3.1 L (3.4-5.0) gm/dl Globulin 4.6 H (2.5-4.0) gm/dl Albumin/Globulin Ratio 0.7 L (0.9-2) Beta-Hydroxybutyric Acd (0.2-2.81) mg/dl Procalcitonin (0-0.5) ng/ml Urine Color Urine Appearance (Clear) Urine pH (4.5-7.5) Ur Specific [place] (1.000-1.030) Urine Protein (Negative) Urine Glucose (UA) (Negative) Urine Ketones (Negative) Urine Blood (Negative) Urine Nitrite (Negative) Urine Bilirubin (Negative) Urine Urobilinogen (Negative) Ur Leukocyte Esterase (Negative) Urine WBC (Auto) (0-5) /hpf Urine RBC (Auto) (0-4) /hpf U Hyaline Cast (Auto) (0-5) /lpf U Epithel Cells (Auto) (0-5) /lpf Urine Bacteria (Auto) (Negative) Urine Yeast COVID-19 Eval Order SARS-CoV-2 (PCR) (Negative) Influenza Type A (PCR) (Neg) Influenza Type B (PCR) (Neg) RSV (RT-PCR) (Neg) 07/28/20 07/28/20 07/28/20 Range/Units 18:52 19:12 19:12 WBC (4.8-10.8) K/uL RBC (4.7-6.1) M/uL Hgb (14.0-18.0) g/dL Hct (42-52) % MCV (80-100) fL MCH (25-34) pg MCHC (32-36) g/dL RDW Std Deviation (36.4-46.3) fL RDW Coeff of [place] (11.5-14.5) % Plt Count (130-400) K/uL MPV (7.4-10.4) fL Immature Gran % (Auto) % Neut % (Auto) % Lymph % (Auto) % [place] % (Auto) % Eos % (Auto) % Baso % (Auto) % Neut # (Auto) (1.4-6.5) K/uL Lymph # (Auto) (1.2-3.4) K/uL [place] # (Auto) (0.11-0.59) K/uL Eos # (Auto) (0-0.5) K/uL Baso # (Auto) (0-0.2) K/uL Immature Gran # (Auto) (0.00-0.02) K/uL PT (9.0-12.0) Seconds INR (0.9-1.1) APTT (21.0-31.0) Seconds PTT Ratio Sodium (136-145) mmol/L Potassium (3.5-5.1) mmol/L Chloride (98-107) mmol/L Carbon Dioxide (21-32) mmol/L Anion Gap (3-11) BUN (7-18) mg/dl Creatinine (0.6-1.4) mg/dl Est Cr Clr Drug Dosing ml/min Est GFR ( Amer) Est GFR (Non-Af Amer) BUN/Creatinine Ratio (10-20) Glucose (70-99) mg/dl Lactate (0.4-2.0) mmol/L Calcium (8.5-10.1) mg/dl Magnesium (1.8-2.4) mg/dl Total Bilirubin (0.2-1) mg/dl AST (15-37) U/L ALT (12-78) U/L Alkaline Phosphatase (45-117) U/L Troponin I (0-0.045) ng/ml Total Protein (6.4-8.2) gm/dl Albumin (3.4-5.0) gm/dl Globulin (2.5-4.0) gm/dl Albumin/Globulin Ratio (0.9-2) Beta-Hydroxybutyric Acd (0.2-2.81) mg/dl Procalcitonin < 0.05 (0-0.5) ng/ml Urine Color Urine Appearance (Clear) Urine pH (4.5-7.5) Ur Specific [place] (1.000-1.030) Urine Protein (Negative) Urine Glucose (UA) (Negative) Urine Ketones (Negative) Urine Blood (Negative) Urine Nitrite (Negative) Urine Bilirubin (Negative) Urine Urobilinogen (Negative) Ur Leukocyte Esterase (Negative) Urine WBC (Auto) (0-5) /hpf Urine RBC (Auto) (0-4) /hpf U Hyaline Cast (Auto) (0-5) /lpf U Epithel Cells (Auto) (0-5) /lpf Urine Bacteria (Auto) (Negative) Urine Yeast COVID-19 Eval Order [facility]FluRsv at [facility] SARS-CoV-2 (PCR) NEGATIVE (Negative) Influenza Type A (PCR) Negative (Neg) Influenza Type B (PCR) Negative (Neg) RSV (RT-PCR) Negative (Neg) 07/28/20 07/28/20 Range/Units 19:24 21:00 WBC (4.8-10.8) K/uL RBC (4.7-6.1) M/uL Hgb (14.0-18.0) g/dL Hct (42-52) % MCV (80-100) fL MCH (25-34) pg MCHC (32-36) g/dL RDW Std Deviation (36.4-46.3) fL RDW Coeff of [place] (11.5-14.5) % Plt Count (130-400) K/uL MPV (7.4-10.4) fL Immature Gran % (Auto) % Neut % (Auto) % Lymph % (Auto) % [place] % (Auto) % Eos % (Auto) % Baso % (Auto) % Neut # (Auto) (1.4-6.5) K/uL Lymph # (Auto) (1.2-3.4) K/uL [place] # (Auto) (0.11-0.59) K/uL Eos # (Auto) (0-0.5) K/uL Baso # (Auto) (0-0.2) K/uL Immature Gran # (Auto) (0.00-0.02) K/uL PT (9.0-12.0) Seconds INR (0.9-1.1) APTT (21.0-31.0) Seconds PTT Ratio Sodium (136-145) mmol/L Potassium (3.5-5.1) mmol/L Chloride (98-107) mmol/L Carbon Dioxide (21-32) mmol/L Anion Gap (3-11) BUN (7-18) mg/dl Creatinine (0.6-1.4) mg/dl Est Cr Clr Drug Dosing ml/min Est GFR ( Amer) Est GFR (Non-Af Amer) BUN/Creatinine Ratio (10-20) Glucose (70-99) mg/dl Lactate 1.6 (0.4-2.0) mmol/L Calcium (8.5-10.1) mg/dl Magnesium (1.8-2.4) mg/dl Total Bilirubin (0.2-1) mg/dl AST (15-37) U/L ALT (12-78) U/L Alkaline Phosphatase (45-117) U/L Troponin I (0-0.045) ng/ml Total Protein (6.4-8.2) gm/dl Albumin (3.4-5.0) gm/dl Globulin (2.5-4.0) gm/dl Albumin/Globulin Ratio (0.9-2) Beta-Hydroxybutyric Acd (0.2-2.81) mg/dl Procalcitonin (0-0.5) ng/ml Urine Color Yellow Urine Appearance Turbid A (Clear) Urine pH 7.5 (4.5-7.5) Ur Specific [place] 1.019 (1.000-1.030) Urine Protein 2+ H (Negative) Urine Glucose (UA) 3+ H (Negative) Urine Ketones Negative (Negative) Urine Blood 2+ H (Negative) Urine Nitrite Negative (Negative) Urine Bilirubin Negative (Negative) Urine Urobilinogen Negative (Negative) Ur Leukocyte Esterase 3+ H (Negative) Urine WBC (Auto) >30 H (0-5) /hpf Urine RBC (Auto) 10-30 H (0-4) /hpf U Hyaline Cast (Auto) 0 (0-5) /lpf U Epithel Cells (Auto) >30 H (0-5) /lpf Urine Bacteria (Auto) 1+ H (Negative) Urine Yeast Not Reportable COVID-19 Eval Order SARS-CoV-2 (PCR) (Negative) Influenza Type A (PCR) (Neg) Influenza Type B (PCR) (Neg) RSV (RT-PCR) (Neg) Administered Medications Discontinued Medications Sodium Chloride (Nss 1000ml) 1,000 mls @ 999 mls/hr IV .[id number] CESAR Stop: 07/28/20 20:00 Last Infusion: 07/28/20 20:23 Dose: 0 mls/hr Documented by: [id number] Admin: 07/28/20 19:19 Dose: 999 mls/hr Documented by: [id number] Ceftriaxone Sodium (Rocephin) 2,000 mg in 70 mls @ 140 mls/hr IV NOW STA Stop: 07/28/20 22:56 Last Infusion: 07/28/20 23:11 Dose: 0 mls/hr Documented by: [id number] Admin: 07/28/20 22:36 Dose: 140 mls/hr Documented by: [id number] Discharge Plan Visit Data Chief Complaint: Illness Stated Complaint: WEAKNESS/LETHARGY ED Provider: Raul Villalobos Discharge Problem: Fever Patient Disposition: Admitted As Inpatient Discharge Instructions Interventions: ED Discharge Assessment Last Done: 07/29/20 01:05
[2020-07-28 19:15] LABS: Basophils # (auto) 0.02 K/uL (0-0.2); Basophils % (auto) 0.3 %; Eosinophils # (auto) 0.18 K/uL (0-0.5); Eosinophils % (auto) 3.1 %; Hematocrit (blood only) 38.1 % (42-52); Hemoglobin 13.1 g/dL (14.0-18.0); Immature Granulocytes # (auto) 0.02 K/uL (0.00-0.02); Immature Granulocytes % (auto) 0.3 %; Lymphocytes # (auto) 0.76 K/uL (1.2-3.4); Lymphocytes % (auto) 12.9 %; Mean Corpuscular Hgb Conc 34.4 g/dL (32-36); Mean Corpuscular Volume 90.1 fL (80-100); Mean Platelet Volume 9.6 fL (7.4-10.4); Monocytes # (auto) 0.57 K/uL (0.11-0.59); Monocytes % (auto) 9.7 %; Neutrophils # (auto) 4.34 K/uL (1.4-6.5); Neutrophils % (auto) 73.7 %; Platelet Count 214 K/uL (130-400); RDW Coefficient of Variation 13.5 % (11.5-14.5); Red Blood Count 4.23 M/uL (4.7-6.1); White Blood Count 5.89 K/uL (4.8-10.8)
[2020-07-28 19:27] LABS: Partial Thromboplastin Ratio 1.1; Partial Thromboplastin Time 28.2 Seconds (21.0-31.0); Prothrombin Time 10.5 Seconds (9.0-12.0)
[2020-07-28 19:51] LABS: Alanine Aminotransferase 18 U/L (12-78); Albumin Globulin Ratio 0.7 (0.9-2); Albumin Level 3.1 gm/dl (3.4-5.0); Alkaline Phosphatase 203 U/L (45-117); Aspartate Aminotransferase 12 U/L (15-37); Bilirubin,Total 0.4 mg/dl (0.2-1); Blood Urea Nitrogen 24 mg/dl (7-18); Calcium 8.9 mg/dl (8.5-10.1); Carbon Dioxide 25 mmol/L (21-32); Chloride 102 mmol/L (98-107); Creatinine Clr Calc Pharmacy 22.4 ml/min; Est GFR (African American) 30.1; Globulin 4.6 gm/dl (2.5-4.0); Glucose 329 mg/dl (70-99); Magnesium 1.7 mg/dl (1.8-2.4); Potassium 4.5 mmol/L (3.5-5.1); Sodium 134 mmol/L (136-145); Total Protein 7.7 gm/dl (6.4-8.2); Troponin I < 0.015 ng/ml (0-0.045)
[2020-07-28 20:08] LABS: Influenza A virus by PCR Negative (Neg); Influenza B virus by PCR Negative (Neg); RSV by PCR Negative (Neg); SARS CoV2 RNA(COVID-19) InHosp NEGATIVE (Negative)
--- NOTE | 2020-07-28 20:18 | XRay Report ---
XR chest 1V portable CLINICAL HISTORY: SEPSIS COMPARISON STUDY: 04/05/2020 FINDINGS: The heart is borderline enlarged. There is aortic tortuosity/ectasia. There is mild elevati on left hemidiaphragm. There are subsegmental left basilar atelectatic changes. There is no failure. There is no acute parenchymal consolidation.[ IMPRESSION: Stable elevation left hemidiaphragm with left basilar subsegmental atelectatic change. No acute findings. ACT 112: Negative or not required by law. Electronically signed by: Scott Garcia M.D. 07/28/2020 8:17 PM
[2020-07-28 21:37] LABS: Appearance Urine Turbid (Clear); Bacteria Urine Automated 1+ (Negative); Bilirubin Urine Negative (Negative); Blood Urine 2+ (Negative); Color Urine Yellow; Epithelial Cell Urine Auto >30 /lpf (0-5); Glucose Urine UA 3+ (Negative); Ketones Urine Negative (Negative); Leukocyte Esterase Urine 3+ (Negative); Nitrite Urine Negative (Negative); Specific Gravity Urine 1.019 (1.000-1.030); Urobilinogen Urine Negative (Negative); WBC Urine Automated >30 /hpf (0-5); pH Urine 7.5 (4.5-7.5)
[2020-07-28 21:47] LABS: Protein Urine 2+ (Negative)
[2020-07-28 21:55] LABS: Cast Urine Automated 0 /lpf (0-5)
[2020-07-28] MEDS ORDERED: cefTRIAXone SODIUM 2,000 MG/70 ML BAG IV STA (22:27)
--- NOTE | 2020-07-28 23:54 | History & Physical Report ---
Date of Service July 28, 2020 Assessment & Plan Admission and Anticipated Discharge Date Admission Date: 84 yo M here with past medical history of PAD, HTN, HLD, DM II, CKD III, CVA, CO s/p 2 stents, Hx. prostate cancer, dementia, depression presents with fever and fatigue found to have complicated UTI and elevated glucose level. Fever 102 at facility, possibly 2/2 COVID vaccine vs. UTI, afebrile in ED, VSS - Tylenol available Complicated UTI, likely 2/2 incontinence with UA turbid, +LCE, +WBC, +Bacteria; prior UTI was henry sensitive E. coli - Ceftriaxone started in ED, continue Q24 - urine culture and sensitivity pending - blood cultures obtained DM II, blood sugar on BMP 329 - 23 lantus now, and 9PM tomorrow - sliding scale insulin - Sodium correction for hyperglycemia - 138 Hx. CO s/p 2 stents - continue Cilostazol, ASA, metoprolol, atorvastatin Chronic normocytic anemia, H&H 13.1 and 38.1 - monitor with AM CBC Dementia - at baseline per family Depression - continue Quetiapine MELANIA on CKD b/l 1.6-2; does not appear to be prerenal given BUN/Cr. - currently cr. 2.2 - NSS 80 ml/h (1 bag) - monitor with BMP Code: full Diet: CC DMII, NSS 80 ml/h (1 bag) DVT: heparin COVID negative 07/29 History of Present Illness Chief Complaint: fever Primary Care Provider: [facility] Faisal Nelson is presenting from [facility] for fever. He has a past medical history of PAD, HTN, HLD, CVA (retrobulbar), CKD III (baseline 1.6-2), Hx. of CAD s/p 2 stents 2/2 CO 11/08/16, Kidney stones, depression, Alzheimer dementia and aortic valve stenosis, and Hx. of prostate cancer. He had a normal temperature at 5:30PM and at 5:45 he was 102F. Daughter was in the room and provided all history and ROS. He denied any question that I asked him about pain, nausea, urinary symptoms. He is baseline incontinent of stool and urine. He has a good appetite. She feels that he is cognitively at his baseline but was looking more tired over the last few days. He knows people but does not remember much and is almost non-verbal. He did have a fall that involved him sliding out of a chair on Monday but there were no injuries from this. He has a runny nose chronically. In February he had a UTI from e. coli that was henry sensitive. Daughter is Leann # [phone], please update on any discharge planning, she was hoping that this would be a relatively short admission. Allergies Allergy/AdvReac Type Severity Reaction Status Date / Time codeine Allergy Mild Unknown Verified 07/28/20 19:08 gemfibrozil Allergy Unknown Unknown Verified 07/28/20 19:08 niacin Allergy Unknown Unknown Verified 07/28/20 19:08 simvastatin Allergy Unknown Unknown Verified 07/28/20 19:08 Home Medications Medication Instructions Recorded Confirmed Type aspirin 81 mg tablet,delayed 81 mg PO DAILY 01/15/19 07/28/20 History release atorvastatin 40 mg tablet 40 mg PO DAILY 01/15/19 07/28/20 History melatonin 3 mg PO HS #0 tab 11/09/19 07/28/20 Rx Lantus Solostar U-100 Insulin 23 unit SC DAILY 11/24/19 07/28/20 History polyethylene glycol 3350 [Miralax] 17 g PO DAILY PRN 11/24/19 07/28/20 History quetiapine 12.5 mg PO HS 11/24/19 07/28/20 History acetaminophen 650 mg PO Q4H PRN 02/17/20 07/28/20 History cilostazol 100 mg PO BID 30 Days #60 tab 03/03/20 07/28/20 Rx ferrous sulfate 325 mg PO BID 04/05/20 07/28/20 History metoprolol succinate 25 mg PO DAILY 04/05/20 07/28/20 History docusate sodium [Stool Softener] 100 mg PO BID 07/28/20 07/28/20 History 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 History of weight loss excessive Hyperlipidemia Male erectile disorder of organic origin Peripheral arterial disease Senile depressive state Family History Father Acute myocardial infarction Mother Acute myocardial infarction Family history of suicide Unknown Diabetes Heart disease Hypertension Social History Smoking Status: Never smoker Tobacco Type: Cigarettes Second Hand Exposure: No; Hx Alcohol Use: No Hx Substance Use: No Preferred Language: Stateless Communication Ability: Impaired Visual Impairment: Limited Hearing Ability: Hard of Hearing Take Down Inspector Required: No Beliefs That Will Affect Care: None marital status: Current Living Situation: Personal Care Facility Current Living Situation Comment: [facility] current occupational status: retired How many Children do You have: 3 Other Information That Helps Us Care for You: No Feels Safe at Home: Yes Safety Concerns: Feels Safe At This Time Childhood Exposure to Second-Hand Smoke: Yes Diet Comment: well balanced. caffeine: Yes (Coffee x 2 per day.) during the past year weight has: decreased > 10 lbs Dental Care, Regularly: No Physical Activity Frequency: Does not Exercise Seatbelt Use: always Sunscreen Use: No Assistive Devices: Glasses and Walker Review of Systems Review of Systems: Unobtainable due to cognitive status Physical Exam Constitutional: well developed; no acute distress Eyes: PERRL, conjunctivae normal, anicteric sclerae ENMT: external ear and nose normal, oropharynx normal Neck: normal visual inspection Respiratory: normal respiratory effort, lungs clear to auscultation Cardiovascular: - regular rate and rhythm, no murmur appreciated Gastrointestinal (Abdomen): normal bowel sounds, soft, nontender, no hepatosplenomegaly Musculoskeletal: - no CVA tenderness bilaterally Skin: no rashes, warm and dry Results & Data Results & Data ([facility]) Vital Signs (Past 12 Hours) Vital Signs Temp Pulse Resp BP Pulse Ox 07/28/20 22:31 88 12 127/83 96 07/28/20 22:00 91 H 17 141/77 H 96 07/28/20 21:31 92 H 18 129/67 97 07/28/20 21:10 98 H 19 97 07/28/20 21:01 102 H 21 158/76 H 100 07/28/20 21:00 97 H 17 100 07/28/20 20:50 91 H 19 97 07/28/20 20:40 93 H 17 96 07/28/20 20:30 88 21 142/79 H 97 07/28/20 20:20 90 21 98 07/28/20 20:10 90 18 98 07/28/20 20:00 89 17 137/88 100 07/28/20 19:50 91 H 17 95 07/28/20 19:44 92 H 18 90 07/28/20 19:30 92 H 18 143/78 H 96 07/28/20 19:05 97 07/28/20 18:47 37.5 C 105 H 18 142/92 H 97 CBC Results Results Complete Blood Count Results: RBC 4.23 M/uL (4.7-6.1) L 07/28/20 WBC 5.89 K/uL (4.8-10.8) 07/28/20 Hgb 13.1 g/dL (14.0-18.0) L 07/28/20 Hct 38.1 % (42-52) L 07/28/20 Plt Count 214 K/uL (130-400) 07/28/20 Chemistry (BMP) Results BMP Results: Sodium 134 mmol/L (136-145) L 07/28/20 Potassium 4.5 mmol/L (3.5-5.1) 07/28/20 Chloride 102 mmol/L (98-107) 07/28/20 BUN 24 mg/dl (7-18) H 07/28/20 Creatinine 2.21 mg/dl (0.6-1.4) H 07/28/20 Glucose 329 mg/dl (70-99) H* 07/28/20 Supervising Physician Co-Signing Physician Notes Patient seen and examined, chart reviewed, case discussed with Dr. Lancaster and I agree wtih his assessment and plan as documented above. Briefly, patient is an 84yo male presenting from his personal longterm with report of fever. Possible source includes recent Covid-19 vaccination, ?UTI. He is also more weak diffusely and lethargic. Daughter feels that he is near his baseline cog nitive status On exam patient offers little history. Follows commands Neck supple, PERRL Heart = S1/S2, regualar, 2/6 VERNA across precordium Lungs - CTA Abd - +BS, soft, NT/ND Ext - No edema Labs and images reviewed. Hyperglycemia, no anion gap, normal lactate Assessment/Plan -Follow cultures -Empiric ceftriaxone -Tylenol, IVF -Lantus and ISS, goal blood sugar 100 - 140 -Remainder of plan as above Resident Activity Tracking Resident Involvement: Resident Care Provided Care Provided: Adult Hospital Medicine
--- NOTE | 2020-07-29 01:34 | Billing Data ---
Date of Service July 29, 2020 Coding Level of Care Code 15653 OBS Care - Level 2
[2020-07-29] MEDS ORDERED: DEXTROSE 50% 50 ML SYRINGE IV PRN (01:42)
[2020-07-29] MEDS ORDERED: SODIUM CHLORIDE 0.9% 1000ML 1,000 ML IV SCH (01:42)
[2020-07-29] MEDS ORDERED: GLUCAGON FOR INJ 1 MG VIAL SQ PRN (01:42)
[2020-07-29] MEDS ORDERED: CARBOHYDRATES FOR HYPOGLYCEMIA PO PRN (01:42)
[2020-07-29] MEDS ORDERED: POLYETHYLENE (MIRALAX) 17 GM PACK PO PRN ×2 (01:42)
[2020-07-29] MEDS ORDERED: INSULIN GLARGINE SOLOSTAR 100 UNITS/ML 3 ML PEN SC SCH ×3 (01:42→21:00)
[2020-07-29] MEDS ORDERED: GLUCOSE 40% GEL 15 GM TUBE PO PRN (01:42)
[2020-07-29] MEDS ORDERED: ACETAMINOPHEN 325 MG TAB PO PRN (01:42)
[2020-07-29] MEDS ORDERED: GLUCOSE 10 TABS/TUBE PO PRN (01:42)
[2020-07-29] MEDS: INSULIN ASPART 100 UNITS/ML 3 ML PEN SC SCH ×5 (04:30→20:13)
[2020-07-29 06:28] LABS: Basophils # (auto) 0.01 K/uL (0-0.2); Basophils % (auto) 0.2 %; Eosinophils # (auto) 0.27 K/uL (0-0.5); Eosinophils % (auto) 4.6 %; Hematocrit (blood only) 35.6 % (42-52); Hemoglobin 12.3 g/dL (14.0-18.0); Immature Granulocytes # (auto) 0.02 K/uL (0.00-0.02); Immature Granulocytes % (auto) 0.3 %; Lymphocytes # (auto) 1.36 K/uL (1.2-3.4); Lymphocytes % (auto) 23.4 %; Mean Corpuscular Hemoglobin 31.1 pg (25-34); Mean Corpuscular Hgb Conc 34.6 g/dL (32-36); Mean Corpuscular Volume 89.9 fL (80-100); Mean Platelet Volume 9.2 fL (7.4-10.4); Monocytes # (auto) 0.68 K/uL (0.11-0.59); Monocytes % (auto) 11.7 %; Neutrophils # (auto) 3.47 K/uL (1.4-6.5); Neutrophils % (auto) 59.8 %; Platelet Count 195 K/uL (130-400); RDW Coefficient of Variation 13.4 % (11.5-14.5); RDW Standard Deviation 43.8 fL (36.4-46.3); Red Blood Count 3.96 M/uL (4.7-6.1); White Blood Count 5.81 K/uL (4.8-10.8)
[2020-07-29 07:01] LABS: BUN Creatinine Ratio 11.2 (10-20); Calcium 8.9 mg/dl (8.5-10.1); Creatinine Clr Calc Pharmacy 26.7 ml/min; Est GFR (African American) 37.1; Potassium 3.9 mmol/L (3.5-5.1)
[2020-07-29] MEDS: HEPARIN SOD 5,000 UNIT/0.5 ML VIAL SQ SCH ×2 (07:55→20:09)
[2020-07-29] MEDS: METOPROLOL SUCC 25MG EXT REL TAB PO SCH (07:55)
[2020-07-29] MEDS: ATORVASTATIN 40 MG TAB PO SCH (07:56)
[2020-07-29] MEDS: ASPIRIN 81 MG ECTAB PO SCH (07:56)
[2020-07-29] MEDS: DOCUSATE SODIUM 100 MG CAP PO SCH ×2 (07:56→20:10)
[2020-07-29] MEDS: cilostazoL 100 MG TAB PO SCH ×2 (07:56→20:10)
--- NOTE | 2020-07-29 08:19 | Hospitalist Progress Note ---
Date of Service July 29, 2020 Assessment & Plan (1) UTI (urinary tract infection): 84 yo M here with past medical history of PAD, HTN, HLD, DM II, CKD III, CVA, CA s/p 2 stents, Hx. prostate cancer, dementia, depression presents with fever and fatigue found to have complicated UTI and elevated glucose level. * Fever of 102F reported at [facility] with fatigue. Hx incontinence * COVID , RSV, flu negative * UA with likely infection ( turbid, +LCE, +WBC, +Bacteria) -- hx of incontinence and E. Coli UTI pansensitive * Placed on Ceftriaxone and will continue * Follow urine cx/s * Blood cultures pending * Tylenol prn * NSS @ 80cc/hr for 1 liter (Cr elevated to 2.2 on admission and repeat this AM 1.8, normal range 1.6-2.0) * ??f/u with ID vs prophylactic abx given repeat UTI/incontinence issues DM II * Blood sugar on BMP 329 on admit * Lantus 23 units now and tonight * ISS while inpatient * BSGs acceptable CAD * Hx. CA s/p 2 stents * Continue Cilostazol, ASA, metoprolol, atorvastatin Anemia * Chronic normocytic anemia, H&H 13.1 and 38.1 * CBC stable as he was on IVF at 12.3/35.6 * No s/sx bleeding currently Dementia * At baseline per family Depression * Continue Quetiapine MELANIA on CKD * b/l 1.6-2; does not appear to be prerenal given BUN/Cr. On admission, cr. 2.2 * NSS 80 ml/hr x 1Liter * BMP with improvement to baseline 1.86 and will d/c IVF in patient with aortic stenosis to prevent volume overload * BMP in AM DVT Prophylaxis * Heparin SQ Dispo: from [facility], to remain inpatient additional 1-2 days (2) Fever: secondary to infection no further fever while inpatient tylenol prn tx UTI as above continue to monitor (3) Weakness: secondary to above Admission and Anticipated Discharge Date Admission Date: July 29, 2020 Subjective BRIDGE NOTE: ADMITTED AFTER MIDNIGHT Patient evaluated this morning. Just got up to the floor overnight. No entirely sure why he is in the hospital. States he knows the year and month, but not able to tell me either. Discussed likely UTI as cause for his weakness on admission and we are awaiting urine cultures. He is ok with calling daughter to provide her with an update. No fever, chills, chest pain, shortness of breath, abdominal pain. Per nursing, patient able to get up into chair this morning and ate his breakfast. No concerns/complaints voiced to them either during this shift. Review of Systems Review of Systems: All systems reviewed & are unremarkable except as noted in HPI & below Physical Exam Constitutional: well developed and comfortable; no acute distress Eyes: + anicteric sclerae and PERRL Neck: normal visual inspection and trachea midline Respiratory: normal respiratory effort, lungs clear to auscultation Cardiovascular: Rate/Rhythm: regular rate and regular rhythm Heart Sounds: + murmur (systolic) Extremities: no edema Gastrointestinal (Abdomen): normal bowel sounds, soft, nontender, no hepatosplenomegaly Musculoskeletal: Head/Neck/Chest: normocephalic and head atraumatic moves all extremities Skin: no rashes, warm and dry Neurologic: PERRL, EOMI, accommodation nl, no face palsy, no dysarthria Psychiatric: Orientation: alert, oriented to person and cooperative; + not oriented to place and + not oriented to time Genitourinary: NO mathew no CVA tenderness Lymphatic: no cervical or axillary lymphadenopathy Results & Data Results & Data ([facility]) Vital Signs (Past 12 Hours) Vital Signs Temp Pulse Pulse Resp BP BP Pulse Ox 07/29/20 07:13 36.9 C 86 18 137/76 97 07/29/20 02:54 37.0 C 84 16 154/79 H 95 07/29/20 00:53 81 18 144/80 H 96 07/29/20 00:01 82 19 136/71 96 07/28/20 23:30 86 17 132/71 96 07/28/20 23:01 89 22 117/63 96 07/28/20 22:31 88 12 127/83 96 07/28/20 22:00 91 H 17 141/77 H 96 07/28/20 21:31 92 H 18 129/67 97 07/28/20 21:10 98 H 19 97 07/28/20 21:01 102 H 21 158/76 H 100 07/28/20 21:00 97 H 17 100 07/28/20 20:50 91 H 19 97 02/23/21 20:40 93 H 17 96 07/28/20 20:30 88 21 142/79 H 97 07/28/20 20:20 90 21 98 PG Care Time/CCT Total # of Minutes Spent Total Time Spent with Patient: Total time spent is greater than 50% in coordination of care (as documented) at patient's floor/unit and/or counseling patient: Coding Level of Care Code None Diagnoses UTI (urinary tract infection) N39.0 Fever R50.9 Weakness R53.1
[2020-07-29] MEDS ORDERED: MAGNESIUM SULFATE / D5W 1 GM/100 ML BAG IV ONE (08:45)
[2020-07-29] MEDS: cefTRIAXone SODIUM 1,000 MG in DEXTROSE 5% 50 ML IV SCH (09:16)
--- NOTE | 2020-07-29 12:06 | Electrocardiogram Report ---
Test Reason : Blood Pressure : / mmHG Vent. Rate : 104 BPM Atrial Rate : 104 BPM P-R Int : 140 ms QRS Dur : 078 ms QT Int : 336 ms P-R-T Axes : 043 -01 067 degrees QTc Int : 441 ms Sinus tachycardia Inferior infarct , age undetermined Abnormal ECG When compared with ECG of 05-APR-2020 07:37, Inferior infarct is now Present Confirmed by Jude Banuelos ([id number]) on 07/29/2020 12:06:32 PM Referred By: [facility] Confirmed By:Markel Banuelos
[2020-07-29 13:24] LABS: Lyme Ab IgM w/WB Rflx Negative (Negative)
[2020-07-29 13:27] LABS: Lyme Ab IgG w/WB Rflx Negative (Negative)
[2020-07-29] MEDS ORDERED: MELATONIN 3 MG TAB PO SCH (21:00)
[2020-07-29] MEDS ORDERED: QUEtiapine FUMARATE 25 MG TABLET PO SCH (21:00)
[2020-07-30 07:39] LABS: Hematocrit (blood only) 38.1 % (42-52); Hemoglobin 13.1 g/dL (14.0-18.0); Mean Corpuscular Hgb Conc 34.4 g/dL (32-36); Mean Corpuscular Volume 90.3 fL (80-100); Mean Platelet Volume 9.3 fL (7.4-10.4); Platelet Count 190 K/uL (130-400); RDW Coefficient of Variation 13.6 % (11.5-14.5); RDW Standard Deviation 44.2 fL (36.4-46.3); Red Blood Count 4.22 M/uL (4.7-6.1); White Blood Count 6.31 K/uL (4.8-10.8)
[2020-07-30 08:07] LABS: Albumin Level 2.8 gm/dl (3.4-5.0); BUN Creatinine Ratio 11.4 (10-20); Calcium 9.3 mg/dl (8.5-10.1); Creatinine Clr Calc Pharmacy 28.3 ml/min; Est GFR (Non-African American) 34.5; Magnesium 2.1 mg/dl (1.8-2.4); Potassium 4.3 mmol/L (3.5-5.1)
[2020-07-30 08:10] LABS: Albumin Globulin Ratio 0.6 (0.9-2); Bilirubin,Total 0.4 mg/dl (0.2-1); Globulin 4.3 gm/dl (2.5-4.0); Total Protein 7.1 gm/dl (6.4-8.2)
[2020-07-30] MEDS: cilostazoL 100 MG TAB PO SCH (08:11)
[2020-07-30] MEDS: DOCUSATE SODIUM 100 MG CAP PO SCH (08:12)
[2020-07-30] MEDS: ASPIRIN 81 MG ECTAB PO SCH (08:12)
[2020-07-30] MEDS: ATORVASTATIN 40 MG TAB PO SCH (08:13)
[2020-07-30] MEDS: HEPARIN SOD 5,000 UNIT/0.5 ML VIAL SQ SCH (08:13)
[2020-07-30] MEDS: METOPROLOL SUCC 25MG EXT REL TAB PO SCH (08:14)
[2020-07-30] MEDS: INSULIN ASPART 100 UNITS/ML 3 ML PEN SC SCH (08:15)
--- NOTE | 2020-07-30 08:44 | Hospitalist Progress Note ---
Date of Service July 30, 2020 Assessment & Plan Admission and Anticipated Discharge Date Admission Date: July 29, 2020 Results & Data Results & Data ([facility]) Vital Signs (Past 12 Hours) Vital Signs Temp Pulse Resp BP Pulse Ox 07/30/20 07:23 36.4 C L 83 18 148/87 H 97 07/30/20 00:00 36.5 C 95 H 18 136/89 93 Laboratory Results 07/30/20 07/30/20 07/30/20 Range/Units 07:43 07:03 07:03 WBC 6.31 (4.8-10.8) K/uL RBC 4.22 L (4.7-6.1) M/uL Hgb 13.1 L (14.0-18.0) g/dL Hct 38.1 L (42-52) % MCV 90.3 (80-100) fL MCH 31.0 (25-34) pg MCHC 34.4 (32-36) g/dL RDW Std Deviation 44.2 (36.4-46.3) fL RDW Coeff of Gordo 13.6 (11.5-14.5) % Plt Count 190 (130-400) K/uL MPV 9.3 (7.4-10.4) fL Sodium 141 (136-145) mmol/L Potassium 4.3 (3.5-5.1) mmol/L Chloride 110 H (98-107) mmol/L Carbon Dioxide 27 (21-32) mmol/L Anion Gap 5.0 (3-11) BUN 20 H (7-18) mg/dl Creatinine 1.75 H (0.6-1.4) mg/dl Est Cr Clr Drug Dosing 28.3 ml/min Est GFR ( Amer) 40.0 Est GFR (Non-Af Amer) 34.5 BUN/Creatinine Ratio 11.4 (10-20) Glucose 96 (70-99) mg/dl POC Glucose 92 (70-99) mg/dl Calcium 9.3 (8.5-10.1) mg/dl Magnesium 2.1 (1.8-2.4) mg/dl Total Bilirubin 0.4 (0.2-1) mg/dl AST 12 L (15-37) U/L ALT 18 (12-78) U/L Alkaline Phosphatase 191 H (45-117) U/L Total Protein 7.1 (6.4-8.2) gm/dl Albumin 2.8 L (3.4-5.0) gm/dl Globulin 4.3 H (2.5-4.0) gm/dl Albumin/Globulin Ratio 0.6 L (0.9-2) Lyme Disease IgG Ab (Negative) Lyme Disease IgM Ab (Negative) 07/29/20 07/29/20 07/29/20 Range/Units 20:11 16:50 11:48 WBC (4.8-10.8) K/uL RBC (4.7-6.1) M/uL Hgb (14.0-18.0) g/dL Hct (42-52) % MCV (80-100) fL MCH (25-34) pg MCHC (32-36) g/dL RDW Std Deviation (36.4-46.3) fL RDW Coeff of Gordo (11.5-14.5) % Plt Count (130-400) K/uL MPV (7.4-10.4) fL Sodium (136-145) mmol/L Potassium (3.5-5.1) mmol/L Chloride (98-107) mmol/L Carbon Dioxide (21-32) mmol/L Anion Gap (3-11) BUN (7-18) mg/dl Creatinine (0.6-1.4) mg/dl Est Cr Clr Drug Dosing ml/min Est GFR ( Amer) Est GFR (Non-Af Amer) BUN/Creatinine Ratio (10-20) Glucose (70-99) mg/dl POC Glucose 207 H 160 H (70-99) mg/dl Calcium (8.5-10.1) mg/dl Magnesium (1.8-2.4) mg/dl Total Bilirubin (0.2-1) mg/dl AST (15-37) U/L ALT (12-78) U/L Alkaline Phosphatase (45-117) U/L Total Protein (6.4-8.2) gm/dl Albumin (3.4-5.0) gm/dl Globulin (2.5-4.0) gm/dl Albumin/Globulin Ratio (0.9-2) Lyme Disease IgG Ab Negative (Negative) Lyme Disease IgM Ab Negative (Negative) 02/24/21 Range/Units 11:32 WBC (4.8-10.8) K/uL RBC (4.7-6.1) M/uL Hgb (14.0-18.0) g/dL Hct (42-52) % MCV (80-100) fL MCH (25-34) pg MCHC (32-36) g/dL RDW Std Deviation (36.4-46.3) fL RDW Coeff of Gordo (11.5-14.5) % Plt Count (130-400) K/uL MPV (7.4-10.4) fL Sodium (136-145) mmol/L Potassium (3.5-5.1) mmol/L Chloride (98-107) mmol/L Carbon Dioxide (21-32) mmol/L Anion Gap (3-11) BUN (7-18) mg/dl Creatinine (0.6-1.4) mg/dl Est Cr Clr Drug Dosing ml/min Est GFR ( Amer) Est GFR (Non-Af Amer) BUN/Creatinine Ratio (10-20) Glucose (70-99) mg/dl POC Glucose 239 H (70-99) mg/dl Calcium (8.5-10.1) mg/dl Magnesium (1.8-2.4) mg/dl Total Bilirubin (0.2-1) mg/dl AST (15-37) U/L ALT (12-78) U/L Alkaline Phosphatase (45-117) U/L Total Protein (6.4-8.2) gm/dl Albumin (3.4-5.0) gm/dl Globulin (2.5-4.0) gm/dl Albumin/Globulin Ratio (0.9-2) Lyme Disease IgG Ab (Negative) Lyme Disease IgM Ab (Negative) PG Care Time/CCT Total # of Minutes Spent Total Time Spent with Patient: Total time spent is greater than 50% in coordination of care (as documented) at patient's floor/unit and/or counseling patient: Coding
[2020-07-30] MEDS: cefTRIAXone SODIUM 1,000 MG in DEXTROSE 5% 50 ML IV SCH (10:02)
--- NOTE | 2020-07-30 11:08 | Discharge Summary ---
Date of Service July 30, 2020 Admission HPI Per Admitting Provider Faisal Nelson is presenting from [facility] for fever. He has a past medical history of PAD, HTN, HLD, CVA (retrobulbar), CKD III (baseline 1.6-2), Hx. of CAD s/p 2 stents /2 SD 11/08/16, Kidney stones, depression, Alzheimer dementia and aortic valve stenosis, and Hx. of prostate cancer. He had a normal temperature at 5:30PM and at 5:45 he was 102F. Daughter was in the room and provided all history and ROS. He denied any question that I asked him about pain, nausea, urinary symptoms. He is baseline incontinent of stool and urine. He has a good appetite. She feels that he is cognitively at his baseline but was looking more tired over the last few days. He knows people but does not remember much and is almost non-verbal. He did have a fall that involved him sliding out of a chair on Monday but there were no injuries from this. He has a runny nose chronically. In February he had a UTI from e. coli that was henry sensitive. Daughter is Leann # [phone], please update on any discharge planning, she was hoping that this would be a relatively short admission. Admission Exam Per Admitting Provider Constitutional: well developed; no acute distress Eyes: PERRL, conjunctivae normal, anicteric sclerae ENMT: external ear and nose normal, oropharynx normal Neck: normal visual inspection Respiratory: normal respiratory effort, lungs clear to auscultation Cardiovascular: - regular rate and rhythm, no murmur appreciated Gastrointestinal (Abdomen): normal bowel sounds, soft, nontender, no he patosplenomegaly Musculoskeletal: - no CVA tenderness bilaterally Skin: no rashes, warm and dry Principal Diagnosis Fever Discharge Exam Constitutional well developed and comfortable; no acute distress Eyes + anicteric sclerae and PERRL ENMT Ears: no hearing impairment and no external ear abnormality Neck normal visual inspection and trachea midline Respiratory normal respiratory effort, lungs clear to auscultation Cardiovascular RRR, no murmur, no edema Rate/Rhythm: regular rate and regular rhythm Heart Sounds: + murmur (systolic) Extremities: no edema Gastrointestinal (Abdomen) normal bowel sounds, soft, nontender, no hepatosplenomegaly Musculoskeletal Head/Neck/Chest: normocephalic and head atraumatic Neurologic PERRL, EOMI, accommodation nl, no face palsy, no dysarthria Psychiatric Orientation: alert, oriented to person and cooperative; + not oriented to place and + not oriented to time Lymphatic no cervical or axillary lymphadenopathy Discharge Data Allergies Allergy/AdvReac Type Severity Reaction Status Date / Time codeine Allergy Mild Unknown Verified 07/28/20 19:08 gemfibrozil Allergy Unknown Unknown Verified 07/28/20 19:08 niacin Allergy Unknown Unknown Verified 07/28/20 19:08 simvastatin Allergy Unknown Unknown Verified 07/28/20 19:08 Ordered Studies CXR Hospital Course (1) UTI (urinary tract infection): 84 yo M here with past medical history of PAD, HTN, HLD, DM II, CKD III, CVA, SD s/p 2 stents, Hx. prostate cancer, dementia, depression presents with fever and fatigue found to have complicated UTI and elevated glucose level. * Fever of 102F reported at [facility] with fatigue. Hx incontinence, Did just receive 2nd dose Covid vaccine day prior which is likely cause of fever * COVID , RSV, flu negative * UA with likely infection ( turbid, +LCE, +WBC, +Bacteria) -- hx of inconti nence and E. Coli UTI pansensitive * Placed on Ceftriaxone and continued until urine culture final, no growth * Blood cultures NGTD prelim * Tylenol prn * NSS @ 80cc/hr for 1 liter (Cr elevated to 2.2 on admission and repeat this AM 1.75, normal range 1.6-2.0) * Consider f/u ID outpatient if continues to have UTIs with his urinary incontinence DM II * ISS while inpatient. BSGs acceptable. Resumed home medications at discharge CAD * Hx. SD s/p 2 stents * Continued Cilostazol, ASA, metoprolol, atorvastatin Anemia * Chronic normocytic anemia * h/h stable Dementia * At baseline per family Depression * Continued Quetiapine MELANIA on CKD * b/l 1.6-2; does not appear to be prerenal given BUN/Cr. On admission, cr. 2.2 * NSS 80 ml/hr x 1Liter * BMP with improvement to baseline 1.75 despite IVF discontinued 07/29 DVT Prophylaxis * Heparin SQ while inpatient Discharged back to [facility] with daughter. (2) Fever: secondary to vaccination no further fever while inpatient tylenol prn (3) Weakness: secondary to above Total Time Total Time Spent Total Time Spent (In Minutes): 60 Discharge Plan Discharge Items Patient Disposition: Personal Intermediate Reason For Visit: UTI Discharge Diagnosis: Fever, Possible UTI Goals: You have been hospitalized for an acute medical problem. During your stay at [facility], we have made an effort to correct the problem that brought you to the hospital while keeping you as comfortable as possible. Medications were used to bring your condition under control and your discharge instructions will include directions for any medications you should take after leaving the hospital. Please make sure you see your Primary Care Provider as part of your follow up plan. Activity: Resume your previous activity Non-emergency contact: Primary Care Provider Call non-emergency contact if: you have any medication questions and your symptoms worsen [facility]Ref[facility] - Diet: Carb Consistent or DM2 and Heart Healthy Addtl Attending Provider Instructions: You have been hospitalized for a fever. It was suspected due to a urinary tract infection and you were placed on IV antibiotic until bacteria was isolated. Final urine cultures have been negative for growth and it is not felt you need any further antibiotics at this time. If you notice symptoms in the future given your incontinence, it may be a good idea to inquire Luis Cooper about follow up with infectious disease for possible daily prophylactic dosing of an antibiotic if he develops more infections this year. Chest imaging was negative for any pneumonia and labs are not indicative for infection. It is suspected that your fever may have been a result of recent COVID vaccination and you have not had any further fevers since admission. You can continue to utilize Tylenol as needed for fever/pain but this should resolve over the course as expected. Please follow up with PCP in the next week. Return to the emergency department if you have any worsening weakness, confusion, or for any other symptoms that are concerning for you. It has been a pleasure being a part of the medical team providing for you while you have been in the hospital. Take care! Pending Studies at Discharge: Yes Studies:: Blood cultures -- no growth to date Stand-Alone Forms: My [facility] Skilled Items Patient informed of condition?: Yes DNR: No Discharge Level of Care: Other Communicable Disease: No Discharge Prognosis: Stable Lines: None Urinary Catheter: No Medications and DC Order Prescriptions: Continued aspirin [Adult Low Dose Aspirin] 81 mg tablet,delayed release (DR/EC) 81 mg PO DAILY RF: 0 atorvastatin [Lipitor] 40 mg tablet 40 mg PO DAILY RF: 0 melatonin 3 mg Tablet 3 mg PO HS Qty: 0 RF: 0 polyethylene glycol 3350 [Miralax] 17 gram/dose Powder 17 g PO DAILY PRN (Reason: Constipation) RF: 0 quetiapine 25 mg tablet 12.5 mg PO HS RF: 0 Lantus Solostar U-100 Insulin 100 unit/mL (3 mL) insulin pen 23 unit SC DAILY RF: 0 docusate sodium [Stool Softener] 100 mg Capsule 100 mg PO BID RF: 0 acetaminophen 325 mg Tablet 650 mg PO Q4H PRN (Reason: Pain) RF: 0 cilostazol 100 mg Tablet 100 mg PO BID 30 Days Qty: 60 RF: 3 ferrous sulfate 325 mg (65 mg iron) Tablet 325 mg PO BID RF: 0 metoprolol succinate 25 mg tablet extended release 24 hr 25 mg PO DAILY RF: 0 Discharge Orders: Discharge Order (Routine); Ordered 07/30/20 Ordered By: Misty Posada Admission Data Admit Date/Time: 07/29/20 00:15 Attending Provider: Randal Dickens Admit Provider: Adan Lancaster Primary Care Provider: [facility] Other Interventions: Discharge Summary Assessment (RN) Last Done: 07/30/20 11:09 Coding Level of Care Code 85201 OBS Care - Discharge Diagnoses UTI (urinary tract infection) N39.0 Fever R50.9 Weakness R53.1
== END 2020-07-30 13:15 | disposition home or self-care (01) ==
LOC: 2N 18:39 → ED 18:39 → SUATTDRO 07-29 00:15 → 2N 07-29 01:05